=== PATIENT | male | born 1955 | race Caucasian/White ===

== ENCOUNTER → 2021-05-08 09:17 | Outpatient (BNVA) | payer MEDICARE, SELFPAY | PROVIDERS: PCP Family Medicine; Visit Provider Family Medicine | DX: Z11.52 Encounter for screening for COVID-19 (principal); Z20.822 Contact with and (suspected) exposure to COVID-19; I10 Essential (primary) hypertension; I25.10 Atherosclerotic heart disease of native coronary artery without angina pectoris | CPT/HCPCS: 80053; 80061; 82043; 85025; 87635 ==

== ENCOUNTER 2021-05-14 08:53 | Day surgery (SDC) | payer MEDICARE, SELFPAY ==
[2021-05-12 13:42] VITALS: BMI 34.2
--- NOTE | 2021-05-14 09:21 | ANES.PREANE2 ---
Pre-Anesthetic Assessment Pre-Anesthetic Assessment: Height/Weight: Height 1.85 m Weight 117.934 kg Preop Diagnosis: diagnostic Proposed Procedure: Operation Date: 05/14/21 10:00 Proposed Procedures p Colonoscopy 70055 Z12.11(Not Applicable) - Earle Rosenthal MD Was Beta Jacqueline taken within 24 hours: Yes Was Clonidine taken within 24 hours: N/A Social: Social History: No alcohol and No tobacco Exam: Pre-Anes Outpt Exam: alert, oriented x 3, clear to auscultation bilaterally and regular rate & rhythm Airway: Submandibular: WNL Cervical ROM: WNL MP: 2 Dentition: Full Pulmonary: Pulmonary: COPD CV/HEM: CV/HEM: CAD (CABG) and HTN Metabolic: Metabolic: Morbid obesity Neuropsych: Neuropsych: Neuropathy Anesthetic Plan: ASA status: 3 Anesthesia: MAC Risk of > 500 ml blood loss (7ml/kg in children): No PFSH Anesthesia PFSH: Medical History CAD (coronary artery disease) CVA (cerebral vascular accident) Essential hypertension GERD (gastroesophageal reflux disease) 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 Diagnosed in 2018 Surgical History History of coronary artery stent placement History of lumbar surgery L3 Status post double vessel coronary artery bypass CABG x 2 Family History Mother Heart disease Father Cancer Brother Diabetes Social History Smoking and tobacco status: never smoked Second hand smoke exposure: No Alcohol intake: never Adopted: No Caregiver/support person: No Lives independently: Yes Household members: spouse Housing: Manufactured/Mobile home Marital status: Number of children: 1 Highest education level completed: High School Graduate service: No Current occupational status: retired and disabled Pets and animals: No History of recent travel: No Sexually active: No Current gender identity: Male Special gautam needs: No Data Anesthesia Cardiac Studies: No Data to Display
[2021-05-14 09:28] VITALS: BP 160/87; PULSE 94; RESP 18; TEMP 36.7; O2SAT 94
[2021-05-14] MEDS: sodium chloride 0.9% 1,000 ML 30 ML IV (09:32)
--- NOTE | 2021-05-14 10:15 | W.PM.OPSFHP ---
Same Day Surgery H&P Indication for Procedure/HPI DATE OF PROCEDURE: May 14, 2021 CHIEF COMPLAINT/INDICATIONFOR SURGICAL PROCEDURE: colonoscpy PREOP DIAGNOSIS: diagnostic PLANNED PROCEDRUE: Operation Date: 05/14/21 10:00 Proposed Procedures p Colonoscopy 62290 Z12.11(Not Applicable) - Earle Rosenthal MD Medications/Allergies* Home Medications Medication Instructions Recorded Confirmed Type ascorbic acid (vitamin C) 1,000 mg 1 g PO DAILY tab 03/27/21 05/14/21 History tablet azithromycin 250 mg tablet 250 mg PO .COMPLEX 03/27/21 05/14/21 History coenzyme Q10 100 mg capsule 100 mg PO DAILY 03/27/21 05/14/21 History elderberry 1 tab PO DAILY 03/27/21 05/14/21 History hydrochlorothiazide 25 mg tablet 25 mg PO DAILY 03/27/21 05/14/21 History mecobalamin (vitamin B12) 5,000 5,000 mcg PO DAILY 03/27/21 05/14/21 History mcg disintegrating tablet metoprolol succinate 25 mg 25 mg PO DAILY 03/27/21 05/14/21 History tablet,extended release 24 hr multivitamin 1 tab PO DAILY 03/27/21 05/14/21 History omeprazole 40 mg capsule,delayed 40 mg PO DAILY 03/27/21 05/14/21 History release sucralfate 1 gram tablet 1 g PO BID 03/27/21 05/14/21 History tamsulosin 0.4 mg capsule 0.4 mg PO DAILY 03/27/21 05/14/21 History Allergies/Adverse Reactions Allergy/AdvReac Type Severity Reaction Status Date / Time No Known Allergies Allergy Verified 05/14/21 09:37 Current Medications: Generic Name Dose Route Start Last Admin Trade Name Freq PRN Reason Stop Dose Admin Sodium Chloride 1,000 mls @ 30 mls/hr 05/14/21 09:00 05/14/21 09:32 Sodium Chloride 0.9% IV 05/15/21 08:59 30 mls/hr .Q24H FER Administration Pertinent History/Comorbid Conditions* Medical History (Updated 05/11/21 @ 08:04 by Micaela Lara DO) CAD (coronary artery disease) CVA (cerebral vascular accident) Essential hypertension GERD (gastroesophageal reflux disease) 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 Diagnosed in 2018 Surgical History (Updated 03/27/21 @ 09:36 by Micaela Lara DO) History of coronary artery stent placement History of lumbar surgery L3 Status post double vessel coronary artery bypass CABG x 2 Family History (Updated 03/27/21 @ 09:22 by Guera Linares LPN) Diabetes Brother Heart disease Mother Cancer Father Social History Smoking and tobacco status: never smoked Second hand smoke exposure: No Alcohol intake: never Adopted: No Caregiver/support person: No Lives independently: Yes Household members: spouse Housing: Manufactured/Mobile home Marital status: Number of children: 1 Highest education level completed: High School Graduate service: No Current occupational status: retired and disabled Pets and animals: No History of recent travel: No Sexually active: No Current gender identity: Male Special gautam needs: No Pertinent Exam Findings alert, oriented x 3 and regular rate & rhythm Recommendations Surgery/Procedure today Coding Level of Care Code Acute Aircraft 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
[2021-05-14 10:43] VITALS: BP 162/114; PULSE 93; RESP 18; TEMP 36.6; O2SAT 95
--- NOTE | 2021-05-14 10:43 | ANE.PACU2 ---
Inpatient post-anesthesia follow up: Airway intact: Yes Vital signs: Temperature 97.9 F Pulse Rate 93 Respiratory Rate 18 Blood Pressure 162/114 Pulse Oximetry 95 Oxygen Delivery Me thod Room Air Oxygen Flow Rate Fraction of Inspir ed Oxygen Hydration adequate: Yes Mental status: Baseline
[2021-05-14 10:52] VITALS: BP 160/91; PULSE 85; RESP 18; TEMP 36.7; O2SAT 92
--- NOTE | 2021-05-14 14:10 | ANE.PACU2 ---
Inpatient post-anesthesia follow up: Airway intact: Yes Vital signs: Temperature 98.1 F Pulse Rate 85 Respiratory Rate 18 Blood Pressure 160/91 Pulse Oximetry 92 Oxygen Delivery Me thod Room Air Oxygen Flow Rate Fraction of Inspir ed Oxygen Hydration adequate: Yes Nausea and vomiting: No Pain level: 1 Mental status: Baseline
== END 2021-05-14 11:11 | disposition home or self-care (01) ==
PROVIDERS: PCP Family Medicine; Visit Provider Surgery
PROC: 0DJD8ZZ Inspection of Lower Intestinal Tract, Via Natural or Artificial Opening Endoscopic (ICD-10-PCS; CPT 45378; principal; 2021-05-14 10:00)
DX: Z12.11 Encounter for screening for malignant neoplasm of colon (principal); K57.30 Diverticulosis of large intestine without perforation or abscess without bleeding; K64.8 Other hemorrhoids; J44.9 Chronic obstructive pulmonary disease, unspecified; I25.10 Atherosclerotic heart disease of native coronary artery without angina pectoris; I10 Essential (primary) hypertension; E66.01 Morbid (severe) obesity due to excess calories; Z68.41 Body mass index [BMI] 40.0-44.9, adult; Z86.73 Personal history of transient ischemic attack (TIA), and cerebral infarction without residual deficits; K21.9 Gastro-esophageal reflux disease without esophagitis; Z95.1 Presence of aortocoronary bypass graft
CPT/HCPCS: 96360; G0121; J2704; J7030

== ENCOUNTER → 2021-05-15 09:41 | Outpatient (BNVA) | payer MEDICARE, SELFPAY | PROVIDERS: PCP Family Medicine; Visit Provider Family Medicine | DX: D64.9 Anemia, unspecified (principal); R73.9 Hyperglycemia, unspecified | CPT/HCPCS: 82607; 82746; 83036 ==

== ENCOUNTER → 2021-06-15 15:26 | Outpatient (BNVA) | payer MEDICARE, SELFPAY | PROVIDERS: PCP Family Medicine; Visit Provider Surgery | DX: Z20.822 Contact with and (suspected) exposure to COVID-19 (principal) | CPT/HCPCS: 87635 ==

== ENCOUNTER 2021-06-21 09:48 | Emergency (ER) | payer MEDICARE, SELFPAY ==
--- NOTE | 2021-06-21 09:52 | W.ED.SOB ---
HPI - SOB/Dyspnea General: Chief Complaint: COVID symptoms Stated Complaint: GEOVANNA 02 CAME FROM INFUSION ROOM Time Seen by Provider: 06/21/21 09:52 History of Present Illness: HPI Narrative: Mr. García is a 65-year-old gentleman with history of hypertension, hyperlipidemia, history of CAD and history of non-small cell lung cancer with metastases status post completion of therapy thought to be remission who presents emergency department due to shortness of breath. Approximately 8 days ago he developed fairly typical COVID symptoms including aches, pains, diarrhea, headache, cough, shortness of breath. He always wears oxygen at night at 2 L however has had increased use to 2 L all the time. He feels mildly worse with exertion however overall feels that he has been improving. He was referred for monoclonal antibody infusion and went to the infusion clinic where he was noted to have oxygen saturations on 2 L at 92% and referred to the ED for clinical evaluation. No associated chest pain or pleuritic nature. Denies other specific changes in health, overall intensity of symptoms is mild to moderate. No other specific exacerbating relieving factors identified. MD elicited complaint: shortness of breath and cough Pertinent past history: other Onset (ago): day(s) Context: recent illness Timing: constant Severity: moderate Exacerbating factors: exertion Relieving factors: oxygen and medication Known history of: COPD and other Associated symptoms: Reports other Treatment prior to arrival: oxygen Review of Systems General: Reports: 10 or more systems reviewed and unremarkable except in HPI and below PFSH ED PFSH: Medical History CAD (coronary artery disease) CVA (cerebral vascular accident) Essential hypertension GERD (gastroesophageal reflux disease) 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 Diagnosed in 2018 Surgical History History of coronary artery stent placement History of lumbar surgery L3 Status post colonoscopy (05/14/21) dvierticulosis Status post double vessel coronary artery bypass CABG x 2 Family History Mother Heart disease Father Cancer Brother Diabetes Social History Smoking and tobacco status: former smoker Second hand smoke exposure: No Alcohol intake: never Adopted: No Caregiver/support person: No Lives independently: Yes Household members: spouse Housing: Manufactured/Mobile home Marital status: Number of children: 1 Highest education level completed: High School Graduate service: No Current occupational status: retired and disabled Pets and animals: No History of recent travel: No Sexually active: No Current gender identity: Male Special gautam needs: No Physical Exam Const: COMMON NORMALS: alert GENERAL APPEARANCE: cooperative, well developed and ill appearing (mildly) HENMT: COMMON NORMALS: normocephalic and atraumatic HEAD & SCALP: normocephalic and atraumatic THROAT: posterior oropharynx normal Eye: COMMON NORMALS: conjunctivae normal CONJUNCTIVA: Yes conjunctivae normal SCLERA: sclerae normal Neck/C-Spine: COMMON NORMALS: supple GENERAL: Yes trachea midline Resp: EFFORT & INSPECTION: Yes tachypneic AUSCULTATION: rhonchi lower bilaterally and diminished lung sounds Cardio: COMMON NORMALS: regular rate and regular rhythm RATE: regular rate RHYTHM: regular rhythm GI: COMMON NORMALS: Soft to palpation PALPATION: Yes Soft to palpation and No Tenderness to palpation present (GI) PERCUSSION: normal to percussion Extremity: GENERAL: Yes normal exam except as noted and No edema Neuro: COMMON NORMALS: moves all extremities SENSORIUM/ORIENTATION: Yes alert and No Orientation impaired Psych: COMMON NORMALS: mental status grossly normal and Normal thought process present THOUGHT PROCESS: Normal thought process present Course ED course: - Patient was seen and evaluated by me at bedside - Patient placed on cardiac monitors, IV access obtained - Initial evaluation notable for exam as above, increased work of breathing. - Labs notable for leukopenia, normal hemoglobin. Metabolic panel with mild hypokalemia, replenishment ordered. Procalcitonin negative. - Imaging notable for bilateral patchy pulmonary opacities consistent with known COVID-19 - Upon serial reexamination after treatment the patient was improved. - Based on patient history, evaluation, labs, and imaging as interpreted the most likely cause of the patient's condition is COVID-19. Patient is currently requiring 2 L of oxygen and is not in significant respiratory distress. Unfortunately, given current COVID-19 burden on the healthcare system and no bed availability patient qualifies for continued outpatient management with strict return precautions. He is currently already on steroids. - The results of ED evaluation were discussed with the patient including prescriptions and/or symptomatic cares (if applicable) including appropriate and responsible use, followup plan, and return precautions. The patient verbalized understanding and felt safe for discharge. - Patient discharged in satisfactory condition. Note: Click bubbles or prepopulated garcía in note writing are used for assistance with data collection and billing and are inherently more limited than narrative and other text portions of this note. Please use narrative for additional clinical history and defer to narrative/free test for any case of contradictory information. If information appears in only free text or click bubble it should be considered present or absent as reported. Please contact note underwriter solicitation director for clarifications of clinical information or contradictory information. MDM is a brief summary, contradictory or erroneous seeming information should be clarified and full note should be reviewed. Vital Signs: Vital signs: Vital Signs Temperature 98.4 F 06/21/21 10:00 Pulse Rate 74 06/21/21 10:00 Respiratory Rate 18 06/21/21 10:00 Blood Pressure 145/75 06/21/21 10:00 Pulse Oximetry 95 06/21/21 10:52 MDM - SOB/Dyspnea MDM Narrative Medical decision making narrative: 65-year-old gentleman presenting with 8 days of symptoms who is Covid positive due to feeling worse. Same 2 L oxygen requirement. Labs and imaging without evidence of additional pathologic process. Plan to continue outpatient management with strict return precautions as has become typical Medical Records Attestation: I reviewed the patient's medical records. Lab Data Attestation: I reviewed the patient's lab results. Result diagrams: 06/21/21 10:25 06/21/21 10:25 Labs: Lab Results 06/21/21 06/21/21 06/21/21 10:25 10:25 11:06 WBC 2.8 10^3/uL L 10^3/uL (4.0-10.0) RBC 4.04 10^6/uL L 10^6/uL (4.1-5.3) Hgb 13.8 g/dL g/dL (11.7-16.6) Hct 41.2 % L % (42.0-52.0) MCV 102.0 fl H fl (80-94) MCH 34.2 pg H pg (28.0-34.0) MCHC 33.5 g/dL g/dL (30.0-36.0) RDW 13.4 % % (12.1-15.1) Plt Count 138 10^3/cmm 10^3/cmm (130-400) MPV 11.1 fL H fL (7.4-10.4) Neut % (Auto) 49.0 % % Lymph % (Auto) 37.6 % % Wilkes % (Auto) 12.2 % % Eos % (Auto) 0.4 % % Baso % (Auto) 0.4 % % Neut # (Auto) 1.37 10^3/uL L 10^3/uL (1.8-7.7) Lymph # (Auto) 1.1 10^3/uL 10^3/uL (0.8-4.8) Wilkes # (Auto) 0.3 10^3/uL 10^3/uL (0.2-0.9) Eos # (Auto) 0.0 10^3/uL 10^3/uL (0.0-0.8) Baso # (Auto) 0.0 10^3/uL 10^3/uL (0.0-0.1) Nucleated RBC % (auto) 0 % % Nucleated RBCs # 0.0 /100WBC /100WBC Specimen Type Arterial Sample Site Brachial, right ABG pH 7.43 (7.35-7.45) ABG pCO2 44.3 mmHg mmHg (35-45) ABG pO2 93.9 mmHg mmHg (80.0-100.0) ABG HCO3 29.0 mmol/L H mmol/L (22-26) ABG O2 Saturation 96.8 ABG Base Excess 4.0 mmol/L H mmol/L (-2.0-2.0) Ambrose Test Pos A-a O2 Gradient 14.0 mmHg H mmHg (5-10) Hematocrit 42.9 % % (42-52) Hgb O2 Saturation 96.1 % % (95-100) Carboxyhemoglobin < 0.0 %THgb L %THgb (0.4-20.1) Methemoglobin 0.9 % % (0.4-1.5) Total Hemoglobin 14.0 g/dL g/dL (14-18) Ionized Calcium 1.2 mmol/L mmol/L (1.1-1.4) O2 Delivery Device Nc O2 Liters/Min 4.0 % % FiO2 36.0 % % South Asian History Professor ID Bd Sodium 139 mmol/L mmol/L 142.0 mmol/L mmol/L (136-145) (131-143) Potassium 3.3 mmol/L L mmol/L 3.1 mmol/L L mmol/L (3.5-5.1) (3.5-5.0) Chloride 102 mmol/L mmol/L (98-107) Carbon Dioxide 22 mmol/L mmol/L (22-29) Anion Gap 18.3 (5-19) BUN 11 mg/dL mg/dL (8-23) Creatinine 0.6 mg/dL L mg/dL (0.7-1.2) GFR Calculation 135.6 mL/min H mL/min (90-130) Glucose 120 mg/dL H mg/dL 123.0 mg/dL H mg/dL (65-115) (70-115) Calculated Osmolality 289 mOsm/kg mOsm/kg (285-295) Calcium 8.8 mg/dL mg/dL (8.5-10.5) Total Bilirubin 0.5 mg/dL mg/dL (0.15-1.2) AST 69 U/L H U/L (0-40) ALT 41 U/L U/L (0-41) Alkaline Phosphatase 46 IU/L IU/L (40-130) NT-Pro-B Natriuret Pep 111 pg/mL pg/mL (0-125) Total Protein 6.7 g/dL g/dL (6.6-8.7) Albumin 3.6 g/dL g/dL (3.5-5.2) Globulin 3.1 g/dL g/dL (1.3-4.6) Procalcitonin 0.08 ng/mL ng/mL (0-0.5) EKG Data^ EKG 1: Interpretation: Twelve-lead EKG shows a regular rhythm at a rate of 73. WA interval 159, QRS 105, QTc 414. Normal axis. Interpretation: Sinus rhythm. Discharge Plan Discharge Patient Disposition: Home Clinical Impression: COVID-19, Hypoxia Condition: Stable Prescriptions: No Action omeprazole 40 mg capsule,delayed release(DR/EC) 40 mg PO QAM 0RF hydrochlorothiazide 25 mg tablet 25 mg PO DAILY 0RF azithromycin 250 mg tablet 250 mg PO .MON,WED,FRI 0RF ascorbic acid (vitamin C) 1,000 mg tablet 1 g PO DAILY 0RF coenzyme Q10 100 mg capsule 100 mg PO DAILY 0RF multivitamin Tablet 1 tab PO DAILY 0RF elderberry 1 tab PO DAILY PRN (Reason: unknown) 0RF albuterol sulfate 90 mcg/actuation aerosol powdr breath activated 2 inh inhalation Q4H PRN (Reason: SOB) Qty: 1 5RF Rx Instructions: 340 B budesonide-formoterol [Symbicort] 160-4.5 mcg/actuation HFA aerosol inhaler 2 puff inhalation Q12H Qty: 10.2 5RF Rx Instructions: 340 B metformin 500 mg tablet extended release 24 hr 500 mg PO DAILY 30 Days Qty: 30 0RF tamsulosin 0.4 mg capsule 0.4 mg PO DAILY 90 Days Qty: 90 0RF meloxicam [Mobic] 15 mg tablet 15 mg PO DAILY 90 Days Qty: 90 0RF ezetimibe [Zetia] 10 mg tablet 10 mg PO DAILY 90 Days Qty: 90 0RF amoxicillin 500 mg capsule 500 mg PO TID 0RF prednisone 20 mg tablet 20 mg PO BID 0RF metoprolol tartrate 25 mg tablet 25 mg PO QAM 0RF Vitamin D3 1 cap PO DAILY 0RF Discharge Orders: Discharge ED (Routine); Ordered 06/21/21 Ordered By: Shaheen Garcia Referrals: Micaela Lara DO [Primary Care Provider] - Discharge Diet: Usual diet Discharge Activity: Resume usual activity Patient Instructions: COVID-19 (Coronavirus Disease 2019) (ED) Activity Restrictions/Additional Instructions: Thank you for visiting the emergency department. You were seen and evaluated for shortness of breath. This is likely related to your underlying COVID. The challenges that given your increase in oxygen use from your baseline that you do not qualify for monoclonal antibody infusion. Please continue to use symptomatic cares and your previously prescribed steroids. Return to the emergency department for worsening symptoms, oxygen saturation at rest less than 90% on oxygen, or anything else that you are concerned about a feel needs emergency department evaluation. Coding Level of Care Code ED Edge Blacker for Amalia Campoverde
[2021-06-21 10:00] VITALS: BP 145/75; PULSE 74; RESP 18; TEMP 36.9; O2SAT 93; BMI 33.0
--- NOTE | 2021-06-21 10:18 | XRR_ITS ---
PROCEDURE INFORMATION: Exam: XR Chest Exam date and time: 06/21/2021 10:18 AM Age: 65 years old Clinical indication: Shortness of breath; Prior surgery; Surgery type: Open heart; Additional info: SOB TECHNIQUE: Imaging protocol: XR of the chest. Views: 1 view. COMPARISON: CR Chest 1 [place] [id number] 02/21/2018 12:58 AM FINDINGS: Lungs: Calcified granuloma noted in the left peripheral mid lung. No consolidation. Pleural spaces: Unremarkable. No pleural effusion. No pneumothorax. Heart/Mediastinum: Heart size within normal limits for AP technique. Bones/joints: Sternotomy wires noted. Visualized osseous structures are intact. XR/XR chest 1V portable [id number] IMPRESSION: No acute findings.
--- NOTE | 2021-06-21 10:18 | ECG_ITS ---
[facility] Test Date: 2021-06-21 Pat Name: Herve García Department: Room: Gender: Male Practicing Urologist: : [id number] Requested By: Shaheen Garcia Order Number: [id number] Fox MD: Griffin Feldman M.D. Measurements Intervals [place] Rate: 73 P: 46 NE: 159 QRS: 37 QRSD: 105 T: 54 QT: 388 QTc: 430 Interpretive Statements SINUS RHYTHM Compared to ECG 02/21/2018 00:05:22 No significant changes Electronically Signed On 06-22-2021 23:58:13 CONTROL MANAGER by Griffin Feldman M.D. [id number]
[2021-06-21 10:52] VITALS: O2SAT 95
[2021-06-21 11:17] LABS: ABG PCO2 44.3 mmHg (35-45); ABG PH Result 7.43 (7.35-7.45); Arterial Blood Gas Hematocrit 42.9 % (42-52); Blood Gas Allen Test Pos; Blood Gas Operator Identificat BD; Blood Gas Sample Site Brachial, right; Blood Gas Sample Type Arterial; Carboxyhemoglobin < 0.0 %THgb (0.4-20.1); HGB O2 Sat 96.1 % (95-100); Ionized Calcium Level - ABG 1.2 mmol/L (1.1-1.4); Methemoglobin 0.9 % (0.4-1.5); Oxygen Device NC; Oxygen Saturation ABG 96.8; PO2 ABG 93.9 mmHg (80.0-100.0); Potassium Level - ABG 3.1 mmol/L (3.5-5.0)
[2021-06-21 11:26] LABS: Basophils % 0.4 %; Eosinophils % 0.4 %; Hematocrit 41.2 % (42.0-52.0); Hemoglobin 13.8 g/dL (11.7-16.6); Lymphocytes # 1.1 10^3/uL (0.8-4.8); Lymphocytes % 37.6 %; Mean Corpuscular Hemoglobin 34.2 pg (28.0-34.0); Mean Platelet Volume 11.1 fL (7.4-10.4); Monocytes # 0.3 10^3/uL (0.2-0.9); Monocytes % 12.2 %; Neutrophils # 1.37 10^3/uL (1.8-7.7); Nucleated Red Blood Cells % 0 %; Red Blood Count 4.04 10^6/uL (4.1-5.3); Red Cell Distribution Width 13.4 % (12.1-15.1); White Blood Count 2.8 10^3/uL (4.0-10.0)
[2021-06-21 11:28] LABS: Mean Corpuscular HGB Conc 33.5 g/dL (30.0-36.0)
[2021-06-21 11:29] LABS: Platelet Count 138 10^3/cmm (130-400)
[2021-06-21 11:32] LABS: NT Pro B Type Natriuretic Pept 111 pg/mL (0-125); Procalcitonin 0.08 ng/mL (0-0.5)
[2021-06-21 11:43] LABS: Alanine Aminotransferase 41 U/L (0-41); Albumin Level 3.6 g/dL (3.5-5.2); Alkaline Phosphatase 46 IU/L (40-130); Anion Gap 18.3 (5-19); Aspartate Amino Transferase 69 U/L (0-40); Blood Urea Nitrogen 11 mg/dL (8-23); Calcium 8.8 mg/dL (8.5-10.5); Carbon Dioxide 22 mmol/L (22-29); Chloride 102 mmol/L (98-107); Globulin 3.1 g/dL (1.3-4.6); Glomerular Filtration Rate 135.6 mL/min (90-130); Glucose 120 mg/dL (65-115); Osmolality Calculated 289 mOsm/kg (285-295); Potassium 3.3 mmol/L (3.5-5.1); Sodium 139 mmol/L (136-145); Total Bilirubin 0.5 mg/dL (0.15-1.2); Total Protein 6.7 g/dL (6.6-8.7)
[2021-06-21] MEDS: potassium chloride ER 20 mEq Tablet 40 MEQ PO (11:56)
== END 2021-06-21 12:44 | disposition home or self-care (01) ==
PROVIDERS: Emergency Provider Emergency Medicine; PCP Family Medicine
DX: U07.1 COVID-19 (principal); R09.02 Hypoxemia; Z79.84 Long term (current) use of oral hypoglycemic drugs; I25.10 Atherosclerotic heart disease of native coronary artery without angina pectoris; Z86.73 Personal history of transient ischemic attack (TIA), and cerebral infarction without residual deficits; I10 Essential (primary) hypertension; Z85.118 Personal history of other malignant neoplasm of bronchus and lung; Z85.89 Personal history of malignant neoplasm of other organs and systems; Z95.1 Presence of aortocoronary bypass graft; Z87.891 Personal history of nicotine dependence
CPT/HCPCS: 36600; 71045; 80051; 80053; 82330; 82805; 83880; 84145; 85025; 93005; 99283

== ENCOUNTER 2021-06-22 12:37 | Inpatient (IN) | payer MEDICARE, SELFPAY ==
[2021-06-22] VITALS (10 sets, daily range): BP systolic 143–163; BP diastolic 71–88; PULSE 58–96; RESP 14–28; TEMP 36.7–37.1; O2SAT 92–96; BMI 33.0
--- NOTE | 2021-06-22 13:41 | XR_ITS ---
WS: [id number] Portable AP upright chest, 06/22/2021 Clinical Data: worsening o2 sats Comparison: Portable chest, 06/21/2021. Findings: Bilateral patchy opacities have occurred since yesterday. They're mostly in the lung periph eries and probably represent the development of acute pneumonia. The heart is normal. No nodules, eff usions or masses are seen. The aortic arch and descending thoracic aorta show calcification and tortu osity. Midline sternotomy sutures are present. XR/XR chest 1V portable [id number] Impression: 1. Development of bilateral patchy pulmonary opacities which may represent acut e pneumonia. 2. Atherosclerosis.
--- NOTE | 2021-06-22 13:52 | ED_ITS ---
Documented by User: ADRYAN Wilson 06/22/21 13:54 HPI - COVID General: Chief Complaint: Shortness of Breath/Dyspnea Stated Complaint: trouble breathing, cov + Time Seen by Provider: 06/22/21 14:06 Triage information: Has fever, cough or shortness of breath . Exposure to COVID + person last 14 days History of Present Illness: HPI Narrative: Patient is tested in Covid waiting room. Patient is having worsening shortness of breath since seen here yesterday. says sats were down in the 70s last night. Patient on oxygen at night generally. Patient now on 5 L in the Covid waiting room sats ranging from 88 to 92%. COVID Results: SARS-CoV-2 RNA (RT-PCR) Detected (NOT DETECTED) A 06/15/21 15:26 06/15/21 PFS ED PFSH: Medical History CAD (coronary artery disease) CVA (cerebral vascular accident) Essential hypertension GERD (gastroesophageal reflux disease) 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 Diagnosed in 2018 Surgical History History of coronary artery stent placement History of lumbar surgery L3 Status post colonoscopy (05/14/21) dvierticulosis Status post double vessel coronary artery bypass CABG x 2 Family History Mother Heart disease Father Cancer Brother Diabetes Social History Smoking and tobacco status: never smoked Second hand smoke exposure: No Alcohol intake: never Adopted: No Caregiver/support person: No Lives independently: Yes Household members: spouse Housing: Manufactured/Mobile home Marital status: Number of children: 1 Highest education level completed: High School Graduate service: No Current occupational status: retired and disabled Pets and animals: No History of recent travel: No Sexually active: No Current gender identity: Male Special gautam needs: No Course Vital Signs: Vital signs: Vital Signs Temperature 98.8 F 06/22/21 12:45 Pulse Rate 89 06/22/21 14:41 Respiratory Rate 20 H 06/22/21 14:41 Blood Pressure 163/83 01/24/22 12:45 Pulse Oximetry 92 06/22/21 14:41 MDM - COVID MDM Narrative: Medical decision making narrative: Brief history and physical exam was performed as part of the triage process. Due to current ED wait time patient will be placed in waiting room until a room becomes available. Explained to patient he/she will be seen in order of severity. Patient is currently safe to wait in the waiting room until we can get them placed. Patient informed that if condition worsens at any time to please let the front desk associate know. Charge nurse notified at 145 patient needs come back as soon as p ossible. Patient's O2 and sats were rechecked and 89 -90%. Ice chips provided. Lab Data: Labs: Lab Results 06/22/21 06/22/21 06/22/21 14:30 14:30 14:30 WBC 2.7 10^3/uL L 10^ 3/uL (4.0-10.0) RBC 4.18 10^6/uL 10^6 /uL (4.1-5.3) Hgb 14.3 g/dL g/dL (11.7-16.6) Hct 42.5 % % (42.0-52.0) MCV 101.7 fl H fl (80-94) MCH 34.2 pg H pg (28.0-34.0) MCHC 33.6 g/dL g/dL (30.0-36.0) RDW 13.4 % % (12.1-15.1) Plt Count 148 10^3/cmm 10^3 /cmm (130-400) MPV 10.4 fL fL (7.4-10.4) Neut % (Auto) 52.1 % % Lymph % (Auto) 38.2 % % [place] % (Auto) 8.6 % % Eos % (Auto) 0.7 % % Baso % (Auto) 0.0 % % Neut # (Auto) 1.39 10^3/uL L 10 ^3/uL (1.8-7.7) Lymph # (Auto) 1.0 10^3/uL 10^3/ uL (0.8-4.8) [place] # (Auto) 0.2 10^3/uL 10^3/ uL (0.2-0.9) Eos # (Auto) 0.0 10^3/uL 10^3/ uL (0.0-0.8) Baso # (Auto) 0.0 10^3/uL 10^3/ uL (0.0-0.1) Nucleated RBC % (a uto) 0 % % Nucleated RBCs # 0.0 /100WBC /100W BC PT 13.40 SECONDS SEC ONDS (12.1-14.9) INR 0.99 (0.8-1.2) D-Dimer 0.75 ug/mIFEU H u g/mIFEU (0-0.59) Specimen Type Arterial ABG pH 7.46 H (7.35-7.45) ABG pCO2 39.3 mmHg mmHg (35-45) ABG pO2 72.4 mmHg L mmHg (80.0-100.0) ABG HCO3 28.1 mmol/L H mmo l/L (22-26) ABG Base Excess 4.0 mmol/L H mmol /L (-2.0-2.0) Ambrose Test Pos Hematocrit 43.4 % % (42-52) Hgb O2 Saturation 93.9 % L % (95-100) Carboxyhemoglobin 0.0 %THgb L %THgb (0.4-20.1) Methemoglobin 0.6 % % (0.4-1.5) Total Hemoglobin 14.1 g/dL g/dL (14-18) O2 Delivery Device Nc O2 Liters/Min 4.0 % % Chemical Processing Equipment Repairer ID Anonymous Sodium Potassium Chloride Carbon Dioxide Anion Gap BUN Creatinine GFR Calculation Glucose Calculated Osmolal ity Calcium Total Bilirubin AST ALT Alkaline Phosphata se Total Protein Albumin Globulin Procalcitonin Urine Color Urine Appearance Urine pH Ur Specific Gravit y Urine Protein Urine Glucose (UA) Urine Ketones Urine Blood Urine Nitrate Urine Bilirubin Urine Urobilinogen Ur Leukocyte Erika ase Urine RBC Urine WBC Ur Squamous Epith Cells Amorphous Sediment Urine Bacteria Urine Mucus 06/22/21 06/22/21 14:30 14:30 WBC RBC Hgb Hct MCV MCH MCHC RDW Plt Count MPV Neut % (Auto) Lymph % (Auto) [place] % (Auto) Eos % (Auto) Baso % (Auto) Neut # (Auto) Lymph # (Auto) [place] # (Auto) Eos # (Auto) Baso # (Auto) Nucleated RBC % (a uto) Nucleated RBCs # PT INR D-Dimer Specimen Type ABG pH ABG pCO2 ABG pO2 ABG HCO3 ABG Base Excess Ambrose Test Hematocrit Hgb O2 Saturation Carboxyhemoglobin Methemoglobin Total Hemoglobin O2 Delivery Device O2 Liters/Min Chemical Processing Equipment Repairer ID Sodium 140 mmol/L mmol/L (136-145) Potassium 3.3 mmol/L L mmol /L (3.5-5.1) Chloride 100 mmol/L mmol/L (98-107) Carbon Dioxide 28 mmol/L mmol/L (22-29) Anion Gap 15.3 (5-19) BUN 9 mg/dL mg/dL (8-23) Creatinine 0.7 mg/dL mg/dL (0.7-1.2) GFR Calculation 113.5 mL/min mL/m in (90-130) Glucose 118 mg/dL H mg/dL (65-115) Calculated Osmolal ity 290 mOsm/kg mOsm/ kg (285-295) Calcium 8.2 mg/dL L mg/dL (8.5-10.5) Total Bilirubin 0.5 mg/dL mg/dL (0.15-1.2) AST 74 U/L H U/L (0-40) ALT 40 U/L U/L (0-41) Alkaline Phosphata se 52 IU/L IU/L (40-130) Total Protein 6.8 g/dL g/dL (6.6-8.7) Albumin 3.9 g/dL g/dL (3.5-5.2) Globulin 2.9 g/dL g/dL (1.3-4.6) Procalcitonin 0.04 ng/mL ng/mL (0-0.5) Urine Color Dark yellow (Yellow) Urine Appearance Clear (CLEAR) Urine pH 6 (5-7) Ur Specific Gravit y 1.020 (1.005-1.030) Urine Protein 1+ H (Negative) Urine Glucose (UA) Norm (Normal) Urine Ketones 1+ H (Negative) Urine Blood 2+ H (Negative) Urine Nitrate Negative (Negative) Urine Bilirubin 1+ H (Negative) Urine Urobilinogen Neg mg/dL mg/dL (Negative) Ur Leukocyte Erika ase Negative (Negative) Urine RBC 0-4 /hpf H /hpf (0-2) Urine WBC 0-4 /hpf H /hpf (0-5) Ur Squamous Epith Cells 0-4 /hpf H /hpf (0-5) Amorphous Sediment Not Reportable Urine Bacteria 1+ /hpf H /hpf (NONE) Urine Mucus Trace /hpf /hpf COVID Results: SARS-CoV-2 RNA (RT-PCR) Detected (NOT DETECTED) A 06/15/21 15:26 06/15/21 Discharge Plan Discharge Patient Disposition: Admitted As Inpatient Clinical Impression: COVID-19, Acute respiratory failure with hypoxia, Acute hypokalemia Condition: Stable Coding Level of Care Code ED Production Gear Cutter for Chg Fwd Exam Detailed Documented by User: Usman Watkins DO 06/22/21 17:26 HPI - COVID General: Chief Complaint: Shortness of Breath/Dyspnea Stated Complaint: trouble breathing, cov + Time Seen by Provider: 06/22/21 14:06 History of Present Illness: HPI Narrative: 65-year-old male presents to the emergency room for reevaluation for his COVID. He has worsening shortness of breath chest pain abdominal discomfort along with diarrhea myalgias and nonproductive cough. His symptoms began 8 days ago he was tested 7 days ago and was positive. He was seen yesterday in the emergency room and discharged home on oxygen by nasal cannula. On arrival here today his baseline oxygen saturation on 2 L was in the 70% range. He improves at 5 L per nasal cannula to around 90 but with minimal conversation or even sitting up in bed during exam he desats into the upper 80s. He denies any chest pain at this time. He is had diarrhea he is diabetic and takes Metformin. He is also obese and hypertensive. MD complaint: known COVID positive Prior testing date: 06/15/21 COVID 19 common symptoms: positive fever(s), chills, cough, non-productive cough, dyspnea, fatigue, body aches, headache(s), throat pain, nasal congestion and diarrhea COVID 19 other sytmptoms: positive requiring more oxygen; negative chest pain Onset (ago): day(s) (8) Severity: severe Pertinent comorbid conditions: diabetes, hypertension and obesity Treatment prior to arrival: steroids and oxygen COVID Results: SARS-CoV-2 RNA (RT-PCR) Detected (NOT DETECTED) A 06/15/21 15:26 06/15/21 Review of Systems Const: Reports: fever(s), chills, body aches and fatigue ENMT: Reports: throat pain and nasal congestion Card: Denies: chest pain, edema, dyspnea on exertion or orthopnea Resp: Reports: dyspnea and non-productive cough GI: Reports: diarrhea : Denies: flank pain, dysuria, urinary frequency or urinary urgency Skin/Breast: Denies: rash or pruritus Neuro: Reports: headache(s) PFSH ED PFSH: Medical History CAD (coronary artery disease) CVA (cerebral vascular accident) Essential hypertension GERD (gastroesophageal reflux disease) 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 Diagnosed in 2018 Surgical History History of coronary artery stent placement History of lumbar surgery L3 Status post colonoscopy (05/14/21) dvierticulosis Status post double vessel coronary artery bypass CABG x 2 Family History Mother Heart disease Father Cancer Brother Diabetes Social History Smoking and tobacco status: never smoked Second hand smoke exposure: No Alcohol intake: never Adopted: No Caregiver/support person: No Lives independently: Yes Household members: spouse Housing: Manufactured/Mobile home Marital status: Number of children: 1 Highest education level completed: High School Graduate service: No Current occupational status: retired and disabled Pets and animals: No History of recent travel: No Sexually active: No Current gender identity: Male Special gautam needs: No Physical Exam Const: GENERAL APPEARANCE: cooperative and comfortable ORIENTA TION/CONSCIOUSNESS: Yes awake, Yes oriented to person, Yes oriented to place and Yes oriented to time HENMT: COMMON NORMALS: normocephalic, atraumatic and hearing grossly normal bilaterally HEAD & SCALP: normocephalic and atraumatic Resp: AUSCULTATION: crackles and wheezes Cardio: COMMON NORMALS: regular rate, regular rhythm and No murmurs present (Cardio) RATE: regular rate RHYTHM: regular rhythm GI: COMMON NORMALS: Soft to palpation and No hepatosplenomegaly present AUSCULTATION: Yes normoactive bowel sounds PALPATION: Yes Soft to palpation, No Tenderness to palpation present (GI), No Guarding due to palpation present (GI) and Yes No hepatosplenomegaly present Extremity: COMMON NORMALS: normal to inspection, capillary refill normal, no clubbing, cyanosis or edema, no calf tenderness and no pedal edema Neuro: SENSORIUM/ORIENTATION: Yes oriented to person, Yes oriented to place and Yes oriented to time Skin: COMMON NORMALS: no rashes or lesions noted GENERAL SKIN EXAM: no rashes or lesions noted Course Vital Signs: Vital signs: Vital Signs Temperature 98.8 F 06/22/21 12:45 Pulse Rate 89 06/22/21 14:41 Respiratory Rate 20 H 06/22/21 14:41 Blood Pressure 163/83 06/22/21 12:45 Pulse Oximetry 92 06/22/21 14:41 MDM - COVID MDM Narrative: Medical decision making narrative: Acute hypoxic respiratory failure with oxygen sats on 2 L in the 70% range. He is requiring heated high flow he will require hospital admission for oxygen support remdesivir and dexamethasone discussed the hospitalist orders written Lab Data: Labs: Lab Results 06/22/21 06/22/21 06/22/21 14:30 14:30 14:30 WBC 2.7 10^3/uL L 10^ 3/uL (4.0-10.0) RBC 4.18 10^6/uL 10^6 /uL (4.1-5.3) Hgb 14.3 g/dL g/dL (11.7-16.6) Hct 42.5 % % (42.0-52.0) MCV 101.7 fl H fl (80-94) MCH 34.2 pg H pg (28.0-34.0) MCHC 33.6 g/dL g/dL (30.0-36.0) RDW 13.4 % % (12.1-15.1) Plt Count 148 10^3/cmm 10^3 /cmm (130-400) MPV 10.4 fL fL (7.4-10.4) Neut % (Auto) 52.1 % % Lymph % (Auto) 38.2 % % [place] % (Auto) 8.6 % % Eos % (Auto) 0.7 % % Baso % (Auto) 0.0 % % Neut # (Auto) 1.39 10^3/uL L 10 ^3/uL (1.8-7.7) Lymph # (Auto) 1.0 10^3/uL 10^3/ uL (0.8-4.8) [place] # (Auto) 0.2 10^3/uL 10^3/ uL (0.2-0.9) Eos # (Auto) 0.0 10^3/uL 10^3/ uL (0.0-0.8) Baso # (Auto) 0.0 10^3/uL 10^3/ uL (0.0-0.1) Nucleated RBC % (a uto) 0 % % Nucleated RBCs # 0.0 /100WBC /100W BC PT 13.40 SECONDS SEC ONDS (12.1-14.9) INR 0.99 (0.8-1.2) D-Dimer 0.75 ug/mIFEU H u g/mIFEU (0-0.59) Specimen Type Arterial ABG pH 7.46 H (7.35-7.45) ABG pCO2 39.3 mmHg mmHg (35-45) ABG pO2 72.4 mmHg L mmHg (80.0-100.0) ABG HCO3 28.1 mmol/L H mmo l/L (22-26) ABG Base Excess 4.0 mmol/L H mmol /L (-2.0-2.0) Ambrose Test Pos Hematocrit 43.4 % % (42-52) Hgb O2 Saturation 93.9 % L % (95-100) Carboxyhemoglobin 0.0 %THgb L %THgb (0.4-20.1) Methemoglobin 0.6 % % (0.4-1.5) Total Hemoglobin 14.1 g/dL g/dL (14-18) O2 Delivery Device Nc O2 Liters/Min 4.0 % % Chemical Processing Equipment Repairer ID Anonymous Sodium Potassium Chloride Carbon Dioxide Anion Gap BUN Creatinine GFR Calculation Glucose Calculated Osmolal ity Calcium Total Bilirubin AST ALT Alkaline Phosphata se Total Protein Albumin Globulin Procalcitonin Urine Color Urine Appearance Urine pH Ur Specific Gravit y Urine Protein Urine Glucose (UA) Urine Ketones Urine Blood Urine Nitrate Urine Bilirubin Urine Urobilinogen Ur Leukocyte Erika ase Urine RBC Urine WBC Ur Squamous Epith Cells Amorphous Sediment Urine Bacteria Urine Mucus 06/22/21 06/22/21 14:30 14:30 WBC RBC Hgb Hct MCV MCH MCHC RDW Plt Count MPV Neut % (Auto) Lymph % (Auto) [place] % (Auto) Eos % (Auto) Baso % (Auto) Neut # (Auto) Lymph # (Auto) [place] # (Auto) Eos # (Auto) Baso # (Auto) Nucleated RBC % (a uto) Nucleated RBCs # PT INR D-Dimer Specimen Type ABG pH ABG pCO2 ABG pO2 ABG HCO3 ABG Base Excess Ambrose Test Hematocrit Hgb O2 Saturation Carboxyhemoglobin Methemoglobin Total Hemoglobin O2 Delivery Device O2 Liters/Min Chemical Processing Equipment Repairer ID Sodium 140 mmol/L mmol/L (136-145) Potassium 3.3 mmol/L L mmol /L (3.5-5.1) Chloride 100 mmol/L mmol/L (98-107) Carbon Dioxide 28 mmol/L mmol/L (22-29) Anion Gap 15.3 (5-19) BUN 9 mg/dL mg/dL (8-23) Creatinine 0.7 mg/dL mg/dL (0.7-1.2) GFR Calculation 113.5 mL/min mL/m in (90-130) Glucose 118 mg/dL H mg/dL (65-115) Calculated Osmolal ity 290 mOsm/kg mOsm/ kg (285-295) Calcium 8.2 mg/dL L mg/dL (8.5-10.5) Total Bilirubin 0.5 mg/dL mg/dL (0.15-1.2) AST 74 U/L H U/L (0-40) ALT 40 U/L U/L (0-41) Alkaline Phosphata se 52 IU/L IU/L (40-130) Total Protein 6.8 g/dL g/dL (6.6-8.7) Albumin 3.9 g/dL g/dL (3.5-5.2) Globulin 2.9 g/dL g/dL (1.3-4.6) Procalcitonin 0.04 ng/mL ng/mL (0-0.5) Urine Color Dark yellow (Yellow) Urine Appearance Clear (CLEAR) Urine pH 6 (5-7) Ur Specific Gravit y 1.020 (1.005-1.030) Urine Protein 1+ H (Negative) Urine Glucose (UA) Norm (Normal) Urine Ketones 1+ H (Negative) Urine Blood 2+ H (Negative) Urine Nitrate Negative (Negative) Urine Bilirubin 1+ H (Negative) Urine Urobilinogen Neg mg/dL mg/dL (Negative) Ur Leukocyte Erika ase Negative (Negative) Urine RBC 0-4 /hpf H /hpf (0-2) Urine WBC 0-4 /hpf H /hpf (0-5) Ur Squamous Epith Cells 0-4 /hpf H /hpf (0-5) Amorphous Sediment Not Reportable Urine Bacteria 1+ /hpf H /hpf (NONE) Urine Mucus Trace /hpf /hpf COVID Results: SARS-CoV-2 RNA (RT-PCR) Detected (NOT DETECTED) A 06/15/21 15:26 06/15/21 Discharge Plan Discharge Patient Disposition: Admitted As Inpatient Clinical Impression: COVID-19, Acute respiratory failure with hypoxia, Acute hypokalemia Condition: Stable Coding Level of Care Code ED Production Gear Cutter for Chg Fwd Exam Detailed
[2021-06-22 14:40] LABS: ABG PCO2 39.3 mmHg (35-45); ABG PH Result 7.46 (7.35-7.45); Arterial Blood Gas Hematocrit 43.4 % (42-52); Blood Gas Allen Test Pos; Blood Gas Operator Identificat Anonymous; Blood Gas Sample Type Arterial; HCO3 ABG 28.1 mmol/L (22-26); HGB O2 Sat 93.9 % (95-100); Methemoglobin 0.6 % (0.4-1.5); PO2 ABG 72.4 mmHg (80.0-100.0); Total Hemoglobin 14.1 g/dL (14-18)
[2021-06-22] MEDS: dexamethasone 10 mg/mL INJ IVP (14:47)
[2021-06-22] MEDS: remdesivir 200 MG in sodium chloride 0.9% (100 ml) 60 ML 100 MG IV (14:54)
[2021-06-22 15:04] LABS: Oxygen Device NC
[2021-06-22 15:15] LABS: Add Urine Microscopic? YES; Bacteria Urine 1+ /hpf; Bilirubin Urine 1+ (Negative); Blood Urine 2+ (Negative); Glucose Urine UA Norm (Normal); Ketones Urine 1+ (Negative); Leukocyte Esterase Urine Negative (Negative); Mucus Urine TRACE /hpf; Nitrate Urine Negative (Negative); Protein Urine 1+ (Negative); RBC Urine 0-4 /hpf (0-2); Squamous Epithelial Cell Urine 0-4 /hpf (0-5); Urine Appearance Clear (CLEAR); Urine Color Dark Yellow (Yellow); Urobilinogen Urine Neg (Negative); WBC Urine 0-4 /hpf (0-5); pH Urine 6 (5-7)
[2021-06-22 15:16] LABS: Add Urine Culture? No
[2021-06-22 15:29] LABS: Alanine Aminotransferase 40 U/L (0-41); Albumin Level 3.9 g/dL (3.5-5.2); Alkaline Phosphatase 52 IU/L (40-130); Anion Gap 15.3 (5-19); Aspartate Amino Transferase 74 U/L (0-40); Blood Urea Nitrogen 9 mg/dL (8-23); Calcium 8.2 mg/dL (8.5-10.5); Carbon Dioxide 28 mmol/L (22-29); Chloride 100 mmol/L (98-107); Globulin 2.9 g/dL (1.3-4.6); Glomerular Filtration Rate 113.5 mL/min (90-130); Glucose 118 mg/dL (65-115); Osmolality Calculated 290 mOsm/kg (285-295); Potassium 3.3 mmol/L (3.5-5.1); Sodium 140 mmol/L (136-145); Total Bilirubin 0.5 mg/dL (0.15-1.2); Total Protein 6.8 g/dL (6.6-8.7)
[2021-06-22 15:32] LABS: Eosinophils % 0.7 %; Hematocrit 42.5 % (42.0-52.0); Hemoglobin 14.3 g/dL (11.7-16.6); Lymphocytes % 38.2 %; Mean Corpuscular HGB Conc 33.6 g/dL (30.0-36.0); Mean Corpuscular Hemoglobin 34.2 pg (28.0-34.0); Mean Corpuscular Volume 101.7 fl (80-94); Mean Platelet Volume 10.4 fL (7.4-10.4); Monocytes # 0.2 10^3/uL (0.2-0.9); Monocytes % 8.6 %; Neutrophils # 1.39 10^3/uL (1.8-7.7); Neutrophils % 52.1 %; Nucleated Red Blood Cells % 0 %; Platelet Count 148 10^3/cmm (130-400); Red Blood Count 4.18 10^6/uL (4.1-5.3); Red Cell Distribution Width 13.4 % (12.1-15.1); White Blood Count 2.7 10^3/uL (4.0-10.0)
[2021-06-22 15:34] LABS: INR 0.99 (0.8-1.2)
[2021-06-22 15:36] LABS: D Dimer 0.75 ug/mIFEU (0-0.59); Procalcitonin 0.04 ng/mL (0-0.5)
--- NOTE | 2021-06-22 15:38 | PC.NURSE ---
while at bedside pt is resting in bed in nad. pt provided with remote he had dropped and a cup to spit in. pt denies any further needs.
[2021-06-22 16:05] LABS: Slide Review Slide Review Perform
--- NOTE | 2021-06-22 16:27 | PC.NURSE ---
UPON ROUNDING PT IS RESTING QUIETLY AND NAD.
--- NOTE | 2021-06-22 17:13 | P.HP_ITS ---
Providers/Chief Complaint Primary Care Provider: Micaela Lara DO Chief Complaint: trouble breathing, cov + History of Present Illness Herve García is a 65 year old male who has history of lung cancer currently in remission, presented today with chief complaint of worsening shortness of breath. Patient has been diagnosed with COVID-19 roughly a week ago, at home he uses 1.5 L of oxygen, with COVID-19 flexion he was requiring 3 to 4 L of oxygen, he was evaluated in the ER on 06/21. He was discharged home, patient was in low 70s on 4 L at home that prompted his visit to the ER next day. Patient is stating that he has been having diarrhea, high-grade fever, loss of appetite and fatigue lethargy and shortness of breath. His is sick with COVID-19 infection as well. He does not smoke, drink alcohol occasionally. He has recently moved to [place] in August for [facility] to enjoy fishing. In the ER he was given loading dose of Decadron and remdesivir, D-dimer 0.7 Currently on heated high flow 45%, 70 L Review of Systems Const: Reports: fever(s), chills, body aches and fatigue Eyes: Reports: change in vision ENMT: Reports: throat pain Card: Denies: chest pain Resp: Reports: dyspnea GI: Reports: diarrhea : Denies: flank pain Musc: Reports: joint pain Skin/Breast: Denies: rash Neuro: Denies: headache(s) Psych: Denies: anxiety Endo: Denies: polyuria En/Lymph: Denies: easy bruising All/Imm: Denies: urticaria Medications/Allergies Home Medications Medication Instructions Recorded Confirmed Last Taken Type ascorbic acid (vitamin C) 1,000 mg 1 g PO DAILY tab 03/27/21 06/18/21 05/13/21 History tablet azithromycin 250 mg tablet 250 mg PO .COMPLEX 03/27/21 06/18/21 05/13/21 History coenzyme Q10 100 mg capsule 100 mg PO DAILY 03/27/21 06/18/21 05/13/21 History elderberry 1 tab PO DAILY 03/27/21 06/18/21 05/13/21 History hydrochlorothiazide 25 mg tablet 25 mg PO DAILY 03/27/21 06/18/21 05/13/21 History mecobalamin (vitamin B12) 5,000 5,000 mcg PO DAILY 03/27/21 06/18/21 1 Week Ago History mcg disintegrating tablet ~05/07/21 metoprolol succinate 25 mg 25 mg PO DAILY 03/27/21 06/18/21 05/13/21 History tablet,extended release 24 hr multivitamin 1 tab PO DAILY 03/27/21 06/18/21 05/13/21 History omeprazole 40 mg capsule,delayed 40 mg PO DAILY 03/27/21 06/18/21 05/13/21 History release sucralfate 1 gram tablet 1 g PO BID 03/27/21 06/18/21 05/13/21 History albuterol sulfate 90 mcg/actuation 2 inh INHALATION Q4H PRN #1 ea 05/08/21 06/18/21 05/14/21 09:00 Rx breath activated powder inhaler budesonide-formoterol HFA 160 2 puff INHALATION Q12H #10.2 g 05/08/21 06/18/21 05/14/21 Rx mcg-4.5 mcg/actuation aerosol inhaler metformin 500 mg tablet,extended 500 mg PO DAILY 30 Days #30 tab 05/18/21 06/18/21 Unknown Rx release 24 hr ezetimibe 10 mg tablet 10 mg PO DAILY 90 Days #90 tab 05/26/21 06/18/21 Unknown Rx meloxicam 15 mg tablet 15 mg PO DAILY 90 Days #90 tab 05/26/21 06/18/21 Unknown Rx tamsulosin 0.4 mg capsule 0.4 mg PO DAILY 90 Days #90 cap 05/26/21 06/18/21 Unknown Rx Allergies Allergy/AdvReac Type Severity Reaction Status Date / Time No Known Allergies Allergy Verified 06/21/21 10:00 PFSH Acute PFSH: Medical History CAD (coronary artery disease) CVA (cerebral vascular accident) Essential hypertension GERD (gastroesophageal reflux disease) 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 Diagnosed in 2018 Surgical History History of coronary artery stent placement History of lumbar surgery L3 Status post colonoscopy (05/14/21) dvierticulosis Status post double vessel coronary artery bypass CABG x 2 Family History Mother Heart disease Father Cancer Brother Diabetes Social History Smoking and tobacco status: never smoked Second hand smoke exposure: No Alcohol intake: never Adopted: No Caregiver/support person: No Lives independently: Yes Household members: spouse Housing: Manufactured/Mobile home Marital status: Number of children: 1 Highest education level completed: High School Graduate service: No Current occupational status: retired and disabled Pets and animals: No History of recent travel: No Sexually active: No Current gender identity: Male Special gautam needs: No Vitals/I&O/Wt Last Vital Signs Temp 98.8 F 06/22/21 12:45 Pulse 89 06/22/21 14:41 Resp 20 H 06/22/21 14:41 BP 163/83 06/22/21 12:45 Pulse Ox 92 06/22/21 14:41 Weight last 48 hrs Weight 113.398 kg Physical Exam Narrative: EXAM NARRATIVE: male appears stated age Currently on heated high flow No active shortness of breath no conversational dyspnea No audible stridor or wheezing S1, S2 Abdomen soft nondistended No signs of edema No focal deficit Appropriate mood and affect EOMI, PERRLA Awake alert 0x3 Data : 06/22/21 14:30 06/22/21 14:30 A&P Assessment and plan (1) COVID-19: Status: Acute (2) Hypoxia: Status: Acute (3) Acute and chronic respiratory failure with hypoxia: Status: Acute (4) Acute hypokalemia: Status: Acute (5) Ventral hernia: Status: Acute (6) BPH (benign prostatic hyperplasia): Status: Chronic Qualifiers: Lower urinary tract symptom presence: symptoms present Lower urinary tract symptom detail: nocturia Qualified Code(s): N40.1 - Benign prostatic hyperplasia with lower urinary tract symptoms; R35.1 - Nocturia (7) Restrictive lung disease: Status: Acute (8) 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: Status: Acute Additional A&P Information COVID-19 related hypoxia Acute on chronic hypoxia At home uses 1.5 to 2 L Currently on heated high flow Start baricitinib, Decadron and remdesivir Patient is at high risk for deterioration Current diagnosis, treatment plan and prognosis discussed with the patient Hypokalemia: Repleted Continue Toprol Hold hydrochlorothiazide I would add lisinopril and amlodipine Continue tamsulosin Patient has history of lung cancer, restrictive lung disease currently in remission Cardiac diet DVT prophylaxis 30 mg every 12h Attestations Medical Necessity Statement*: More than 2 midnights anticipated for COVID-19 related infection treatment Time Spent in Patient Care: Greater than 35 minutes Coding Level of Care Code Acute Environmental Test Technician for [facility] Fwd Diagnoses COVID-19 U07.1 Hypoxia R09.02 Acute and chronic respiratory failure with hypoxia J96.21 Acute hypokalemia E87.6 Ventral hernia K43.9 BPH (benign prostatic hyperplasia) N40.1; R35.1 Lower urinary tract symptom presence: symptoms present Lower urinary tract symptom detail: nocturia Restrictive lung disease J98.4 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
--- NOTE | 2021-06-22 18:33 | PC.NURSE ---
WHILE AT BEDSIDE PT CONDITION IS UNCHANGED. PT DENIES ANY FURTHER NEEDS.
--- NOTE | 2021-06-22 19:07 | PC.NURSE ---
REPORT GIVEN TO MAY [facility] ASSUMED CARE.
[2021-06-22] MEDS: enoxaparin 40 mg/0.4 mL Syringe 30 MG SUBCUT (22:23)
[2021-06-22] MEDS: dexamethasone 10 mg/mL INJ 6 MG IVP (22:23)
[2021-06-22] MEDS: benzonatate 100 mg Capsule 200 MG PO (23:47)
[2021-06-23] VITALS (9 sets, daily range): BP systolic 136–160; BP diastolic 75–85; PULSE 67–88; RESP 16–22; TEMP 36.7–37; O2SAT 91–96
--- NOTE | 2021-06-23 02:26 | PC.NURSE ---
Resting in bed. No cough noted at present. High flow in use 60% 40L.
[2021-06-23 02:42] LABS: ABG PCO2 42.5 mmHg (35-45); ABG PH Result 7.44 (7.35-7.45); Arterial Blood Gas Hematocrit 41.3 % (42-52); Base Excess ABG 4.1 mmol/L (-2.0-2.0); Blood Gas Allen Test Pos; Blood Gas Sample Site Radial, right; Blood Gas Sample Type Arterial; HCO3 ABG 28.8 mmol/L (22-26); Oxygen Device NC
--- NOTE | 2021-06-23 05:55 | PC.NURSE ---
0400 Resting in bed. Easily arouses. No acute resp distress. Highflow in use.
--- NOTE | 2021-06-23 05:56 | PC.NURSE ---
0530 Sitting up in bed with High flow in use. No requests.
[2021-06-23 06:21] LABS: Hematocrit 32.9 % (42.0-52.0); Hemoglobin 13.9 g/dL (11.7-16.6); Lymphocytes # 0.8 10^3/uL (0.8-4.8); Lymphocytes % 46.4 %; Mean Corpuscular HGB Conc 42.2 g/dL (30.0-36.0); Mean Corpuscular Volume 101.9 fl (80-94); Mean Platelet Volume 10.1 fL (7.4-10.4); Monocytes # 0.1 10^3/uL (0.2-0.9); Monocytes % 7.2 %; Neutrophils % 44.6 %; Nucleated Red Blood Cells % 0 %; Platelet Count 137 10^3/cmm (130-400); Red Blood Count 3.23 10^6/uL (4.1-5.3); Red Cell Distribution Width 13.2 % (12.1-15.1); White Blood Count 1.7 10^3/uL (4.0-10.0)
[2021-06-23 06:38] LABS: Glucose Point of Care 222 mg/dL (70-110)
[2021-06-23 06:53] LABS: Alanine Aminotransferase 34 U/L (0-41); Albumin Level 3.6 g/dL (3.5-5.2); Alkaline Phosphatase 50 IU/L (40-130); Anion Gap 15.5 (5-19); Aspartate Amino Transferase 60 U/L (0-40); Blood Urea Nitrogen 11 mg/dL (8-23); C Reactive Protein 52.3 mg/L (0.0-4.9); Calcium 8.3 mg/dL (8.5-10.5); Carbon Dioxide 24 mmol/L (22-29); Chloride 99 mmol/L (98-107); Glomerular Filtration Rate 135.6 mL/min (90-130); Glucose 200 mg/dL (65-115); Lactate Dehydrogenase 327 U/L (135-225); Magnesium 2.2 mg/dL (1.7-2.3); Osmolality Calculated 285 mOsm/kg (285-295); Potassium 3.5 mmol/L (3.5-5.1); Sodium 135 mmol/L (136-145); Total Bilirubin 0.5 mg/dL (0.15-1.2); Total Protein 6.6 g/dL (6.6-8.7)
[2021-06-23 08:03] LABS: Neutrophils # 0.74 10^3/uL (1.8-7.7)
[2021-06-23 08:04] LABS: Slide Review Slide Review Perform
[2021-06-23] MEDS: sennosides-docusate Tablet 1 TAB PO (08:32)
[2021-06-23] MEDS: enoxaparin 40 mg/0.4 mL Syringe 30 MG SUBCUT ×2 (10:47→22:29)
--- NOTE | 2021-06-23 11:58 | PM.PN ---
Subjective Subjective: Interval history: Patient has become neutropenic this morning discontinued baricitinib FiO2 titrated down to 50%, currently on 40 L Patient is endorsing feeling better, still endorsing diarrhea and mild nonproductive cough Vitals/I&O/Wt Last Vital Signs Temp 98.1 F 06/23/21 08:00 Pulse 85 06/23/21 09:34 Resp 16 06/23/21 09:34 BP 136/85 06/23/21 08:00 Pulse Ox 94 06/23/21 09:34 06/22/21 06/23/21 06/23/21 22:59 06:59 14:59 Intake Total 240 / 240 240 / 240 Output Total 480 / 480 Balance -240 / -240 240 / 240 Weight last 48 hrs Weight 113.398 kg Weight 113.398 kg Physical Exam Narrative: EXAM NARRATIVE: On heated high flow with no active coughing or shortness of breath or conversational dyspnea S1, S2 Nonfocal neuro exam Looks well-hydrated Nonfocal neuro exam EOMI, PERRLA Abdomen soft, signs of ventral hernia however no signs obstruction p Data : 06/23/21 05:56 06/23/21 05:56 A&P Assessment and plan (1) Acute and chronic respiratory failure with hypoxia: Status: Acute (2) COVID-19: Status: Acute (3) 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: Status: Acute (4) Restrictive lung disease: Status: Acute (5) BPH (benign prostatic hyperplasia): Status: Chronic Qualifiers: Lower urinary tract symptom presence: symptoms present Lower urinary tract symptom detail: nocturia Qualified Code(s): N40.1 - Benign prostatic hyperplasia with lower urinary tract symptoms; R35.1 - Nocturia (6) Ventral hernia: Status: Acute Attestations Medical Necessity Statement*: Continue medical management COVID-19 hypoxia Coding Level of Care Code 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
[2021-06-23] MEDS: remdesivir 100 MG in sodium chloride 0.9% (100 ml) 100 ML IV (17:43)
[2021-06-23] MEDS: benzonatate 100 mg Capsule 200 MG PO (20:03)
[2021-06-23] MEDS: dexamethasone 10 mg/mL INJ 6 MG IVP (22:29)
[2021-06-24] VITALS (11 sets, daily range): BP systolic 131–160; BP diastolic 75–94; PULSE 72–93; RESP 17–22; TEMP 36.4–36.9; O2SAT 91–95
--- NOTE | 2021-06-24 00:24 | PC.NURSE ---
2000 basin with warm water given to wash up per pt request. Soap, tooth paste and toothbrush also given.
--- NOTE | 2021-06-24 00:25 | PC.NURSE ---
2200 Pt easily awakens. No distress. Difficulty resting due to room mate activity.
--- NOTE | 2021-06-24 00:26 | PC.NURSE ---
0015 Awakens when room mate bed alarm goes off. Pt has no distress, just tired. High flow in use.
[2021-06-24] MEDS: benzonatate 100 mg Capsule 200 MG PO ×2 (01:58→18:39)
[2021-06-24 05:49] LABS: Anion Gap 13.8 (5-19); Blood Urea Nitrogen 15 mg/dL (8-23); Calcium 8.5 mg/dL (8.5-10.5); Carbon Dioxide 26 mmol/L (22-29); Chloride 105 mmol/L (98-107); Glomerular Filtration Rate 135.6 mL/min (90-130); Glucose 206 mg/dL (65-115); Osmolality Calculated 299 mOsm/kg (285-295); Potassium 3.8 mmol/L (3.5-5.1); Sodium 141 mmol/L (136-145)
[2021-06-24 07:16] LABS: Hemoglobin 13.8 g/dL (11.7-16.6); Lymphocytes # 0.7 10^3/uL (0.8-4.8); Lymphocytes % 18.4 %; Mean Corpuscular HGB Conc 34.5 g/dL (30.0-36.0); Mean Corpuscular Hemoglobin 34.3 pg (28.0-34.0); Mean Corpuscular Volume 99.5 fl (80-94); Monocytes # 0.2 10^3/uL (0.2-0.9); Monocytes % 5.7 %; Neutrophils # 2.91 10^3/uL (1.8-7.7); Neutrophils % 75.6 %; Nucleated Red Blood Cells % 0 %; Platelet Count 158 10^3/cmm (130-400); Red Blood Count 4.02 10^6/uL (4.1-5.3); Red Cell Distribution Width 13.2 % (12.1-15.1); White Blood Count 3.9 10^3/uL (4.0-10.0)
[2021-06-24 07:41] LABS: Glucose Point of Care 218 mg/dL (70-110)
[2021-06-24 07:41] LABS: Glucose Point of Care 188 mg/dL (70-110)
[2021-06-24] MEDS: lidocaine 2% viscous 15 ML, aluminum-mag hydrox-simethicon 30 ML, sucralfate oral liq 1 GM PO (08:25)
[2021-06-24] MEDS: pantoprazole DR 40 mg Tablet PO (08:26)
[2021-06-24] MEDS: sennosides-docusate Tablet 1 TAB PO (08:26)
[2021-06-24] MEDS: enoxaparin 40 mg/0.4 mL Syringe 30 MG SUBCUT ×2 (10:10→22:32)
--- NOTE | 2021-06-24 13:34 | PM.PN ---
Subjective Subjective: Interval history: Neutropenia improving after discontinue today of baricitinib, afebrile This morning patient is on heated high flow 50% 40 L asked RT to wean his oxygen down, diarrhea seems to be improved Tolerating his p.o. diet Vitals/I&O/Wt Last Vital Signs Temp 97.6 F 06/24/21 11:49 Pulse 80 06/24/21 11:49 Resp 17 06/24/21 11:49 BP 160/94 06/24/21 11:49 Pulse Ox 92 06/24/21 11:49 06/23/21 06/24/21 06/24/21 22:59 06:59 14:59 Intake Total 560 / 800 550 / 1350 360 / 360 Balance 560 / 800 550 / 1350 360 / 360 Weight last 48 hrs Weight 113.398 kg Physical Exam Narrative: EXAM NARRATIVE: Patient was sitting at the bedside when I entered the room Heated high flow S1, S2 Bilateral breath sounds with mild rhonchi at the base No labored breathing Abdomen soft with obesity No signs of edema Nonfocal neuro exam Data : 06/24/21 05:16 06/24/21 05:16 A&P Assessment and plan (1) Acute and chronic respiratory failure with hypoxia: Status: Acute (2) COVID-19: Status: Acute (3) Hypoxia: Status: Acute (4) Acute respiratory failure with hypoxia: Status: Acute (5) Acute hypokalemia: Status: Acute (6) Ventral hernia: Status: Acute (7) BPH (benign prostatic hyperplasia): Status: Chronic Qualifiers: Lower urinary tract symptom presence: symptoms present Lower urinary tract symptom detail: nocturia Qualified Code(s): N40.1 - Benign prostatic hyperplasia with lower urinary tract symptoms; R35.1 - Nocturia (8) GERD (gastroesophageal reflux disease): Status: Chronic (9) Restrictive lung disease: Status: Acute (10) 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: Status: Acute Plan COVID-19 related hypoxia, wean off oxygen, currently on 50% heated high flow with 40 L Discontinued baricitinib Neutropenia improving Afebrile Hyperglycemia related to steroid use, would use sliding scale for now Hypokalemia: Repleted BPH no active signs of obstruction Continue tamsulosin History of cancer currently remission Full code Continue regular diet DVT prophylaxis Lovenox 30 mg every 12 hours secondary to high BMI Attestations Medical Necessity Statement*: Continue medical management for COVID-19 related hypoxia Time Spent in Patient Care: 15min Coding Level of Care Code Acute [employer]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
[2021-06-24] MEDS: remdesivir 100 MG in sodium chloride 0.9% (100 ml) 100 ML IV (17:49)
[2021-06-24] MEDS: ipratropium-albuterol 3 mL Neb INHALATION ×2 (18:00→21:22)
[2021-06-24] MEDS: dexamethasone 10 mg/mL INJ 6 MG IVP (22:31)
[2021-06-25] VITALS (12 sets, daily range): BP systolic 138–152; BP diastolic 72–83; PULSE 65–111; RESP 16–22; TEMP 36.3–36.6; O2SAT 89–93
[2021-06-25] MEDS: benzonatate 100 mg Capsule 200 MG PO ×2 (00:18→06:04)
[2021-06-25] MEDS: acetaminophen 500 mg Tablet PO (00:18)
[2021-06-25 03:59] LABS: ABG PCO2 42.9 mmHg (35-45); ABG PH Result 7.41 (7.35-7.45); Arterial Blood Gas Hematocrit 42.9 % (42-52); Base Excess ABG 2.5 mmol/L (-2.0-2.0); Blood Gas Allen Test Pos; Blood Gas Sample Site Radial, left; Blood Gas Sample Type Arterial; HCO3 ABG 27.4 mmol/L (22-26); Oxygen Device NC; PO2 ABG 50.2 mmHg (80.0-100.0)
[2021-06-25 05:54] LABS: Hematocrit 41.5 % (42.0-52.0); Hemoglobin 14.1 g/dL (11.7-16.6); Lymphocytes # 0.5 10^3/uL (0.8-4.8); Lymphocytes % 13.3 %; Mean Corpuscular Hemoglobin 34.3 pg (28.0-34.0); Mean Platelet Volume 11.3 fL (7.4-10.4); Monocytes # 0.2 10^3/uL (0.2-0.9); Monocytes % 5.3 %; Neutrophils # 3.24 10^3/uL (1.8-7.7); Neutrophils % 81.1 %; Nucleated Red Blood Cells % 0 %; Platelet Count 150 10^3/cmm (130-400); Red Blood Count 4.11 10^6/uL (4.1-5.3); Red Cell Distribution Width 13.3 % (12.1-15.1)
[2021-06-25 06:02] LABS: Anion Gap 15.9 (5-19); Blood Urea Nitrogen 15 mg/dL (8-23); Carbon Dioxide 24 mmol/L (22-29); Chloride 106 mmol/L (98-107); Glomerular Filtration Rate 135.6 mL/min (90-130); Glucose 224 mg/dL (65-115); Osmolality Calculated 302 mOsm/kg (285-295); Potassium 3.9 mmol/L (3.5-5.1); Sodium 142 mmol/L (136-145)
[2021-06-25] MEDS: metoprolol tartrate 25 mg Tablet PO (06:04)
[2021-06-25] MEDS: hydroCHLOROthiazide 25 mg Tablet PO (08:16)
[2021-06-25] MEDS: tamsulosin 0.4 mg Capsule PO (08:16)
[2021-06-25] MEDS: ascorbic acid 500 mg Tablet PO ×2 (08:16→18:17)
[2021-06-25] MEDS: zinc gluconate 50 mg Tablet PO (08:16)
[2021-06-25] MEDS: pantoprazole DR 40 mg Tablet PO (08:16)
--- NOTE | 2021-06-25 08:54 | PC.SOCIAL ---
IMM Update Pg. 2 of IMM updated. Initialed, dated, and timed. Copy provided to patient.
[2021-06-25] MEDS: ipratropium-albuterol 3 mL Neb INHALATION ×2 (08:57→15:05)
[2021-06-25] MEDS: enoxaparin 40 mg/0.4 mL Syringe 30 MG SUBCUT ×2 (10:01→21:38)
--- NOTE | 2021-06-25 10:16 | CT_ITS ---
WS: [id number] CT CHEST ANGIOGRAPHY WITH REFORMATS HISTORY: Pulmonary embolism TECHNIQUE: Contiguous axial images are obtained through the chest during arterial injection of intrav enous contrast. Images are reconstructed to evaluate the pulmonary arteries. MIP imaging also reviewe d. All CT scans at [facility] use at least one of these dose optimization techniques: automat ed exposure control; mA and/or kV adjustment per patient size (includes targeted exams where dose is matched to clinical indication); or iterative reconstruction. CONTRAST: Omnipaque 350; 76 mL IV. DLP: 580.58 mGy.cm COMPARISON: None available. No central pulmonary embolism. Beyond the segmental branches the opacification becomes limited. Pulmo nary artery size is normal. Mild atherosclerosis of aorta. Heart size is normal. No pericardial or pl eural effusions. Extensive bilateral groundglass attenuation and increased in the interstitium throughout both lungs. Noncalcified 4 mm nodule in the RIGHT middle lobe. There are also a few scattered calcified granulom megan. No pneumothorax or pleural effusion. No mediastinal or hilar adenopathy. Hepatic steatosis. Cholelithiasis without acute cholecystitis. No adrenal mass. There is a lytic lesion involving approximately 50% of the T11 vertebral body. There is mild peripher al sclerosis surrounding the lytic lesion. Lytic changes extending into the LEFT pedicle and transver se process. There is destruction of the cortex posteriorly and to the LEFT. CT/CT angio chest PE protcl [id number] IMPRESSION: 1. No pulmonary embolism through the segmental branches. 2. Diffuse bilateral groundglass attenuation probably due to pneumonitis or Co vid 19. 3. Destructive lytic lesion involving the T11 vertebral body and LEFT posterio r elements. Suspect metastatic bone disease. No cord compression is evident by this examination. 4. No mediastinal adenopathy.
--- NOTE | 2021-06-25 10:17 | USCV_ITS ---
GarcíaHerve espinoza Age: 65 Gender: M : 1955 Exam Date: 06/25/2021 10:39 Ordering Phys: Dre Wolfe MD Technologist: Exam [place] [facility] [place]: BLE SWELLING HISTORY: Lower extremity swelling. PROCEDURES: Venous duplex imaging was performed in bilateral lower extremities. The following venous structures were evaluated: common femoral vein, profunda vein, proximal portion of the greater saphenous vein, superficial femoral vein, and the popliteal vein. In addition, the posterior tibial and peroneal trunk were evaluated. Serial compression, augmentation maneuvers, and spectral Doppler flow evaluation were performed. FINDINGS: Normal 2-D Doppler and augmentation and compressibility throughout the lower extremity venous structures. Additional imaging through the proximal calf veins also reveals no thrombus. Limited evaluation of the greater saphenous vein is patent with no thrombus. CONCLUSIONS No DVT bilateral lower extremities. Dr. Gail Resendiz DO (Electronically Signed) Final Date: 25 June 2021 12:26 S
[2021-06-25] MEDS: cefTRIAXone 1,000 MG in sodium chloride 0.9% (plus) 50 ML 100 MG IV (11:11)
[2021-06-25 11:13] LABS: NT Pro B Type Natriuretic Pept 116 pg/mL (0-125)
[2021-06-25 11:28] LABS: D Dimer 0.51 ug/mIFEU (0-0.59)
[2021-06-25] MEDS: iohexol 350 mg/mL 100 mL Btl IV (12:21)
[2021-06-25 13:24] LABS: Glucose Point of Care 196 mg/dL (70-110)
[2021-06-25] MEDS: remdesivir 100 MG in sodium chloride 0.9% (100 ml) 100 ML IV (18:17)
--- NOTE | 2021-06-25 19:19 | P.PN_ITS ---
Subjective Subjective: Interval history: This morning FiO2 increased to 70%, hypoxia noted on ABG, patient was adamant about ivermectin however I did discuss with him and his that it is not a pproved and there is no guideline to start ivermectin inpatient yet He is not a good candidate for baricitinib because of his immunocompromised state, it made him neutropenic which I have discontinued Repeated D-dimer, CTA chest rule out PE, no signs of DVT No active signs of consolidation Empirical antibiotic coverage added He cannot prone himself because of ventral hernia Awaiting records from [facility] Vitals/I&O/Wt Last Vital Signs Temp 97.9 F 06/25/21 16:00 Pulse 92 06/25/21 16:00 Resp 16 06/25/21 16:00 BP 146/75 06/25/21 16:00 Pulse Ox 90 06/25/21 16:00 06/25/21 06/25/21 06/25/21 06:59 14:59 22:59 Intake Total 200 / 1480 510 / 510 Output Total 1000 / 1000 Balance 200 / 1480 -490 / -490 Physical Exam Narrative: EXAM NARRATIVE: Patient sitting comfortably no active conversational dyspnea however mild tac hypnea noted Heated high flow 70%, 50 L Abdomen soft ventral hernia S1, S2 Nonfocal neuro exam Appropriate mood and affect Euvolemic Data : 06/25/21 05:08 06/25/21 05:08 A&P Assessment and plan (1) Acute and chronic respiratory failure with hypoxia: Status: Acute (2) COVID-19: Status: Acute (3) Acute hypokalemia: Status: Acute (4) Ventral hernia: Status: Acute (5) BPH (benign prostatic hyperplasia): Status: Chronic Qualifiers: Lower urinary tract symptom presence: symptoms present Lower urinary tract symptom detail: nocturia Qualified Code(s): N40.1 - Benign prostatic hype rplasia with lower urinary tract symptoms; R35.1 - Nocturia (6) Chronic low back pain: Status: Acute (7) Restrictive lung disease: Status: Acute (8) 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: Status: Acute (9) Essential hypertension: Status: Chronic (10) GERD (gastroesophageal reflux disease): Status: Chronic Plan Acute on chronic COVID-19 related hypoxia At admission he was on 40 L, 70%, FiO2 was weaned down to 50% in next 30 hours however ABG showing persistent hypoxia PO2 50s FiO2 requirement today 70%, will transfer to ICU Continue remdesivir and Decadron Will add empirical antibiotic coverage, continue every 12 prophylactic dose of Lovenox Obtain CTA chest to rule out PE, venous Dopplers today D-dimer unremarkable Neutropenia: Improved Diarrhea resolved Awaiting records from [facility] Patient was previously seeing Dr. Herve Vega for oncology and Dr. Cavanaugh, a buffer chrome at [facility] in [place], [place]. 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
[2021-06-25] MEDS: dexamethasone 10 mg/mL INJ 6 MG IVP (21:38)
[2021-06-26] VITALS (80 sets, daily range): BP systolic 120–167; BP diastolic 54–96; PULSE 64–107; RESP 15–34; TEMP 37–37.2; O2SAT 17–95
--- NOTE | 2021-06-26 03:14 | PC.NURSE ---
Transfer Note Patient transferred to ICU room 9 from [facility] via bed. Handoff received from TIFF Arteaga. Patient oriented to environment and equipment. Covering service notified. Orders reviewed and will continue to monitor. Family and/or congressional representative notified. All patient belongings at bedside including home oxygen tank and cell phone.
[2021-06-26 05:01] LABS: ABG PH Result 7.47 (7.35-7.45); Arterial Blood Gas Hematocrit 42.3 % (42-52); Base Excess ABG 4.8 mmol/L (-2.0-2.0); Blood Gas Allen Test Pos; Blood Gas Sample Site Radial, left; Blood Gas Sample Type Arterial; HCO3 ABG 28.7 mmol/L (22-26); Oxygen Device NC; PO2 ABG 63.3 mmHg (80.0-100.0)
[2021-06-26 05:55] LABS: Hemoglobin 13.8 g/dL (11.7-16.6); Lymphocytes # 0.8 10^3/uL (0.8-4.8); Lymphocytes % 14.3 %; Mean Corpuscular HGB Conc 33.7 g/dL (30.0-36.0); Mean Corpuscular Hemoglobin 34.7 pg (28.0-34.0); Monocytes # 0.2 10^3/uL (0.2-0.9); Monocytes % 4.1 %; Neutrophils # 4.52 10^3/uL (1.8-7.7); Neutrophils % 80.9 %; Nucleated Red Blood Cells % 0 %; Platelet Count 152 10^3/cmm (130-400); Red Blood Count 3.98 10^6/uL (4.1-5.3); Red Cell Distribution Width 13.3 % (12.1-15.1); White Blood Count 5.6 10^3/uL (4.0-10.0)
[2021-06-26] MEDS: metoprolol tartrate 25 mg Tablet PO (05:59)
[2021-06-26 06:03] LABS: Anion Gap 16.9 (5-19); Blood Urea Nitrogen 14 mg/dL (8-23); Calcium 8.2 mg/dL (8.5-10.5); Carbon Dioxide 23 mmol/L (22-29); Chloride 102 mmol/L (98-107); Glomerular Filtration Rate 135.6 mL/min (90-130); Glucose 213 mg/dL (65-115); Osmolality Calculated 293 mOsm/kg (285-295); Potassium 3.9 mmol/L (3.5-5.1); Sodium 138 mmol/L (136-145)
--- NOTE | 2021-06-26 06:10 | PC.NURSE ---
Shift Note Frequent safety and comfort rounds continue. Orders and/or nursing care completed as indicated. Patient monitored for response to intervention and treatment(s). Education provided includes heated high flow and medication. Patient verbalized understanding of teaching. Patient remains on heated high flow 50L/80% FiO2 and had no complaints of pain overnight. He had 200 mls of urine out overnight. No wounds or skin issues noted at this time. Will continue to monitor.
--- NOTE | 2021-06-26 07:48 | P.CONIM_ITS ---
Providers/Reason For Consult Consulting Physician/Specialty*: Phu Cazares MD / Pulmonary Critical Care Reason for Consult*: Acute hypoxic respiratory failure secondary to ARDS due to COVID-19 pneumonia Requesting Physician: rDe Wolfe MD Attending Physician: Dre Wolfe MD Primary Care Provider: Micaela Lara DO History of Present Illness History of Present Illness Upon review of the chart, Herve García is a 65 year old male who has history of non-small cell lung cancer diagnosed in 2018 s/p Keytruda currently in remission as per patient follows up with oncology and pulmonary in [place], presented to ED on 06/22/2021 with chief complaint of worsening shortness of breath.? Patient has been diagnosed with COVID-19 roughly 06/15/2021, at home he uses 1.5 L of oxygen, since COVID-19 diagnosis he was requiring 3 to 4 L of oxygen, he was evaluated in the ER on 06/21.? He was discharged home, patient was in low 70s on 4 L at home that prompted his visit to the ER next day. At the time of admission he stated havi ng diarrhea, high-grade fever, loss of appetite and fatigue lethargy and shortness of breath.? His is sick with COVID-19 infection as well.? He has recently moved to [place] in August for halfway to enjoy fishing.? In the ER he was given loading dose of Decadron and remdesivir, D-dimer 0.7 and placed on heated high flow 45%, 70 L. Later he received baricitinib but it was discontinued as he developed neutropenia. He reported to me smoking 1 pack/day for 30 years and quit in 2011. In 2018 he underwent colonoscopy and biopsies showed metastatic non-small cell lung cancer after which she underwent bowel resection. He said his cancer was metastatic to lymph nodes and spine and intestine. He received Keytruda and claims that he is in remission now. CT angiogram showed diffuse bilateral GGO's consistent with COVID-19 pneumonia negative for PE and venous Doppler negative for DVT. His oxygen requirement gradually increased up to 50 L 80% today morning. Patient was requesting for ivermectin. Pulmonary critical care consulted for acute hypoxic respiratory failure requiring high flow oxygen requirements He reported to me smoking 1 pack/day for 30 years and quit in 2011. In 2018 he underwent colonoscopy and biopsies showed metastatic non-small cell lung cancer after which she underwent bowel resection. He said his cancer was metastatic to lymph nodes and spine and intestine. He received Keytruda and claims that he is in remission now. Review of Systems Const: Reports: fever(s), chills, body aches and fatigue Eyes: Reports: change in vision ENMT: Reports: throat pain Card: Denies: chest pain Resp: Reports: dyspnea GI: Reports: diarrhea : Denies: flank pain Musc: Reports: joint pain Skin/Breast: Denies: rash Neuro: Denies: headache(s) Psych: Denies: anxiety Endo: Denies: polyuria En/Lymph: Denies: easy bruising All/Imm: Denies: urticaria Medications/Allergies Home Medications Medication Instructions Recorded Confirmed Last Taken Type ascorbic acid (vitamin C) 1,000 mg 1 g PO DAILY tab 03/27/21 06/23/21 05/13/21 History tablet azithromycin 250 mg tablet 250 mg PO .MON,WED,Tue03/27/21 06/23/21 05/13/21 History coenzyme Q10 100 mg capsule 100 mg PO DAILY 03/27/21 06/23/21 05/13/21 History elderberry 1 tab PO DAILY PRN 03/27/21 06/23/21 05/13/21 History hydrochlorothiazide 25 mg tablet 25 mg PO DAILY 03/27/21 06/23/21 05/13/21 History multivitamin 1 tab PO DAILY 03/27/21 06/23/21 05/13/21 History omeprazole 40 mg capsule,delayed 40 mg PO QAM 03/27/21 06/23/21 05/13/21 History release albuterol sulfate 90 mcg/actuation 2 inh INHALATION Q4H PRN #1 ea 05/08/21 06/23/21 05/14/21 09:00 Rx breath activated powder inhaler budesonide-formoterol HFA 160 2 puff INHALATION Q12H #10.2 g 05/08/21 06/23/21 05/14/21 Rx mcg-4.5 mcg/actuation aerosol inhaler (Symbicort) metformin 500 mg tablet,extended 500 mg PO DAILY 30 Days #30 tab 05/18/21 06/23/21 Unknown Rx release 24 hr ezetimibe 10 mg tablet (Zetia) 10 mg PO DAILY 90 Days #90 tab 05/26/21 06/23/21 Unknown Rx meloxicam 15 mg tablet (Mobic) 15 mg PO DAILY 90 Days #90 tab 05/26/21 06/23/21 Unknown Rx tamsulosin 0.4 mg capsule 0.4 mg PO DAILY 90 Days #90 cap 05/26/21 06/23/21 Unknown Rx Vitamin D3 1 cap PO DAILY 06/23/21 06/23/21 Unknown History amoxicillin 500 mg capsule 500 mg PO TID 06/23/21 06/23/21 Unknown History metoprolol tartrate 25 mg tablet 25 mg PO QAM 06/23/21 06/23/21 Unknown History prednisone 20 mg tablet 20 mg PO BID 06/23/21 06/23/21 Unknown History Allergies Allergy/AdvReac Type Severity Reaction Status Date / Time No Known Allergies Allergy Verified 06/23/21 13:04 Current Medications Generic Name Dose Route Start Last Admin Trade Name Freq PRN Reason Stop Dose Admin Acetaminophen 500 mg 06/22/21 21:50 06/25/21 00:18 Acetaminophen 500 Mg Tablet PO 500 mg Q4H PRN Administration fever Albuterol/Ipratropium 3 ml 06/22/21 21:50 06/25/21 15:05 Ipratropium-Albuterol 3 Ml Neb INHALATION 3 ml Q6H PRN Administration SHORTNESS OF BREATH Ascorbic Acid 500 mg 06/25/21 09:00 06/25/21 18:17 Ascorbic Acid 500 Mg Tablet PO 500 mg BID FER Administration Benzonatate 200 mg 06/22/21 21:50 06/25/21 06:04 Benzonatate 100 Mg Capsule PO 200 mg Q6H PRN Administration COUGH Dexamethasone 6 mg 06/22/21 22:00 06/25/21 21:38 Dexamethasone 10 Mg/Ml Inj IVP 6 mg Q24H FER Administration Enoxaparin Sodium 30 mg 06/22/21 22:00 06/25/21 21:38 Enoxaparin 40 Mg/0.4 Ml Syringe SUBCUT 30 mg Q12H FER Administration Hydrochlorothiazide 25 mg 06/25/21 09:00 06/25/21 08:16 Hydrochlorothiazide 25 Mg Tablet PO 25 mg DAILY FER Administration Remdesivir 100 mg/ Sodium 100 mls @ 100 mls/hr 06/23/21 18:00 06/25/21 19:48 Chloride IV 06/26/21 18:59 Infused Q24H FER Infusion Ceftriaxone Sodium 1,000 mg/ 50 mls @ 100 mls/hr 06/25/21 10:30 06/25/21 12:23 Sodium Chloride IV Infused Q24H FER Infusion Protocol Metoprolol Tartrate 25 mg 06/25/21 06:00 06/26/21 05:59 Metoprolol Tartrate 25 Mg Tablet PO 25 mg QAM FER Administration Pantoprazole Sodium 40 mg 06/24/21 09:00 06/25/21 08:[address] 40 Mg Tablet PO 40 mg DAILY FER Administration Senna/Docusate Sodium 1 tab 06/23/21 09:00 06/25/21 08:16 Sennosides-Docusate Tablet PO Not Given DAILY FER Tamsulosin HCl 0.4 mg 06/25/21 09:00 06/25/21 08:16 Tamsulosin 0.4 Mg Capsule PO 0.4 mg DAILY FER Administration Zinc Gluconate 50 mg 06/25/21 09:00 06/25/21 08:16 Zinc Gluconate 50 Mg Tablet PO 50 mg DAILY FER Administration PFSH Acute PFSH: Medical History CAD (coronary artery disease) CVA (cerebral vascular accident) Essential hypertension GERD (gastroesophageal reflux disease) 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 Diagnosed in 2018 Surgical History History of coronary artery stent placement History of lumbar surgery L3 Status post colonoscopy (05/14/21) dvierticulosis Status post double vessel coronary artery bypass CABG x 2 Family History Mother Heart disease Father Cancer Brother Diabetes Social History Smoking and tobacco status: former smoker Second hand smoke exposure: No Alcohol intake: never Adopted: No Caregiver/support person: No Lives independently: Yes Household members: spouse Housing: Manufactured/Mobile home Marital status: Number of children: 1 Highest education level completed: High School Graduate service: No Current occupational status: retired and disabled Pets and animals: No History of recent travel: No Sexually active: No Current gender identity: Male Special gautam needs: No Vitals/I&O/Wt Last Vital Signs Temp 98.6 F 06/26/21 04:01 Pulse 73 06/26/21 06:19 Resp 23 H 06/26/21 06:05 BP 137/82 06/26/21 06:05 Pulse Ox 90 06/26/21 06:05 06/25/21 06/26/21 06/26/21 22:59 06:59 14:59 Intake Total 100 / 610 400 / 1010 Output Total 550 / 1550 Balance -450 / -940 400 / -540 Physical Exam Narrative: EXAM NARRATIVE: General: alert, NAD HEENT: conj clear, EOMI, PERRL, mmm, Neck: supple, no meningismus Heme: no cervical LAP Pulmonary: Bilateral diffuse wheeze Cardiovascular: rrr, nl s1s2, no mrg Abdomen: Healed surgical incision below umbilicus soft, nt, nd, no r/g, bs+ Extremities: pulses +, no edema, no c/c : no CVA tenderness Skin: intact, no rash MSK: no back or neck pain Neurologic: grossly intact Data : 06/26/21 05:08 06/26/21 05:08 Other Labs: Radiology Impressions Chest CTA 06/25/21 10:16 IMPRESSION: 1. No pulmonary embolism through the segmental branches. 2. Diffuse bilateral groundglass attenuation probably due to pneumonitis or Covid 19. 3. Destructive lytic lesion involving the T11 vertebral body and LEFT posterior elements. Suspect metastatic bone disease. No cord compression is evident by this examination. 4. No mediastinal adenopathy. Laboratory Results WBC 5.6 10^3/uL (4.0-10.0) 06/26/21 05:08 RBC 3.98 10^6/uL (4.1-5.3) L 06/26/21 05:08 Hgb 13.8 g/dL (11.7-16.6) 06/26/21 05:08 Hct 41.0 % (42.0-52.0) L 06/26/21 05:08 MCV 103.0 fl (80-94) H 06/26/21 05:08 MCH 34.7 pg (28.0-34.0) H 06/26/21 05:08 MCHC 33.7 g/dL (30.0-36.0) 06/26/21 05:08 RDW 13.3 % (12.1-15.1) 06/26/21 05:08 Plt Count 152 10^3/cmm (130-400) 06/26/21 05:08 MPV 11.0 fL (7.4-10.4) H 06/26/21 05:08 Neut % (Auto) 80.9 % 06/26/21 05:08 Lymph % (Auto) 14.3 % 06/26/21 05:08 [place] % (Auto) 4.1 % 06/26/21 05:08 Eos % (Auto) 0.0 % 06/26/21 05:08 Baso % (Auto) 0.0 % 06/26/21 05:08 Neut # (Auto) 4.52 10^3/uL (1.8-7.7) 06/26/21 05:08 Lymph # (Auto) 0.8 10^3/uL (0.8-4.8) 06/26/21 05:08 [place] # (Auto) 0.2 10^3/uL (0.2-0.9) 06/26/21 05:08 Eos # (Auto) 0.0 10^3/uL (0.0-0.8) 06/26/21 05:08 Baso # (Auto) 0.0 10^3/uL (0.0-0.1) 06/26/21 05:08 Nucleated RBC % (auto) 0 % 06/26/21 05:08 Nucleated RBCs # 0.0 /100WBC 06/26/21 05:08 PT 13.40 SECONDS (12.1-14.9) 06/22/21 14:30 INR 0.99 (0.8-1.2) 06/22/21 14:30 D-Dimer 0.51 ug/mIFEU (0-0.59) 06/25/21 10:46 Specimen Type Arterial 06/26/21 16:42 Sample Site Radial, left 06/26/21 16:42 ABG pH 7.50 (7.35-7.45) H 06/26/21 16:42 ABG pCO2 38.0 mmHg (35-45) 06/26/21 16:42 ABG pO2 49.8 mmHg (80.0-100.0) L 06/26/21 16:42 ABG HCO3 29.8 mmol/L (22-26) H 06/26/21 16:42 ABG Base Excess 6.4 mmol/L (-2.0-2.0) H 06/26/21 16:42 [place] Test Pos 06/26/21 16:42 Hematocrit 43.8 % (42-52) 06/26/21 16:42 Hgb O2 Saturation 93.9 % (95-100) L 06/22/21 14:30 Carboxyhemoglobin 0.0 %THgb (0.4-20.1) L 06/22/21 14:30 Methemoglobin 0.6 % (0.4-1.5) 06/22/21 14:30 Total Hemoglobin 14.1 g/dL (14-18) 06/22/21 14:30 O2 Delivery Device Hag 06/26/21 16:42 O2 Liters/Min 55.0 % 06/26/21 16:42 FiO2 90.0 % 06/26/21 16:42 Microstrategy Reports Developer ID Cak 06/26/21 16:42 Sodium 138 mmol/L (136-145) 06/26/21 05:08 Potassium 3.9 mmol/L (3.5-5.1) 06/26/21 05:08 Chloride 102 mmol/L (98-107) 06/26/21 05:08 Carbon Dioxide 23 mmol/L (22-29) 06/26/21 05:08 Anion Gap 16.9 (5-19) 06/26/21 05:08 BUN 14 mg/dL (8-23) 06/26/21 05:08 Creatinine 0.6 mg/dL (0.7-1.2) L 06/26/21 05:08 GFR Calculation 135.6 mL/min (90-130) H 06/26/21 05:08 Glucose 213 mg/dL (65-115) H 06/26/21 05:08 POC Glucose 196 mg/dL (70-110) H 06/24/21 21:36 Calculated Osmolality 293 mOsm/kg (285-295) 06/26/21 05:08 Calcium 8.2 mg/dL (8.5-10.5) L 06/26/21 05:08 Magnesium 2.2 mg/dL (1.7-2.3) 06/23/21 05:56 Total Bilirubin 0.5 mg/dL (0.15-1.2) 06/23/21 05:56 AST 60 U/L (0-40) H 06/23/21 05:56 ALT 34 U/L (0-41) 06/23/21 05:56 Alkaline Phosphatase 50 IU/L (40-130) 06/23/21 05:56 Lactate Dehydrogenase 327 U/L (135-225) H 06/23/21 05:56 C-Reactive Protein 52.3 mg/L (0.0-4.9) H 06/23/21 05:56 NT-Pro-B Natriuret Pep 116 pg/mL (0-125) 06/25/21 05:08 Total Protein 6.6 g/dL (6.6-8.7) 06/23/21 05:56 Albumin 3.6 g/dL (3.5-5.2) 06/23/21 05:56 Globulin 3.0 g/dL (1.3-4.6) 06/23/21 05:56 Procalcitonin 0.04 ng/mL (0-0.5) 06/22/21 14:30 Urine Color Dark yellow (Yellow) 06/22/21 14:30 Urine Appearance Clear (CLEAR) 06/22/21 14:30 Urine pH 6 (5-7) 06/22/21 14:30 Ur Specific [place] 1.020 (1.005-1.030) 06/22/21 14:30 Urine Protein 1+ (Negative) H 06/22/21 14:30 Urine Glucose (UA) Norm (Normal) 06/22/21 14:30 Urine Ketones 1+ (Negative) H 06/22/21 14:30 Urine Blood 2+ (Negative) H 06/22/21 14:30 Urine Nitrate Negative (Negative) 06/22/21 14:30 Urine Bilirubin 1+ (Negative) H 06/22/21 14:30 Urine Urobilinogen Neg mg/dL (Negative) 06/22/21 14:30 Ur Leukocyte Esterase Negative (Negative) 06/22/21 14:30 Urine RBC 0-4 /hpf (0-2) H 06/22/21 14:30 Urine WBC 0-4 /hpf (0-5) H 06/22/21 14:30 Ur Squamous Epith Cells 0-4 /hpf (0-5) H 06/22/21 14:30 Amorphous Sediment Not Reportable 06/22/21 14:30 Urine Bacteria 1+ /hpf (NONE) H 06/22/21 14:30 Urine Mucus Trace /hpf 06/22/21 14:30 A&P Assessment and plan (1) Acute and chronic respiratory failure with hypoxia: Status: Acute (2) COVID-19: Status: Acute (3) 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: Status: Acute (4) CAD (coronary artery disease): Status: Acute Qualifiers: Coronary Disease-Associated Artery/Lesion type: bypass graft [place] vs. transplanted heart: [place] heart Associated angina: with stable angina Qualified Code(s): I25.708 - Atherosclerosis of coronary artery bypass graft(s), unspecified, with other forms of angina pectoris Plan #Acute hypoxic respiratory failure secondary to ARDS due to COVID-19 pneumonia #History of non-small cell lung cancer metastatic to lymph nodes and spine- diagnosed in 2018 and patient reported taking Keytruda. As per patient he is in remission-follows up with oncology and pulmonary in [place] #History of smoking 1 pack/day for 30 years quit 2011-possibility of COPD -Covid PCR + 06/15/2021 -Currently on high flow nasal cannula 50 L to 80%-need close respiratory monitoring during to keep saturations greater than 88 -Morning ABG 7.4 // on 50 L and 80% -Continue incentive spirometry/out of bed to chair and recommend self proning -On remdesivir, dexamethasone, discontinued baricitinib as patient has neutropenia; patient also refused remdesivir -CRP 52; -D-dimer 0.51-CTA negative for PE -no DVT on venous Doppler -MRSA nares positive-recommended to start vancomycin -Started on scheduled nebulizations with DuoNeb and budesonide for wheezing -On empiric antibiotic coverage with Rocephin-can switch to p.o. Levaquin and stop after total 5 days -Needs PFTs as outpatient -Echocardiogram 06/26/2021: Moderately increased LV cavity size. Moderately decr eased LV systolic function with ejection fraction 40% grade 1 diastolic dysfunction. Technically difficult study and cardiology advised for echo with contrast; however BNP 116 -recommended Lasix 40 mg as needed -On tamsulosin for BPH-good urine output-monitor input output and try to keep net negative -Sugars moderately controlled -Soft mechanical diet -Lovenox for DVT prophylaxis -Family updated by hospitalist -pt wants DNR DNI -Prognosis guarded Patient requested ivermectin-reported that at this point there is no proven benefit for ivermectin; on the other hand he was refusing remdesivir and wanted DNR/DNI. Recommendations conveyed to hospitalist, RN, RT taking care of the patient Consult Attestations Medical Necessity Statement: Acute hypoxic respiratory failure secondary to ARDS due to COVID-19 pneumonia requiring high flow supplemental oxygen Critical Care Time: The high probability of a clinically significant, sudden or life threatening deterioration of the patient's [pulmonary system(s) required my full and direct attention, intervention and personal management. The critical care time is as shown. 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 transplanted heart: [place] heart Associated angina: with stable angina Time Spent (min) 45
[2021-06-26] MEDS: budesonide 0.5 mg/2 mL Neb INHALATION ×2 (08:12→20:20)
[2021-06-26] MEDS: ipratropium-albuterol 3 mL Neb INHALATION ×3 (08:12→20:20)
[2021-06-26] MEDS: sennosides-docusate Tablet 1 TAB PO (08:34)
[2021-06-26] MEDS: hydroCHLOROthiazide 25 mg Tablet PO (08:34)
[2021-06-26] MEDS: pantoprazole DR 40 mg Tablet PO (08:34)
[2021-06-26] MEDS: ascorbic acid 500 mg Tablet PO ×2 (08:34→17:10)
[2021-06-26] MEDS: cholecalciferol (vitamin D3) 1,000 unit Tablet 1000 UNIT PO (08:34)
[2021-06-26] MEDS: zinc gluconate 50 mg Tablet PO (08:34)
[2021-06-26] MEDS: tamsulosin 0.4 mg Capsule PO (08:34)
--- NOTE | 2021-06-26 09:30 | P.PN_ITS ---
Subjective Subjective: Interval history: Patient is in ICU, PO2 improved however heated high flow FiO2 80% 50 L Discussed ivermectin Patient is wheezing, added budesonide Echo done today No overnight events Spoke with his as well Vitals/I&O/Wt Last Vital Signs Temp 98.7 F 06/26/21 08:00 Pulse 68 06/26/21 08:30 Resp 17 06/26/21 08:30 BP 130/59 06/26/21 08:30 Pulse Ox 87 L 06/26/21 08:30 06/25/21 06/26/21 06/26/21 22:59 06:59 14:59 Intake Total 100 / 610 400 / 1010 60 / 60 Output Total 550 / 1550 150 / 150 Balance -450 / -940 400 / -540 -90 / -90 Physical Exam Narrative: EXAM NARRATIVE: Patient was getting echo this morning Active expiratory wheezing S1, S2 Abdomen soft Ventral hernia No signs of edema Looks euvolemic Awake and alert Nonfocal neuro exam Data : 06/26/21 05:08 06/26/21 05:08 A&P Assessment and plan (1) Acute and chronic respiratory failure with hypoxia: Status: Acute (2) COVID-19: Status: Acute (3) Hypoxia: Status: Acute (4) Acute respiratory failure with hypoxia: Status: Acute (5) Ventral hernia: Status: Acute (6) BPH (benign prostatic hyperplasia): Status: Chronic Qualifiers: Lower urinary tract symptom presence: symptoms present Lower urinary tract symptom detail: nocturia Qualified Code(s): N40.1 - Benign prostatic hyperplasia with lower urinary tract symptoms; R35.1 - Nocturia (7) 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: Status: Acute (8) GERD (gastroesophageal reflux disease): Status: Chronic (9) CAD (coronary artery disease): Status: Acute Qualifiers: Coronary Disease-Associated Artery/Lesion type: bypass graft [place] vs. transplanted heart: [place] heart Associated angina: with stable angina Qualifi ed Code(s): I25.708 - Atherosclerosis of coronary artery bypass graft(s), unspecified, with other forms of angina pectoris (10) Essential hypertension: Status: Chronic Plan COVID-19 related hypoxia Currently on heated high flow 80% 50 L Continue remdesivir Decadron Added budesonide for his wheezing Encourage out of bed to chair Once FiO2 around 60%, LTAC no signs of PE or DVT Waiting on records Echo done today Currently empirical antibiotic regimen Hypertension: Continue home regimen Hypokalemia improved Lung cancer with lytic spine lesion, status post Keytruda and radiotherapy for spine no signs of cauda equina Will rediscuss goals of care DVT prophylaxis on board Attestations Medical Necessity Statement*: Continue ICU management Time Spent in Patient Care: 20 minutes Coding Level of Care Code 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 transplanted heart: [place] heart Associated angina: with stable angina Essential hypertension I10
[2021-06-26] MEDS: cefTRIAXone 1,000 MG in sodium chloride 0.9% (plus) 50 ML 100 MG IV (09:40)
[2021-06-26] MEDS: enoxaparin 40 mg/0.4 mL Syringe 30 MG SUBCUT (09:41)
--- NOTE | 2021-06-26 16:21 | PC.NURSE ---
1300 Pt requesting no further remdesevir tx per recommendations from his record changer and oncologist at [facility] and he requests his O2 to be turned up as high as it can be and then weaned down. MD notified of request. O2 increased to 90% per orders. Discussed with pt at length his desire for ivermectin and hydroxychloriquine and a possible transfer to either [facility] or [facility]. 1600 at room door. Awaiting MD to arrive to discuss care.
[2021-06-26 16:53] LABS: Arterial Blood Gas Hematocrit 43.8 % (42-52); Base Excess ABG 6.4 mmol/L (-2.0-2.0); Blood Gas Allen Test Pos; Blood Gas Operator Identificat CAK; Blood Gas Sample Site Radial, left; Blood Gas Sample Type Arterial; HCO3 ABG 29.8 mmol/L (22-26); Oxygen Device HAG; PO2 ABG 49.8 mmHg (80.0-100.0)
--- NOTE | 2021-06-26 17:37 | XRR_ITS ---
PROCEDURE INFORMATION: Exam: XR Chest Exam date and time: 06/26/2021 5:37 PM Age: 65 years old Clinical indication: Prior surgery; Surgery date: 6+ months; Surgery type: Open heart; Patient HX: C/O shortness of breath; Hypoxia. H/o lung CA TECHNIQUE: Imaging protocol: XR of the chest. Views: 1 view. COMPARISON: CR XR chest 1V portable [id number] 06/22/2021 2:06 PM FINDINGS: Lungs: Calcified granuloma in the mid left lung. Bilateral reticular interstitial opacities, similar to prior. Pleural spaces: Unremarkable. No pleural effusion. No pneumothorax. Heart/Mediastinum: Changes of prior CABG. Bones/joints: Unremarkable. XR/XR chest 1V portable [id number] IMPRESSION: No substantial interval change. Similar bilateral reticular opacities, which may reflect multilobar pneumonia.
--- NOTE | 2021-06-26 18:02 | PC.NURSE ---
Pt and spoke with MD, decision made to change code status to AND. Orders changed per MD. Pt on HHFNC at 50L/90%. Desats easily. Pt teaching provided several times today r/t breathing, breathing exercises, and ambulation to chair. Pt is somewhat disagreeable to teaching and requires constant reminders. Uses urinal for elimination. Only wanted ice cream for dinner, states that the food blows out of my mouth because of this air . Will monitor
--- NOTE | 2021-06-26 19:34 | USCV_ITS ---
Herve García Age: 65 Gender: M : 1955 Exam Date: 06/26/2021 07:44 Ordering Phys: Dre Wolfe MD Technologist: ANALI Exam Location: [facility] [place] Indication: Covid isolation. Hx CABG + stenting 2006. Long- term 30yr smoker. DX lung CA 2018 s/p chemo. c/o dyspnea. BP: 121 / 81 HR: 62 Rhythm: Sinus Technical Quality: Adequate MEASUREMENTS (Male / Female) Normal Values 2D ECHO LV Diastolic Diameter PLAX 5.0 cm 4.2 - 5.9 / 3.9 - 5.3 cm LV Systolic Diameter PLAX 3.3 cm IVS Diastolic Thickness 1.2 cm 0.6 - 1.0 / 0.6 - 0.9 cm IVS Systolic Thickness 2.0 cm LVPW Diastolic Thickness 1.5 cm 0.6 - 1.0 / 0.6 - 0.9 cm LVPW Systolic Thickness 1.8 cm LVOT Diameter 2.2 cm LA Diameter 4.6 cm LA Width 4.0 cm LA Height 5.3 cm RA Width 2.9 cm RA Height 4.7 cm Aorta at Sinotubular Diameter 3.1 cm M-MODE Aortic Annulus Diameter 3.0 cm LA Ao Ratio MM 1.4 MV E Point Septal Separation 0.4 cm DOPPLER AV Peak Velocity 104.0 cm/s LVOT Peak Velocity 90.0 cm/s AV Area Cont Eq vti 3.6 cm squared AV Area Cont Eq pk 3.3 cm squared MV Area PHT 2.9 cm squared Mitral E to A Ratio 0.9 MV E' Velocity 37.2 cm/s Mitral E to MV E' Ratio 11.3 Mitral E to LV E' Lateral Ratio 12.1 Mitral E to LV E' Septal Ratio 10.5 TR Peak Velocity 266.3 cm/s TR Peak Gradient 28.4 mmHg TV Peak E Velocity 47.0 cm/s Right Atrial Pressure 10.0 mmHg Pulmonary Artery Systolic Pressu 38.4 mmHg PV Peak Velocity 102.0 cm/s RV Acceleration Time 0.1 s RV Ejection Time 0.3 s RV AcT/ET 0.3 FINDINGS Left Ventricle Moderately increased left ventricular cavity size. Moderately decreased left ventricular systolic function. Global left ventricular hypokinesis. Left ventricular ejection fraction is estimated at 40 %. Grade I/IV diastolic dysfunction (abnormal relaxation filling pattern), normal to mildly elevated filling pressures. Right Ventricle The right ventricle is normal in size and function. Right Atrium The right atrium is normal in size. Left Atrium The left atrium is normal in size. Mitral Valve Structurally normal mitral valve without significant stenosis or prolapse. There is no mitral regurgitation. Aortic Valve Structurally normal aortic valve without significant sclerosis or stenosis. There is no aortic regurgitation. Tricuspid Valve Structurally normal tricuspid valve without significant stenosis or regurgitation. Pulmonary artery systolic pressure is normal. Pulmonic Valve Structurally normal pulmonic valve without significant stenosis. There is no pulmonic regurgitation. Pericardium Normal pericardium without effusion. Aorta Normal ascending aorta dimension. CONCLUSIONS Please note that this is a poor quality images recommend using contrast to assess LV function 1-Moderately increased left ventricular cavity size. Moderately decreased left ventricular systolic function. Global left ventricular hypokinesis. Left ventricular ejection fraction is estimated at 40 %. Grade I/IV diastolic dysfunction (abnormal relaxation filling pattern), normal to mildly elevated filling pressures. 2-There is no pericardial effusion. 3-No significant valve abnormalities. 4-Pulmonary artery systolic pressure is within normal limits. 5-Right atrial pressure is around 5 mm of mercury. 6-No prior echocardiogram studies to compare. This is a poor quality study advise using contrast to assess LV function which may not be accurate Dre Fuentes MD (Electronically Signed) Final Date: 26 June 2021 17:54 S
[2021-06-26] MEDS: FUROsemide 10 mg/mL SDV 2mL 20 MG IVP (19:36)
[2021-06-26] MEDS: vancomycin 1,500 MG/300 ML PIGGYBACK 200 MG IV (20:37)
[2021-06-26] MEDS: enoxaparin 30 mg/0.3 mL Syringe SUBCUT (21:21)
[2021-06-26] MEDS: dexamethasone 10 mg/mL INJ 6 MG IVP (21:21)
--- NOTE | 2021-06-26 23:41 | PC.RESP ---
Have requested patient to lay on side then turn to other side. patient continues to go back onto his back and refuses to stay on side, he states he is also unable to prone due to abdominal hernia. Jeri has been eductaed multiple times
[2021-06-27] VITALS (62 sets, daily range): BP systolic 103–179; BP diastolic 64–101; PULSE 15–112; RESP 17–31; TEMP 36.6–37.5; O2SAT 84–95; BMI 33.0
[2021-06-27] MEDS: vancomycin 1,500 MG/300 ML PIGGYBACK 200 MG IV ×3 (04:02→20:09)
[2021-06-27 04:51] LABS: ABG PCO2 39.9 mmHg (35-45); ABG PH Result 7.46 (7.35-7.45); Arterial Blood Gas Hematocrit 41.7 % (42-52); Base Excess ABG 4.5 mmol/L (-2.0-2.0); Blood Gas Allen Test Pos; Blood Gas Operator Identificat JB; Blood Gas Sample Site Radial, right; Blood Gas Sample Type Arterial; HCO3 ABG 28.6 mmol/L (22-26); Oxygen Device HAG; PO2 ABG 50.8 mmHg (80.0-100.0)
[2021-06-27] MEDS: metoprolol tartrate 25 mg Tablet PO (05:27)
[2021-06-27 07:21] LABS: Basophils % 0.2 %; Eosinophils % 0.2 %; Hematocrit 41.6 % (42.0-52.0); Hemoglobin 14.3 g/dL (11.7-16.6); Lymphocytes # 0.7 10^3/uL (0.8-4.8); Lymphocytes % 11.7 %; Mean Corpuscular Hemoglobin 36.4 pg (28.0-34.0); Mean Corpuscular Volume 105.9 fl (80-94); Mean Platelet Volume 13.1 fL (7.4-10.4); Monocytes # 0.2 10^3/uL (0.2-0.9); Neutrophils # 4.98 10^3/uL (1.8-7.7); Neutrophils % 83.1 %; Nucleated Red Blood Cells % 0 %; Platelet Count 146 10^3/cmm (130-400); Red Blood Count 3.93 10^6/uL (4.1-5.3); Red Cell Distribution Width 13.6 % (12.1-15.1)
[2021-06-27 07:23] LABS: Mean Corpuscular HGB Conc 34.4 g/dL (30.0-36.0)
[2021-06-27] MEDS: sennosides-docusate Tablet 1 TAB PO (07:52)
[2021-06-27] MEDS: tamsulosin 0.4 mg Capsule PO (07:52)
[2021-06-27] MEDS: cholecalciferol (vitamin D3) 1,000 unit Tablet 1000 UNIT PO (07:52)
[2021-06-27] MEDS: FUROsemide 20 mg Tablet PO (07:53)
[2021-06-27] MEDS: pantoprazole DR 40 mg Tablet PO (07:53)
[2021-06-27] MEDS: zinc gluconate 50 mg Tablet PO (07:54)
[2021-06-27] MEDS: ascorbic acid 500 mg Tablet PO ×2 (07:54→17:14)
[2021-06-27] MEDS: budesonide 0.5 mg/2 mL Neb INHALATION ×2 (08:38→20:57)
[2021-06-27] MEDS: ipratropium-albuterol 3 mL Neb INHALATION ×3 (08:38→20:57)
[2021-06-27] MEDS: enoxaparin 30 mg/0.3 mL Syringe SUBCUT ×2 (09:17→22:48)
--- NOTE | 2021-06-27 09:21 | PC.NURSE ---
at door to discuss care plan with MD, requested copy of pt MD SANDRA gave ok to give to . Copy of SANDRA provided to and gone over with her as well. Pt placed on bipap at this time. Still requiring high 02 to maintain sats. Will monitor.
--- NOTE | 2021-06-27 10:06 | PC.NURSE ---
Spoke with pt regarding possible need for intubation if he deteriorates further. Pt is currently DNR/DNI but is questioning whether he might need intubated. Pt states that I don't want to but I think I will either way, so I may as well get it over with . This nurse provided teaching related to success rate with early intubation in the covid setting. Also spoke with about same information. Reinforced to pt that he needs to speak with his and doctor in order to make the best informed decision for him. Pt verbalizes understanding. Will reinforce teaching as needed. Appears more relaxed on bipap but still requiring 100% O2. Will monitor
[2021-06-27 10:31] LABS: Anion Gap 18.5 (5-19); Blood Urea Nitrogen 15 mg/dL (8-23); Calcium 9.2 mg/dL (8.5-10.5); Carbon Dioxide 23 mmol/L (22-29); Chloride 95 mmol/L (98-107); Glomerular Filtration Rate 135.6 mL/min (90-130); Glucose 202 mg/dL (65-115); Osmolality Calculated 283 mOsm/kg (285-295); Potassium 3.5 mmol/L (3.5-5.1); Sodium 133 mmol/L (136-145)
[2021-06-27 10:43] LABS: ABG PCO2 36.2 mmHg (35-45); ABG PH Result 7.49 (7.35-7.45); Alveolar-Arterial Oxygen Gradi 79.2 mmHg (5-10); Arterial Blood Gas Hematocrit 47.6 % (42-52); Base Excess ABG 4.5 mmol/L (-2.0-2.0); Blood Gas Allen Test Pos; Blood Gas Operator Identificat GD; Blood Gas Sample Site Radial, right; Blood Gas Sample Type Arterial; Carboxyhemoglobin 0.3 %THgb (0.4-20.1); HCO3 ABG 27.8 mmol/L (22-26); HGB O2 Sat 91.6 % (95-100); Ionized Calcium Level - ABG 1.1 mmol/L (1.1-1.4); Oxygen Device BIPAP; Oxygen Saturation ABG 92.8; PO2 ABG 62.8 mmHg (80.0-100.0); Potassium Level - ABG 3.5 mmol/L (3.5-5.0); Total Hemoglobin 15.5 g/dL (14-18)
--- NOTE | 2021-06-27 11:12 | P.PN_ITS ---
Subjective Subjective: Interval history: Multiple visits today this morning noted hypoxia on 100% heated high flow I discussed the possibility of intubation with the patient and his , I was t old by the ICU nurse as well that is waiting outside his room Patient wants to stay full code, he is okay with chest compressions or intubation, this morning I switched him to BiPAP and repeated blood gas after an hour which showed improvement in hypoxia, PO2 62, on BiPAP and Precedex patient looks much more comfortable his work of breathing definitely has decreased, BiPAP FiO2 100% I reevaluated the patient at 11 AM He is calm and comfortable saturating 93% PaO2 62 FiO2 100%, son is on his way from [place] Considering improvement with BiPAP decision was made to hold off on intubation for today however this was clearly conveyed to the patient and his family that in case of any further worsening our threshold for intubation will stay very well Would recommend on-call anesthesia for intubation He has been started on Lasix EF 40% Patient still does not want remdesivir last dose MRSA PCR positive, started on vancomycin on 06/26 Vitals/I&O/Wt Last Vital Signs Temp 97.9 F 06/27/21 08:00 Pulse 96 06/27/21 10:26 Resp 22 H 06/27/21 10:01 BP 122/71 06/27/21 10:01 Pulse Ox 91 06/27/21 10:26 06/26/21 06/27/21 06/27/21 22:59 06:59 14:59 Intake Total 420 / 1010 1020 / 2030 540 / 540 Output Total 975 / 1500 / 1974 665 / 665 Balance -555 / -490 545 / 55 -125 / -125 Weight last 48 hrs Weight 113.398 kg Physical Exam Narrative: EXAM NARRATIVE: Patient was evaluated multiple times today Currently on BiPAP FiO2 100% Work of breathing has significant decrease Rhonchi with crepitation noted bilaterally Clinically does not look fluid overloaded Chest congestion, nonproductive cough Abdomen soft Appears anxious Nonfocal neuro exam EOMI, PERRLA Data : 06/27/21 04:47 06/27/21 09:39 Micro: Microbiology 06/26/21 03:22 MRSA Culture - Final Nose A&P Assessment and plan (1) Acute and chronic respiratory failure with hypoxia: Status: Acute (2) COVID-19: Status: Acute (3) Acute respiratory failure with hypoxia: Status: Acute (4) Ventral hernia: Status: Acute (5) BPH (benign prostatic hyperplasia): Status: Chronic Qualifiers: Lower urinary tract symptom presence: symptoms present Lower urinary tract symptom detail: nocturia Qualified Code(s): N40.1 - Benign prostatic h yperplasia with lower urinary tract symptoms; R35.1 - Nocturia (6) Neuropathy: Status: Acute (7) Chronic low back pain: Status: Acute (8) Restrictive lung disease: Status: Acute (9) 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: Status: Acute (10) GERD (gastroesophageal reflux disease): Status: Chronic (11) Essential hypertension: Status: Chronic Plan Worsening hypoxia related to COVID-19 Underlying history of lung cancer currently in remission Lytic lesion of spine noted This morning failure to heated high flow 100% which showed PO2 50 on ABG, goals of care were rediscussed with the family, he was made full code, BiPAP trial did show improvement in oxygenation, monitor closely in ICU low threshold for intubation, will request on-call anesthesia if he gets worse Continue Decadron, vancomycin, Lasix, BiPAP treatment for now Changes diet order to n.p.o. except ice chips and small sips of water Family updated Continue Precedex along with BiPAP Adequate urine output Echo revealed ejection fraction of 40% breath 1 diastolic dysfunction history of coronary artery disease Patient is a former smoker coronary disease status post stent 2006 Full code N.p.o. 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 Nirali Diagnoses Acute and chronic respiratory failure with hypoxia J96.21 COVID-19 U07.1 Acute respiratory failure with hypoxia J96.01 Ventral hernia K43.9 BPH (benign prostatic hyperplasia) N40.1; R35.1 Lower urinary tract symptom presence: symptoms present Lower urinary tract symptom detail: nocturia Neuropathy G62.9 Chronic low back pain M54.50; G89.29 Restrictive lung disease J98.4 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 GERD (gastroesophageal reflux disease) K21.9 Essential hypertension I10
--- NOTE | 2021-06-27 11:13 | PC.NURSE ---
Pt to continue on bipap unless situation becomes worse. Appears less distressed. Will monitor.
[2021-06-27] MEDS: morphine 4 mg/mL SDV 1 mL 2 MG IVP ×2 (11:35→14:43)
--- NOTE | 2021-06-27 12:50 | PC.SOCIAL ---
IMM Updated Updated pt's on IMM. No questions voiced. Provided pt a copy. Initialed, dated, & timed copy in chart.
[2021-06-27 12:57] LABS: Vancomycin Trough 9.7 ug/mL (10-15)
--- NOTE | 2021-06-27 16:54 | PC.NURSE ---
Encouraged pt to sit up in chair as often as possible and for as long as possible. Pt does not want to go back to chair at this time, states that he is tired. Sitting up in bed with HOB at almost 90 deg. O2 sat 91 at this time, pt encouraged to stay off his phone and try to relax. Spoke with family and asked them to leave in order to allow pt to relax. Will monitor.
[2021-06-27] MEDS: dexmedeTOMIDine 0.9 % NaCL 400 MCG/100 ML PREMIX IV (17:21)
--- NOTE | 2021-06-27 17:57 | PC.NURSE ---
Pt sitting up in bed. Given multiple sips of h20 throughout day d/t dryness r/t bipap mask. VSS at this time. Remains on 100% fio2 per bipap. Monterroso cath draining freely to BSD. Will monitor.
[2021-06-27] MEDS: dexamethasone 10 mg/mL INJ 6 MG IVP (22:47)
[2021-06-27] MEDS: dexmedeTOMIDine 0.9 % NaCL 400 MCG/100 ML PREMIX 17.01 MCG IV (23:00)
[2021-06-28] VITALS (62 sets, daily range): BP systolic 103–181; BP diastolic 65–97; PULSE 61–101; RESP 18–31; TEMP 36.7–37.1; O2SAT 80–92; BMI 33.0
[2021-06-28] MEDS: ipratropium-albuterol 3 mL Neb INHALATION ×4 (02:11→20:10)
--- NOTE | 2021-06-28 05:00 | PC.NURSE ---
BIPAP Patient becoming very agitated about having to wear BIPAP mask, nurse explained need for BIPAP due to increased oxygen requirements. After education patient still says he, does not want to wear this mask, I want to be able to drink. I am thirsty and my mouth is dry.
[2021-06-28] MEDS: metoprolol tartrate 25 mg Tablet PO (05:08)
[2021-06-28] MEDS: vancomycin 1,500 MG/300 ML PIGGYBACK 200 MG IV ×3 (05:08→20:25)
[2021-06-28] MEDS: dexmedeTOMIDine 0.9 % NaCL 400 MCG/100 ML PREMIX 17.01 MCG IV (05:09)
[2021-06-28 05:38] LABS: ABG PCO2 36.9 mmHg (35-45); ABG PH Result 7.46 (7.35-7.45); Arterial Blood Gas Hematocrit 44.3 % (42-52); Base Excess ABG 2.6 mmol/L (-2.0-2.0); Blood Gas Allen Test Pos; Blood Gas Operator Identificat glc; Blood Gas Sample Site Radial, right; Blood Gas Sample Type Arterial; HCO3 ABG 26.3 mmol/L (22-26); Oxygen Device BIPAP; PO2 ABG 66.3 mmHg (80.0-100.0)
--- NOTE | 2021-06-28 06:31 | PC.NURSE ---
Shift Note Frequent safety and comfort rounds continue. Orders and/or nursing care completed as indicated. Patient monitored for response to intervention and treatment(s). Education provided includes oxygen requirements with BIPAP. Patient needs further reinforcement teaching. He remains alert and oriented x4 and on BIPAP 100% FiO2. Precedex is infusing per protocol please see MAR for infusion rate. Monterroso catheter drained 1100 mls of urine. No wounds or skin issues noted at this time. Will continue to monitor.
[2021-06-28 06:54] LABS: Anion Gap 21.4 (5-19); Blood Urea Nitrogen 15 mg/dL (8-23); Carbon Dioxide 21 mmol/L (22-29); Chloride 98 mmol/L (98-107); Glomerular Filtration Rate 135.6 mL/min (90-130); Glucose 238 mg/dL (65-115); Magnesium 2.3 mg/dL (1.7-2.3); Osmolality Calculated 291 mOsm/kg (285-295); Potassium 4.4 mmol/L (3.5-5.1); Sodium 136 mmol/L (136-145)
[2021-06-28] MEDS: morphine 4 mg/mL SDV 1 mL 2 MG IVP (08:06)
[2021-06-28] MEDS: budesonide 0.5 mg/2 mL Neb INHALATION (08:08)
[2021-06-28] MEDS: FUROsemide 20 mg Tablet PO (08:15)
[2021-06-28] MEDS: rocuronium 10 mg/mL INJ 5mL 120 MG IVP (10:00)
[2021-06-28] MEDS: dexmedeTOMIDine 0.9 % NaCL 400 MCG/100 ML PREMIX 19.85 MCG IV ×3 (11:16→20:25)
--- NOTE | 2021-06-28 11:30 | XRR_ITS ---
PROCEDURE INFORMATION: Exam: XR Chest Exam date and time: 06/28/2021 11:30 AM Age: 65 years old Clinical indication: Device placement; Additional info: Tube placement TECHNIQUE: Imaging protocol: XR of the chest. Views: 1 view. COMPARISON: CR XR chest 1V portable [id number] 06/26/2021 5:49 PM FINDINGS: Tubes, catheters and devices: A nasogastric tube is present with the tip projecting in the stomach approximately 6 cm below the diaphragm. An endotracheal tube and central venous catheter projects in satisfactory position. Lungs: There are extensive bilateral pulmonary infiltrates. When compared to the previous study they are increasing in the lung bases. Pleural spaces: Unremarkable. No pleural effusion. No pneumothorax. Heart/Mediastinum: Unremarkable. No cardiomegaly. Bones/joints: Unremarkable. XR/XR chest 1V portable [id number] IMPRESSION: 1. Satisfactory position of the endotracheal tube nasogastric tube and central venous catheter. 2. Extensive bilateral pulmonary infiltrates that are worsening in the lung bases.
--- NOTE | 2021-06-28 11:39 | P.ANES_ITS ---
Anesthesia Procedures Procedure/Date: 06/28/21 Arterial Line: Time Out Performed: Yes (1000) Consent: requested by attending/covering physician, from patient, risks and benefits reviewed and patient agrees to proceed Size (Gauge): 20 Technique Used: other (Real time US guidance) Post-Procedure: line sutured into place Patient Tolerated Procedure: well and no complications Complications: none Site: left Additional Comments: After sterile prep, using sterile technique, and using real time US guidance for vessel selection an 20 g radial arterial was inserted with real time visualization of needle entry and real time visualization of catheter adv ancement. Tolerated well. 1 attempt.
[2021-06-28] MEDS: propofol 1,000 MG/100 ML INJ 27.22 MG IV (11:40)
--- NOTE | 2021-06-28 11:40 | ANES.PROC ---
Anesthesia Procedures Procedure/Date: 06/28/21 Intubation: Time Out Performed: Yes (9443) Consent: requested by attending/covering physician, from patient, risks and benefits reviewed, patient agrees to proceed and emergency procedure Sedative (amount): etomidate Paralytic (amount): rocuronium Laryngoscope: other (Glidescope 4) ET Tube Size: 8 ET Tube Uncuffed: Yes Tube Secured Depth (cm): 24 Tube Secured Location: teeth Tube Placement Confirmation: visualized tube passing through cords, equal breath sounds bilaterally, no breath sounds over epigastrium and confirmation by capnometry Patient Tolerated Procedure: well Additional Comments: Cuff pressure < 25 CM H2)
--- NOTE | 2021-06-28 11:41 | P.ANES_ITS ---
Anesthesia Procedures Procedure/Date: 06/28/21 Central Venous Insert: Time Out Performed: Yes (1000) Consent: requested by attending/covering physician, from patient and risks and benefits reviewed Central Line: New Anesthesia monitors: pulse oximetry, EKG, BP cuff and oxygen Vein cannulated: right internal jugular Ultrasound used: to identif y patency to vessel and to visualize needle entry to vein Post procedure: Obtain Chest X-Ray Additional Comments: Cap, eye protection, mask donned by myself and RN. Patient head down below feet (Trendelenburg 10 degrees). Sterile gown and gloves donned. Time out patient prepped with Chlorhexidine and full body fenestrated drape placed in sterile fashion. Real time US guidance for target selection and real time US visualization of needle entry into vessel. Wire passed, no ectopy, needle removed, wire confirmed in correct vessel in both in-plane and epz-vw-colnx US views. Vessel dilated over wire. Introducer removed, catheter threaded to 20 cm at skin, no ectopy. All ports drawn back and flushed with ease. Ports capped and locked. Catheter sutured at [address] Sterile dressing applied. Tolerated well, brief increase of BP to 203/96 treated easily with bolus of fentanyl and midazolam and titration up on fentanyl and midazolam infusions.
[2021-06-28 12:02] LABS: ABG PCO2 43.4 mmHg (35-45); ABG PH Result 7.32 (7.35-7.45); Arterial Blood Gas Hematocrit 42.7 % (42-52); Blood Gas Operator Identificat GD; Blood Gas Sample Site Not specified; Blood Gas Sample Type Arterial; Blood Gas Tidal Volume 0.48; HCO3 ABG 22.1 mmol/L (22-26); Oxygen Device VENT
[2021-06-28 13:54] LABS: ABG PCO2 51.5 mmHg (35-45); ABG PH Result 7.32 (7.35-7.45); Alveolar-Arterial Oxygen Gradi 76.7 mmHg (5-10); Base Excess ABG -0.5 mmol/L (-2.0-2.0); Blood Gas Operator Identificat GD; Blood Gas Sample Site Not specified; Blood Gas Sample Type Arterial; Blood Gas Tidal Volume 0.48; Carboxyhemoglobin 0.6 %THgb (0.4-20.1); HCO3 ABG 26.4 mmol/L (22-26); HGB O2 Sat 86.8 % (95-100); Ionized Calcium Level - ABG 1.1 mmol/L (1.1-1.4); Methemoglobin 1.1 % (0.4-1.5); Oxygen Device VENT; Oxygen Saturation ABG 88.3; PO2 ABG 60.8 mmHg (80.0-100.0); Potassium Level - ABG 4.2 mmol/L (3.5-5.0)
--- NOTE | 2021-06-28 13:56 | P.PN_ITS ---
Subjective Subjective: Interval history: This morning patient was tachypneic required morphine in the morning however ABG reveals better PaO2 than yesterday but clinically patient was showing signs of worsening with worsening of tachypnea and anxiety, I spoke with the patient and his family members(son and at the bedside) decision was made to intubate him I called anesthesiologist for intubation, endotracheal tube size 8 etomidate 20 mg and rocuronium 100 mg after that he was put on fentanyl, Versed propofol and Nimbex, he will be proned at 3 PM We will tube feed once he is supine Added Zosyn to his vancomycin regimen He is already on Lovenox 30 mg every 12 hours because of his high BMI Sputum culture sent Will use 20 mg IV Lasix on daily basis to keep him in negative balance Chest x-ray confirmed the position of central line and endotracheal tube After intubation his O2 saturation was low, ABG revealed PO2 worsening however despite 3 sedative agents he is still awake breathing without event I am anticipating improvement when he is more sedated Vitals/I&O/Wt Last Vital Signs Temp 98.1 F 06/28/21 04:01 Pulse 71 06/28/21 08:21 Resp 20 H 06/28/21 13:51 BP 150/84 06/28/21 06:00 Pulse Ox 89 L 06/28/21 13:51 06/27/21 06/28/21 06/28/21 22:59 06:59 14:59 Intake Total 731.018 / 1311.018 688.982 / 2000.000 152.841 / 152.841 Output Total 325 / 1190 1100 / 2290 Balance 406.018 / 121.018 -411.018 / -290.000 152.841 / 152.841 Weight last 48 hrs Weight 113.398 kg Weight 113.398 kg Physical Exam Narrative: EXAM NARRATIVE: Patient is intubated sedated and paralyzed He was tachypneic before intubation Diaphoretic S1, S2 sinus tachycardia Clinically looks dehydrated Abdomen soft Lower extremity no edema Nonfocal neuro exam Was awake alert oriented to time place and person before intubation Urinary Catheter Management: Monterroso: Cath Placed During This Visit: yes Reason for Continuing Indwelling Catheter: Accurate Measurement of Urinary Output in Critically Ill Patients Urinary Catheter Date of Insertion: 06/27/21 Urinary Catheter Time of Insertion: 11:45 Data : 06/27/21 04:47 06/28/21 04:05 A&P Assessment and plan (1) Respiratory failure: Status: Acute (2) Intubation of airway performed without difficulty: Status: Acute (3) Acute and chronic respiratory failure with hypoxia: Status: Acute (4) COVID-19: Status: Acute (5) Acute respiratory failure with hypoxia: Status: Acute (6) Ventral hernia: Status: Acute (7) BPH (benign prostatic hyperplasia): Status: Chronic Qualifiers: Lower urinary tract symptom presence: symptoms present Lower urinary tract symptom detail: nocturia Qualified Code(s): N40.1 - Benign prostatic hyperplasia with lower urinary tract symptoms; R35.1 - Nocturia (8) Neuropathy: Status: Acute (9) Chronic low back pain: Status: Acute (10) Restrictive lung disease: Status: Acute (11) 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: Status: Acute (12) GERD (gastroesophageal reflux disease): Status: Chronic (13) Essential hypertension: Status: Chronic Plan Respiratory failure requiring mechanical ventilation for worsening hypoxia on BiPAP 100% Currently intubated endotracheal tube size 8 Patient sedated and paralyzed with Nimbex, for RSI etomidate and rocuronium were used 1st proning cycle 06/28 Intubation 06/28 Artline, central line 06/28 Monterroso catheter placement 06/27 Added Zosyn to vancomycin 06/28, vancomycin started 06/27 Continue steroids, patient refused last dose of remdesivir Continue multivitamins We will keep him on IV Lasix daily basis Tube feed during supine phase Sputum culture obtained Check CPK levels EKG to be repeated We will follow up with Dr. Biggs in the morning to see if he would benefit from bronchoscopy Currently he is on Lovenox every 12h 30 mg because of his high BMI no signs of PE or venous clots Trend D-dimer and inflammatory markers every 48 hours Monitor ins and outs We will keep him on bowel regimen Guarded prognosis, discussed with the in detail, Son at the bedside as well all questions were answered to their satisfaction Attestations Medical Necessity Statement*: Continue ICU management Time Spent in Patient Care: 40min Critical Care Time: 40min Procedures Arterial Line Size (Gauge): 20 Coding Level of Care Code Acute Retail Team Member for [facility] Fwmejia Diagnoses Respiratory failure J96.90 Intubation of airway performed without difficulty Z78.9 Acute and chronic respiratory failure with hypoxia J96.21 COVID-19 U07.1 Acute respiratory failure with hypoxia J96.01 Ventral hernia K43.9 BPH (benign prostatic hyperplasia) N40.1; R35.1 Lower urinary tract symptom presence: symptoms present Lower urinary tract symptom detail: nocturia Neuropathy G62.9 Chronic low back pain M54.50; G89.29 Restrictive lung disease J98.4 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 GERD (gastroesophageal reflux disease) K21.9 Essential hypertension I10
[2021-06-28] MEDS: propofol 1,000 MG/100 ML INJ 34.02 MG IV ×3 (14:32→22:32)
[2021-06-28] MEDS: piperacillin-tazobactam 3.375 GM in sodium chloride 0.9% (plus) 50 ML IV ×2 (14:34→22:31)
[2021-06-28] MEDS: FUROsemide 10 mg/mL SDV 2mL 20 MG IVP (14:35)
[2021-06-28] MEDS: enoxaparin 30 mg/0.3 mL Syringe SUBCUT ×2 (14:58→22:31)
--- NOTE | 2021-06-28 16:52 | PC.NUTR ---
Received TF consult. Current order is Jevity 1.2 @ 15 mls/hr with FW flushes 150 mls Q4H when Pt is supine. When TF started recommend increasing 10 mls Q8H as tolerated to goal rate of Jevity 1.2 @ 40 mls/hr. Details in RD assessment.
[2021-06-28 17:17] LABS: ABG PCO2 52.5 mmHg (35-45); ABG PH Result 7.33 (7.35-7.45); Arterial Blood Gas Hematocrit 44.1 % (42-52); Base Excess ABG 0.8 mmol/L (-2.0-2.0); Blood Gas Operator Identificat GD; Blood Gas Sample Site Not specified; Blood Gas Sample Type Arterial; Blood Gas Tidal Volume 0.48; HCO3 ABG 27.7 mmol/L (22-26); Oxygen Device VENT; PO2 ABG 72.1 mmHg (80.0-100.0)
[2021-06-28] MEDS: cisatracurium 100 MG in sodium chloride 0.9% 50 ML 6.8 MG IV (19:00)
--- NOTE | 2021-06-28 19:28 | PC.NURSE ---
Intubated at 1000. 1RT, 1RN, and Anesthesiologist, Central line placed right neck, ART line placed right radial. 20 Etomidate 120 Erik. Fent 200 Prop 50 Versed 4 Precedex 0.7 nimbex 1 Patient proned at 1530. 1Rt, 3RN, 1 Security. Uneventful.
[2021-06-28] MEDS: ascorbic acid 500 mg Tablet PO (19:44)
[2021-06-28] MEDS: dexamethasone 10 mg/mL INJ 6 MG IVP (22:31)
[2021-06-29] VITALS (56 sets, daily range): BP systolic 104–140; BP diastolic 67–93; PULSE 60–103; RESP 22; TEMP 36.3–36.6; O2SAT 90–97; BMI 26.8
[2021-06-29] MEDS: dexmedeTOMIDine 0.9 % NaCL 400 MCG/100 ML PREMIX 19.85 MCG IV ×5 (02:17→23:56)
[2021-06-29] MEDS: propofol 1,000 MG/100 ML INJ 34.02 MG IV ×6 (02:17→23:02)
[2021-06-29] MEDS: ipratropium-albuterol 3 mL Neb INHALATION ×4 (03:17→20:17)
[2021-06-29 03:22] LABS: Basophils % 0.2 %; Eosinophils % 0.2 %; Hematocrit 35.2 % (42.0-52.0); Hemoglobin 14.3 g/dL (11.7-16.6); Lymphocytes # 0.4 10^3/uL (0.8-4.8); Lymphocytes % 6.7 %; Mean Corpuscular HGB Conc 40.6 g/dL (30.0-36.0); Mean Corpuscular Hemoglobin 42.2 pg (28.0-34.0); Mean Corpuscular Volume 103.8 fl (80-94); Mean Platelet Volume 11.3 fL (7.4-10.4); Monocytes # 0.2 10^3/uL (0.2-0.9); Monocytes % 3.2 %; Neutrophils # 4.82 10^3/uL (1.8-7.7); Neutrophils % 89.3 %; Nucleated Red Blood Cells % 0 %; Platelet Count 210 10^3/cmm (130-400); Red Blood Count 3.39 10^6/uL (4.1-5.3); White Blood Count 5.4 10^3/uL (4.0-10.0)
[2021-06-29 03:32] LABS: D Dimer 3.89 ug/mIFEU (0-0.59)
[2021-06-29 03:40] LABS: Slide Review Slide Review Perform
[2021-06-29 03:44] LABS: ABG PCO2 50.8 mmHg (35-45); ABG PH Result 7.34 (7.35-7.45); Arterial Blood Gas Hematocrit 44.8 % (42-52); Base Excess ABG 0.7 mmol/L (-2.0-2.0); Blood Gas Allen Test Pos; Blood Gas Sample Site Radial, left; Blood Gas Sample Type Arterial; HCO3 ABG 27.4 mmol/L (22-26); Oxygen Device VENT; PO2 ABG 71.8 mmHg (80.0-100.0)
[2021-06-29 03:46] LABS: Alanine Aminotransferase 26 U/L (0-41); Alkaline Phosphatase 58 IU/L (40-130); Anion Gap 15.9 (5-19); Aspartate Amino Transferase 47 U/L (0-40); Blood Urea Nitrogen 14 mg/dL (8-23); Calcium 8.8 mg/dL (8.5-10.5); Carbon Dioxide 24 mmol/L (22-29); Chloride 104 mmol/L (98-107); Globulin 4.2 g/dL (1.3-4.6); Glomerular Filtration Rate 135.6 mL/min (90-130); Glucose 260 mg/dL (65-115); Lactate Dehydrogenase 286 U/L (135-225); Osmolality Calculated 297 mOsm/kg (285-295); Potassium 4.9 mmol/L (3.5-5.1); Sodium 139 mmol/L (136-145); Total Bilirubin 0.8 mg/dL (0.15-1.2); Total Protein 7.2 g/dL (6.6-8.7)
[2021-06-29 03:50] LABS: Creatine Phosphokinase 1463 U/L (39-308)
[2021-06-29 03:52] LABS: Procalcitonin 0.07 ng/mL (0-0.5)
[2021-06-29] MEDS: piperacillin-tazobactam 3.375 GM in sodium chloride 0.9% (plus) 50 ML IV ×3 (05:38→22:40)
[2021-06-29] MEDS: vancomycin 1,500 MG/300 ML PIGGYBACK 200 MG IV ×3 (05:39→22:40)
[2021-06-29] MEDS: cisatracurium 100 MG in sodium chloride 0.9% 50 ML 6.8 MG IV ×2 (05:44→23:01)
--- NOTE | 2021-06-29 06:00 | ECG_ITS ---
[facility] Test Date: 2021-06-29 Pat Name: Herve García Department: Room: [facility] Gender: Male Signal Helper: : 1955 Requested By: Dre Wolfe Order Number: [id number] Reading MD: DRE HERNANDEZ Measurements Intervals Ona Rate: 73 P: 62 IN: 136 QRS: 19 QRSD: 93 T: 19 QT: 436 QTc: 482 Interpretive Statements SINUS RHYTHM NONSPECIFIC T-WAVE ABNORMALITY PROLONGED QT INTERVAL Compared to ECG 06/21/2021 10:46:51 T-wave abnormality now present Prolonged QT interval now present Electronically Signed On 06-29-2021 19:52:09 EVENT COORDINATOR by DRE HERNANDEZ [email or web address].[facility].[employer]/store/[id number]
[2021-06-29] MEDS: budesonide 0.5 mg/2 mL Neb INHALATION ×2 (08:46→20:17)
--- NOTE | 2021-06-29 08:48 | PC.SOCIAL ---
IMM UPDATED IMM dated and initialed and copy given to patient
--- NOTE | 2021-06-29 09:23 | PC.CHAP ---
Pastoral Care Encounter/Spiritual Assessment Type of Contact [] Declined inspector cold working visit [] Patient/Family/Request visit [] Outpatient visit [] Follow-up visit [] Physician referral [] Code/Alert [x] Routine visit [] Staff referral [] Actively dying [] Patient sleeping [x] Family support [] [] Out of room [] Palliative care [] [] Receiving care in room [] Pre-surgical visit [] Trauma [] Long length of stay [x] ICU visit [x] Other: vent.. on tummy Relational/Emotional Strength [] Patient feels connected with others/family/visitors/staff [] Distress [] Loneliness/isolation [] Abandonment Spirituality of Patient [] Person of Agustina [] Attends Moravian of their [place] [] Believes in Prayer [] Reads Bible or Yarsanism materials [] There are Spiritual issues to be addressed Manager Furniture Interventions [x] Prayer [] Active listening [] Non-anxious presence [] Spiritual/emotional support [] Crisis/trauma care [] Spiritual counseling [] Bereavement support [] Provided bereavement packet [] Provided Bible/devotional materials [] Provided toy/stuffed animal, coloring book to patient or family member [] Provided Communion [] Anointing/Walker [] Salvation [x] Completed spiritual assessment [] Other: Impact on Illness or Injury [] Angry [] Fearful [] Anxious [] Often cries [] Exhaustion [] Unable to work [] Unable to attend yazidi [] Unable to walk/stand [] Unable to read [] Unable to drive [] Unable to eat/drink [] Unable to sleep [] Unable to be with family [] Patient intubated [] Other: Summary Time spent with patient
[2021-06-29] MEDS: sennosides-docusate Tablet 1 TAB PO (10:11)
[2021-06-29] MEDS: ascorbic acid 500 mg Tablet PO ×2 (10:11→18:31)
[2021-06-29] MEDS: zinc gluconate 50 mg Tablet PO (10:11)
[2021-06-29] MEDS: cholecalciferol (vitamin D3) 1,000 unit Tablet 1000 UNIT PO (10:11)
[2021-06-29] MEDS: enoxaparin 30 mg/0.3 mL Syringe SUBCUT (10:12)
[2021-06-29] MEDS: tamsulosin 0.4 mg Capsule PO (10:12)
[2021-06-29] MEDS: pantoprazole DR 40 mg Tablet PO (10:12)
--- NOTE | 2021-06-29 10:54 | P.PN_ITS ---
Subjective Subjective: Interval history: This morning patient was to in prone position, D-dimer 3.8, PaO2 71.8 100% Requested RT to wean FiO2 down to 90% currently PEEP is 12, titrate down FiO2 af ter he is supine Asked RN to start tube feeding once he is supine We will turn off paralytics Negative fluid balance, afebrile, no leukocytosis Family told me that he had bad tooth that was recently extracted, CK 1400 Albumin 3.0 Procalcitonin unremarkable No bowel movement Fentanyl 200, Precedex 0.7, Versed 6, propofol 50, FiO2 100% PEEP 12 Vitals/I&O/Wt Last Vital Signs Temp 97.4 F L 06/29/21 04:00 Pulse 72 06/29/21 08:54 Resp 22 H 06/29/21 10:08 BP 129/86 06/29/21 06:00 Pulse Ox 91 06/29/21 10:08 06/28/21 06/29/21 06/29/21 22:59 06:59 14:59 Intake Total 1067.04 / 1287.921 720.217 / 2008.138 100 / 100 Output Total 1550 / 2550 1999 / 0 Balance -482.96 / -1262.079 -1279.783 / -2541.862 100 / 100 Weight last 48 hrs Weight 92.193 kg Weight 113.398 kg Physical Exam Narrative: EXAM NARRATIVE: Patient is prone Sedated and paralyzed Assisted bilateral breath sounds Looks euvolemic Neuro exam limited Abdominal exam limited Patient is proned Urine catheter draining dilute urine Endotracheal tube size 8 Art line and central line in place Urinary Catheter Management: Monterroso: Cath Placed During This Visit: yes Reason for Continuing Indwelling Catheter: Accurate Measurement of Urinary Output in Critically Ill Patients Urinary Catheter Date of Insertion: 06/27/21 Urinary Catheter Time of Insertion: 11:45 Data : 06/29/21 02:57 06/29/21 02:57 Micro: Microbiology 06/28/21 11:05 Gram Stain - Final Sputum - Endotracheal Tube Aspirate A&P Assessment and plan (1) Intubation of airway performed without difficulty: Status: Acute (2) Respiratory failure: Status: Acute (3) Acute and chronic respiratory failure with hypoxia: Status: Acute (4) COVID-19: Status: Acute (5) Acute respiratory failure with hypoxia: Status: Acute (6) Ventral hernia: Status: Acute (7) BPH (benign prostatic hyperplasia): Status: Chronic Qualifiers: Lower urinary tract symptom presence: symptoms present Lower urinary tract symptom detail: nocturia Qualified Code(s): N40.1 - Benign prostatic hyperplasia with lower urinary tract symptoms; R35.1 - Nocturia (8) Neuropathy: Status: Acute (9) 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: Status: Acute (10) Restrictive lung disease: Status: Acute Plan COVID-19 related respiratory failure Requiring mechanical ventilation Intubated 06/28 Artline, central line done on 06/28 First proning session 06/28 Vancomycin added 06/26 Zosyn added 06/28 Repeat blood gas once he is supine He does show improvement to proning Keep him in negative balance Afebrile no leukocytosis continue broad-spectrum antibiotics D-dimer 3.8 Recent CTA and venous Doppler ruled out clots, might repeat once FiO2 around 60% continue Lovenox every 12 regimen for now He does have history of gastric ulcer and bowel perforation History of coronary disease status post CABG Left lung cancer with mets to adrenal gland and spine No active signs of addisonian crisis Wean off FiO2 down to 90% once he is supine Start tube feed during supine phase Continue Lasix Continue Decadron Mild rhabdo secondary to use of paralytics and proning, monitor for now is in ne gative fluid balance his input is around 2 L, no worsening of creatinine Left lung cancer with mets guarded prognosis, discussed with the family We will follow up with pulmonology Attestations Medical Necessity Statement*: Continue ICU management Time Spent in Patient Care: 30mins Critical Care Time: 15min Procedures Arterial Line Size (Gauge): 20 Coding Level of Care Code Acute Home Office Representative for Chg Fwd Diagnoses Intubation of airway performed without difficulty Z78.9 Respiratory failure J96.90 Acute and chronic respiratory failure with hypoxia J96.21 COVID-19 U07.1 Acute respiratory failure with hypoxia J96.01 Ventral hernia K43.9 BPH (benign prostatic hyperplasia) N40.1; R35.1 Lower urinary tract symptom presence: symptoms present Lower urinary tract symptom detail: nocturia Neuropathy G62.9 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 Restrictive lung disease J98.4
--- NOTE | 2021-06-29 11:29 | PC.NURSE ---
Patient supine 1050 1RT, 2RN, 2 Resident RN. uneventful
[2021-06-29] MEDS: FUROsemide 10 mg/mL SDV 2mL 20 MG IVP (13:31)
--- NOTE | 2021-06-29 16:46 | PM.PN ---
Subjective Subjective: Interval history: -Seen patient at bedside -FiO2 down to 65% after 1 proning session -No acute overnight events -Other labs and imaging reviewed Medications: Reviewed: Yes Vitals/I&O/Wt Last Vital Signs Temp 97.8 F 06/29/21 07:30 Pulse 64 06/29/21 14:09 Resp 22 H 06/29/21 14:09 BP 107/74 06/29/21 11:30 Pulse Ox 95 06/29/21 14:09 06/29/21 06/29/21 06/29/21 06:59 14:59 22:59 Intake Total 720.217 / 2008.138 1000 / 1000 Output Total 1999 / 0 550 / 550 Balance -1279.783 / -2541.862 450 / 450 Weight last 48 hrs Weight 203 lb 4 oz Weight 250 lb Physical Exam Narrative: EXAM NARRATIVE: PHYSICAL EXAM: General: lying in bed, sedated and intubated. HEENT:NCAT, PERRLA, EOMI Neck: Supple Lungs: Clear, Heart: s1/s2, RRR Abd: soft, NT, ND, BS + Normoactive Extremities: No edema SENIOR RADIATION PROTECTION TECHNICIAN: sedated and limited SENIOR RADIATION PROTECTION TECHNICIAN exam possible. SKIN: no rash LDA: # CVC: Right IJ 06/28/2021 Urinary Catheter Management: Monterroso: Cath Placed During This Visit: yes Reason for Continuing Indwelling Catheter: Accurate Measurement of Urinary Output in Critically Ill Patients Urinary Catheter Date of Insertion: 06/27/21 Urinary Catheter Time of Insertion: 11:45 Data : 06/30/21 03:57 06/30/21 03:57 Micro: Microbiology 06/28/21 11:05 Gram Stain - Final Sputum - Endotracheal Tube Aspirate Sputum Culture - Preliminary A&P Assessment and plan (1) Acute and chronic respiratory failure with hypoxia: Status: Acute (2) COVID-19: Status: Acute (3) 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: Status: Acute (4) CAD (coronary artery disease): Status: Acute Qualifiers: Coronary Disease-Associated Artery/Lesion type: bypass graft [place] vs. transplanted heart: [place] heart Associated angina: with stable angina Qualified Code(s): I25.708 - Atherosclerosis of coronary artery bypass graft(s), unspecified, with other forms of angina pectoris Plan #Acute hypoxic respiratory failure secondary to ARDS due to COVID-19 pneumonia #History of non-small cell lung cancer metastatic to lymph nodes and spine-diagnosed in 2018 and patient reported taking Keytruda. As per patient he is in remission-follows up with oncology and pulmonary in [place] #History of smoking 1 pack/day for 30 years quit 2011-possibility of COPD -Covid PCR + 06/15/2021 -Intubated, sedated, prone position-completed first proning session and saturating 95% on FiO2 65% -Taper off paralytics and Versed while supine-start second session proning tonight -Completed remdesivir and currently on dexamethasone, discontinued baricitinib as patient has neutropenia; patient also refused remdesivir -CRP 52; -D-dimer 0.51-CTA negative for PE -no DVT on venous Doppler -MRSA nares positive-recommended to start vancomycin -On Zosyn for broad-spectrum coverage - scheduled nebulizations with DuoNeb and budesonide for wheezing -Echocardiogram 06/26/2021: Moderately increased LV cavity size. Moderately decreased LV systolic function with ejection fraction 40% grade 1 diastolic dysfunction. Technically difficult study and cardiology advised for echo with contrast; however BNP 116 -On tamsulosin for BPH-good urine output-monitor input output and try to keep net negative -CK 1400-normal renal functions, on NS at 75 mL/h-monitor input output and try to keep net negative-Lasix 20 mg as needed -Sugars moderately controlled -Tube feeding while supine -Lovenox for DVT prophylaxis -Family updated by hospitalist -Full code -Prognosis guarded Recommendations conveyed to hospitalist, RN, RT taking care of the patient Attestations Medical Necessity Statement*: Acute hypoxic respiratory failure secondary to COVID-19 pneumonia-requiring mechanical intubation-needs close ICU monitoring for at least 48 hours Time Spent in Patient Care: Greater than 35 minutes (>than 50% of time spent in counselling and/or direct pt care on unit). Critical Care Time: The high probability of a clinically significant, sudden or life threatening deterioration of the patient's [pulmonary, endocrine, renal, neurological system(s) required my full and direct attention, intervention and personal management. The critical care time is as shown. This time is in addition to time spent performing any reported procedures but includes the following: [x] Data and vital sign review and interpretation [x] Patient assessment, examination and intervention [x] Documentation [x] Medication orders and management Critical Care Time (min): 45 Procedures Arterial Line Size (Gauge): 20 Coding Level of Care Code Established Pt Acute Assistant Professor Of Art for Chg Fwd Patient Type Established History Comprehensive Exam Comprehensive Medical Decision Making High Complexity Diagnoses Acute and chronic respiratory failure with hypoxia J96.21 COVID-19 U07.1 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 CAD (coronary artery disease) I25.708 Coronary Disease-Associated Artery/Lesion type: bypass graft [place] vs. transplanted heart: [place] heart Associated angina: with stable angina Time Spent (min) 45
--- NOTE | 2021-06-29 22:05 | PC.NURSE ---
Prone Patient Proned patient at 2100 with help of staff.
[2021-06-29] MEDS: enoxaparin 100 mg/mL Syringe 90 MG SUBCUT (22:40)
[2021-06-29] MEDS: dexamethasone 10 mg/mL INJ 6 MG IVP (22:40)
[2021-06-30] VITALS (61 sets, daily range): BP systolic 99–147; BP diastolic 59–80; PULSE 57–97; RESP 20–22; TEMP 36.2–38.6; O2SAT 86–100; BMI 29.8
[2021-06-30] MEDS: ipratropium-albuterol 3 mL Neb INHALATION ×4 (03:37→20:24)
[2021-06-30] MEDS: propofol 1,000 MG/100 ML INJ 34.02 MG IV ×5 (03:52→21:14)
[2021-06-30 04:16] LABS: Basophils % 0.2 %; Eosinophils % 0.5 %; Hematocrit 40.3 % (42.0-52.0); Hemoglobin 14.3 g/dL (11.7-16.6); Lymphocytes # 0.7 10^3/uL (0.8-4.8); Lymphocytes % 12.1 %; Mean Corpuscular HGB Conc 35.5 g/dL (30.0-36.0); Mean Corpuscular Hemoglobin 36.7 pg (28.0-34.0); Mean Corpuscular Volume 103.3 fl (80-94); Mean Platelet Volume 11.2 fL (7.4-10.4); Monocytes # 0.3 10^3/uL (0.2-0.9); Monocytes % 4.4 %; Neutrophils # 4.88 10^3/uL (1.8-7.7); Nucleated Red Blood Cells % 0 %; Platelet Count 191 10^3/cmm (130-400); Red Cell Distribution Width 12.8 % (12.1-15.1)
[2021-06-30 04:50] LABS: Anion Gap 12.8 (5-19); Blood Urea Nitrogen 17 mg/dL (8-23); Calcium 7.6 mg/dL (8.5-10.5); Carbon Dioxide 27 mmol/L (22-29); Chloride 106 mmol/L (98-107); Glomerular Filtration Rate 113.5 mL/min (90-130); Glucose 273 mg/dL (65-115); Osmolality Calculated 303 mOsm/kg (285-295); Potassium 4.8 mmol/L (3.5-5.1); Sodium 141 mmol/L (136-145)
[2021-06-30] MEDS: dexmedeTOMIDine 0.9 % NaCL 400 MCG/100 ML PREMIX 19.85 MCG IV ×4 (05:29→23:30)
[2021-06-30] MEDS: vancomycin 1,500 MG/300 ML PIGGYBACK 200 MG IV ×2 (05:30→15:14)
[2021-06-30] MEDS: piperacillin-tazobactam 3.375 GM in sodium chloride 0.9% (plus) 50 ML IV ×3 (05:30→21:39)
[2021-06-30 05:48] LABS: ABG PCO2 45.6 mmHg (35-45); Arterial Blood Gas Hematocrit 44.1 % (42-52); Base Excess ABG 2.9 mmol/L (-2.0-2.0); Blood Gas Allen Test Pos; Blood Gas Sample Site Radial, left; Blood Gas Sample Type Arterial; HCO3 ABG 28.3 mmol/L (22-26); Oxygen Device VENT; PO2 ABG 82.2 mmHg (80.0-100.0)
--- NOTE | 2021-06-30 06:58 | PC.NURSE ---
Shift Note Frequent safety and comfort rounds continue. Orders and/or nursing care completed as indicated. Patient monitored for response to intervention and treatment(s). Education provided includes ventilator settings and sedation medication. Patient needs reinforcement teaching. Patient had an uneventful shift he remains on the vent settings are as follows; FiO2-75%, VT-500, PEEP-12, rate-22. Precedex, Propofol, Fentanyl, Versed and Nimbex are infusing per protocol please see MAR for infusion rates. Monterroso catheter drained 1000 mls of urine overnight. NG tube remains clamped at this time. No wounds or skin issues noted at this time. Will continue to monitor.
[2021-06-30] MEDS: budesonide 0.5 mg/2 mL Neb INHALATION ×2 (08:41→20:24)
[2021-06-30 09:16] LABS: Creatine Phosphokinase 2170 U/L (39-308)
[2021-06-30] MEDS: ketorolac 30 mg/mL INJ 15 MG IVP (10:09)
--- NOTE | 2021-06-30 11:24 | PC.RESP ---
RT Shift Note Frequent safety and respiratory rounds continue. Orders completed as indicated. Patient monitored pre and post treatments throughout shift. Patient [Did.] tolerate treatments appropriately. Condition [DidNotChange]. Patient and/or in store marketing representative educated on respiratory treatment and medications. Patient and/or in store marketing representative [unable to comprehend]. Will continue to monitor patient progress.
--- NOTE | 2021-06-30 11:37 | PC.NURSE ---
Nurse is delaying morning PO meds. Patient is proned. Will administer when he is placed supine.
--- NOTE | 2021-06-30 12:14 | PM.PN ---
Subjective Subjective: Interval history: Negative fluid balance Febrile episode noted Requested blood culture urine culture, chest x-ray patient added lactulose Patient responded very well to 2 proning sessions No electrolyte imbalance No leukocytosis His antibiotics were escalated yesterday Versed 3, fentanyl 200, propofol 50, Precedex 0.7, Vitals/I&O/Wt Last Vital Signs Temp 101.4 F H 06/30/21 09:31 Pulse 86 06/30/21 10:00 Resp 22 H 06/30/21 10:35 BP 124/71 06/30/21 09:31 Pulse Ox 88 L 06/30/21 10:35 06/29/21 06/30/21 06/30/21 22:59 06:59 14:59 Intake Total 545.611 / 0766.794 0875 / 2745.611 200 / 200 Output Total 800 / 1900 1000 / 2900 400 / 400 Balance -254.389 / -354.389 200 / -154.389 -200 / -200 Weight last 48 hrs Weight 102.625 kg Weight 92.193 kg Physical Exam Narrative: EXAM NARRATIVE: Patient is sedated paralyzed and prone wound Saturating 92% on 75% FiO2 PEEP 12 Sedated and paralyzed Bilateral assisted breath sounds Clinically looks euvolemic Yellow-colored urine noted in the back Neuro and abdominal exam limited Urinary Catheter Management: Monterroso: Cath Placed During This Visit: yes Reason for Continuing Indwelling Catheter: Accurate Measurement of Urinary Output in Critically Ill Patients Urinary Catheter Date of Insertion: 06/27/21 Urinary Catheter Time of Insertion: 11:45 Data : 06/30/21 03:57 06/30/21 03:57 Micro: Microbiology 06/28/21 11:05 Gram Stain - Final Sputum - Endotracheal Tube Aspirate Sputum Culture - Preliminary A&P Assessment and plan (1) Rhabdomyolysis: Status: Acute (2) Febrile: Status: Acute (3) Intubation of airway performed without difficulty: Status: Acute (4) Acute and chronic respiratory failure with hypoxia: Status: Acute (5) COVID-19: Status: Acute (6) Ventral hernia: Status: Acute (7) Neuropathy: Status: Acute (8) BPH (benign prostatic hyperplasia): Status: Chronic Qualifiers: Lower urinary tract symptom presence: symptoms present Lower urinary tract symptom detail: nocturia Qualified Code(s): N40.1 - Benign prostatic hyperplasia with lower urinary tract symptoms; R35.1 - Nocturia (9) Restrictive lung disease: Status: Acute (10) Chronic low back pain: Status: Acute (11) 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: Status: Acute (12) GERD (gastroesophageal reflux disease): Status: Chronic (13) Hypocalcemia: Status: Acute Plan COVID-19 related hypoxia Respiratory failure requiring mechanical ventilation Status post 2 proning sessions with significant improvement in PaO2 Rhabdomyolysis related to use of paralytics, today I will add maintenance low rate IV fluids, he is in negative fluid balance, no use of paralytics while he is supine Wean off FiO2 first and then decrease PEEP gradually Intubated 06/28 Artline, central line done on 06/28 First proning session 06/28 Vancomycin added 06/26 Zosyn added 06/28 Febrile event, requested blood culture urine culture and other chest x-ray, his antibiotics were escalated yesterday please see my previous note for accurate dates We will do oral examination, family reported that he recently had tooth extraction, will examine his mouth when he is supine Constipation: We will give 1 dose of lactulose Tube feeding once he supine DVT prophylaxis Lovenox 30 mg every 12 hours Hemoglobin stable No leukocytosis Stage IV cancer Guarded prognosis Continue Decadron Attestations Medical Necessity Statement*: Continue ICU management Time Spent in Patient Care: 20mins Critical Care Time: 20mins Procedures Arterial Line Size (Gauge): 20 Coding Level of Care Code Acute Store Team Member for Chg Fwd Diagnoses Rhabdomyolysis M62.82 Febrile R50.9 Intubation of airway performed without difficulty Z78.9 Acute and chronic respiratory failure with hypoxia J96.21 COVID-19 U07.1 Ventral hernia K43.9 Neuropathy G62.9 BPH (benign prostatic hyperplasia) N40.1; R35.1 Lower urinary tract symptom presence: symptoms present Lower urinary tract symptom detail: nocturia Restrictive lung disease J98.4 Chronic low back pain M54.50; G89.29 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 GERD (gastroesophageal reflux disease) K21.9 Hypocalcemia E83.51
--- NOTE | 2021-06-30 14:45 | PC.NURSE ---
Attempted to call Joyce for family rounding. No answer. Left voicemail.
--- NOTE | 2021-06-30 15:00 | XR_ITS ---
WS: [id number] XR chest 1V portable [id number] REASON FOR EXAM: when supine FINDINGS: Endotracheal tube, nasogastric tube, and right transverse jugular central venous catheter remain in p manuel position. Bilateral diffuse interstitial lung opacities are essentially unchanged. No new findings. XR/XR chest 1V portable [id number] IMPRESSION: Stable abnormal chest.
[2021-06-30] MEDS: FUROsemide 10 mg/mL SDV 2mL 20 MG IVP (15:14)
[2021-06-30] MEDS: enoxaparin 100 mg/mL Syringe 90 MG SUBCUT (16:43)
[2021-06-30 17:38] LABS: ABG PH Result 7.44 (7.35-7.45); Arterial Blood Gas Hematocrit 44.2 % (42-52); Base Excess ABG 4.1 mmol/L (-2.0-2.0); Blood Gas Allen Test Pos; Blood Gas Sample Type Arterial; HCO3 ABG 28.9 mmol/L (22-26); PO2 ABG 64.5 mmHg (80.0-100.0)
[2021-06-30 17:39] LABS: Blood Gas Operator Identificat ED; Blood Gas Sample Site Brachial, left; Oxygen Device VENT
[2021-06-30] MEDS: ascorbic acid 500 mg Tablet PO (18:24)
[2021-06-30] MEDS: lactulose oral liq 20 gm/30 mL UDC 10 GM PO (18:24)
[2021-06-30] MEDS: sodium chloride 0.9% 1,000 ML 75 ML IV (18:25)
--- NOTE | 2021-06-30 18:53 | PC.NURSE ---
Patient placed supine at 1730. Needs to prone again at 0130
--- NOTE | 2021-06-30 19:29 | PC.NURSE ---
SHift SUmmary: Uneventful shift. Patient rested in bed prone most of the day. WHen placed supine, he was saturating 99-100% on 80% FIO2. Plans to prone again at 0130
[2021-06-30 20:43] LABS: Vancomycin Trough 20.5 ug/mL (10-15)
--- NOTE | 2021-06-30 20:54 | PC.PHAR ---
Vancomycin trough on dosage of 1500mg IVPB every 8 hours is 20.5. Dosage is reduced to 1250mg IVPB every 8hours with another troough level to be obtained before the fourth 1250mg dosage.
[2021-06-30] MEDS: vancomycin 1,250 MG/250 ML PIGGYBACK 250 MG IV (21:39)
[2021-06-30] MEDS: dexamethasone 10 mg/mL INJ 6 MG IVP (21:39)
[2021-06-30] MEDS: cisatracurium 100 MG in sodium chloride 0.9% 50 ML 5.1 MG IV (22:23)
--- NOTE | 2021-06-30 23:00 | P.PN_ITS ---
Subjective Subjective: Interval history: - Patient seen at bedside today -As fever spikes today morning-currently covered with vancomycin/Zosyn, sent blood cultures -Completed second proning session-FiO2 down to 70% -Other labs and imaging reviewed Medications: Reviewed: Yes Vitals/I&O/Wt Last Vital Signs Temp 97.6 F 06/30/21 17:01 Pulse 66 06/30/21 22:00 Resp 22 H 06/30/21 20:28 BP 112/77 06/30/21 22:00 Pulse Ox 93 06/30/21 22:00 06/30/21 06/30/21 07/01/21 14:59 22:59 06:59 Intake Total 750 / 750 900 / 1650 Output Total 1400 / 1400 1500 / 2900 Balance -650 / -650 -600 / -1250 Weight last 48 hrs Weight 226 lb 4 oz Weight 203 lb 4 oz Physical Exam Narrative: EXAM NARRATIVE: PHYSICAL EXAM: General: lying in bed, sedated and intubated. HEENT:NCAT, PERRLA, EOMI Neck: Supple Lungs: Clear,? Heart: s1/s2, RRR Abd: soft, NT, ND, BS + Normoactive Extremities: No edema SEISMIC PLOTTER: sedated and limited SEISMIC PLOTTER exam possible. SKIN: no rash LDA: # CVC: Right IJ 06/28/2021? Urinary Catheter Management: Monterroso: Cath Placed During This Visit: yes Reason for Continuing Indwelling Catheter: Accurate Measurement of Urinary Output in Critically Ill Patients Urinary Catheter Date of Insertion: 06/27/21 Urinary Catheter Time of Insertion: 11:45 Data : 06/30/21 03:57 06/30/21 03:57 Other Labs: Radiology Impressions Chest CTA 06/25/21 10:16 IMPRESSION: 1. No pulmonary embolism through the segmental branches. 2. Diffuse bilateral groundglass attenuation probably due to pneumonitis or Cov id 19. 3. Destructive lytic lesion involving the T11 vertebral body and LEFT posterior elements. Suspect metastatic bone disease. No cord compression is evident by this examination. 4. No mediastinal adenopathy. Laboratory Results WBC 6.0 10^3/uL (4.0-10.0) 06/30/21 03:57 RBC 3.90 10^6/uL (4.1-5.3) L 06/30/21 03:57 Hgb 14.3 g/dL (11.7-16.6) 06/30/21 03:57 Hct 40.3 % (42.0-52.0) L 06/30/21 03:57 MCV 103.3 fl (80-94) H 06/30/21 03:57 MCH 36.7 pg (28.0-34.0) H D 06/30/21 03:57 MCHC 35.5 g/dL (30.0-36.0) D 06/30/21 03:57 RDW 12.8 % (12.1-15.1) 06/30/21 03:57 Plt Count 191 10^3/cmm (130-400) 06/30/21 03:57 MPV 11.2 fL (7.4-10.4) H 06/30/21 03:57 Neut % (Auto) 82.0 % 06/30/21 03:57 Lymph % (Auto) 12.1 % 06/30/21 03:57 [place] % (Auto) 4.4 % 06/30/21 03:57 Eos % (Auto) 0.5 % 06/30/21 03:57 Baso % (Auto) 0.2 % 06/30/21 03:57 Neut # (Auto) 4.88 10^3/uL (1.8-7.7) 06/30/21 03:57 Lymph # (Auto) 0.7 10^3/uL (0.8-4.8) L 06/30/21 03:57 [place] # (Auto) 0.3 10^3/uL (0.2-0.9) 06/30/21 03:57 Eos # (Auto) 0.0 10^3/uL (0.0-0.8) 06/30/21 03:57 Baso # (Auto) 0.0 10^3/uL (0.0-0.1) 06/30/21 03:57 Nucleated RBC % (auto) 0 % 06/30/21 03:57 Nucleated RBCs # 0.0 /100WBC 06/30/21 03:57 PT 13.40 SECONDS (12.1-14.9) 06/22/21 14:30 INR 0.99 (0.8-1.2) 06/22/21 14:30 D-Dimer 3.89 ug/mIFEU (0-0.59) H 06/29/21 02:57 Specimen Type Arterial 06/30/21 17:28 Sample Site Brachial, left 06/30/21 17:28 ABG pH 7.44 (7.35-7.45) 06/30/21 17: ABG pCO2 43.0 mmHg (35-45) 06/30/21 17: ABG pO2 64.5 mmHg (80.0-100.0) L 06/30/21 17: ABG HCO3 28.9 mmol/L (22-26) H 06/30/21 17: ABG O2 Saturation 88.3 06/28/21 13:45 ABG Base Excess 4.1 mmol/L (-2.0-2.0) H 06/30/21 17: [place] Test Pos 06/30/21 17: A-a O2 Gradient 76.7 mmHg (5-10) H 06/28/21 13:45 Hematocrit 44.2 % (42-52) 06/30/21 17:28 Hgb O2 Saturation 86.8 % (95-100) L 06/28/21 13:45 Carboxyhemoglobin 0.6 %THgb (0.4-20.1) 06/28/21 13:45 Methemoglobin 1.1 % (0.4-1.5) 06/28/21 13:45 Total Hemoglobin 14.0 g/dL (14-18) 06/28/21 13:45 Sodium 141.0 mmol/L (131-143) 06/28/21 13:45 Potassium 4.2 mmol/L (3.5-5.0) 06/28/21 13:45 Glucose 194.0 mg/dL (70-115) H 06/28/21 13:45 Ionized Calcium 1.1 mmol/L (1.1-1.4) 06/28/21 13:45 O2 Delivery Device Vent 06/30/21 17: O2 Liters/Min 60.0 % 06/27/21 04:38 FiO2 80.0 % 06/30/21 17:28 Tidal Volume 0.50 06/30/21 04:00 PEEP 12.0 cmH20 06/30/21 17:28 Salon Assistant ID Ed 06/30/21 17:28 Blood Gas Notified Time 0545 06/28/21 05:29 Sodium 141 mmol/L (136-145) 06/30/21 03:57 Potassium 4.8 mmol/L (3.5-5.1) 06/30/21 03:57 Chloride 106 mmol/L (98-107) 06/30/21 03:57 Carbon Dioxide 27 mmol/L (22-29) 06/30/21 03:57 Anion Gap 12.8 (5-19) 06/30/21 03:57 BUN 17 mg/dL (8-23) 06/30/21 03:57 Creatinine 0.7 mg/dL (0.7-1.2) 06/30/21 03:57 GFR Calculation 113.5 mL/min (90-130) 06/30/21 03:57 Glucose 273 mg/dL (65-115) H 06/30/21 03:57 POC Glucose 196 mg/dL (70-110) H 06/24/21 21:36 Calculated Osmolality 303 mOsm/kg (285-295) H 06/30/21 03:57 Calcium 7.6 mg/dL (8.5-10.5) L 06/30/21 03:57 Magnesium 2.3 mg/dL (1.7-2.3) 06/28/21 04:05 Total Bilirubin 0.8 mg/dL (0.15-1.2) 06/29/21 02:57 AST 47 U/L (0-40) H 06/29/21 02:57 ALT 26 U/L (0-41) 06/29/21 02:57 Alkaline Phosphatase 58 IU/L (40-130) 06/29/21 02:57 Lactate Dehydrogenase 286 U/L (135-225) H 06/29/21 02:57 Creatine Kinase 2170 U/L (39-308) H* 06/30/21 03:57 C-Reactive Protein 52.3 mg/L (0.0-4.9) H 06/23/21 05:56 NT-Pro-B Natriuret Pep 116 pg/mL (0-125) 06/25/21 05:08 Total Protein 7.2 g/dL (6.6-8.7) 06/29/21 02:57 Albumin 3.0 g/dL (3.5-5.2) L 06/29/21 02:57 Globulin 4.2 g/dL (1.3-4.6) 06/29/21 02:57 Procalcitonin 0.07 ng/mL (0-0.5) 06/29/21 02:57 Urine Color Dark yellow (Yellow) 06/22/21 14:30 Urine Appearance Clear (CLEAR) 06/22/21 14:30 Urine pH 6 (5-7) 06/22/21 14:30 Ur Specific [place] 1.020 (1.005-1.030) 06/22/21 14:30 Urine Protein 1+ (Negative) H 06/22/21 14:30 Urine Glucose (UA) Norm (Normal) 06/22/21 14:30 Urine Ketones 1+ (Negative) H 06/22/21 14:30 Urine Blood 2+ (Negative) H 06/22/21 14:30 Urine Nitrate Negative (Negative) 06/22/21 14:30 Urine Bilirubin 1+ (Negative) H 06/22/21 14:30 Urine Urobilinogen Neg mg/dL (Negative) 06/22/21 14:30 Ur Leukocyte Esterase Negative (Negative) 06/22/21 14:30 Urine RBC 0-4 /hpf (0-2) H 06/22/21 14:30 Urine WBC 0-4 /hpf (0-5) H 06/22/21 14:30 Ur Squamous Epith Cells 0-4 /hpf (0-5) H 06/22/21 14:30 Amorphous Sediment Not Reportable 06/22/21 14:30 Urine Bacteria 1+ /hpf (NONE) H 06/22/21 14:30 Urine Mucus Trace /hpf 06/22/21 14:30 Vancomycin Trough 20.5 ug/mL (10-15) H 06/30/21 20:00 Micro: Microbiology 06/30/21 12:56 Blood Culture - Preliminary Blood SPECIMEN COLLECTED 06/30/21 12:54 Blood Culture - Preliminary Blood SPECIMEN COLLECTED 06/28/21 11:05 Gram Stain - Final Sputum - Endotracheal Tube Aspirate Sputum Culture - Final A&P Assessment and plan (1) Acute and chronic respiratory failure with hypoxia: Status: Acute (2) COVID-19: Status: Acute (3) 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: Status: Acute (4) CAD (coronary artery disease): Status: Acute Qualifiers: Coronary Disease-Associated Artery/Lesion type: bypass graft [place] vs. transplanted heart: [place] heart Associated angina: with stable angina Qualified Code(s): I25.708 - Atherosclerosis of coronary artery bypass graft(s), unspecified, with other forms of angina pectoris (5) MRSA (methicillin resistant 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: Status: Acute Plan #Acute hypoxic respiratory failure secondary to ARDS due to COVID-19 pneumonia #History of non-small cell lung cancer metastatic to lymph nodes and spine- diagnosed in 2018 and patient reported taking Keytruda. As per patient he is in remission-follows up with oncology and pulmonary in [place] #History of smoking 1 pack/day for 30 years quit 2011-possibility of COPD -Covid PCR + 06/15/2021.intubated 06/28/2021 -Intubated, sedated, prone position-completed second proning session and saturating 95% on FiO2 70 % -Taper off paralytics and Versed while supine-will evaluate for further proning sessions tomorrow -currently on dexamethasone, discontinued baricitinib as patient has neutropenia; patient also refused remdesivir -CRP 52; -D-dimer 0.51-CTA negative for PE -no DVT on venous Doppler -MRSA nares positive-: On Vancomycin and also Zosyn for broad-spectrum coverage- given recent tooth infection -Has temperature spike of 101.4 today-send for blood cultures - scheduled nebulizations with DuoNeb and budesonide for wheezing -Echocardiogram 06/26/2021: Moderately increased LV cavity size. Moderately decreased LV systolic function with ejection fraction 40% grade 1 diastolic dysfunction. Technically difficult study and cardiology advised for echo with contrast; however BNP 116 -On tamsulosin for BPH-good urine output-monitor input output and try to keep net negative -CK 1400-normal renal functions, on NS at 75 mL/h-monitor input output and try to keep even to net negative-Lasix 20 mg as needed -Sugars moderately controlled -Tube feeding while supine -Lovenox for DVT prophylaxis -Family updated by hospitalist -Full code -Prognosis guarded Recommendations conveyed to hospitalist, RN, RT taking care of the patient Attestations Medical Necessity Statement*: Acute hypoxic respiratory failure secondary to COVID-19 pneumonia-requiring mechanical intubation-needs close ICU monitoring for at least 48 hours Time Spent in Patient Care: Greater than 35 minutes (>than 50% of time spent in counselling and/or direct pt care on unit) . Critical Care Time: The high probability of a clinically significant, sudden or life threatening deterioration of the patient's [pulmonary, endocrine, renal, neurological system(s) required my full and direct attention, intervention and personal management. The critical care time is as shown. This time is in addition to time spent performing any reported procedures but includes the follo wing: [x] Data and vital sign review and interpretation [x] Patient assessment, examination and intervention [x] Documentation [x] Medication orders and management Critical Care Time (min): 45 Procedures Arterial Line Size (Gauge): 20 Coding Level of Care Code Established Pt Acute Hair Stylist for Chg Fwd Patient Type Established History Comprehensive Exam Comprehensive Medical Decision Making High Complexity Diagnoses Acute and chronic respiratory failure with hypoxia J96.21 COVID-19 U07.1 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 CAD (coronary artery disease) I25.708 Coronary Disease-Associated Artery/Lesion type: bypass graft [place] vs. transplanted heart: [place] heart Associated angina: with stable angina MRSA (methicillin resistant 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 Z22.322 Time Spent (min) 45
[2021-07-01] VITALS (59 sets, daily range): BP systolic 89–153; BP diastolic 59–79; PULSE 49–109; RESP 20–22; TEMP 36.1–37.2; O2SAT 75–97; BMI 31.1
[2021-07-01] MEDS: propofol 1,000 MG/100 ML INJ 34.02 MG IV ×3 (01:00→12:24)
--- NOTE | 2021-07-01 02:30 | PC.NURSE ---
Prone Patient Proned patient with help of staff at 0200.
[2021-07-01] MEDS: ipratropium-albuterol 3 mL Neb INHALATION ×4 (03:00→20:34)
[2021-07-01] MEDS: vancomycin 1,250 MG/250 ML PIGGYBACK 250 MG IV ×3 (03:50→21:44)
[2021-07-01] MEDS: enoxaparin 100 mg/mL Syringe 90 MG SUBCUT ×2 (03:50→16:16)
[2021-07-01] MEDS: dexmedeTOMIDine 0.9 % NaCL 400 MCG/100 ML PREMIX 19.85 MCG IV ×3 (03:58→23:18)
[2021-07-01 04:16] LABS: Eosinophils % 0.3 %; Hematocrit 39.3 % (42.0-52.0); Hemoglobin 13.1 g/dL (11.7-16.6); Lymphocytes # 0.4 10^3/uL (0.8-4.8); Lymphocytes % 8.8 %; Mean Corpuscular HGB Conc 33.3 g/dL (30.0-36.0); Mean Corpuscular Hemoglobin 34.1 pg (28.0-34.0); Mean Corpuscular Volume 102.3 fl (80-94); Mean Platelet Volume 11.3 fL (7.4-10.4); Monocytes # 0.2 10^3/uL (0.2-0.9); Monocytes % 4.8 %; Neutrophils # 3.39 10^3/uL (1.8-7.7); Neutrophils % 85.6 %; Nucleated Red Blood Cells % 0 %; Platelet Count 186 10^3/cmm (130-400); Red Blood Count 3.84 10^6/uL (4.1-5.3); Red Cell Distribution Width 12.8 % (12.1-15.1)
[2021-07-01] MEDS: piperacillin-tazobactam 3.375 GM in sodium chloride 0.9% (plus) 50 ML IV ×3 (05:08→21:43)
[2021-07-01 05:27] LABS: Add Urine Microscopic? NO; Charge for UA Resulting for Rev
--- NOTE | 2021-07-01 05:34 | PC.NURSE ---
Shift Note Frequent safety and comfort rounds continue. Orders and/or nursing care completed as indicated. Patient monitored for response to intervention and treatment(s). Education provided includes tube feedings. Patient needs reinforcement teaching. Patient had an uneventful night, tube feedings held at this time due to being in prone position. Monterroso catheter drained 800 mls of urine out overnight. Remains on ventilator, settings are as follows; FiO2-90%, VT-500, PEEP-12, rate-22. No wounds or skin issues noted at this time. Propofol, Precedex, NS, Zosyn, Nimbex, Versed, and Fentanyl are infusing per protocol please see MAR for infusion rates. Will continue to monitor.
[2021-07-01 05:38] LABS: Bilirubin Urine Neg (Negative); Blood Urine Neg (Negative); Glucose Urine UA 4+ (Normal); Ketones Urine 1+ (Negative); Leukocyte Esterase Urine Negative (Negative); Nitrate Urine Negative (Negative); Protein Urine Neg (Negative); Specific Gravity, Urine 1.015 (1.005-1.030); Urine Appearance Clear (CLEAR); Urine Color Yellow (Yellow); Urobilinogen Urine Norm (Negative); pH Urine 5 (5-7)
[2021-07-01 05:52] LABS: ABG PCO2 41.6 mmHg (35-45); ABG PH Result 7.42 (7.35-7.45); Arterial Blood Gas Hematocrit 59.3 % (42-52); Base Excess ABG 1.8 mmol/L (-2.0-2.0); Blood Gas Allen Test Pos; Blood Gas Operator Identificat JB; Blood Gas Sample Site Radial, right; Blood Gas Sample Type Arterial; HCO3 ABG 26.7 mmol/L (22-26); Oxygen Device VENT
[2021-07-01 07:22] LABS: Anion Gap 17.4 (5-19); Blood Urea Nitrogen 18 mg/dL (8-23); Calcium 8.2 mg/dL (8.5-10.5); Carbon Dioxide 22 mmol/L (22-29); Chloride 106 mmol/L (98-107); Glomerular Filtration Rate 167.4 mL/min (90-130); Glucose 261 mg/dL (65-115); Magnesium 2.4 mg/dL (1.7-2.3); Osmolality Calculated 303 mOsm/kg (285-295); Potassium 4.4 mmol/L (3.5-5.1); Sodium 141 mmol/L (136-145)
[2021-07-01 07:30] LABS: Procalcitonin 0.06 ng/mL (0-0.5)
[2021-07-01 07:40] LABS: Creatine Phosphokinase 1524 U/L (39-308)
[2021-07-01] MEDS: budesonide 0.5 mg/2 mL Neb INHALATION ×2 (08:05→20:34)
--- NOTE | 2021-07-01 09:13 | PC.CHAP ---
Pastoral Care Encounter/Spiritual Assessment Type of Contact [] Declined chief engineer production visit [] Patient/Family/Request visit [] Outpatient visit [] Follow-up visit [] Physician referral [] Code/Alert [x] Routine visit [] Staff referral [] Actively dying [] Patient sleeping [] Family support [] [] Out of room [] Palliative care [] [] Receiving care in room [] Pre-surgical visit [] Trauma [] Long length of stay [x] ICU visit [x] Other: vent... tummy Relational/Emotional Strength [] Patient feels connected with others/family/visitors/staff [] Distress [] Loneliness/isolation [] Abandonment Spirituality of Patient [] Person of Agustina [] Attends Advent of their [place]ina [] Believes in Prayer [] Reads Bible or Yazidism materials [] There are Spiritual issues to be addressed Electronic Scanner Operator Interventions [x] Prayer [] Active listening [] Non-anxious presence [] Spiritual/emotional support [] Crisis/trauma care [] Spiritual counseling [] Bereavement support [] Provided bereavement packet [] Provided Bible/devotional materials [] Provided toy/stuffed animal, coloring book to patient or family member [] Provided Communion [] Anointing/[place] [] Salvation [x] Completed spiritual assessment [] Other: Impact on Illness or Injury [] Angry [] Fearful [] Anxious [] Often cries [] Exhaustion [] Unable to work [] Unable to attend faith [] Unable to walk/stand [] Unable to read [] Unable to drive [] Unable to eat/drink [] Unable to sleep [] Unable to be with family [] Patient intubated [] Other: Summary Time spent with patient
[2021-07-01] MEDS: sodium chloride 0.9% 1,000 ML 75 ML IV (11:06)
--- NOTE | 2021-07-01 11:41 | PC.SOCIAL ---
IMM not updated IMM not updated as patient is still intubated and not expected to discharge in the next 24-48 hours.
--- NOTE | 2021-07-01 13:03 | PM.PN ---
Subjective Subjective: Interval history: Afebrile since yesterday -600 fluid balance No leukocytosis, PO2 108 on FiO2 90%, no plan to further prone him Wean off FiO2 once he is supine Start tube feed CPK trending down We will DC IV fluids Vitals/I&O/Wt Last Vital Signs Temp 97.2 F L 07/01/21 07:31 Pulse 59 L 07/01/21 10:00 Resp 22 H 07/01/21 10:30 BP 119/69 07/01/21 10:00 Pulse Ox 92 07/01/21 10:30 06/30/21 07/01/21 07/01/21 22:59 06:59 14:59 Intake Total 1150 / 1900 1197.663 / 3097.663 1200 / 1200 Output Total 1500 / 2900 800 / 3700 350 / 350 Balance -350 / -1000 397.663 / -602.337 850 / 850 Weight last 48 hrs Weight 107.104 kg Weight 102.625 kg Physical Exam Narrative: EXAM NARRATIVE: Patient is intubated sedated and paralyzed Currently is prone Bilateral breath sounds Currently looks euvolemic Yellow urine in the urine bag Midazolam 3, Precedex 0.4, propofol 40 Nondistended abdomen, ventral hernia No signs of edema of legs Urinary Catheter Management: Monterroso: Cath Placed During This Visit: yes Reason for Continuing Indwelling Catheter: Accurate Measurement of Urinary Output in Critically Ill Patients Urinary Catheter Date of Insertion: 06/27/21 Urinary Catheter Time of Insertion: 11:45 Data : 07/01/21 03:48 07/01/21 03:48 Micro: Microbiology 06/30/21 12:56 Blood Culture - Preliminary Blood SPECIMEN COLLECTED 06/30/21 12:54 Blood Culture - Preliminary Blood SPECIMEN COLLECTED 06/28/21 11:05 Gram Stain - Final Sputum - Endotracheal Tube Aspirate Sputum Culture - Final A&P Assessment and plan (1) MRSA (methicillin resistant 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: Status: Acute (2) Hypocalcemia: Status: Acute (3) Febrile: Status: Acute (4) Rhabdomyolysis: Status: Acute (5) Intubation of airway performed without difficulty: Status: Acute (6) Respiratory failure: Status: Acute (7) Acute and chronic respiratory failure with hypoxia: Status: Acute (8) COVID-19: Status: Acute (9) Ventral hernia: Status: Acute (10) BPH (benign prostatic hyperplasia): Status: Chronic Qualifiers: Lower urinary tract symptom presence: symptoms present Lower urinary tract symptom detail: nocturia Qualified Code(s): N40.1 - Benign prostatic hyperplasia with lower urinary tract symptoms; R35.1 - Nocturia (11) 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: Status: Acute (12) Restrictive lung disease: Status: Acute (13) GERD (gastroesophageal reflux disease): Status: Chronic Plan COVID-19 related hypoxia Respiratory failure requiring mechanical ventilation Status post 3 proning sessions Continue IV antibiotics Concern for left lower lobe pneumonia Febrile episode Examined T1c supine Start tube feed Discontinue paralytics CPK trending down discontinue IV fluids Continue Lasix Once he is supine, wean off FiO2 gradually before PEEP, ABCDE Wean off sedation We will give lactulose for constipation Continue Decadron and IV antibiotics Intubated 06/28 Artline, central line done on 06/28 First proning session 06/28 Vancomycin added 06/26 Zosyn added 06/28 dvt ppx: lovenox 30mg q12h UA unremarkable BC sterile Guarded prognosis Attestations Medical Necessity Statement*: Continue ICU management Time Spent in Patient Care: 15mins Procedures Arterial Line Size (Gauge): 20 Coding Level of Care Code Acute Environmental Associate for Chg Fwd Diagnoses MRSA (methicillin resistant 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 Z22.322 Hypocalcemia E83.51 Febrile R50.9 Rhabdomyolysis M62.82 Intubation of airway performed without difficulty Z78.9 Respiratory failure J96.90 Acute and chronic respiratory failure with hypoxia J96.21 COVID-19 U07.1 Ventral hernia K43.9 BPH (benign prostatic hyperplasia) N40.1; R35.1 Lower urinary tract symptom presence: symptoms present Lower urinary tract symptom detail: nocturia 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 Restrictive lung disease J98.4 GERD (gastroesophageal reflux disease) K21.9
[2021-07-01] MEDS: FUROsemide 10 mg/mL SDV 2mL 20 MG IVP (13:05)
[2021-07-01] MEDS: lactulose oral liq 20 gm/30 mL UDC 10 GM PO (16:17)
[2021-07-01] MEDS: ascorbic acid 500 mg Tablet PO (17:28)
--- NOTE | 2021-07-01 17:36 | PC.NURSE ---
SHift SUmmary: Uneventful shift. Patient was prone until approximately 2pm. Was placed supine with the help of this nurse, 5 other nurses, and RT. Currently titrating off of nimbex. Family has been updated.
[2021-07-01] MEDS: propofol 1,000 MG/100 ML INJ 27.22 MG IV ×2 (17:48→21:35)
[2021-07-01 21:09] LABS: Vancomycin Trough 13.3 ug/mL (10-15)
[2021-07-01] MEDS: dexamethasone 10 mg/mL INJ 6 MG IVP (21:44)
[2021-07-02] VITALS (64 sets, daily range): BP systolic 101–137; BP diastolic 64–88; PULSE 70–109; RESP 22–27; TEMP 36.9–38.8; O2SAT 89–96
[2021-07-02] MEDS: propofol 1,000 MG/100 ML INJ 27.22 MG IV ×3 (01:16→10:16)
[2021-07-02] MEDS: enoxaparin 100 mg/mL Syringe 90 MG SUBCUT ×2 (02:37→16:24)
[2021-07-02] MEDS: ipratropium-albuterol 3 mL Neb INHALATION ×4 (03:48→20:18)
[2021-07-02] MEDS: vancomycin 1,250 MG/250 ML PIGGYBACK 250 MG IV ×3 (04:07→20:22)
[2021-07-02] MEDS: piperacillin-tazobactam 3.375 GM in sodium chloride 0.9% (plus) 50 ML IV ×3 (04:57→22:10)
[2021-07-02 05:29] LABS: D Dimer 1.36 ug/mIFEU (0-0.59)
[2021-07-02 05:33] LABS: ABG PCO2 42.4 mmHg (35-45); ABG PH Result 7.41 (7.35-7.45); Arterial Blood Gas Hematocrit 49.4 % (42-52); Base Excess ABG 1.5 mmol/L (-2.0-2.0); Blood Gas Allen Test Pos; Blood Gas Operator Identificat JB; Blood Gas Sample Site Radial, right; Blood Gas Sample Type Arterial; HCO3 ABG 26.6 mmol/L (22-26); Oxygen Device VENT; PO2 ABG 70.1 mmHg (80.0-100.0)
[2021-07-02 05:43] LABS: Anion Gap 15.7 (5-19); Blood Urea Nitrogen 20 mg/dL (8-23); Calcium 8.4 mg/dL (8.5-10.5); Carbon Dioxide 22 mmol/L (22-29); Chloride 106 mmol/L (98-107); Glomerular Filtration Rate 135.6 mL/min (90-130); Glucose 268 mg/dL (65-115); Osmolality Calculated 300 mOsm/kg (285-295); Potassium 4.7 mmol/L (3.5-5.1); Sodium 139 mmol/L (136-145)
[2021-07-02 05:51] LABS: Basophils % 0.2 %; Creatine Phosphokinase 761 U/L (39-308); Eosinophils % 0.2 %; Hematocrit 41.4 % (42.0-52.0); Hemoglobin 13.6 g/dL (11.7-16.6); Lymphocytes # 0.9 10^3/uL (0.8-4.8); Lymphocytes % 17.8 %; Mean Corpuscular HGB Conc 32.9 g/dL (30.0-36.0); Mean Corpuscular Volume 103.5 fl (80-94); Mean Platelet Volume 11.9 fL (7.4-10.4); Monocytes # 0.3 10^3/uL (0.2-0.9); Monocytes % 4.8 %; Neutrophils # 3.95 10^3/uL (1.8-7.7); Neutrophils % 76.2 %; Nucleated Red Blood Cells % 0 %; Platelet Count 174 10^3/cmm (130-400); White Blood Count 5.2 10^3/uL (4.0-10.0)
[2021-07-02] MEDS: sennosides-docusate Tablet 1 TAB PO (08:05)
[2021-07-02] MEDS: cholecalciferol (vitamin D3) 1,000 unit Tablet 1000 UNIT PO (08:05)
[2021-07-02] MEDS: zinc gluconate 50 mg Tablet PO (08:05)
[2021-07-02] MEDS: acetaminophen 500 mg Tablet PO (08:05)
[2021-07-02] MEDS: ascorbic acid 500 mg Tablet PO ×2 (08:06→18:41)
[2021-07-02] MEDS: tamsulosin 0.4 mg Capsule PO (08:06)
[2021-07-02] MEDS: pantoprazole DR 40 mg Tablet PO (08:06)
[2021-07-02] MEDS: budesonide 0.5 mg/2 mL Neb INHALATION ×2 (08:23→20:18)
--- NOTE | 2021-07-02 09:44 | PC.CHAP ---
Pastoral Care Encounter/Spiritual Assessment Type of Contact [] Declined business operations coordinator visit [] Patient/Family/Request visit [] Outpatient visit [] Follow-up visit [] Physician referral [] Code/Alert [x] Routine visit [] Staff referral [] Actively dying [] Patient sleeping [] Family support [] [] Out of room [] Palliative care [] [] Receiving care in room [] Pre-surgical visit [] Trauma [] Long length of stay [x] ICU visit [x] Other: vent Relational/Emotional Strength [] Patient feels connected with others/family/visitors/staff [] Distress [] Loneliness/isolation [] Abandonment Spirituality of Patient [] Person of Agustina [] Attends Adventism of their [place] [] Believes in Prayer [] Reads Bible or Amish materials [] There are Spiritual issues to be addressed Director Of Restaurants Interventions [x] Prayer [] Active listening [] Non-anxious presence [] Spiritual/emotional support [] Crisis/trauma care [] Spiritual counseling [] Bereavement support [] Provided bereavement packet [] Provided Bible/devotional materials [] Provided toy/stuffed animal, coloring book to patient or family member [] Provided Communion [] Anointing/[place] [] Salvation [x] Completed spiritual assessment [] Other: Impact on Illness or Injury [] Angry [] Fearful [] Anxious [] Often cries [] Exhaustion [] Unable to work [] Unable to attend hoahaoism [] Unable to walk/stand [] Unable to read [] Unable to drive [] Unable to eat/drink [] Unable to sleep [] Unable to be with family [] Patient intubated [] Other: Summary Time spent with patient
[2021-07-02] MEDS: dexmedeTOMIDine 0.9 % NaCL 400 MCG/100 ML PREMIX 14.18 MCG IV (10:17)
[2021-07-02] MEDS: FUROsemide 10 mg/mL SDV 2mL 20 MG IVP (13:39)
--- NOTE | 2021-07-02 14:46 | PM.PN ---
Subjective Subjective: Interval history: PO2 70 in supine Positive fluid balance Clinically does not look fluid overloaded Fever 100.1 I did inspect his gums, left-sided lower incisor is chipped, I could not see dental abscess Dental caries noted Patient had a lot of secretions which were being suctioned this morning, tube feeds to be started Concern for ventilator associated pneumonia We will continue diuretics will obtain chest x-ray CPK trending down We will check calcium and phosphorus Case discussed with ICU nurse and upper inspector Plan to wean off sedation, weaning trial tomorrow morning Bring FiO2 down to 50% Vitals/I&O/Wt Last Vital Signs Temp 100.1 F H 07/02/21 10:30 Pulse 93 07/02/21 14:33 Resp 25 H 07/02/21 14:33 BP 111/72 07/02/21 10:30 Pulse Ox 92 07/02/21 14:33 07/01/21 07/02/21 07/02/21 22:59 06:59 14:59 Intake Total 566.885 / 2100.000 966.051 / 3066.051 1395.587 / 1395.587 Output Total 1125 / 1875 750 / 2625 Balance -558.115 / 225.000 216.051 / 131.501 5397.587 / 1395.587 Weight last 48 hrs Weight 108.726 kg Weight 107.104 kg Physical Exam Narrative: EXAM NARRATIVE: Patient intubated and sedated FiO2 down to 55% PEEP 12, Euvolemic Bilateral assisted breath sounds A lot of oral secretions suctioned Gingivitis however no dental abscess, Abdomen soft, bowel sounds sluggish but present Lower symmetry no edema Pinpoint stormy Urinary Catheter Management: Monterroso: Cath Placed During This Visit: yes Reason for Continuing Indwelling Catheter: Accurate Measurement of Urinary Output in Critically Ill Patients Urinary Catheter Date of Insertion: 06/27/21 Urinary Catheter Time of Insertion: 11:45 Data : 07/02/21 04:18 07/02/21 04:18 Micro: Microbiology 06/30/21 12:56 Blood Culture - Preliminary Blood NEGATIVE TO DATE 06/30/21 12:54 Blood Culture - Preliminary Blood NEGATIVE TO DATE A&P Assessment and plan (1) MRSA (methicillin resistant 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: Status: Acute (2) Hypocalcemia: Status: Acute (3) Febrile: Status: Acute (4) Rhabdomyolysis: Status: Acute (5) Intubation of airway performed without difficulty: Status: Acute (6) Respiratory failure: Status: Acute (7) Acute and chronic respiratory failure with hypoxia: Status: Acute (8) COVID-19: Status: Acute (9) Acute respiratory failure with hypoxia: Status: Acute (10) BPH (benign prostatic hyperplasia): Status: Chronic Qualifiers: Lower urinary tract symptom presence: symptoms present Lower urinary tract symptom detail: nocturia Qualified Code(s): N40.1 - Benign prostatic hyperplasia with lower urinary tract symptoms; R35.1 - Nocturia (11) Restrictive lung disease: Status: Acute (12) 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 transplanted heart: [place] heart Associated angina: with stable angina Qualified Code(s): I25.708 - Atherosclerosis of coronary artery bypass graft(s), unspecified, with other forms of angina pectoris (15) Essential hypertension: Status: Chronic (16) Ventilator associated pneumonia: Status: Acute Plan COVID-19 related hypoxia Requiring mechanical ventilation Febrile episodes concern for ventilator associated pneumonia Sputum culture positive for MRSA A lot of oral secretions suctioned Considering gingivitis I will add clindamycin to his broad-spectrum antibiotics Weaning trial once FiO2 below 50% Sedation vacation Constipation: Lactulose 1 more dose today Start tube feeding Check phosphorus procalcitonin and chest x-ray today No leukocytosis no signs of sepsis Rhabdomyolysis related troponin, CPK trending down Reduced action fraction clinically does not look fluid overloaded, target to keep him negative balance, continue diuretics Intubated 06/28 Artline, central line done on 06/28 First proning session 06/28 Vancomycin added 06/26 Zosyn added 06/28 dvt ppx: lovenox 30mg q12h Attestations Medical Necessity Statement*: Start weaning trial Time Spent in Patient Care: 15 minutes Procedures Arterial Line Size (Gauge): 20 Coding Level of Care Code Acute Liquor Inspector for Chg Fwd Diagnoses MRSA (methicillin resistant 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 Z22.322 Hypocalcemia E83.51 Febrile R50.9 Rhabdomyolysis M62.82 Intubation of airway performed without difficulty Z78.9 Respiratory failure J96.90 Acute and chronic respiratory failure with hypoxia J96.21 COVID-19 U07.1 Acute respiratory failure with hypoxia J96.01 BPH (benign prostatic hyperplasia) N40.1; R35.1 Lower urinary tract symptom presence: symptoms present Lower urinary tract symptom detail: nocturia Restrictive lung disease J98.4 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 GERD (gastroesophageal reflux disease) K21.9 CAD (coronary artery disease) I25.708 Coronary Disease-Associated Artery/Lesion type: bypass graft [place] vs. transplanted heart: [place] heart Associated angina: with stable angina Essential hypertension I10 Ventilator associated pneumonia J95.851
--- NOTE | 2021-07-02 14:49 | XR_ITS ---
WS: [id number] XR chest 1V portable [id number] REASON FOR EXAM: fever FINDINGS: Endotracheal tube, nasogastric tube, and right jugular central venous line remain in proper position. No change in the diffuse lung opacities compared to 06/18/2021. No new findings. XR/XR chest 1V portable [id number] IMPRESSION: Stable abnormal chest.
[2021-07-02] MEDS: lactulose oral liq 20 gm/30 mL UDC 200 GM PR (16:21)
[2021-07-02] MEDS: ketorolac 30 mg/mL INJ 15 MG IVP (16:22)
[2021-07-02] MEDS: chlorhexidine gluconate 0.12% Btl 473 mL 30 ML MUCOUS MEM ×2 (16:24→20:22)
[2021-07-02] MEDS: clindamycin 600 MG/50 ML PREMIX 100 MG IV (16:24)
[2021-07-02] MEDS: dexmedeTOMIDine 0.9 % NaCL 400 MCG/100 ML PREMIX 25.52 MCG IV ×2 (18:13→21:41)
--- NOTE | 2021-07-02 18:33 | PC.NURSE ---
Shift summary: Uneventful shift. patient rested in bed throughout the day. We were able to reduce fio2 down to 55%. Propofol was discontinued and precedex increased. 1400mL of urine out. Laculose enema given near end of shift, Currently still dwelling at time of this note.
[2021-07-02] MEDS: dexamethasone 10 mg/mL INJ 6 MG IVP (21:41)
[2021-07-03] VITALS (71 sets, daily range): BP systolic 82–141; BP diastolic 48–90; PULSE 65–106; RESP 18–26; TEMP 36.1–38.1; O2SAT 84–100
[2021-07-03] MEDS: clindamycin 600 MG/50 ML PREMIX 100 MG IV ×2 (00:37→08:28)
[2021-07-03] MEDS: dexmedeTOMIDine 0.9 % NaCL 400 MCG/100 ML PREMIX 25.52 MCG IV ×6 (01:08→22:26)
[2021-07-03] MEDS: propofol 1,000 MG/100 ML INJ 10.21 MG IV (03:22)
[2021-07-03] MEDS: enoxaparin 100 mg/mL Syringe 90 MG SUBCUT ×2 (03:23→14:58)
[2021-07-03] MEDS: ipratropium-albuterol 3 mL Neb INHALATION ×4 (03:34→20:34)
[2021-07-03] MEDS: vancomycin 1,250 MG/250 ML PIGGYBACK 250 MG IV ×3 (04:16→21:16)
[2021-07-03 05:13] LABS: Hematocrit 36.1 % (42.0-52.0); Hemoglobin 13.1 g/dL (11.7-16.6); Lymphocytes # 0.6 10^3/uL (0.8-4.8); Mean Corpuscular HGB Conc 36.3 g/dL (30.0-36.0); Mean Corpuscular Hemoglobin 38.3 pg (28.0-34.0); Mean Corpuscular Volume 105.6 fl (80-94); Mean Platelet Volume 11.5 fL (7.4-10.4); Monocytes # 0.2 10^3/uL (0.2-0.9); Monocytes % 4.9 %; Neutrophils # 3.83 10^3/uL (1.8-7.7); Neutrophils % 81.9 %; Nucleated Red Blood Cells % 0 %; Platelet Count 161 10^3/cmm (130-400); Red Blood Count 3.42 10^6/uL (4.1-5.3); Red Cell Distribution Width 13.2 % (12.1-15.1); White Blood Count 4.7 10^3/uL (4.0-10.0)
[2021-07-03] MEDS: piperacillin-tazobactam 3.375 GM in sodium chloride 0.9% (plus) 50 ML IV ×3 (05:20→21:16)
[2021-07-03 05:55] LABS: Alanine Aminotransferase 40 U/L (0-41); Albumin Level 2.9 g/dL (3.5-5.2); Alkaline Phosphatase 55 IU/L (40-130); Anion Gap 18.5 (5-19); Aspartate Amino Transferase 37 U/L (0-40); Blood Urea Nitrogen 20 mg/dL (8-23); Calcium 8.6 mg/dL (8.5-10.5); Carbon Dioxide 22 mmol/L (22-29); Chloride 103 mmol/L (98-107); Glomerular Filtration Rate 167.4 mL/min (90-130); Glucose 312 mg/dL (65-115); Osmolality Calculated 302 mOsm/kg (285-295); Phosphorus 2.9 mg/dL (2.5-4.5); Potassium 4.5 mmol/L (3.5-5.1); Sodium 139 mmol/L (136-145); Total Bilirubin 0.6 mg/dL (0.15-1.2); Total Protein 6.9 g/dL (6.6-8.7); Triglycerides 245 mg/dL (0-150)
[2021-07-03 06:02] LABS: Procalcitonin 0.06 ng/mL (0-0.5)
[2021-07-03 06:14] LABS: Creatine Phosphokinase 623 U/L (39-308)
[2021-07-03] MEDS: ascorbic acid 500 mg Tablet PO ×2 (08:28→17:53)
[2021-07-03] MEDS: tamsulosin 0.4 mg Capsule PO (08:28)
[2021-07-03] MEDS: zinc gluconate 50 mg Tablet PO (08:28)
[2021-07-03] MEDS: cholecalciferol (vitamin D3) 1,000 unit Tablet 1000 UNIT PO (08:28)
[2021-07-03] MEDS: sennosides-docusate Tablet 1 TAB PO (08:28)
[2021-07-03] MEDS: pantoprazole DR 40 mg Tablet PO (08:28)
[2021-07-03] MEDS: chlorhexidine gluconate 0.12% Btl 473 mL 30 ML MUCOUS MEM ×4 (08:28→21:16)
[2021-07-03] MEDS: propofol 1,000 MG/100 ML INJ 17.01 MG IV ×2 (08:32→18:21)
[2021-07-03] MEDS: budesonide 0.5 mg/2 mL Neb INHALATION ×2 (08:42→20:34)
--- NOTE | 2021-07-03 10:05 | PC.SOCIAL ---
IMM not updated IMM not updated as patient isn't expected to dc in the next 24-48 hours.
--- NOTE | 2021-07-03 11:36 | PM.PN ---
Subjective Subjective: Interval history: Febrile episodes noted, I have added clindamycin, no fever since yesterday, procalcitonin 0.06 Negative fluid balance Start weaning trial today, sedation vacation Albumin 2.9, hemoglobin stable blood pressure stable, chest x-ray does not show acute findings Triglyceride 245, hyperglycemia noted, will add sliding scale 2 dose of lactulose given in last 48 hours, no bowel movement yet Vitals/I&O/Wt Last Vital Signs Temp 100 F H 07/03/21 10:00 Pulse 88 07/03/21 10:00 Resp 19 H 07/03/21 10:46 BP 129/81 07/03/21 10:00 Pulse Ox 94 07/03/21 10:46 07/02/21 07/03/21 07/03/21 22:59 06:59 14:59 Intake Total 771.104 / 2169.816 640.755 / 2810.571 262.181 / 262.181 Output Total 850 / 1850 750 / 2600 Balance -78.896 / 319.816 -109.245 / 210.571 262.181 / 262.181 Weight last 48 hrs Weight 108.227 kg Weight 108.726 kg Physical Exam Narrative: EXAM NARRATIVE: Patient intubated and sedated Euvolemic Bilateral assisted breath sounds Abdomen soft Bowel sounds sluggish No signs of edema of legs Neuro exam limited Urinary Catheter Management: [place]: Cath Placed During This Visit: yes Reason for Continuing Indwelling Catheter: Accurate Measurement of Urinary Output in Critically Ill Patients Urinary Catheter Date of Insertion: 06/27/21 Urinary Catheter Time of Insertion: 11:45 Data : 07/03/21 04:22 07/03/21 04:22 A&P Assessment and plan (1) Ventilator associated pneumonia: Status: Acute (2) MRSA (methicillin resistant 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: Status: Acute (3) Hypocalcemia: Status: Acute (4) Febrile: Status: Acute (5) Rhabdomyolysis: Status: Acute (6) Intubation of airway performed without difficulty: Status: Acute (7) Respiratory failure: Status: Acute (8) Ventral hernia: Status: Acute (9) BPH (benign prostatic hyperplasia): Status: Chronic Qualifiers: Lower urinary tract symptom presence: symptoms present Lower urinary tract symptom detail: nocturia Qualified Code(s): N40.1 - Benign prostatic hyperplasia with lower urinary tract symptoms; R35.1 - Nocturia (10) Restrictive lung disease: Status: Acute (11) 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: Status: Acute (12) CAD (coronary artery disease): Status: Acute Qualifiers: Coronary Disease-Associated Artery/Lesion type: bypass graft [place] vs. transplanted heart: [place] heart Associated angina: with stable angina Qualified Code(s): I25.708 - Atherosclerosis of coronary artery bypass graft(s), unspecified, with other forms of angina pectoris (13) Essential hypertension: Status: Chronic Plan Respiratory failure requiring mechanical ventilation for COVID-19 Intubated 06/28 Artline, central line done on 06/28 First proning session 06/28 Vancomycin added 06/26 Zosyn added 06/28 dvt ppx: lovenox 30mg q12h Responded very well to 3 proning sessions Weaning trial started on 07/03 Decadron discontinued 07/03 Got 4 doses of remdesivir Clindamycin vancomycin and Zosyn for now for ventilator associated pneumonia Gingivitis noted MRSA PCR positive If patient fails weaning trial we will go ahead and will request trach and PEG tube placement in LTAC 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 Constipation: No bowel movement, did not respond to lactulose for last 2 days Tube feeds at the bedside Stage IV lung cancer Guarded prognosis I escalated his DVT prophylaxis to every 12 therapeutic regimen after increase in D-dimer however CTA ruled out PE Rhabdomyolysis: Improved Reduce ejection fraction noted on echo, continue diuretics Attestations Medical Necessity Statement*: Weaning trial Time Spent in Patient Care: 15mins Procedures Arterial Line Size (Gauge): 20 Coding Level of Care Code Acute Floors Buffer for g Fwd Diagnoses Ventilator associated pneumonia J95.851 MRSA (methicillin resistant 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 Z22.322 Hypocalcemia E83.51 Febrile R50.9 Rhabdomyolysis M62.82 Intubation of airway performed without difficulty Z78.9 Respiratory failure J96.90 Ventral hernia K43.9 BPH (benign prostatic hyperplasia) N40.1; R35.1 Lower urinary tract symptom presence: symptoms present Lower urinary tract symptom detail: nocturia Restrictive lung disease J98.4 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 CAD (coronary artery disease) I25.708 Coronary Disease-Associated Artery/Lesion type: bypass graft [place] vs. transplanted heart: [place] heart Associated angina: with stable angina Essential hypertension I10
--- NOTE | 2021-07-03 11:44 | XR_ITS ---
WS: [id number] XR KUB portable [id number] REASON FOR EXAM: Constipation FINDINGS: No free air or retroperitoneal air. There is moderate gaseous distention of the stomach. Nasogastric tube overlies the fundus of the stom ach. There is mild gaseous distention of right and transverse colon. There is gas in a nondistended left c olon. There are some short segments of minimally dilated gas-filled small bowel in the mid lower abdomen. No urinary tract calculi identified. No mass identified. XR/XR KUB portable [id number] IMPRESSION: Nonspecific bowel gas pattern, possibly early ileus.
[2021-07-03] MEDS: FUROsemide 10 mg/mL SDV 2mL 20 MG IVP (14:01)
[2021-07-03] MEDS: acetaminophen 500 mg Tablet PO ×2 (14:25→22:39)
[2021-07-03] MEDS: insulin lispro 100 unit/1 mL SUBCUT ×2 (14:36→17:54)
[2021-07-03 14:37] LABS: Glucose Point of Care 196 mg/dL (70-110)
--- NOTE | 2021-07-03 15:10 | PM.PN ---
Subjective Subjective: Interval history: Patient seen at bedside today Low-grade fevers noted Off sedation-opening eyes and following commands, appeared to be weak and has thick secretions We will put him back on fentanyl 25 MCG/hour for pain and titrate propofol or Precedex to achieve adequate sedation -Still requiring 50% FiO2 and PEEP of 12-we will slowly taper down to breathing trial tomorrow 2 dose of lactulose given in last 48 hours, no bowel movement yet Other labs and imaging reviewed Medications: Reviewed: Yes Vitals/I&O/Wt Last Vital Signs Temp 100 F H 07/03/21 10:00 Pulse 90 07/03/21 14:23 Resp 22 H 07/03/21 14:11 BP 130/75 07/03/21 14:01 Pulse Ox 94 07/03/21 14:11 07/03/21 07/03/21 07/03/21 06:59 14:59 22:59 Intake Total 640.755 / 2810.571 359.582 / 359.582 Output Total 750 / 2600 Balance -109.245 / 210.571 359.582 / 359.582 Weight last 48 hrs Weight 238 lb 9.6 oz Weight 239 lb 11.2 oz Physical Exam Narrative: EXAM NARRATIVE: PHYSICAL EXAM: General: lying in bed, sedated and intubated. HEENT:NCAT, PERRLA, EOMI Neck: Supple Lungs: Clear,? 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 SKIN: no rash LDA: # CVC: Right IJ 06/28/2021? Urinary Catheter Management: [place]: Cath Placed During This Visit: yes Reason for Continuing Indwelling Catheter: Accurate Measurement of Urinary Output in Critically Ill Patients Urinary Catheter Date of Insertion: 06/27/21 Urinary Catheter Time of Insertion: 11:45 Data : 07/03/21 04:22 07/03/21 04:22 Other Labs: Radiology Impressions Chest CTA 06/25/21 10:16 IMPRESSION: 1. No pulmonary embolism through the segmental branches. 2. Diffuse bilateral groundglass attenuation probably due to pneumonitis or Covid 19. 3. Destructive lytic lesion involving the T11 vertebral body and LEFT posterior elements. Suspect metastatic bone disease. No cord compression is evident by this examination. 4. No mediastinal adenopathy. Chest X-Ray 07/02/21 14:49 IMPRESSION: Stable abnormal chest. Laboratory Results WBC 4.7 10^3/uL (4.0-10.0) 07/03/21 04:22 RBC 3.42 10^6/uL (4.1-5.3) L 07/03/21 04:22 Hgb 13.1 g/dL (11.7-16.6) 07/03/21 04:22 Hct 36.1 % (42.0-52.0) L 07/03/21 04:22 MCV 105.6 fl (80-94) H 07/03/21 04:22 MCH 38.3 pg (28.0-34.0) H D 07/03/21 04:22 MCHC 36.3 g/dL (30.0-36.0) H D 07/03/21 04:22 RDW 13.2 % (12.1-15.1) 07/03/21 04:22 Plt Count 161 10^3/cmm (130-400) 07/03/21 04:22 MPV 11.5 fL (7.4-10.4) H 07/03/21 04:22 Neut % (Auto) 81.9 % 07/03/21 04:22 Lymph % (Auto) 13.0 % 07/03/21 04:22 [place] % (Auto) 4.9 % 07/03/21 04:22 Eos % (Auto) 0.0 % 07/03/21 04:22 Baso % (Auto) 0.0 % 07/03/21 04:22 Neut # (Auto) 3.83 10^3/uL (1.8-7.7) 07/03/21 04:22 Lymph # (Auto) 0.6 10^3/uL (0.8-4.8) L 07/03/21 04:22 [place] # (Auto) 0.2 10^3/uL (0.2-0.9) 07/03/21 04:22 Eos # (Auto) 0.0 10^3/uL (0.0-0.8) 07/03/21 04:22 Baso # (Auto) 0.0 10^3/uL (0.0-0.1) 07/03/21 04:22 Nucleated RBC % (auto) 0 % 07/03/21 04:22 Nucleated RBCs # 0.0 /100WBC 07/03/21 04:22 PT 13.40 SECONDS (12.1-14.9) 06/22/21 14:30 INR 0.99 (0.8-1.2) 06/22/21 14:30 D-Dimer 1.36 ug/mIFEU (0-0.59) H 07/02/21 04:18 Specimen Type Arterial 07/02/21 05:00 Sample Site Radial, right 07/02/21 05:00 ABG pH 7.41 (7.35-7.45) 07/02/21 05:00 ABG pCO2 42.4 mmHg (35-45) 07/02/21 05:00 ABG pO2 70.1 mmHg (80.0-100.0) L 07/02/21 05:00 ABG HCO3 26.6 mmol/L (22-26) H 07/02/21 05:00 ABG O2 Saturation 88.3 06/28/21 13:45 ABG Base Excess 1.5 mmol/L (-2.0-2.0) 07/02/21 05:00 [place] Test Pos 07/02/21 05:00 A-a O2 Gradient 76.7 mmHg (5-10) H 06/28/21 13:45 Hematocrit 49.4 % (42-52) 07/02/21 05:00 Hgb O2 Saturation 86.8 % (95-100) L 06/28/21 13:45 Carboxyhemoglobin 0.6 %THgb (0.4-20.1) 06/28/21 13:45 Methemoglobin 1.1 % (0.4-1.5) 06/28/21 13:45 Total Hemoglobin 14.0 g/dL (14-18) 06/28/21 13:45 Sodium 141.0 mmol/L (131-143) 06/28/21 13:45 Potassium 4.2 mmol/L (3.5-5.0) 06/28/21 13:45 Glucose 194.0 mg/dL (70-115) H 06/28/21 13:45 Ionized Calcium 1.1 mmol/L (1.1-1.4) 01/30/22 13:45 O2 Delivery Device Vent 07/02/21 05:00 O2 Liters/Min 60.0 % 06/27/21 04:38 FiO2 60.0 % 07/02/21 05:00 Tidal Volume 0.50 07/02/21 05:00 PEEP 12.0 cmH20 07/02/21 05:00 Civil Preparedness Training Officer ID Sage 07/02/21 05:00 Blood Gas Notified Time 0545 06/28/21 05:29 Sodium 139 mmol/L (136-145) 07/03/21 04:22 Potassium 4.5 mmol/L (3.5-5.1) 07/03/21 04:22 Chloride 103 mmol/L (98-107) 07/03/21 04:22 Carbon Dioxide 22 mmol/L (22-29) 07/03/21 04:22 Anion Gap 18.5 (5-19) 07/03/21 04:22 BUN 20 mg/dL (8-23) 07/03/21 04:22 Creatinine 0.5 mg/dL (0.7-1.2) L 07/03/21 04:22 GFR Calculation 167.4 mL/min (90-130) H 07/03/21 04:22 Glucose 312 mg/dL (65-115) H 07/03/21 04:22 POC Glucose 196 mg/dL (70-110) H 07/03/21 14:31 Calculated Osmolality 302 mOsm/kg (285-295) H 07/03/21 04:22 Calcium 8.6 mg/dL (8.5-10.5) 07/03/21 04:22 Phosphorus 2.9 mg/dL (2.5-4.5) 07/03/21 04:22 Magnesium 2.4 mg/dL (1.7-2.3) H 07/01/21 03:48 Total Bilirubin 0.6 mg/dL (0.15-1.2) 07/03/21 04:22 AST 37 U/L (0-40) 07/03/21 04:22 ALT 40 U/L (0-41) 07/03/21 04:22 Alkaline Phosphatase 55 IU/L (40-130) 07/03/21 04:22 Lactate Dehydrogenase 286 U/L (135-225) H 06/29/21 02:57 Creatine Kinase 623 U/L (39-308) H* 07/03/21 04:22 C-Reactive Protein 52.3 mg/L (0.0-4.9) H 06/23/21 05:56 NT-Pro-B Natriuret Pep 116 pg/mL (0-125) 06/25/21 05:08 Total Protein 6.9 g/dL (6.6-8.7) 07/03/21 04:22 Albumin 2.9 g/dL (3.5-5.2) L 07/03/21 04:22 Globulin 4.0 g/dL (1.3-4.6) 07/03/21 04:22 Triglycerides 245 mg/dL (0-150) H 07/03/21 04:22 Procalcitonin 0.06 ng/mL (0-0.5) 07/03/21 04:22 Urine Color Yellow (Yellow) 07/01/21 04:56 Urine Appearance Clear (CLEAR) 07/01/21 04:56 Urine pH 5 (5-7) 07/01/21 04:56 Ur Specific [place] 1.015 (1.005-1.030) 07/01/21 04:56 Urine Protein Neg (Negative) 07/01/21 04:56 Urine Glucose (UA) 4+ (Normal) H 07/01/21 04:56 Urine Ketones 1+ (Negative) H 07/01/21 04:56 Urine Blood Neg (Negative) 07/01/21 04:56 Urine Nitrate Negative (Negative) 07/01/21 04:56 Urine Bilirubin Neg (Negative) 07/01/21 04:56 Urine Urobilinogen Norm mg/dL (Negative) 07/01/21 04:56 Ur Leukocyte Esterase Negative (Negative) 07/01/21 04:56 Urine RBC 0-4 /hpf (0-2) H 06/22/21 14:30 Urine WBC 0-4 /hpf (0-5) H 06/22/21 14:30 Ur Squamous Epith Cells 0-4 /hpf (0-5) H 06/22/21 14:30 Amorphous Sediment Not Reportable 06/22/21 14:30 Urine Bacteria 1+ /hpf (NONE) H 06/22/21 14:30 Urine Mucus Trace /hpf 06/22/21 14:30 Vancomycin Trough 13.3 ug/mL (10-15) 07/01/21 20:26 A&P Assessment and plan (1) Acute and chronic respiratory failure with hypoxia: Status: Acute (2) COVID-19: Status: Acute (3) 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: Status: Acute (4) CAD (coronary artery disease): Status: Acute Qualifiers: Coronary Disease-Associated Artery/Lesion type: bypass graft [place] vs. transplanted heart: [place] heart Associated angina: with stable angina Qualified Code(s): I25.708 - Atherosclerosis of coronary artery bypass graft(s), unspecified, with other forms of angina pectoris (5) MRSA (methicillin resistant 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: Status: Acute Plan #Acute hypoxic respiratory failure secondary to ARDS due to COVID-19 pneumonia #History of non-small cell lung cancer metastatic to lymph nodes and spine-diagnosed in 2017 and patient reported taking Keytruda. As per patient he is in remission-follows up with oncology and pulmonary in [place] #History of smoking 1 pack/day for 30 years quit 2011-possibility of COPD -Covid PCR + 06/15/2021.intubated 06/28/2021 -Intubated, sedated, prone position-completed 3 proning session and saturating 95% on FiO2 50 % -Off paralytic and taper off sedation-patient opening eyes and following simple commands, has thick secretions and has weak cough -Continue back on fentanyl 25 MCG/hour for pain and titrate propofol and Precedex to achieve RASS -2 sedation -Currently requiring FiO2 50% and PEEP 12-Slowly taper down to keep saturations > 90% and do breathing trial tomorrow morning -Completed dexamethasone, discontinued baricitinib as patient has neutropenia; patient also refused remdesivir -CRP 52; -D-dimer 0.51-CTA negative for PE -no DVT on venous Doppler -MRSA nares positive-: On Vancomycin and also Zosyn for broad-spectrum coverage-given recent tooth infection-DC after 7 days -Still has some low-grade fevers-final blood cultures pending - scheduled nebulizations with DuoNeb and budesonide for wheezing -Echocardiogram 06/26/2021: Moderately increased LV cavity size. Moderately decreased LV systolic function with ejection fraction 40% grade 1 diastolic dysfunction. Technically difficult study and cardiology advised for echo with contrast; however BNP 116 -On tamsulosin for BPH-good urine output-monitor input output and try to keep net negative -CK trending down -normal renal functions, -monitor input output and try to keep even to net negative-Lasix 20 mg daily -Sugars moderately controlled -Tube feeding -Lovenox for DVT prophylaxis -Family updated by hospitalist -Full code -Prognosis guarded Overall appears to be improving-we will plan for extubation in the next 24 to 48 hours Recommendations conveyed to hospitalist, RN, RT taking care of the patient Attestations Medical Necessity Statement*: Acute hypoxic respiratory failure secondary to COVID-19 pneumonia-requiring mechanical intubation-needs close ICU monitoring for at least 48 hours Time Spent in Patient Care: Greater than 35 minutes (>than 50% of time spent in counselling and/or direct pt care on unit). Critical Care Time: The high probability of a clinically significant, sudden or life threatening deterioration of the patient's [pulmonary, endocrine, renal, neurological system(s) required my full and direct attention, intervention and personal management. The critical care time is as shown. 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 transplanted heart: [place] heart Associated angina: with stable angina MRSA (methicillin resistant 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 Z22.322 Time Spent (min) 45
[2021-07-03 17:35] LABS: Glucose Point of Care 189 mg/dL (70-110)
--- NOTE | 2021-07-03 19:39 | PC.NURSE ---
Propofol running at 35 mcg/kg/min when this nurse arrived. Arterial line zeroed and leveled. MAP found to be in the upper 50s and lower 60s. Propofol decreased to 30 mcg/kg/min.
[2021-07-03 20:23] LABS: Vancomycin Trough 12.8 ug/mL (10-15)
[2021-07-03] MEDS: sennosides 8.6 mg Tablet 17.2 MG PO (21:16)
--- NOTE | 2021-07-03 21:19 | PC.NURSE ---
Jevity restarted, 15 mls per hour with a 150 ml flush q4h
[2021-07-03] MEDS: propofol 1,000 MG/100 ML INJ 20.41 MG IV (23:21)
[2021-07-04] VITALS (72 sets, daily range): BP systolic 78–147; BP diastolic 51–97; PULSE 65–130; RESP 19–36; TEMP 36.9–39.4; O2SAT 82–94
[2021-07-04 00:08] LABS: Glucose Point of Care 200 mg/dL (70-110)
[2021-07-04] MEDS: dexmedeTOMIDine 0.9 % NaCL 400 MCG/100 ML PREMIX 25.52 MCG IV ×2 (02:27→20:19)
[2021-07-04] MEDS: ipratropium-albuterol 3 mL Neb INHALATION ×4 (03:06→19:59)
[2021-07-04] MEDS: enoxaparin 100 mg/mL Syringe 90 MG SUBCUT ×2 (03:15→15:03)
[2021-07-04] MEDS: vancomycin 1,250 MG/250 ML PIGGYBACK 250 MG IV ×3 (04:42→20:19)
[2021-07-04] MEDS: propofol 1,000 MG/100 ML INJ 17.01 MG IV (04:42)
--- NOTE | 2021-07-04 04:48 | PC.NURSE ---
Feeding tube flushed and clamped. Feedings stopped per physician's order.
[2021-07-04 04:50] LABS: Basophils % 0.2 %; Eosinophils % 0.7 %; Hematocrit 33.7 % (42.0-52.0); Hemoglobin 12.3 g/dL (11.7-16.6); Lymphocytes # 0.9 10^3/uL (0.8-4.8); Lymphocytes % 14.8 %; Mean Corpuscular HGB Conc 36.5 g/dL (30.0-36.0); Mean Corpuscular Hemoglobin 38.4 pg (28.0-34.0); Mean Corpuscular Volume 105.3 fl (80-94); Mean Platelet Volume 11.4 fL (7.4-10.4); Monocytes # 0.3 10^3/uL (0.2-0.9); Neutrophils # 4.71 10^3/uL (1.8-7.7); Nucleated Red Blood Cells % 0 %; Platelet Count 143 10^3/cmm (130-400); Red Cell Distribution Width 13.2 % (12.1-15.1)
[2021-07-04 05:13] LABS: Anion Gap 14.9 (5-19); Blood Urea Nitrogen 19 mg/dL (8-23); Calcium 7.6 mg/dL (8.5-10.5); Carbon Dioxide 26 mmol/L (22-29); Chloride 104 mmol/L (98-107); Glomerular Filtration Rate 216.6 mL/min (90-130); Glucose 228 mg/dL (65-115); Lactate Dehydrogenase 226 U/L (135-225); Osmolality Calculated 301 mOsm/kg (285-295); Potassium 3.9 mmol/L (3.5-5.1); Sodium 141 mmol/L (136-145)
[2021-07-04 05:16] LABS: Procalcitonin 0.11 ng/mL (0-0.5)
[2021-07-04 05:16] LABS: ABG PCO2 39.5 mmHg (35-45); ABG PH Result 7.46 (7.35-7.45); Arterial Blood Gas Hematocrit 48.2 % (42-52); Base Excess ABG 4.2 mmol/L (-2.0-2.0); Blood Gas Allen Test Pos; Blood Gas Operator Identificat JB; Blood Gas Sample Site Radial, right; Blood Gas Sample Type Arterial; HCO3 ABG 28.3 mmol/L (22-26); PO2 ABG 58.3 mmHg (80.0-100.0)
[2021-07-04 05:18] LABS: Oxygen Device VENT
--- NOTE | 2021-07-04 05:30 | PC.NURSE ---
Pt awake and nods head yes when asked if he understands what is happening. Pt educated regarding weaning of medications prior to extubation.
[2021-07-04] MEDS: piperacillin-tazobactam 3.375 GM in sodium chloride 0.9% (plus) 50 ML IV ×3 (06:14→22:04)
[2021-07-04 07:12] LABS: Glucose Point of Care 226 mg/dL (70-110)
[2021-07-04] MEDS: sennosides-docusate Tablet 1 TAB PO (08:01)
[2021-07-04] MEDS: cholecalciferol (vitamin D3) 1,000 unit Tablet 1000 UNIT PO (08:02)
[2021-07-04] MEDS: zinc gluconate 50 mg Tablet PO (08:02)
[2021-07-04] MEDS: tamsulosin 0.4 mg Capsule PO (08:02)
[2021-07-04] MEDS: ascorbic acid 500 mg Tablet PO ×2 (08:02→18:09)
[2021-07-04] MEDS: pantoprazole DR 40 mg Tablet PO (08:02)
[2021-07-04] MEDS: insulin lispro 100 unit/1 mL SUBCUT ×3 (08:03→18:09)
[2021-07-04] MEDS: chlorhexidine gluconate 0.12% Btl 473 mL 30 ML MUCOUS MEM ×4 (08:03→20:19)
[2021-07-04] MEDS: dexmedeTOMIDine 0.9 % NaCL 400 MCG/100 ML PREMIX 19.85 MCG IV ×2 (08:12→12:42)
[2021-07-04] MEDS: budesonide 0.5 mg/2 mL Neb INHALATION ×2 (08:32→19:59)
[2021-07-04 11:41] LABS: Glucose Point of Care 179 mg/dL (70-110)
[2021-07-04 12:21] LABS: ABG PCO2 33.7 mmHg (35-45); ABG PH Result 7.51 (7.35-7.45); Arterial Blood Gas Hematocrit 41.3 % (42-52); Base Excess ABG 3.9 mmol/L (-2.0-2.0); Blood Gas Allen Test Pos; Blood Gas Operator Identificat CAK; Blood Gas Sample Type Arterial; Carboxyhemoglobin 0.4 %THgb (0.4-20.1); HCO3 ABG 26.7 mmol/L (22-26); HGB O2 Sat 82.5 % (95-100); Ionized Calcium Level - ABG 1.1 mmol/L (1.1-1.4); Methemoglobin 0.8 % (0.4-1.5); Oxygen Device VENT; Oxygen Saturation ABG 83.6; PO2 ABG 45.1 mmHg (80.0-100.0); Potassium Level - ABG 3.5 mmol/L (3.5-5.0); Total Hemoglobin 13.5 g/dL (14-18)
--- NOTE | 2021-07-04 12:47 | P.PN_ITS ---
Subjective Subjective: Interval history: Patient seen at bedside today Off sedation-opening eyes and following commands, -Patient had an episode of vomiting and had two bowel movements today morning and desaturated during the time -On pressure support 05/06 FiO2 45%-patient PaO2 on ABG was 46 -We will put back on CMV and continue with breathing trial tomorrow morning - We will put him back on fentanyl 25 MCG/hour for pain and titrate propofol or Precedex to achieve adequate sedation - Other labs and imaging reviewed Medications: Reviewed: Yes Vitals/I&O/Wt Last Vital Signs Temp 98.5 F 07/04/21 09:00 Pulse 99 07/04/21 10:00 Resp 27 H 07/04/21 12:41 BP 98/65 07/04/21 10:00 Pulse Ox 87 L 07/04/21 12:41 07/03/21 07/04/21 07/04/21 22:59 06:59 14:59 Intake Total 1461.829 / 1753.101 8532.899 / 2978.310 175.043 / 175.043 Output Total 1800 / 1800 Balance -338.171 / 979.121 1849.899 / 1178.310 175.043 / 175.043 Weight last 48 hrs Weight 238 lb 9.6 oz Physical Exam Narrative: EXAM NARRATIVE: PHYSICAL EXAM: General: lying in bed, sedated and intubated. HEENT:NCAT, PERRLA, EOMI Neck: Supple Lungs: Bilateral mild crackles Heart: s1/s2, RRR Abd: soft, NT, ND, BS + Normoactive Extremities: No edema SENIOR RUBY DEVELOPER: sedated and limited SENIOR RUBY DEVELOPER exam possible. SKIN: no rash LDA: # CVC: Right IJ 06/28/2021? Urinary Catheter Management: [place]ro[place]: Cath Placed During This Visit: yes Reason for Continuing Indwelling Catheter: Accurate Measurement of Urinary Output in Critically Ill Patients Urinary Catheter Date of Insertion: 06/27/21 Urinary Catheter Time of Insertion: 11:45 Data : 07/04/21 04:15 07/04/21 04:15 Other Labs: Radiology Impressions Chest CTA 06/25/21 10:16 IMPRESSION: 1. No pulmonary embolism through the segmental branches. 2. Diffuse bilateral groundglass attenuation probably due to pneumonitis or Covid 19. 3. Destructive lytic lesion involving the T11 vertebral body and LEFT posterior elements. Suspect metastatic bone disease. No cord compression is evident by this examination. 4. No mediastinal adenopathy. Chest X-Ray 07/02/21 14:49 IMPRESSION: Stable abnormal chest. KUB X-Ray 07/03/21 11:44 IMPRESSION: Nonspecific bowel gas pattern, possibly early ileus. Laboratory Results WBC 6.0 10^3/uL (4.0-10.0) 07/04/21 04:15 RBC 3.20 10^6/uL (4.1-5.3) L 07/04/21 04:15 Hgb 12.3 g/dL (11.7-16.6) 07/04/21 04:15 Hct 33.7 % (42.0-52.0) L 07/04/21 04:15 MCV 105.3 fl (80-94) H 07/04/21 04:15 MCH 38.4 pg (28.0-34.0) H 07/04/21 04:15 MCHC 36.5 g/dL (30.0-36.0) H 07/04/21 04:15 RDW 13.2 % (12.1-15.1) 07/04/21 04:15 Plt Count 143 10^3/cmm (130-400) 07/04/21 04:15 MPV 11.4 fL (7.4-10.4) H 07/04/21 04:15 Neut % (Auto) 79.0 % 07/04/21 04:15 Lymph % (Auto) 14.8 % 07/04/21 04:15 Collin % (Auto) 5.0 % 07/04/21 04:15 Eos % (Auto) 0.7 % 07/04/21 04:15 Baso % (Auto) 0.2 % 07/04/21 04:15 Neut # (Auto) 4.71 10^3/uL (1.8-7.7) 07/04/21 04:15 Lymph # (Auto) 0.9 10^3/uL (0.8-4.8) 07/04/21 04:15 Collin # (Auto) 0.3 10^3/uL (0.2-0.9) 07/04/21 04:15 Eos # (Auto) 0.0 10^3/uL (0.0-0.8) 07/04/21 04:15 Baso # (Auto) 0.0 10^3/uL (0.0-0.1) 07/04/21 04:15 Nucleated RBC % (auto) 0 % 07/04/21 04:15 Nucleated RBCs # 0.0 /100WBC 07/04/21 04:15 PT 13.40 SECONDS (12.1-14.9) 06/22/21 14:30 INR 0.99 (0.8-1.2) 06/22/21 14:30 D-Dimer 1.36 ug/mIFEU (0-0.59) H 07/02/21 04:18 Specimen Type Arterial 07/04/21 12:10 Sample Site artline 07/04/21 12:10 ABG pH 7.51 (7.35-7.45) H 07/04/21 12:10 ABG pCO2 33.7 mmHg (35-45) L 07/04/21 12:10 ABG pO2 45.1 mmHg (80.0-100.0) L 07/04/21 12:10 ABG HCO3 26.7 mmol/L (22-26) H 07/04/21 12:10 ABG O2 Saturation 83.6 07/04/21 12:10 ABG Base Excess 3.9 mmol/L (-2.0-2.0) H 07/04/21 12:10 Ambrose Test Pos 07/04/21 12:10 A-a O2 Gradient 31.0 mmHg (5-10) H 07/04/21 12:10 Hematocrit 41.3 % (42-52) L 07/04/21 12:10 Hgb O2 Saturation 82.5 % (95-100) L 07/04/21 12:10 Carboxyhemoglobin 0.4 %THgb (0.4-20.1) 07/04/21 12:10 Methemoglobin 0.8 % (0.4-1.5) 07/04/21 12:10 Total Hemoglobin 13.5 g/dL (14-18) L 07/04/21 12:10 Sodium 144.0 mmol/L (131-143) H 07/04/21 12:10 Potassium 3.5 mmol/L (3.5-5.0) 07/04/21 12:10 Glucose 152.0 mg/dL (70-115) H 07/04/21 12:10 Ionized Calcium 1.1 mmol/L (1.1-1.4) 07/04/21 12:10 O2 Delivery Device Vent 07/04/21 12:10 O2 Liters/Min 60.0 % 06/27/21 04:38 FiO2 45.0 % 07/04/21 12:10 Tidal Volume 0.50 07/04/21 04:30 PEEP 8.0 cmH20 07/04/21 12:10 Circus Supervisor ID Cak 07/04/21 12:10 Blood Gas Notified Time 0545 06/28/21 05:29 Sodium 141 mmol/L (136-145) 07/04/21 04:15 Potassium 3.9 mmol/L (3.5-5.1) 07/04/21 04:15 Chloride 104 mmol/L (98-107) 07/04/21 04:15 Carbon Dioxide 26 mmol/L (22-29) 07/04/21 04:15 Anion Gap 14.9 (5-19) 07/04/21 04:15 BUN 19 mg/dL (8-23) 07/04/21 04:15 Creatinine 0.4 mg/dL (0.7-1.2) L 07/04/21 04:15 GFR Calculation 216.6 mL/min (90-130) H 07/04/21 04:15 Glucose 228 mg/dL (65-115) H 07/04/21 04:15 POC Glucose 179 mg/dL (70-110) H 07/04/21 11:38 Calculated Osmolality 301 mOsm/kg (285-295) H 07/04/21 04:15 Calcium 7.6 mg/dL (8.5-10.5) L 07/04/21 04:15 Phosphorus 2.9 mg/dL (2.5-4.5) 07/03/21 04:22 Magnesium 2.4 mg/dL (1.7-2.3) H 07/01/21 03:48 Total Bilirubin 0.6 mg/dL (0.15-1.2) 07/03/21 04:22 AST 37 U/L (0-40) 07/03/21 04:22 ALT 40 U/L (0-41) 07/03/21 04:22 Alkaline Phosphatase 55 IU/L (40-130) 07/03/21 04:22 Lactate Dehydrogenase 226 U/L (135-225) H 07/04/21 04:15 Creatine Kinase 623 U/L (39-308) H* 07/03/21 04:22 C-Reactive Protein 68.0 mg/L (0.0-4.9) H 07/04/21 04:15 NT-Pro-B Natriuret Pep 116 pg/mL (0-125) 06/25/21 05:08 Total Protein 6.9 g/dL (6.6-8.7) 07/03/21 04:22 Albumin 2.9 g/dL (3.5-5.2) L 07/03/21 04:22 Globulin 4.0 g/dL (1.3-4.6) 07/03/21 04:22 Triglycerides 245 mg/dL (0-150) H 07/03/21 04:22 Procalcitonin 0.11 ng/mL (0-0.5) 07/04/21 04:15 Urine Color Yellow (Yellow) 07/01/21 04:56 Urine Appearance Clear (CLEAR) 07/01/21 04:56 Urine pH 5 (5-7) 07/01/21 04:56 Ur Specific [place] 1.015 (1.005-1.030) 07/01/21 04:56 Urine Protein Neg (Negative) 07/01/21 04:56 Urine Glucose (UA) 4+ (Normal) H 07/01/21 04:56 Urine Ketones 1+ (Negative) H 07/01/21 04:56 Urine Blood Neg (Negative) 07/01/21 04:56 Urine Nitrate Negative (Negative) 07/01/21 04:56 Urine Bilirubin Neg (Negative) 07/01/21 04:56 Urine Urobilinogen Norm mg/dL (Negative) 07/01/21 04:56 Ur Leukocyte Esterase Negative (Negative) 07/01/21 04:56 Urine RBC 0-4 /hpf (0-2) H 06/22/21 14:30 Urine WBC 0-4 /hpf (0-5) H 06/22/21 14:30 Ur Squamous Epith Cells 0-4 /hpf (0-5) H 06/22/21 14:30 Amorphous Sediment Not Reportable 06/22/21 14:30 Urine Bacteria 1+ /hpf (NONE) H 06/22/21 14:30 Urine Mucus Trace /hpf 06/22/21 14:30 Vancomycin Trough 12.8 ug/mL (10-15) 07/03/21 19:49 A&P Assessment and plan (1) Acute and chronic respiratory failure with hypoxia: Status: Acute (2) COVID-19: Status: Acute (3) 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 transplanted heart: [place] heart Associated angina: with stable angina Qualified Code(s): I25.708 - Atherosclerosis of coronary artery bypass graft(s), unspecified, with other forms of angina pectoris (5) MRSA (methicillin resistant 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: Status: Acute Plan #Acute hypoxic respiratory failure secondary to ARDS due to COVID-19 pneumonia #History of non-small cell lung cancer metastatic to lymph nodes and spine- diagnosed in 2017 and patient reported taking Keytruda. As per patient he is in remission-follows up with oncology and pulmonary in [place] #History of smoking 1 pack/day for 30 years quit 2011-possibility of COPD -Covid PCR + 06/15/2021.intubated 06/28/2021 -Intubated, sedated, prone position-completed 3 proning session and saturating 95% on FiO2 50 % -Off paralytic and taper off sedation-patient opening eyes and following simple commands, had an episode of vomiting today morning -Continue back on fentanyl 25 MCG/hour for pain and titrate propofol and Precedex to achieve RASS -2 sedation -Failed weaning trial today-we will continue trials tomorrow -Completed dexamethasone, discontinued baricitinib as patient has neutropenia; patient also refused remdesivir -CRP 52; -D-dimer 0.51-CTA negative for PE -no DVT on venous Doppler -MRSA nares positive-: On Vancomycin and also Zosyn for broad-spectrum coverage- given recent tooth infection-DC after 7 days -Still has some low-grade fevers-final blood cultures pending - scheduled nebulizations with DuoNeb and budesonide for wheezing -Echocardiogram 06/26/2021: Moderately increased LV cavity size. Moderately decreased LV systolic function with ejection fraction 40% grade 1 diastolic dysfunction. Technically difficult study and cardiology advised for echo with contrast; however BNP 116 -On tamsulosin for BPH-good urine output-monitor input output and try to keep net negative -CK trending down -normal renal functions, -monitor input output and try to keep even to net negative-Lasix 40 mg daily -Sugars moderately controlled -Resume tube feeding -Lovenox for DVT prophylaxis -Family updated by hospitalist -Full code -Prognosis guarded Overall appears to be improving-we will plan for extubation in the next 24 to 48 hours Recommendations conveyed to hospitalist, RN, RT taking care of the patient Attestations Medical Necessity Statement*: Acute hypoxic respiratory failure secondary to COVID-19 pneumonia-requiring mechanical intubation-needs close ICU monitoring for at least 48 hours Time Spent in Patient Care: Greater than 35 minutes (>than 50% of time spent in counselling and/or direct pt care on unit) . Critical Care Time: The high probability of a clinically significant, sudden or life threatening deterioration of the patient's [pulmonary, endocrine, renal, neurological system(s) required my full and direct attention, intervention and personal management. The critical care time is as shown. This time is in addition to time spent performing any reported procedures but includes the following: [x] Data and vital sign review and interpretation [x] Patient assessment, examination and intervention [x] Documentation [x] Medication orders and management Critical Care Time (min): 45 Procedures Arterial Line Size (Gauge): 20 Coding Level of Care Code Acute Machine Bander And Cellophaner Helper for [facility] Fwd Diagnoses Acute and chronic respiratory failure with hypoxia J96.21 COVID-19 U07.1 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 CAD (coronary artery disease) I25.708 Coronary Disease-Associated Artery/Lesion type: bypass graft [place] vs. transplanted heart: [place] heart Associated angina: with stable angina MRSA (methicillin resistant 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 Z22.322
[2021-07-04] MEDS: FUROsemide 10 mg/mL SDV 2mL 20 MG IVP (13:02)
--- NOTE | 2021-07-04 13:51 | PM.PN ---
Subjective Subjective: Interval history: Failed weaning trial on 07/03 and 07/04 PO2 very low after weaning trial He is becoming very tachypneic with sedation vacation Plan to put him back on Versed and fentanyl Patient is not ready to be extubated Patient became very tachypneic and exhausted when he had 2 bowel movements this morning, he also vomited once Febrile episodes noted Positive fluid balance KUB consistent with ileus however he had an episode of emesis and 2 bowel movements this Vitals/I&O/Wt Last Vital Signs Temp 98.5 F 07/04/21 09:00 Pulse 130 H 07/04/21 13:01 Resp 27 H 07/04/21 12:41 BP 138/92 07/04/21 13:01 Pulse Ox 86 L 07/04/21 13:01 07/03/21 07/04/21 07/04/21 22:59 06:59 14:59 Intake Total 1461.829 / 9718.819 4394.899 / 2978.310 175.043 / 175.043 Output Total 1800 / 1800 Balance -338.171 / 753.240 8416.899 / 1178.310 175.043 / 175.043 Weight last 48 hrs Weight 108.227 kg Physical Exam Narrative: EXAM NARRATIVE: Patient was awake and following commands when I saw him during sedation vacation and weaning trial He was tachypneic Look euvolemic Abdomen was soft Bowel sound present No signs of edema Dilute urine color in the back S1, S2 sinus tachycardia Tachypnea Very anxious Pupils are equal and symmetrical Was able to move all of his extremities Urinary Catheter Management: Omnterroso: Cath Placed During This Visit: yes Reason for Continuing Indwelling Catheter: Accurate Measurement of Urinary Output in Critically Ill Patients Urinary Catheter Date of Insertion: 06/27/21 Urinary Catheter Time of Insertion: 11:45 Data : 07/04/21 04:15 07/04/21 04:15 A&P Assessment and plan (1) Ventilator associated pneumonia: Status: Acute (2) MRSA (methicillin resistant 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: Status: Acute (3) Febrile: Status: Acute (4) Rhabdomyolysis: Status: Acute (5) Intubation of airway performed without difficulty: Status: Acute (6) Respiratory failure: Status: Acute (7) Acute and chronic respiratory failure with hypoxia: Status: Acute (8) BPH (benign prostatic hyperplasia): Status: Chronic Qualifiers: Lower urinary tract symptom presence: symptoms present Lower urinary tract symptom detail: nocturia Qualified Code(s): N40.1 - Benign prostatic hyperplasia with lower urinary tract symptoms; R35.1 - Nocturia (9) Neuropathy: Status: Acute (10) Restrictive lung disease: Status: Acute (11) 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: Status: Acute (12) GERD (gastroesophageal reflux disease): Status: Chronic Plan Covid related hypoxic respiratory failure Requiring mechanical ventilation Status post 3 cycles of proning Ventilator associated pneumonia which would explain febrile episodes Patient refused last dose of remdesivir, developed neutropenia to baricitinib Failed weaning trial on 07/03 and 07/04 Continue steroids and IV antibiotics Continue therapeutic regimen of Lovenox Clindamycin 3 doses completed Weaning trial failed after he had 2 bowel movements and an episode of emesis this morning, Plan is to put him back on sedative agents, weaning trial tomorrow as well If he fails third weaning trial we might be dealing PEG and trach before LTAC placement Rhabdomyolysis: Improved Full code Tube feeds on hold this morning Systolic and diastolic congestive heart failure, plan is to keep him in negative fluid balance, currently euvolemic Attestations Medical Necessity Statement*: Continue ICU management Time Spent in Patient Care: 15min Procedures Arterial Line Size (Gauge): 20 Coding Level of Care Code Acute Small Arms Repairer for [facility] Fwd Diagnoses Ventilator associated pneumonia J95.851 MRSA (methicillin resistant 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 Z22.322 Febrile R50.9 Rhabdomyolysis M62.82 Intubation of airway performed without difficulty Z78.9 Respiratory failure J96.90 Acute and chronic respiratory failure with hypoxia J96.21 BPH (benign prostatic hyperplasia) N40.1; R35.1 Lower urinary tract symptom presence: symptoms present Lower urinary tract symptom detail: nocturia Neuropathy G62.9 Restrictive lung disease J98.4 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 GERD (gastroesophageal reflux disease) K21.9
[2021-07-04] MEDS: propofol 1,000 MG/100 ML INJ 27.22 MG IV (15:03)
[2021-07-04 18:08] LABS: Glucose Point of Care 182 mg/dL (70-110)
[2021-07-04] MEDS: FUROsemide 10 mg/mL SDV 2mL 40 MG IVP (18:09)
[2021-07-04] MEDS: acetaminophen 500 mg Tablet PO (19:22)
--- NOTE | 2021-07-04 19:49 | PC.NURSE ---
This nurse assessed pt at 1913, Propofol was at 20 mcg/kg/min. Pt was fully awake, shaking head, and biting tube. Propofol titrated for Ortiz score of 5.
--- NOTE | 2021-07-04 21:20 | PC.NURSE ---
Cold compresses placed on groin, cold cloth placed over head, fan directed at patient.
[2021-07-04] MEDS: propofol 1,000 MG/100 ML INJ 20.41 MG IV (21:34)
--- NOTE | 2021-07-04 22:32 | PC.NURSE ---
Pt's IV fluids infusing through ice water. Cold compresses remain on groin.
--- NOTE | 2021-07-04 22:55 | PC.NURSE ---
Addendum entered by Jenna Byrd RN 07/04/21 23:28: Witnessed 75mL waste of fentanyl gtt. Original Note: 75 mls of Fentanyl wasted with second RN as a witness at 2200.
[2021-07-04 23:56] LABS: Glucose Point of Care 170 mg/dL (70-110)
[2021-07-04] MEDS: dexmedeTOMIDine 0.9 % NaCL 400 MCG/100 ML PREMIX 34.02 MCG IV (23:56)
[2021-07-04] MEDS: sodium chloride 0.9% 1,000 ML 1 ML IV (23:57)
[2021-07-05] VITALS (86 sets, daily range): BP systolic 89–162; BP diastolic 36–96; PULSE 69–113; RESP 20–29; TEMP 36.8–38.8; O2SAT 82–94
[2021-07-05] MEDS: acetaminophen 325 mg Tablet 650 MG PO ×2 (00:41→17:09)
[2021-07-05] MEDS: propofol 1,000 MG/100 ML INJ 20.41 MG IV ×3 (02:11→16:57)
[2021-07-05] MEDS: enoxaparin 100 mg/mL Syringe 90 MG SUBCUT (02:37)
[2021-07-05] MEDS: dexmedeTOMIDine 0.9 % NaCL 400 MCG/100 ML PREMIX 34.02 MCG IV ×8 (02:37→23:42)
--- NOTE | 2021-07-05 02:38 | PC.NURSE ---
Propofol tubing changed.
[2021-07-05] MEDS: ipratropium-albuterol 3 mL Neb INHALATION ×4 (03:16→20:09)
[2021-07-05 04:35] LABS: ABG PCO2 39.8 mmHg (35-45); ABG PH Result 7.46 (7.35-7.45); Arterial Blood Gas Hematocrit 37.4 % (42-52); Base Excess ABG 3.9 mmol/L (-2.0-2.0); Blood Gas Allen Test Pos; Blood Gas Sample Site Radial, right; Blood Gas Sample Type Arterial; HCO3 ABG 28.1 mmol/L (22-26); Oxygen Device VENT; PO2 ABG 52.9 mmHg (80.0-100.0)
[2021-07-05 04:39] LABS: Basophils % 0.2 %; Eosinophils % 0.5 %; Hematocrit 34.1 % (42.0-52.0); Hemoglobin 12.4 g/dL (11.7-16.6); Lymphocytes # 1.2 10^3/uL (0.8-4.8); Lymphocytes % 19.5 %; Mean Corpuscular HGB Conc 36.4 g/dL (30.0-36.0); Mean Corpuscular Hemoglobin 38.3 pg (28.0-34.0); Mean Corpuscular Volume 105.2 fl (80-94); Mean Platelet Volume 11.9 fL (7.4-10.4); Monocytes # 0.3 10^3/uL (0.2-0.9); Monocytes % 4.9 %; Neutrophils # 4.76 10^3/uL (1.8-7.7); Neutrophils % 74.6 %; Nucleated Red Blood Cells % 0 %; Platelet Count 131 10^3/cmm (130-400); Red Blood Count 3.24 10^6/uL (4.1-5.3); Red Cell Distribution Width 13.2 % (12.1-15.1); White Blood Count 6.4 10^3/uL (4.0-10.0)
[2021-07-05] MEDS: vancomycin 1,250 MG/250 ML PIGGYBACK 250 MG IV ×3 (04:59→21:00)
[2021-07-05 05:05] LABS: Anion Gap 13.6 (5-19); Blood Urea Nitrogen 20 mg/dL (8-23); C Reactive Protein 204.2 mg/L (0.0-4.9); Carbon Dioxide 27 mmol/L (22-29); Chloride 102 mmol/L (98-107); Glomerular Filtration Rate 135.6 mL/min (90-130); Glucose 186 mg/dL (65-115); Osmolality Calculated 295 mOsm/kg (285-295); Potassium 3.6 mmol/L (3.5-5.1); Sodium 139 mmol/L (136-145)
[2021-07-05] MEDS: piperacillin-tazobactam 3.375 GM in sodium chloride 0.9% (plus) 50 ML IV ×2 (05:20→13:10)
[2021-07-05 05:44] LABS: Slide Review Slide Review Perform
--- NOTE | 2021-07-05 06:13 | PC.NURSE ---
TOF 1/4 Nimbex decreased.
--- NOTE | 2021-07-05 06:44 | XRR_ITS ---
PROCEDURE INFORMATION: Exam: XR Chest Exam date and time: 07/05/2021 6:44 AM Age: 65 years old Clinical indication: Condition or disease; Lung condition and disease; Pneumonia TECHNIQUE: Imaging protocol: XR of the chest. Views: 1 view. COMPARISON: CR XR chest 1V portable [id number] 07/02/2021 2:58 PM FINDINGS: Tubes, catheters and devices: Endotracheal tube is in satisfactory position. Feeding tube is in satisfactory position. Right IJ approach central line is in satisfactory position, with distal tip in the RA. Lungs: Persistent bilateral airspace opacities. No large pleural effusion or pneumothorax. Pleural spaces: See Lungs finding. Heart/Mediastinum: Stable cardiomediastinal silhouette. Bones/joints: No acute osseous injury identified. XR/XR chest 1V portable [id number] IMPRESSION: 1. Persistent bilateral airspace opacities, which can be seen with pulmonary edema or pneumonia. Clinical correlation is recommended. 2. Median sternotomy changes seen.
[2021-07-05] MEDS: propofol 1,000 MG/100 ML INJ 23.81 MG IV ×2 (06:48→12:40)
[2021-07-05 07:41] LABS: Glucose Point of Care 177 mg/dL (70-110)
[2021-07-05] MEDS: sennosides-docusate Tablet 1 TAB PO (07:49)
[2021-07-05] MEDS: ascorbic acid 500 mg Tablet PO ×2 (07:49→17:08)
[2021-07-05] MEDS: tamsulosin 0.4 mg Capsule PO (07:49)
[2021-07-05] MEDS: zinc gluconate 50 mg Tablet PO (07:49)
[2021-07-05] MEDS: pantoprazole DR 40 mg Tablet PO (07:49)
[2021-07-05] MEDS: cholecalciferol (vitamin D3) 1,000 unit Tablet 1000 UNIT PO (07:49)
[2021-07-05] MEDS: chlorhexidine gluconate 0.12% Btl 473 mL 30 ML MUCOUS MEM ×4 (07:50→21:13)
[2021-07-05] MEDS: insulin lispro 100 unit/1 mL SUBCUT ×3 (07:50→17:08)
[2021-07-05] MEDS: budesonide 0.5 mg/2 mL Neb INHALATION ×2 (08:21→20:09)
--- NOTE | 2021-07-05 11:06 | PC.SOCIAL ---
IMM Not updated Pg. 2 of IMM not updated with patient, currently intubated, and not expected to discharge within 48hours.
[2021-07-05 11:08] LABS: Glucose Point of Care 163 mg/dL (70-110)
--- NOTE | 2021-07-05 13:18 | PM.PN ---
Subjective Subjective: Interval history: -Patient seen at bedside today and spoke to at bedside -Patient failed weaning trials last couple of days -Currently still requiring 70% FiO2 -Extremely tachypneic while attempting to wean off sedation-currently put him back on Versed and fentanyl -Plan for trach and PEG once FiO2 is down to 50% and long-term acute care facility placement -Other labs and imaging reviewed Medications: Reviewed: Yes Vitals/I&O/Wt Last Vital Signs Temp 99.4 F 07/05/21 08:00 Pulse 77 07/05/21 10:00 Resp 20 H 07/05/21 11:52 BP 100/61 07/05/21 10:00 Pulse Ox 93 07/05/21 11:52 07/04/21 07/05/21 07/05/21 22:59 06:59 14:59 Intake Total 749.647 / 1265.033 777.519 / 2042.552 337.885 / 337.885 Output Total 1150 / 2150 1350 / 3500 Balance -400.353 / -884.967 -572.481 / -1457.448 337.885 / 337.885 Weight last 48 hrs Weight 232 lb 3.2 oz Physical Exam Narrative: EXAM NARRATIVE: PHYSICAL EXAM: General: lying in bed, sedated and intubated. HEENT:NCAT, PERRLA, EOMI Neck: Supple Lungs: Bilateral mild crackles Heart: s1/s2, RRR Abd: soft, NT, ND, BS + Normoactive Extremities: No edema INSTRUCTOR CREELER: sedated and limited INSTRUCTOR CREELER exam possible. SKIN: no rash LDA: # CVC: Right IJ 06/28/2021? Urinary Catheter Management: Monterroso: Cath Placed During This Visit: yes Reason for Continuing Indwelling Catheter: Accurate Measurement of Urinary Output in Critically Ill Patients Urinary Catheter Date of Insertion: 06/27/21 Urinary Catheter Time of Insertion: 11:45 Data : 07/05/21 03:30 07/05/21 03:30 Other Labs: Radiology Impressions Chest CTA 06/25/21 10:16 IMPRESSION: 1. No pulmonary embolism through the segmental branches. 2. Diffuse bilateral groundglass attenuation probably due to pneumonitis or Covid 19. 3. Destructive lytic lesion involving the T11 vertebral body and LEFT posterior elements. Suspect metastatic bone disease. No cord compression is evident by this examination. 4. No mediastinal adenopathy. KUB X-Ray 07/03/21 11:44 IMPRESSION: Nonspecific bowel gas pattern, possibly early ileus. Chest X-Ray 07/05/21 06:44 IMPRESSION: 1. Persistent bilateral airspace opacities, which can be seen with pulmonary edema or pneumonia. Clinical correlation is recommended. 2. Median sternotomy changes seen. Laboratory Results WBC 6.4 10^3/uL (4.0-10.0) 07/05/21 03:30 RBC 3.24 10^6/uL (4.1-5.3) L 07/05/21 03:30 Hgb 12.4 g/dL (11.7-16.6) 07/05/21 03:30 Hct 34.1 % (42.0-52.0) L 07/05/21 03:30 MCV 105.2 fl (80-94) H 07/05/21 03:30 MCH 38.3 pg (28.0-34.0) H 07/05/21 03:30 MCHC 36.4 g/dL (30.0-36.0) H 07/05/21 03:30 RDW 13.2 % (12.1-15.1) 07/05/21 03:30 Plt Count 131 10^3/cmm (130-400) 07/05/21 03:30 MPV 11.9 fL (7.4-10.4) H 07/05/21 03:30 Neut % (Auto) 74.6 % 07/05/21 03:30 Lymph % (Auto) 19.5 % 07/05/21 03:30 [place] % (Auto) 4.9 % 07/05/21 03:30 Eos % (Auto) 0.5 % 07/05/21 03:30 Baso % (Auto) 0.2 % 07/05/21 03:30 Neut # (Auto) 4.76 10^3/uL (1.8-7.7) 07/05/21 03:30 Lymph # (Auto) 1.2 10^3/uL (0.8-4.8) 07/05/21 03:30 [place] # (Auto) 0.3 10^3/uL (0.2-0.9) 07/05/21 03:30 Eos # (Auto) 0.0 10^3/uL (0.0-0.8) 07/05/21 03:30 Baso # (Auto) 0.0 10^3/uL (0.0-0.1) 07/05/21 03:30 Nucleated RBC % (auto) 0 % 07/05/21 03:30 Nucleated RBCs # 0.0 /100WBC 07/05/21 03:30 PT 13.40 SECONDS (12.1-14.9) 06/22/21 14:30 INR 0.99 (0.8-1.2) 06/22/21 14:30 D-Dimer 1.36 ug/mIFEU (0-0.59) H 07/02/21 04:18 Specimen Type Arterial 07/05/21 04:00 Sample Site Radial, right 07/05/21 04:00 ABG pH 7.46 (7.35-7.45) H 07/05/21 04:00 ABG pCO2 39.8 mmHg (35-45) 07/05/21 04:00 ABG pO2 52.9 mmHg (80.0-100.0) L 07/05/21 04:00 ABG HCO3 28.1 mmol/L (22-26) H 07/05/21 04:00 ABG O2 Saturation 83.6 07/04/21 12:10 ABG Base Excess 3.9 mmol/L (-2.0-2.0) H 07/05/21 04:00 [place] Test Pos 07/05/21 04:00 A-a O2 Gradient 31.0 mmHg (5-10) H 07/04/21 12:10 Hematocrit 37.4 % (42-52) L 07/05/21 04:00 Hgb O2 Saturation 82.5 % (95-100) L 07/04/21 12:10 Carboxyhemoglobin 0.4 %THgb (0.4-20.1) 07/04/21 12:10 Methemoglobin 0.8 % (0.4-1.5) 07/04/21 12:10 Total Hemoglobin 13.5 g/dL (14-18) L 07/04/21 12:10 Sodium 144.0 mmol/L (131-143) H 07/04/21 12:10 Potassium 3.5 mmol/L (3.5-5.0) 07/04/21 12:10 Glucose 152.0 mg/dL (70-115) H 07/04/21 12:10 Ionized Calcium 1.1 mmol/L (1.1-1.4) 07/04/21 12:10 O2 Delivery Device Vent 07/05/21 04:00 O2 Liters/Min 60.0 % 06/27/21 04:38 FiO2 70.0 % 07/05/21 04:00 Tidal Volume 0.50 07/05/21 04:00 PEEP 12.0 cmH20 07/05/21 04:00 Equipment Coordinator ID [email or web address] 07/05/21 04:00 Blood Gas Notified Time 0545 06/28/21 05:29 Sodium 139 mmol/L (136-145) 07/05/21 03:30 Potassium 3.6 mmol/L (3.5-5.1) 07/05/21 03:30 Chloride 102 mmol/L (98-107) 07/05/21 03:30 Carbon Dioxide 27 mmol/L (22-29) 07/05/21 03:30 Anion Gap 13.6 (5-19) 07/05/21 03:30 BUN 20 mg/dL (8-23) 07/05/21 03:30 Creatinine 0.6 mg/dL (0.7-1.2) L 07/05/21 03:30 GFR Calculation 135.6 mL/min (90-130) H 07/05/21 03:30 Glucose 186 mg/dL (65-115) H 07/05/21 03:30 POC Glucose 163 mg/dL (70-110) H 07/05/21 11:05 Calculated Osmolality 295 mOsm/kg (285-295) 07/05/21 03:30 Calcium 8.0 mg/dL (8.5-10.5) L 07/05/21 03:30 Phosphorus 2.9 mg/dL (2.5-4.5) 07/03/21 04:22 Magnesium 2.4 mg/dL (1.7-2.3) H 07/01/21 03:48 Total Bilirubin 0.6 mg/dL (0.15-1.2) 07/03/21 04:22 AST 37 U/L (0-40) 07/03/21 04:22 ALT 40 U/L (0-41) 07/03/21 04:22 Alkaline Phosphatase 55 IU/L (40-130) 07/03/21 04:22 Lactate Dehydrogenase 226 U/L (135-225) H 07/04/21 04:15 Creatine Kinase 623 U/L (39-308) H* 07/03/21 04:22 C-Reactive Protein 204.2 mg/L (0.0-4.9) H 07/05/21 03:30 NT-Pro-B Natriuret Pep 116 pg/mL (0-125) 06/25/21 05:08 Total Protein 6.9 g/dL (6.6-8.7) 07/03/21 04:22 Albumin 2.9 g/dL (3.5-5.2) L 07/03/21 04:22 Globulin 4.0 g/dL (1.3-4.6) 07/03/21 04:22 Triglycerides 245 mg/dL (0-150) H 07/03/21 04:22 Procalcitonin 0.11 ng/mL (0-0.5) 07/04/21 04:15 Urine Color Yellow (Yellow) 07/01/21 04:56 Urine Appearance Clear (CLEAR) 07/01/21 04:56 Urine pH 5 (5-7) 07/01/21 04:56 Ur Specific [place] 1.015 (1.005-1.030) 07/01/21 04:56 Urine Protein Neg (Negative) 07/01/21 04:56 Urine Glucose (UA) 4+ (Normal) H 07/01/21 04:56 Urine Ketones 1+ (Negative) H 07/01/21 04:56 Urine Blood Neg (Negative) 07/01/21 04:56 Urine Nitrate Negative (Negative) 07/01/21 04:56 Urine Bilirubin Neg (Negative) 07/01/21 04:56 Urine Urobilinogen Norm mg/dL (Negative) 07/01/21 04:56 Ur Leukocyte Esterase Negative (Negative) 07/01/21 04:56 Urine RBC 0-4 /hpf (0-2) H 06/22/21 14:30 Urine WBC 0-4 /hpf (0-5) H 06/22/21 14:30 Ur Squamous Epith Cells 0-4 /hpf (0-5) H 06/22/21 14:30 Amorphous Sediment Not Reportable 06/22/21 14:30 Urine Bacteria 1+ /hpf (NONE) H 06/22/21 14:30 Urine Mucus Trace /hpf 06/22/21 14:30 Vancomycin Trough 12.8 ug/mL (10-15) 07/03/21 19:49 A&P Assessment and plan (1) Acute and chronic respiratory failure with hypoxia: Status: Acute (2) COVID-19: Status: Acute (3) 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 transplanted heart: [place] heart Associated angina: with stable angina Qualified Code(s): I25.708 - Atherosclerosis of coronary artery bypass graft(s), unspecified, with other forms of angina pectoris (5) MRSA (methicillin resistant 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: Status: Acute Plan #Acute hypoxic respiratory failure secondary to ARDS due to COVID-19 pneumonia #History of non-small cell lung cancer metastatic to lymph nodes and spine-diagnosed in 2018 and patient reported taking Keytruda. As per patient he is in remission-follows up with oncology and pulmonary in [place] #History of smoking 1 pack/day for 30 years quit 2011-possibility of COPD -Covid PCR + 06/15/2021.intubated 06/28/2021 -Intubated, sedated, prone position-completed 3 proning session and saturating 95% on FiO2 50 %; Off paralytic and taper off sedation-patient opening eyes and following simple commands,-attempted weaning trial but patient did not tolerate and he was becoming tachypneic while tapering off sedation -He had an episode of vomiting as well a possible aspiration -Have to put him back on propofol, fentanyl and Versed and titrate drips to achieve adequate sedation -Completed dexamethasone, discontinued baricitinib as patient has neutropenia; patient also refused remdesivir -Worsening CRP; -D-dimer 0.51-CTA negative for PE -no DVT on venous Doppler -MRSA nares positive-: On Vancomycin and also Zosyn for broad-spectrum coverage-given recent tooth infection and aspiration-antibiotics started on 06/30/2021 -Still has some low-grade fevers-final blood cultures pending and repeat sputum culture; will switch Zosyn to imipenem - scheduled nebulizations with DuoNeb and budesonide for wheezing -Echocardiogram 06/26/2021: Moderately increased LV cavity size. Moderately decreased LV systolic function with ejection fraction 40% grade 1 diastolic dysfunction. Technically difficult study and cardiology advised for echo with contrast; however BNP 116 -On tamsulosin for BPH-good urine output-monitor input output and try to keep net negative -CK trending down -normal renal functions, -monitor input output and try to keep even to net negative-Lasix 40 mg daily -Sugars moderately controlled -Resume tube feeding -Lovenox for DVT prophylaxis -NOK patient's updated at bedside-patient may need a trach and PEG and long-term acute care facility -Full code -Prognosis guarded Recommendations conveyed to hospitalist, RN, RT taking care of the patient Attestations Medical Necessity Statement*: Acute hypoxic respiratory failure secondary to COVID-19 pneumonia-requiring mechanical intubation-needs close ICU monitoring for at least 48 hours Time Spent in Patient Care: Greater than 35 minutes (>than 50% of time spent in counselling and/or direct pt care on unit). Critical Care Time: The high probability of a clinically significant, sudden or life threatening deterioration of the patient's [pulmonary, endocrine, renal, neurological system(s) required my full and direct attention, intervention and personal management. The critical care time is as shown. This time is in addition to time spent performing any reported procedures but includes the following: [x] Data and vital sign review and interpretation [x] Patient assessment, examination and intervention [x] Documentation [x] Medication orders and management Critical Care Time (min): 45 Procedures Arterial Line Size (Gauge): 20 Coding Level of Care Code Established Pt Acute Traverse Rod Assembler for Chg Fwd Patient Type Established History Comprehensive Exam Comprehensive Medical Decision Making High Complexity Diagnoses Acute and chronic respiratory failure with hypoxia J96.21 COVID-19 U07.1 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 transplanted heart: [place] heart Associated angina: with stable angina MRSA (methicillin resistant 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 Z22.322 Time Spent (min) 45
--- NOTE | 2021-07-05 14:04 | PM.PN ---
Subjective Subjective: Interval history: Patient has failed 3 weaning trials, currently FiO2 has worsened and he is on 70% again, will plan for trach and PEG, has requested LTAC in [place] Escalate his antibiotics CRP worsening Tube feeds running at lower rate Febrile episodes noted Ventilator associated pneumonia Negative fluid balance No leukocytosis No active signs of sepsis 2 bowel movements yesterday 1 episode of emesis yesterday as well Vitals/I&O/Wt Last Vital Signs Temp 99.4 F 07/05/21 08:00 Pulse 77 07/05/21 10:00 Resp 20 H 07/05/21 11:52 BP 100/61 07/05/21 10:00 Pulse Ox 93 07/05/21 11:52 07/04/21 07/05/21 07/05/21 22:59 06:59 14:59 Intake Total 749.647 / 1265.033 777.519 / 2042.552 337.885 / 337.885 Output Total 1150 / 2150 1350 / 3500 Balance -400.353 / -884.967 -572.481 / -1457.448 337.885 / 337.885 Weight last 48 hrs Weight 105.324 kg Physical Exam Narrative: EXAM NARRATIVE: Patient is intubated and sedated Bilateral assisted breath sounds Lung auscultation reveals rhonchi Abdomen soft Bowel sounds sluggish No signs of edema Neuro exam is limited Right IJ, left art line in place Intubated Calm and sedated Urinary Catheter Management: [place]ro[place]: Cath Placed During This Visit: yes Reason for Continuing Indwelling Catheter: Accurate Measurement of Urinary Output in Critically Ill Patients Urinary Catheter Date of Insertion: 06/27/21 Urinary Catheter Time of Insertion: 11:45 Data : 07/05/21 03:30 07/05/21 03:30 Micro: Microbiology 06/30/21 12:56 Blood Culture - Final Blood NO GROWTH AFTER 5 DAYS 06/30/21 12:54 Blood Culture - Final Blood NO GROWTH AFTER 5 DAYS A&P Assessment and plan (1) Ventilator associated pneumonia: Status: Acute (2) MRSA (methicillin resistant 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: Status: Acute (3) Febrile: Status: Acute (4) Rhabdomyolysis: Status: Acute (5) Intubation of airway performed without difficulty: Status: Acute (6) Acute and chronic respiratory failure with hypoxia: Status: Acute (7) COVID-19: Status: Acute (8) Ventral hernia: Status: Acute (9) BPH (benign prostatic hyperplasia): Status: Chronic Qualifiers: Lower urinary tract symptom presence: symptoms present Lower urinary tract symptom detail: nocturia Qualified Code(s): N40.1 - Benign prostatic hyperplasia with lower urinary tract symptoms; R35.1 - Nocturia (10) Restrictive lung disease: Status: Acute (11) 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: Status: Acute Plan Ventilator associated pneumonia Mechanical ventilation for respiratory failure related to COVID-19 Failed 3 weaning trials Status post 3 proning sessions which improved his oxygen requirement, responded well to proning sessions Currently on tube feeds at low rate Had 2 bowel movements yesterday 2/5 One episode of emesis as well He does have MRSA related ventilator associated pneumonia Currently on broad-spectrum antibiotics, and plan to escalate his gram-negative ESBL coverage to imipenem, discontinue Zosyn He also received 3 dose of clindamycin, he does have gingivitis however no active dental abscess noted during my evaluation he does have a chipped tooth on left side Planning for tracheostomy and PEG tube placement ideally we can do it at the same time in the OR and then get him transferred to LTAC, is requesting LTAC placement in [facility] programming development project manager updated Continue tube feeding DVT prophylaxis currently on therapeutic regimen However no signs of PE or DVT Attestations Medical Necessity Statement*: Continue ICU management Time Spent in Patient Care: 20 Procedures Arterial Line Size (Gauge): 20 Coding Level of Care Code Acute Sagger Filler for [facility] Fwd Diagnoses Ventilator associated pneumonia J95.851 MRSA (methicillin resistant 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
[2021-07-05 16:43] LABS: Glucose Point of Care 165 mg/dL (70-110)
[2021-07-05] MEDS: FUROsemide 10 mg/mL SDV 2mL 40 MG IVP (17:08)
--- NOTE | 2021-07-05 17:22 | PM.CONSULT ---
Providers/Reason For Consult Consulting Physician/Specialty*: Carlos Mejia MD Reason for Consult*: Feeding difficulty Requesting Physician: Dr. Wolfe Attending Physician: Dre Wolfe MD Primary Care Provider: Micaela Lara DO History of Present Illness History of Present Illness Chief Complaint: Feeding difficulty History of present illness: Mr. Herve García is a 65 year old male with history of lung cancer in remission. Patient encountered COVID-19 and ended up on mechanical ventilation in the ICU and several trials of extubating him were not successful. Patient continues to be sedated and on mechanical ventilation, general surgery was consulted for evaluation for potential PEG tube placement, to help and facilitate placement of the patient to LTAC. As a concomitant procedure with tracheostomy by ENT service. Patient currently receives feeding via nasogastric feeding tube Patient was seen and evaluated in the ICU. Further history was obtained from patient's spouse over the phone that the patient had exploratory laparotomy back in 2018 at the [facility] and undergone small bowel resection per her description for metastatic disease of the lung. Review of Systems General: Reports: ROS unobtainable due to endotracheal tube Medications/Allergies Home Medications Medication Instructions Recorded Confirmed Last Taken Type ascorbic acid (vitamin C) 1,000 mg 1 g PO DAILY tab 03/27/21 06/23/21 05/13/21 History tablet azithromycin 250 mg tablet 250 mg PO .MON,WED,Tue03/27/21 06/23/21 05/13/21 History coenzyme Q10 100 mg capsule 100 mg PO DAILY 03/27/21 06/23/21 05/13/21 History elderberry 1 tab PO DAILY PRN 03/27/21 06/23/21 05/13/21 History hydrochlorothiazide 25 mg tablet 25 mg PO DAILY 03/27/21 06/23/21 05/13/21 History multivitamin 1 tab PO DAILY 03/27/21 06/23/21 05/13/21 History omeprazole 40 mg capsule,delayed 40 mg PO QAM 03/27/21 06/23/21 05/13/21 History release albuterol sulfate 90 mcg/actuation 2 inh INHALATION Q4H PRN #1 ea 05/08/21 06/23/21 05/14/21 09:00 Rx breath activated powder inhaler budesonide-formoterol HFA 160 2 puff INHALATION Q12H #10.2 g 05/08/21 06/23/21 05/14/21 Rx mcg-4.5 mcg/actuation aerosol inhaler (Symbicort) metformin 500 mg tablet,extended 500 mg PO DAILY 30 Days #30 tab 05/18/21 06/23/21 Unknown Rx release 24 hr ezetimibe 10 mg tablet (Zetia) 10 mg PO DAILY 90 Days #90 tab 05/26/21 06/23/21 Unknown Rx meloxicam 15 mg tablet (Mobic) 15 mg PO DAILY 90 Days #90 tab 05/26/21 06/23/21 Unknown Rx tamsulosin 0.4 mg capsule 0.4 mg PO DAILY 90 Days #90 cap 05/26/21 06/23/21 Unknown Rx Vitamin D3 1 cap PO DAILY 06/23/21 06/23/21 Unknown History amoxicillin 500 mg capsule 500 mg PO TID 06/23/21 06/23/21 Unknown History metoprolol tartrate 25 mg tablet 25 mg PO QAM 06/23/21 06/23/21 Unknown History prednisone 20 mg tablet 20 mg PO BID 06/23/21 06/23/21 Unknown History Allergies Allergy/AdvReac Type Severity Reaction Status Date / Time No Known Allergies Allergy Verified 07/05/21 17:25 Current Medications Generic Name Dose Route Start Last Admin Trade Name Freq PRN Reason Stop Dose Admin Acetaminophen 650 mg 07/05/21 00:04 07/05/21 17:09 Acetaminophen 325 Mg Tablet PO 650 mg Q6H PRN Administration FEVER >101 Albuterol/Ipratropium 3 ml 06/26/21 15:00 07/05/21 14:08 Ipratropium-Albuterol 3 Ml Neb INHALATION 3 ml Q6H.RESPIRATORY FER Administration Ascorbic Acid 500 mg 06/25/21 09:00 07/05/21 17:08 Ascorbic Acid 500 Mg Tablet PO 500 mg BID FER Administration Benzonatate 200 mg 06/22/21 21:50 06/25/21 06:04 Benzonatate 100 Mg Capsule PO 200 mg Q6H PRN Administration COUGH Budesonide 0.5 mg 06/26/21 08:00 07/05/21 08:21 Budesonide 0.5 Mg/2 Ml Neb INHALATION 0.5 mg BID.RESPIRATORY FER Administration Chlorhexidine Gluconate 30 ml 07/02/21 17:00 07/05/21 16:56 Chlorhexidine Gluconate 0.12% Btl 473 Ml MUCOUS MEM 1 applic QID FER Administration Enoxaparin Sodium 90 mg 06/30/21 15:30 07/05/21 02:37 Enoxaparin 100 Mg/Ml Syringe SUBCUT 90 mg Q12H FER Administration Furosemide 40 mg 07/04/21 18:00 07/05/21 17:08 Furosemide 10 Mg/Ml Sdv 2ml IVP 40 mg Q24H FER Administration Hydrochlorothiazide 25 mg 06/25/21 09:00 06/26/21 08:34 Hydrochlorothiazide 25 Mg Tablet PO 25 mg DAILY [facility] Administration Remdesivir 100 mg/ Sodium 100 mls @ 100 mls/hr 06/23/21 18:00 06/26/21 17:06 Chloride IV Not Given Q24H [facility] dexmedeTOMIDine 0.9 % NaCL 400 mcg in 100 mls @ 0 mls/hr 06/26/21 18:45 07/05/21 14:35 Precedex IV 1.2 mcg/kg/hr .Q0M FER 34.02 mls/hr Administration Protocol Per Protocol Fentanyl 2,500 mcg/ Sodium 250 mls @ 0 mls/hr 06/28/21 08:45 07/05/21 16:55 Chloride IV 150 mcg/hr .Q0M FER 15 mls/hr Administration Protocol Per Protocol Propofol 1,000 mg in 100 mls @ 0 mls/hr 06/28/21 08:45 07/05/21 16:57 Diprivan IV 30 mcg/kg/min .Q0M FER 20.41 mls/hr Administration Protocol Per Protocol Vancomycin/PEG/NADA/Lysine/Water 1,250 mg in 250 mls @ 250 mls/hr 06/30/21 21:00 07/05/21 14:10 Vancocin IV Infused Q8H [facility] Infusion Sodium Chloride 1,000 mls @ 30 mls/hr 07/05/21 16:00 07/05/21 16:55 Sodium Chloride 0.9% IV Not Given .Q24H [facility] Insulin Human Lispro 0 unit 07/03/21 12:00 07/05/21 17:08 Insulin Lispro 100 Unit/1 Ml SUBCUT 4 unit TIDWM [facility] Administration Protocol Metoprolol Tartrate 25 mg 06/25/21 06:00 06/28/21 05:08 Metoprolol Tartrate 25 Mg Tablet PO 25 mg QAM FER Administration Pantoprazole Sodium 40 mg 06/24/21 09:00 07/05/21 07:[address] 40 Mg Tablet PO 40 mg DAILY FER Administration Senna 17.2 mg 07/03/21 21:00 07/04/21 21:23 Sennosides 8.6 Mg Tablet PO Not Given BEDTIME FER Senna/Docusate Sodium 1 tab 06/23/21 09:00 07/05/21 07:49 Sennosides-Docusate Tablet PO 1 tab DAILY FER Administration Tamsulosin HCl 0.4 mg 06/25/21 09:00 07/05/21 07:49 Tamsulosin 0.4 Mg Capsule PO 0.4 mg DAILY FER Administration Vitamin D 1,000 unit 06/26/21 09:00 07/05/21 07:49 Cholecalciferol (Vitamin D3) 1,000 Unit Tablet PO 1,000 unit DAILY FER Administration Zinc Gluconate 50 mg 06/25/21 09:00 07/05/21 07:49 Zinc Gluconate 50 Mg Tablet PO 50 mg DAILY FER Administration PFSH Acute PFSH: Medical History CAD (coronary artery disease) CVA (cerebral vascular accident) Essential hypertension GERD (gastroesophageal reflux disease) GI bleed 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 Diagnosed in 2018 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, adrenal gland, Left lung carcinoma with mets MRI head HITESH Surgical History History of coronary artery stent placement Status post CABG History of lumbar surgery L3 Status post colonoscopy (05/14/21) dvierticulosis Status post double vessel coronary artery bypass CABG x 2 Family History Mother Heart disease Father Cancer Brother Diabetes Social History Smoking and tobacco status: former smoker Second hand smoke exposure: No Alcohol intake: never Adopted: No Caregiver/support person: No Lives independently: Yes Household members: spouse Housing: Manufactured/Mobile home Marital status: Number of children: 1 Highest education level completed: High School Graduate [employer] service: No Current occupational status: retired and disabled Pets and animals: No History of recent travel: No Sexually active: No Current gender identity: Male Special gautam needs: No Vitals/I&O/Wt Last Vital Signs Temp 99.4 F 07/05/21 08:00 Pulse 76 07/05/21 16:30 Resp 24 H 07/05/21 14:09 BP 116/62 07/05/21 16:30 Pulse Ox 90 07/05/21 16:30 07/05/21 07/05/21 07/05/21 06:59 14:59 22:59 Intake Total 777.519 / 2042.552 937.885 / 937.885 100 / 1037.885 Output Total 1350 / 3500 750 / 750 Balance -572.481 / -1457.448 937.885 / 937.885 -650 / 287.885 Weight last 48 hrs Weight 232 lb 3.2 oz Physical Exam Narrative: EXAM NARRATIVE: Patient is sedated on mechanical ventilation BMI 30.6 Head and neck examination PERRLA no masses no cervical lymphadenopathy no jaundice Endotracheal tube in place Cardiac examination audible S1-S2 no murmurs no gallops no arrhythmias Chest is clear bilateral,abscence of Rhonchi or wheezes,no surgical emphysema Abdomen nontender nondistended soft no organomegaly guarding or rigidity/no signs of peritonitis Midline scar Obese Urinary Catheter Management: [place]ro[place]: Cath Placed During This Visit: yes Reason for Continuing Indwelling Catheter: Accurate Measurement of Urinary Output in Critically Ill Patients Urinary Catheter Date of Insertion: 06/27/21 Urinary Catheter Time of Insertion: 11:45 Data : 07/05/21 03:30 07/05/21 03:30 Micro: Microbiology 06/30/21 12:56 Blood Culture - Final Blood NO GROWTH AFTER 5 DAYS 06/30/21 12:54 Blood Culture - Final Blood NO GROWTH AFTER 5 DAYS A&P Assessment and plan (1) Feeding difficulty: After history taking physical examination and reviewing the chart and images with my personal interpretation.And Further discussing the procedure with patient's over the phone, initially per hospitalist service she was interested to proceed but it seems that she did talk with her 's sisters and now she is reserved about going forward with the tracheostomy and PEG tube placement. And she would like to think about it and get back to us with her decision. I respected Ms. García;s wishes and I will make myself available in case there is a change in her decision making. We will continue coordinating care with hospitalist, pulmonology and ENT services Thank you for consulting general surgery to participate taking care Mr. García Status: Acute Consult Attestations Medical Necessity Statement: Per admitting service Procedures Arterial Line Size (Gauge): 20 Coding Level of Care Code Acute Chicken Buyer for Chg Fwd Diagnoses Feeding difficulty R63.30
--- NOTE | 2021-07-05 17:24 | PM.CONSULT ---
Providers/Reason For Consult Consulting Physician/Specialty*: Dr. Ulices Finch MD Otolrayngology, Head & Neck Surgery Reason for Consult*: Respiratory failure with prolonged intubation Requesting Physician: Dr. Juan Wolfe MD Attending Physician: Dre Wolfe MD Primary Care Provider: Micaela Lara DO History of Present Illness History of Present Illness Herve García is a 65 year old male admitted 13 days ago for respiratory failure/COVID 19 who has failed extubation X 2 since admission. I was consulted to discuss potential tracheotomy. The patient is intubated and sedated and is unable to respond. Review of Systems General: Reports: 10 or more systems reviewed and unremarkable except in HPI and below Medications/Allergies Home Medications Medication Instructions Recorded Confirmed Last Taken Type ascorbic acid (vitamin C) 1,000 mg 1 g PO DAILY tab 03/27/21 06/23/21 05/13/21 History tablet azithromycin 250 mg tablet 250 mg PO .MON,WED,Tue03/27/21 06/23/21 05/13/21 History coenzyme Q10 100 mg capsule 100 mg PO DAILY 03/27/21 06/23/21 05/13/21 History elderberry 1 tab PO DAILY PRN 03/27/21 06/23/21 05/13/21 History hydrochlorothiazide 25 mg tablet 25 mg PO DAILY 03/27/21 06/23/21 05/13/21 History multivitamin 1 tab PO DAILY 03/27/21 06/23/21 05/13/21 History omeprazole 40 mg capsule,delayed 40 mg PO QAM 03/27/21 06/23/21 05/13/21 History release albuterol sulfate 90 mcg/actuation 2 inh INHALATION Q4H PRN #1 ea 05/08/21 06/23/21 05/14/21 09:00 Rx breath activated powder inhaler budesonide-formoterol HFA 160 2 puff INHALATION Q12H #10.2 g 05/08/21 06/23/21 05/14/21 Rx mcg-4.5 mcg/actuation aerosol inhaler (Symbicort) metformin 500 mg tablet,extended 500 mg PO DAILY 30 Days #30 tab 05/18/21 06/23/21 Unknown Rx release 24 hr ezetimibe 10 mg tablet (Zetia) 10 mg PO DAILY 90 Days #90 tab 05/26/21 06/23/21 Unknown Rx meloxicam 15 mg tablet (Mobic) 15 mg PO DAILY 90 Days #90 tab 05/26/21 06/23/21 Unknown Rx tamsulosin 0.4 mg capsule 0.4 mg PO DAILY 90 Days #90 cap 05/26/21 06/23/21 Unknown Rx Vitamin D3 1 cap PO DAILY 06/23/21 06/23/21 Unknown History amoxicillin 500 mg capsule 500 mg PO TID 06/23/21 06/23/21 Unknown History metoprolol tartrate 25 mg tablet 25 mg PO QAM 06/23/21 06/23/21 Unknown History prednisone 20 mg tablet 20 mg PO BID 06/23/21 06/23/21 Unknown History Allergies Allergy/AdvReac Type Severity Reaction Status Date / Time No Known Allergies Allergy Verified 07/05/21 17:25 Current Medications Generic Name Dose Route Start Last Admin Trade Name Freq PRN Reason Stop Dose Admin Acetaminophen 650 mg 07/05/21 00:04 07/05/21 17:09 Acetaminophen 325 Mg Tablet PO 650 mg Q6H PRN Administration FEVER >101 Albuterol/Ipratropium 3 ml 06/26/21 15:00 07/05/21 14:08 Ipratropium-Albuterol 3 Ml Neb INHALATION 3 ml Q6H.RESPIRATORY FER Administration Ascorbic Acid 500 mg 06/25/21 09:00 07/05/21 17:08 Ascorbic Acid 500 Mg Tablet PO 500 mg BID FER Administration Benzonatate 200 mg 06/22/21 21:50 06/25/21 06:04 Benzonatate 100 Mg Capsule PO 200 mg Q6H PRN Administration COUGH Budesonide 0.5 mg 06/26/21 08:00 07/05/21 08:21 Budesonide 0.5 Mg/2 Ml Neb INHALATION 0.5 mg BID.RESPIRATORY FER Administration Chlorhexidine Gluconate 30 ml 07/02/21 17:00 07/05/21 16:56 Chlorhexidine Gluconate 0.12% Btl 473 Ml MUCOUS MEM 1 applic QID FER Administration Enoxaparin Sodium 90 mg 06/30/21 15:30 07/05/21 02:37 Enoxaparin 100 Mg/Ml Syringe SUBCUT 90 mg Q12H FER Administration Furosemide 40 mg 07/04/21 18:00 07/05/21 17:08 Furosemide 10 Mg/Ml Sdv 2ml IVP 40 mg Q24H FER Administration Hydrochlorothiazide 25 mg 06/25/21 09:00 06/26/21 08:34 Hydrochlorothiazide 25 Mg Tablet PO 25 mg DAILY FER Administration Remdesivir 100 mg/ Sodium 100 mls @ 100 mls/hr 06/23/21 18:00 06/26/21 17:06 Chloride IV Not Given Q24H FER dexmedeTOMIDine 0.9 % NaCL 400 mcg in 100 mls @ 0 mls/hr 06/26/21 18:45 07/05/21 14:35 Precedex IV 1.2 mcg/kg/hr .Q0M FER 34.02 mls/hr Administration Protocol Per Protocol Fentanyl 2,500 mcg/ Sodium 250 mls @ 0 mls/hr 06/28/21 08:45 07/05/21 16:55 Chloride IV 150 mcg/hr .Q0M FER 15 mls/hr Administration Protocol Per Protocol Propofol 1,000 mg in 100 mls @ 0 mls/hr 06/28/21 08:45 07/05/21 16:57 Diprivan IV 30 mcg/kg/min .Q0M FER 20.41 mls/hr Administration Protocol Per Protocol Vancomycin/PEG/NADA/Lysine/Water 1,250 mg in 250 mls @ 250 mls/hr 06/30/21 21:00 07/05/21 14:10 Vancocin IV Infused Q8H FER Infusion Sodium Chloride 1,000 mls @ 30 mls/hr 07/05/21 16:00 07/05/21 16:55 Sodium Chloride 0.9% IV Not Given .Q24H FER Insulin Human Lispro 0 unit 07/03/21 12:00 07/05/21 17:08 Insulin Lispro 100 Unit/1 Ml SUBCUT 4 unit TIDWM FER Administration Protocol Metoprolol Tartrate 25 mg 06/25/21 06:00 06/28/21 05:08 Metoprolol Tartrate 25 Mg Tablet PO 25 mg QAM FER Administration Pantoprazole Sodium 40 mg 06/24/21 09:00 07/05/21 07:[address] 40 Mg Tablet PO 40 mg DAILY FER Administration Senna 17.2 mg 07/03/21 21:00 07/04/21 21:23 Sennosides 8.6 Mg Tablet PO Not Given BEDTIME FER Senna/Docusate Sodium 1 tab 06/23/21 09:00 07/05/21 07:49 Sennosides-Docusate Tablet PO 1 tab DAILY FER Administration Tamsulosin HCl 0.4 mg 06/25/21 09:00 07/05/21 07:49 Tamsulosin 0.4 Mg Capsule PO 0.4 mg DAILY FER Administration Vitamin D 1,000 unit 06/26/21 09:00 07/05/21 07:49 Cholecalciferol (Vitamin D3) 1,000 Unit Tablet PO 1,000 unit DAILY FER Administration Zinc Gluconate 50 mg 06/25/21 09:00 07/05/21 07:49 Zinc Gluconate 50 Mg Tablet PO 50 mg DAILY FER Administration PFSH Acute PFSH: Medical History CAD (coronary artery disease) CVA (cerebral vascular accident) Essential hypertension GERD (gastroesophageal reflux disease) GI bleed 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 Diagnosed in 2018 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, adrenal gland, Left lung carcinoma with mets MRI head HITESH Surgical History History of coronary artery stent placement Status post CABG History of lumbar surgery L3 Status post colonoscopy (05/14/21) dvierticulosis Status post double vessel coronary artery bypass CABG x 2 Family History Mother Heart disease Father Cancer Brother Diabetes Social History Smoking and tobacco status: former smoker Second hand smoke exposure: No Alcohol intake: never Adopted: No Caregiver/support person: No Lives independently: Yes Household members: spouse Housing: Manufactured/Mobile home Marital status: Number of children: 1 Highest education level completed: High School Graduate service: No Current occupational status: retired and disabled Pets and animals: No History of recent travel: No Sexually active: No Current gender identity: Male Special gautam needs: No Vitals/I&O/Wt Last Vital Signs Temp 99.4 F 07/05/21 08:00 Pulse 76 07/05/21 16:30 Resp 24 H 07/05/21 14:09 BP 116/62 07/05/21 16:30 Pulse Ox 90 07/05/21 16:30 07/05/21 07/05/21 07/05/21 06:59 14:59 22:59 Intake Total 777.519 / 2042.552 937.885 / 937.885 100 / 1037.885 Output Total 1350 / 3500 750 / 750 Balance -572.481 / -1457.448 937.885 / 937.885 -650 / 287.885 Weight last 48 hrs Weight 105.324 kg Physical Exam Const: GENERAL APPEARANCE: patient mechanically ventilated (The patient is intubated and sedated.) HENMT: COMMON NORMALS: normocephalic and Normal external nose present HEAD & SCALP: normocephalic FACE & SINUS: normal facial exam NOSE: Normal external nose present Eye: COMMON NORMALS: no scleral icterus Neck/C-Spine: COMMON NORMALS: no lymphadenopathy and Thyroid normal GENERAL: Yes normal visual inspection and Yes trachea midline THYROID: Thyroid normal Lymph: LYMPHATIC: no lymphadenopathy noted Urinary Catheter Management: [place]: Cath Placed During This Visit: yes Reason for Continuing Indwelling Catheter: Accurate Measurement of Urinary Output in Critically Ill Patients Urinary Catheter Date of Insertion: 06/27/21 Urinary Catheter Time of Insertion: 11:45 Data : 07/05/21 03:30 07/05/21 03:30 Micro: Microbiology 06/30/21 12:56 Blood Culture - Final Blood NO GROWTH AFTER 5 DAYS 06/30/21 12:54 Blood Culture - Final Blood NO GROWTH AFTER 5 DAYS A&P Assessment and plan (1) Respiratory failure: Impression: Respiratory failure with failure of extubation X 2 Plan: I contacted the patient's and discussed tracheotomy with her at length. I explained the rationale for surgery as well as its potential risks and benefits. The patient's does not want to proceed with surgery at the present time. She is to discuss further with her family and will consider this option. She will contact me if she wishes to proceed with surgery. I discussed this with Dr. Carlos Mejia MD as well. Status: Acute (2) Acute and chronic respiratory failure with hypoxia: Status: Acute Consult Attestations Medical Necessity Statement: I was consulted to consider surgical airway options. Procedures Arterial Line Size (Gauge): 20 Coding Level of Care Code Acute Tripe Finisher for Chg Fwd Diagnoses Respiratory failure J96.90 Acute and chronic respiratory failure with hypoxia J96.21
[2021-07-05] MEDS: sennosides 8.6 mg Tablet 17.2 MG PO (21:00)
[2021-07-05] MEDS: propofol 1,000 MG/100 ML INJ 54.43 MG IV (22:12)
[2021-07-06] VITALS (74 sets, daily range): BP systolic 78–141; BP diastolic 44–79; PULSE 70–107; RESP 20–26; TEMP 37–38.2; O2SAT 86–96
[2021-07-06] MEDS: propofol 1,000 MG/100 ML INJ 54.43 MG IV ×4 (00:34→07:29)
[2021-07-06] MEDS: dexmedeTOMIDine 0.9 % NaCL 400 MCG/100 ML PREMIX 34.02 MCG IV ×7 (02:48→21:18)
[2021-07-06] MEDS: ipratropium-albuterol 3 mL Neb INHALATION ×4 (02:55→19:59)
--- NOTE | 2021-07-06 04:00 | XRR_ITS ---
PROCEDURE INFORMATION: Exam: XR Chest Exam date and time: 07/06/2021 4:00 AM Age: 65 years old Clinical indication: Dyspnea; Additional info: Asp pna TECHNIQUE: Imaging protocol: XR of the chest. Views: 1 view. COMPARISON: CR XR chest 1V portable [id number] 07/05/2021 9:15 AM FINDINGS: Tubes, catheters and devices: Endotracheal tube terminates approximately 4.4 cm above the dany. NG tube passes into the stomach. Right IJ central venous catheter terminates in the region of the right atrium. Lungs: Similar interstitial opacities bilaterally. Pleural spaces: No substantial pleural effusion. No pneumothorax. Heart/Mediastinum: Changes of prior CABG. Bones/joints: Unremarkable. XR/XR chest 1V portable [id number] IMPRESSION: 1. Similar bilateral interstitial opacities, which may reflect pneumonia superimposed on a background of pulmonary fibrosis. 2. Endotracheal tube terminates approximately 4.4 cm above the dany.
[2021-07-06 04:09] LABS: ABG PCO2 46.9 mmHg (35-45); Arterial Blood Gas Hematocrit 35.5 % (42-52); Base Excess ABG 3.2 mmol/L (-2.0-2.0); Blood Gas Allen Test Pos; Blood Gas Sample Site Radial, left; Blood Gas Sample Type Arterial; HCO3 ABG 28.7 mmol/L (22-26); Oxygen Device VENT; PO2 ABG 73.6 mmHg (80.0-100.0)
[2021-07-06] MEDS: vancomycin 1,250 MG/250 ML PIGGYBACK 250 MG IV ×3 (04:21→22:06)
--- NOTE | 2021-07-06 05:30 | PM.PN ---
Subjective Subjective: Interval history: 65 yo wm with h/o respiratory failure with request for tracheotomy. Vitals/I&O/Wt Last Vital Signs Temp 99.6 F 07/06/21 02:46 Pulse 82 07/06/21 05:18 Resp 24 H 07/06/21 02:55 BP 126/79 07/06/21 05:15 Pulse Ox 89 L 07/06/21 05:15 07/05/21 07/05/21 07/06/21 14:59 22:59 06:59 Intake Total 937.885 / 890.992 5408.256 / 2028.141 500 / 2528.141 Output Total 750 / 750 2000 / 2750 Balance 937.885 / 937.885 340.256 / 1278.141 -1500 / -221.859 Weight last 48 hrs Weight 104.326 kg Weight 105.324 kg Physical Exam Urinary Catheter Management: [place]: Cath Placed During This Visit: yes Reason for Continuing Indwelling Catheter: Accurate Measurement of Urinary Output in Critically Ill Patients Urinary Catheter Date of Insertion: 06/27/21 Urinary Catheter Time of Insertion: 11:45 Data : 07/05/21 03:30 07/05/21 03:30 Micro: Microbiology 06/30/21 12:56 Blood Culture - Final Blood NO GROWTH AFTER 5 DAYS 06/30/21 12:54 Blood Culture - Final Blood NO GROWTH AFTER 5 DAYS A&P Assessment and plan (1) Acute and chronic respiratory failure with hypoxia: Status: Acute Plan Impresseion: h/o Respiratory failure with prolonged intubation Plan: Tracheotomy under general anesthesia Attestations Medical Necessity Statement*: I was consulted for airway management. Procedures Arterial Line Size (Gauge): 20 Coding Level of Care Code Acute Donor Relations Associate for [facility] Fwd Diagnoses Acute and chronic respiratory failure with hypoxia J96.21
[2021-07-06 05:31] LABS: Basophils % 0.4 %; Eosinophils # 0.1 10^3/uL (0.0-0.8); Eosinophils % 1.2 %; Hematocrit 34.1 % (42.0-52.0); Hemoglobin 12.1 g/dL (11.7-16.6); Lymphocytes % 14.4 %; Mean Corpuscular HGB Conc 35.5 g/dL (30.0-36.0); Mean Corpuscular Hemoglobin 37.1 pg (28.0-34.0); Mean Corpuscular Volume 104.6 fl (80-94); Mean Platelet Volume 12.4 fL (7.4-10.4); Monocytes # 0.4 10^3/uL (0.2-0.9); Monocytes % 6.1 %; Neutrophils # 5.14 10^3/uL (1.8-7.7); Neutrophils % 77.2 %; Nucleated Red Blood Cells % 0 %; Platelet Count 160 10^3/cmm (130-400); Red Blood Count 3.26 10^6/uL (4.1-5.3); Red Cell Distribution Width 13.2 % (12.1-15.1); White Blood Count 6.7 10^3/uL (4.0-10.0)
[2021-07-06 06:05] LABS: Anion Gap 16.6 (5-19); Blood Urea Nitrogen 12 mg/dL (8-23); Calcium 8.4 mg/dL (8.5-10.5); Carbon Dioxide 25 mmol/L (22-29); Chloride 103 mmol/L (98-107); Glomerular Filtration Rate 167.4 mL/min (90-130); Glucose 158 mg/dL (65-115); Osmolality Calculated 295 mOsm/kg (285-295); Potassium 3.6 mmol/L (3.5-5.1); Sodium 141 mmol/L (136-145)
[2021-07-06 07:40] LABS: Glucose Point of Care 156 mg/dL (70-110)
[2021-07-06] MEDS: pantoprazole 40 mg SDV IVP (08:25)
[2021-07-06] MEDS: chlorhexidine gluconate 0.12% Btl 473 mL 30 ML MUCOUS MEM ×4 (08:26→21:10)
[2021-07-06] MEDS: insulin lispro 100 unit/1 mL SUBCUT ×3 (08:26→17:11)
[2021-07-06] MEDS: budesonide 0.5 mg/2 mL Neb INHALATION ×2 (08:32→19:59)
--- NOTE | 2021-07-06 09:40 | PM.PN ---
Subjective Subjective: Interval history: -Patient seen at bedside -Overnight patient had episode of significant tachypnea and was overbreathing the vent, prompting to increase sedation propofol to 80 fentanyl to 200, FiO2 increased to 80% -Being considered for trach and PEG and transfer to LTAC -Other labs and imaging reviewed Medications: Reviewed: Yes Vitals/I&O/Wt Last Vital Signs Temp 100.8 F H 07/06/21 08:00 Pulse 91 07/06/21 09:00 Resp 22 H 07/06/21 08:55 BP 111/65 07/06/21 09:00 Pulse Ox 92 07/06/21 09:00 07/05/21 07/06/21 07/06/21 22:59 06:59 14:59 Intake Total 1090.256 / 2028.141 950 / 2978.141 672.550 / 672.550 Output Total 750 / 750 2000 / 2750 Balance 340.256 / 1278.141 -1050 / 228.141 672.550 / 672.550 Weight last 48 hrs Weight 230 lb Weight 232 lb 3.2 oz Physical Exam Narrative: EXAM NARRATIVE: PHYSICAL EXAM: General: lying in bed, sedated and intubated. HEENT:NCAT, PERRLA, EOMI Neck: Supple Lungs: Bilateral mild crackles Heart: s1/s2, RRR Abd: soft, NT, ND, BS + Normoactive Extremities: No edema POLYGRAPH TECHNICIAN: sedated and limited POLYGRAPH TECHNICIAN exam possible. SKIN: no rash LDA: # CVC: Right IJ 06/28/2021? Urinary Catheter Management: Monterroso: Cath Placed During This Visit: yes Reason for Continuing Indwelling Catheter: Accurate Measurement of Urinary Output in Critically Ill Patients Urinary Catheter Date of Insertion: 06/27/21 Urinary Catheter Time of Insertion: 11:45 Data : 07/07/21 09:38 07/07/21 09:38 Other Labs: Radiology Impressions Chest CTA 06/25/21 10:16 IMPRESSION: 1. No pulmonary embolism through the segmental branches. 2. Diffuse bilateral groundglass attenuation probably due to pneumonitis or Covid 19. 3. Destructive lytic lesion involving the T11 vertebral body and LEFT posterior elements. Suspect metastatic bone disease. No cord compression is evident by this examination. 4. No mediastinal adenopathy. KUB X-Ray 07/03/21 11:44 IMPRESSION: Nonspecific bowel gas pattern, possibly early ileus. Chest X-Ray 07/06/21 04:00 IMPRESSION: 1. Similar bilateral interstitial opacities, which may reflect pneumonia superimposed on a background of pulmonary fibrosis. 2. Endotracheal tube terminates approximately 4.4 cm above the dany. Laboratory Results WBC 6.7 10^3/uL (4.0-10.0) 07/06/21 04:30 RBC 3.26 10^6/uL (4.1-5.3) L 07/06/21 04:30 Hgb 12.1 g/dL (11.7-16.6) 07/06/21 04:30 Hct 34.1 % (42.0-52.0) L 07/06/21 04:30 MCV 104.6 fl (80-94) H 07/06/21 04:30 MCH 37.1 pg (28.0-34.0) H 07/06/21 04:30 MCHC 35.5 g/dL (30.0-36.0) 07/06/21 04:30 RDW 13.2 % (12.1-15.1) 07/06/21 04:30 Plt Count 160 10^3/cmm (130-400) 07/06/21 04:30 MPV 12.4 fL (7.4-10.4) H 07/06/21 04:30 Neut % (Auto) 77.2 % 07/06/21 04:30 Lymph % (Auto) 14.4 % 07/06/21 04:30 [place]eadle % (Auto) 6.1 % 07/06/21 04:30 Eos % (Auto) 1.2 % 07/06/21 04:30 Baso % (Auto) 0.4 % 07/06/21 04:30 Neut # (Auto) 5.14 10^3/uL (1.8-7.7) 07/06/21 04:30 Lymph # (Auto) 1.0 10^3/uL (0.8-4.8) 07/06/21 04:30 [place]le # (Auto) 0.4 10^3/uL (0.2-0.9) 07/06/21 04:30 Eos # (Auto) 0.1 10^3/uL (0.0-0.8) 07/06/21 04:30 Baso # (Auto) 0.0 10^3/uL (0.0-0.1) 07/06/21 04:30 Nucleated RBC % (auto) 0 % 07/06/21 04:30 Nucleated RBCs # 0.0 /100WBC 07/06/21 04:30 PT 13.40 SECONDS (12.1-14.9) 06/22/21 14:30 INR 0.99 (0.8-1.2) 06/22/21 14:30 D-Dimer 1.36 ug/mIFEU (0-0.59) H 07/02/21 04:18 Specimen Type Arterial 07/06/21 04:00 Sample Site Radial, left 07/06/21 04:00 ABG pH 7.40 (7.35-7.45) 07/06/21 04:00 ABG pCO2 46.9 mmHg (35-45) H 07/06/21 04:00 ABG pO2 73.6 mmHg (80.0-100.0) L 07/06/21 04:00 ABG HCO3 28.7 mmol/L (22-26) H 07/06/21 04:00 ABG O2 Saturation 83.6 07/04/21 12:10 ABG Base Excess 3.2 mmol/L (-2.0-2.0) H 07/06/21 04:00 [place] Test Pos 07/06/21 04:00 A-a O2 Gradient 31.0 mmHg (5-10) H 07/04/21 12:10 Hematocrit 35.5 % (42-52) L 07/06/21 04:00 Hgb O2 Saturation 82.5 % (95-100) L 07/04/21 12:10 Carboxyhemoglobin 0.4 %THgb (0.4-20.1) 07/04/21 12:10 Methemoglobin 0.8 % (0.4-1.5) 07/04/21 12:10 Total Hemoglobin 13.5 g/dL (14-18) L 07/04/21 12:10 Sodium 144.0 mmol/L (131-143) H 07/04/21 12:10 Potassium 3.5 mmol/L (3.5-5.0) 07/04/21 12:10 Glucose 152.0 mg/dL (70-115) H 07/04/21 12:10 Ionized Calcium 1.1 mmol/L (1.1-1.4) 07/04/21 12:10 O2 Delivery Device Vent 07/06/21 04:00 O2 Liters/Min 60.0 % 06/27/21 04:38 FiO2 80.0 % 07/06/21 04:00 Tidal Volume 0.50 07/06/21 04:00 PEEP 10.0 cmH20 07/06/21 04:00 Machine Shop Inspector ID [email or web address] 07/06/21 04:00 Blood Gas Notified Time 0545 06/28/21 05:29 Sodium 141 mmol/L (136-145) 07/06/21 04:30 Potassium 3.6 mmol/L (3.5-5.1) 07/06/21 04:30 Chloride 103 mmol/L (98-107) 07/06/21 04:30 Carbon Dioxide 25 mmol/L (22-29) 07/06/21 04:30 Anion Gap 16.6 (5-19) 07/06/21 04:30 BUN 12 mg/dL (8-23) 07/06/21 04:30 Creatinine 0.5 mg/dL (0.7-1.2) L 07/06/21 04:30 GFR Calculation 167.4 mL/min (90-130) H 07/06/21 04:30 Glucose 158 mg/dL (65-115) H 07/06/21 04:30 POC Glucose 156 mg/dL (70-110) H 07/06/21 07:32 Calculated Osmolality 295 mOsm/kg (285-295) 07/06/21 04:30 Calcium 8.4 mg/dL (8.5-10.5) L 07/06/21 04:30 Phosphorus 2.9 mg/dL (2.5-4.5) 07/03/21 04:22 Magnesium 2.4 mg/dL (1.7-2.3) H 07/01/21 03:48 Total Bilirubin 0.6 mg/dL (0.15-1.2) 07/03/21 04:22 AST 37 U/L (0-40) 07/03/21 04:22 ALT 40 U/L (0-41) 07/03/21 04:22 Alkaline Phosphatase 55 IU/L (40-130) 07/03/21 04:22 Lactate Dehydrogenase 226 U/L (135-225) H 07/04/21 04:15 Creatine Kinase 623 U/L (39-308) H* 07/03/21 04:22 C-Reactive Protein 204.2 mg/L (0.0-4.9) H 07/05/21 03:30 NT-Pro-B Natriuret Pep 116 pg/mL (0-125) 06/25/21 05:08 Total Protein 6.9 g/dL (6.6-8.7) 07/03/21 04:22 Albumin 2.9 g/dL (3.5-5.2) L 07/03/21 04:22 Globulin 4.0 g/dL (1.3-4.6) 07/03/21 04:22 Triglycerides 245 mg/dL (0-150) H 07/03/21 04:22 Procalcitonin 0.11 ng/mL (0-0.5) 07/04/21 04:15 Urine Color Yellow (Yellow) 07/01/21 04:56 Urine Appearance Clear (CLEAR) 07/01/21 04:56 Urine pH 5 (5-7) 07/01/21 04:56 Ur Specific [place] 1.015 (1.005-1.030) 07/01/21 04:56 Urine Protein Neg (Negative) 07/01/21 04:56 Urine Glucose (UA) 4+ (Normal) H 07/01/21 04:56 Urine Ketones 1+ (Negative) H 07/01/21 04:56 Urine Blood Neg (Negative) 07/01/21 04:56 Urine Nitrate Negative (Negative) 07/01/21 04:56 Urine Bilirubin Neg (Negative) 07/01/21 04:56 Urine Urobilinogen Norm mg/dL (Negative) 07/01/21 04:56 Ur Leukocyte Esterase Negative (Negative) 07/01/21 04:56 Urine RBC 0-4 /hpf (0-2) H 06/22/21 14:30 Urine WBC 0-4 /hpf (0-5) H 06/22/21 14:30 Ur Squamous Epith Cells 0-4 /hpf (0-5) H 06/22/21 14:30 Amorphous Sediment Not Reportable 06/22/21 14:30 Urine Bacteria 1+ /hpf (NONE) H 06/22/21 14:30 Urine Mucus Trace /hpf 06/22/21 14:30 Vancomycin Trough 12.8 ug/mL (10-15) 07/03/21 19:49 Micro: Microbiology 06/30/21 12:56 Blood Culture - Final Blood NO GROWTH AFTER 5 DAYS 06/30/21 12:54 Blood Culture - Final Blood NO GROWTH AFTER 5 DAYS A&P Assessment and plan (1) Acute and chronic respiratory failure with hypoxia: Status: Acute (2) COVID-19: Status: Acute (3) 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 transplanted heart: [place] heart Qualified Code(s): I25.708 - Atherosclerosis of coronary artery bypass graft(s), unspecified, with other forms of angina pectoris (5) MRSA (methicillin resistant 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: Status: Acute Plan #Acute hypoxic respiratory failure secondary to ARDS due to COVID-19 pneumonia #History of non-small cell lung cancer metastatic to lymph nodes and spine-diagnosed in 2018 and patient reported taking Keytruda. As per patient he is in remission-follows up with oncology and pulmonary in [place] #History of smoking 1 pack/day for 30 years quit 2011-possibility of COPD -Covid PCR + 06/15/2021.intubated 06/28/2021 -Intubated, sedated, prone position-completed 3 proning session and saturating 95% on FiO2 50 %; -Previously when his FiO2 was down to 50%-attempted weaning trial X 3 but patient did not tolerate and he was becoming tachypneic while tapering off sedation -He had an episode of vomiting as well a possible aspiration -Have to put him back on propofol, fentanyl and Versed and titrate drips to achieve adequate sedation -ABG 7.4 0/46/73/28 on CMV 500/10/80 percent- down to 75% FiO2 -Completed dexamethasone, discontinued baricitinib as patient has neutropenia; patient also refused remdesivir -Worsening CRP; -D-dimer 0.51-CTA negative for PE -no DVT on venous Doppler -MRSA nares positive-: On Vancomycin and also Zosyn for broad-spectrum coverage-given recent tooth infection and aspiration-antibiotics started on 06/30/2021; switch Zosyn to imipenem on 06/30/2021 due to persistent low-grade fevers- and repeat sputum culture; -Scheduled nebulizations with DuoNeb and budesonide for wheezing -Echocardiogram 06/26/2021: Moderately increased LV cavity size. Moderately decreased LV systolic function with EF 40% grade 1 diastolic dysfunction. Technically difficult study and cardiology advised for echo with contrast; however BNP 116 -On tamsulosin for BPH-good urine output-monitor input output and try to keep net negative -CK trending down -normal renal functions, -monitor input output and try to keep even to net negative-Lasix 40 mg daily -Sugars moderately controlled -Resume tube feeding -Lovenox for DVT prophylaxis -NOK patient's updated at bedside-patient may need a trach and PEG and long-term acute care facility -Full code -Prognosis guarded Recommendations conveyed to hospitalist, RN, RT taking care of the patient Attestations Medical Necessity Statement*: Acute hypoxic respiratory failure secondary to COVID-19 pneumonia-requiring mechanical intubation-needs close ICU monitoring for at least 48 hours Time Spent in Patient Care: Greater than 35 minutes (>than 50% of time spent in counselling and/or direct pt care on unit). Critical Care Time: The high probability of a clinically significant, sudden or life threatening deterioration of the patient's [pulmonary, endocrine, renal, neurological system(s) required my full and direct attention, intervention and personal management. The critical care time is as shown. 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 transplanted heart: [place] heart MRSA (methicillin resistant 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 Z22.322 Time Spent (min) 45
[2021-07-06] MEDS: propofol 1,000 MG/100 ML INJ 34.02 MG IV ×3 (09:44→15:59)
--- NOTE | 2021-07-06 10:25 | PC.CHAP ---
Pastoral Care Encounter/Spiritual Assessment Type of Contact [] Declined shooting gallery operator visit [] Patient/Family/Request visit [] Outpatient visit [] Follow-up visit [] Physician referral [] Code/Alert [x] Routine visit [] Staff referral [] Actively dying [] Patient sleeping [x] Family support [] [] Out of room [] Palliative care [] [] Receiving care in room [] Pre-surgical visit [] Trauma [] Long length of stay [x] ICU visit [] Other: Relational/Emotional Strength [] Patient feels connected with others/family/visitors/staff [] Distress [] Loneliness/isolation [] Abandonment Spirituality of Patient [] Person of [place]ina [] Attends Adventism of their [place] [] Believes in Prayer [] Reads Bible or Tenriism materials [] There are Spiritual issues to be addressed [place] Interventions [x] Prayer [] Active listening [] Non-anxious presence [] Spiritual/emotional support [] Crisis/trauma care [] Spiritual counseling [] Bereavement support [] Provided bereavement packet [] Provided Bible/devotional materials [] Provided toy/stuffed animal, coloring book to patient or family member [] Provided Communion [] Anointing/[place] [] Salvation [x] Completed spiritual assessment [] Other: Impact on Illness or Injury [] Angry [] Fearful [] Anxious [] Often cries [] Exhaustion [] Unable to work [] Unable to attend anabaptist [] Unable to walk/stand [] Unable to read [] Unable to drive [] Unable to eat/drink [] Unable to sleep [] Unable to be with family [] Patient intubated [] Other: Summary Time spent with patient
[2021-07-06 11:49] LABS: Glucose Point of Care 149 mg/dL (70-110)
--- NOTE | 2021-07-06 12:46 | PM.PN ---
Subjective Subjective: Interval history: Patient's family had requested me for PEG tube placement since I had previously scheduled him for a hernia repair Medications: Reviewed: Yes Vitals/I&O/Wt Last Vital Signs Temp 100.8 F H 07/06/21 08:00 Pulse 83 07/06/21 10:00 Resp 21 H 07/06/21 11:11 BP 111/64 07/06/21 10:00 Pulse Ox 96 07/06/21 11:11 07/05/21 07/06/21 07/06/21 22:59 06:59 14:59 Intake Total 1090.256 / 3189.391 950 / 3189.391 873.700 / 873.700 Output Total 750 / 2750 2000 / 2750 Balance 340.256 / 439.391 -1050 / 439.391 873.700 / 873.700 Weight last 48 hrs Weight 230 lb Weight 232 lb 3.2 oz Physical Exam Narrative: EXAM NARRATIVE: Patient is intubated Abdomen: Soft, nontender, nondistended, well-healed midline laparotomy scar Urinary Catheter Management: Monterroso: Cath Placed During This Visit: yes Reason for Continuing Indwelling Catheter: Accurate Measurement of Urinary Output in Critically Ill Patients Urinary Catheter Date of Insertion: 06/27/21 Urinary Catheter Time of Insertion: 11:45 Data : 07/06/21 04:30 07/06/21 04:30 Micro: Microbiology 07/06/21 10:35 Blood Culture - Preliminary Blood SPECIMEN COLLECTED 07/06/21 10:35 Blood Culture - Preliminary Blood SPECIMEN COLLECTED 06/30/21 12:56 Blood Culture - Final Blood NO GROWTH AFTER 5 DAYS 06/30/21 12:54 Blood Culture - Final Blood NO GROWTH AFTER 5 DAYS A&P Assessment and plan (1) Feeding difficulty: 65-year-old male with COVID-19 who has been intubated for 11 days and is due for a planned tracheostomy today. Patient also needs enteral access for nutrition. He has been tolerating tube feeds. Plan for PEG tube placement in the ICU Procedure, risks, benefits and alternatives have been discussed with the patient's who wishes to proceed with surgery. Status: Acute Attestations Medical Necessity Statement*: As per primary Procedures Arterial Line Size (Gauge): 20 Coding Level of Care Code Acute Director Smb Sales for [facility] Fwd Diagnoses Feeding difficulty R63.30
--- NOTE | 2021-07-06 12:49 | P.OP_ITS ---
Operative Report Date of procedure: July 06, 2021 Pre-op diagnosis: Respiratory failure due to COVID-19 requiring tracheostomy and enteral access for nutrition Post-op diagnosis: Respiratory failure due to COVID-19 requiring tracheostomy and enteral access for nutrition Normal EGD Procedure done: Percutaneous endoscopic placement of 20 [place] [employer] EndoVive gastrostomy tube using pull technique Pathology: none sent Surgeon: Earle Rosenthal Anesthesia: General (Patient is intubated on the ventilator) and Local Condition: stable Disposition: ICU Procedure: The patient was already intubated on propofol and fentanyl in the ICU. He is on therapeutic IV vancomycin and imipenem. A bite block was placed and Olympus gastroscope was introduced and advanced up to the stomach and the first portion of the duodenum. There were no abnormalities noted in the esophagus, stomach and duodenum. The site for the planned PEG was confirmed in the left upper quadrant with transillumination using gastroscope noted through the abdominal wall and indentation of the abdominal wall noted on the gastroscope. This site was marked, and total of 5 milliliters of 1% lidocaine was infiltrated. An 11- blade was used to make a stab incision. An introducer needle was passed through the abdominal wall into the gastric lumen and the needle removed and the needle removed and the sheath left behind. A guidewire was passed through the introducer needle into the gastric lumen and grasped with a snare attached to the gastroscope. The gastroscope was withdrawn along with the guidewire, which was attached to the 20-[place] EndoVive PEG tube. The guidewire was then pulled through the abdominal wall along with the PEG through the mouth into the gastric lumen until the inner disc was noted to stand against the gastric wall. The gastroscope was reintroduced to confirm good position. The outer disc was then attached and the two way valve was fixed to the PEG tube. The outer disc was noted to be at 4 centimeters at the skin level. Sterile dressing was placed. The patient was stable throughout the procedure.
--- NOTE | 2021-07-06 13:47 | PC.NURSE ---
PEG tube placed at bedside per Dr. Rosenthal, pt tolerated well. VSS. Awaiting trach placement this afternoon.
--- NOTE | 2021-07-06 16:52 | ANES.PREANE2 ---
Pre-Anesthetic Assessment Height/Weight: Height 1.85 m Weight 104.326 kg Temp Pulse Resp BP Pulse Ox 98.6 F 90 20 H 101/63 89 L 07/06/21 16:00 07/06/21 16:00 07/06/21 14:25 07/06/21 16:00 07/06/21 16:00 Preop Diagnosis: FEEDING DIFFICULTY Operation Date: 07/06/21 11:45 Proposed Procedures p EGD(Not Applicable) - Earle Rosenthal MD s PEG Tube Insertion(Not Applicable) - Earle Rosenthal MD Operation Date: 07/06/21 17:30 Proposed Procedures p Tracheostomy(Not Applicable) - Ulices Finch MD Familial anesthetic complications: None Was Beta Jacqueline taken within 24 hours: Yes Was Clonidine taken within 24 hours: N/A Last intake: MN Social No alcohol and No tobacco Exam regular rate & rhythm Intubated and sedated on vent Airway Comments: Comments: ETT Pulmonary Chronic Obstructive Pulmonary Disease Acute resp failure due to COVID, Lung CA hx CV/HEM Coronary Artery Disease and Hypertension Metabolic Diabetes Mellitus [facility] Lower Back Pain Neuropsych Neuropathy Anesthetic Plan ASA status: 4 Anesthesia: General Risk of > 500 ml blood loss (7ml/kg in children): No Medications/Allergies Home Medications Medication Instructions Recorded Confirmed Last Taken Type ascorbic acid (vitamin C) 1,000 mg 1 g PO DAILY tab 03/27/21 06/23/21 05/13/21 History tablet azithromycin 250 mg tablet 250 mg PO .MON,WED,FRI 03/27/21 06/23/21 05/13/21 History coenzyme Q10 100 mg capsule 100 mg PO DAILY 03/27/21 06/23/21 05/13/21 History elderberry 1 tab PO DAILY PRN 03/27/21 06/23/21 05/13/21 History hydrochlorothiazide 25 mg tablet 25 mg PO DAILY 03/27/21 06/23/21 05/13/21 History multivitamin 1 tab PO DAILY 03/27/21 06/23/21 05/13/21 History omeprazole 40 mg capsule,delayed 40 mg PO QAM 03/27/21 06/23/21 05/13/21 History release albuterol sulfate 90 mcg/actuation 2 inh INHALATION Q4H PRN #1 ea 05/08/21 06/23/21 05/14/21 09:00 Rx breath activated powder inhaler budesonide-formoterol HFA 160 2 puff INHALATION Q12H #10.2 g 05/08/21 06/23/21 05/14/21 Rx mcg-4.5 mcg/actuation aerosol inhaler (Symbicort) metformin 500 mg tablet,extended 500 mg PO DAILY 30 Days #30 tab 05/18/21 06/23/21 Unknown Rx release 24 hr ezetimibe 10 mg tablet (Zetia) 10 mg PO DAILY 90 Days #90 tab 05/26/21 06/23/21 Unknown Rx meloxicam 15 mg tablet (Mobic) 15 mg PO DAILY 90 Days #90 tab 05/26/21 06/23/21 Unknown Rx tamsulosin 0.4 mg capsule 0.4 mg PO DAILY 90 Days #90 cap 05/26/21 06/23/21 Unknown Rx Vitamin D3 1 cap PO DAILY 06/23/21 06/23/21 Unknown History amoxicillin 500 mg capsule 500 mg PO TID 06/23/21 06/23/21 Unknown History metoprolol tartrate 25 mg tablet 25 mg PO QAM 06/23/21 06/23/21 Unknown History prednisone 20 mg tablet 20 mg PO BID 06/23/21 06/23/21 Unknown History Allergies Allergy/AdvReac Type Severity Reaction Status Date / Time No Known Allergies Allergy Verified 07/05/21 17:25 Current Medications Generic Name Dose Route Start Last Admin Trade Name Freq PRN Reason Stop Dose Admin Acetaminophen 650 mg 07/05/21 00:04 07/05/21 17:09 Acetaminophen 325 Mg Tablet PO 650 mg Q6H PRN Administration FEVER >101 Albuterol/Ipratropium 3 ml 06/26/21 15:00 07/06/21 14:24 Ipratropium-Albuterol 3 Ml Neb INHALATION 3 ml Q6H.RESPIRATORY FER Administration Ascorbic Acid 500 mg 06/25/21 09:00 07/06/21 08:26 Ascorbic Acid 500 Mg Tablet PO Not Given BID FER Benzonatate 200 mg 06/22/21 21:50 06/25/21 06:04 Benzonatate 100 Mg Capsule PO 200 mg Q6H PRN Administration COUGH Budesonide 0.5 mg 06/26/21 08:00 07/06/21 08:32 Budesonide 0.5 Mg/2 Ml Neb INHALATION 0.5 mg BID.RESPIRATORY FER Administration Chlorhexidine Gluconate 30 ml 07/02/21 17:00 07/06/21 12:43 Chlorhexidine Gluconate 0.12% Btl 473 Ml MUCOUS MEM 1 applic QID FER Administration Enoxaparin Sodium 90 mg 06/30/21 15:30 07/05/21 02:37 Enoxaparin 100 Mg/Ml Syringe SUBCUT 90 mg Q12H FER Administration Furosemide 40 mg 07/04/21 18:00 07/05/21 17:08 Furosemide 10 Mg/Ml Sdv 2ml IVP 40 mg Q24H FER Administration Hydrochlorothiazide 25 mg 06/25/21 09:00 06/26/21 08:34 Hydrochlorothiazide 25 Mg Tablet PO 25 mg DAILY FER Administration Remdesivir 100 mg/ Sodium 100 mls @ 100 mls/hr 06/23/21 18:00 06/26/21 17:06 Chloride IV Not Given Q24H FER dexmedeTOMIDine 0.9 % NaCL 400 mcg in 100 mls @ 0 mls/hr 06/26/21 18:45 07/06/21 14:35 Precedex IV 1.2 mcg/kg/hr .Q0M FER 34.02 mls/hr Administration Protocol Per Protocol Fentanyl 2,500 mcg/ Sodium 250 mls @ 0 mls/hr 06/28/21 08:45 07/06/21 11:28 Chloride IV 150 mcg/hr .Q0M FER 15 mls/hr Administration Protocol Per Protocol Norepinephrine Bitartrate 4 mg 254 mls @ 0 mls/hr 06/28/21 08:45 07/06/21 07:27 / Dextrose IV 0 mcg/min .Q0M FER 0 mls/hr Titration Protocol Per Protocol Propofol 1,000 mg in 100 mls @ 0 mls/hr 06/28/21 08:45 07/06/21 15:59 Diprivan IV 50 mcg/kg/min .Q0M FER 34.02 mls/hr Administration Protocol Per Protocol Vancomycin/PEG/NADA/Lysine/Water 1,250 mg in 250 mls @ 250 mls/hr 06/30/21 21:00 07/06/21 14:38 Vancocin IV Infused Q8H FER Infusion Imipenem/Cilastatin Sodium 500 100 mls @ 200 mls/hr 07/05/21 19:00 07/06/21 13:16 mg/ Sodium Chloride IV Infused Q6H [facility] Infusion Protocol Sodium Chloride 1,000 mls @ 30 mls/hr 07/05/21 16:00 07/05/21 16:55 Sodium Chloride 0.9% IV Not Given .Q24H FER Insulin Human Lispro 0 unit 07/03/21 12:00 07/06/21 12:36 Insulin Lispro 100 Unit/1 Ml SUBCUT 4 unit TIDWM FER Administration Protocol Metoprolol Tartrate 25 mg 06/25/21 06:00 06/28/21 05:08 Metoprolol Tartrate 25 Mg Tablet PO 25 mg QAM FER Administration Pantoprazole Sodium 40 mg 07/06/21 09:00 07/06/21 08:25 Pantoprazole 40 Mg Sdv IVP 40 mg DAILY FER Administration Senna 17.2 mg 07/03/21 21:00 07/05/21 21:00 Sennosides 8.6 Mg Tablet PO 17.2 mg BEDTIME FER Administration Senna/Docusate Sodium 1 tab 06/23/21 09:00 07/06/21 08:26 Sennosides-Docusate Tablet PO Not Given DAILY FER Tamsulosin HCl 0.4 mg 06/25/21 09:00 07/06/21 08:26 Tamsulosin 0.4 Mg Capsule PO Not Given DAILY [facility] Vitamin D 1,000 unit 06/26/21 09:00 07/06/21 08:26 Cholecalciferol (Vitamin D3) 1,000 Unit Tablet PO Not Given DAILY [facility] Zinc Gluconate 50 mg 06/25/21 09:00 07/06/21 08:26 Zinc Gluconate 50 Mg Tablet PO Not Given DAILY FER PFSH Anesthesia Medical History CAD (coronary artery disease) CVA (cerebral vascular accident) Essential hypertension GERD (gastroesophageal reflux disease) GI bleed 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 Diagnosed in 2018 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, adrenal gland, Left lung carcinoma with mets MRI head HITESH Surgical History History of coronary artery stent placement Status post CABG History of lumbar surgery L3 Status post colonoscopy (12/16/21) dvierticulosis Status post double vessel coronary artery bypass CABG x 2 Family History Mother Heart disease Father Cancer Brother Diabetes Social History Smoking and tobacco status: former smoker Second hand smoke exposure: No Alcohol intake: never Adopted: No Caregiver/support person: No Lives independently: Yes Household members: spouse Housing: Manufactured/Mobile home Marital status: Number of children: 1 Highest education level completed: High School Graduate service: No Current occupational status: retired and disabled Pets and animals: No History of recent travel: No Sexually active: No Current gender identity: Male Special gautam needs: No Data Anesthesia : 07/06/21 04:30 07/06/21 04:30 Short CBC 07/05/21 07/06/21 Range/Units 03:30 04:30 WBC 6.4 6.7 (4.0-10.0) 10^3/uL Hgb 12.4 12.1 (11.7-16.6) g/dL Hct 34.1 L 34.1 L (42.0-52.0) % MCV 105.2 H 104.6 H (80-94) fl Plt Count 131 160 (130-400) 10^3/cmm Neut % (Auto) 74.6 77.2 % Neut # (Auto) 4.76 5.14 (1.8-7.7) 10^3/uL BMP 07/05/21 07/06/21 03:30 04:30 Sodium 139 141 Potassium 3.6 3.6 Chloride 102 103 Carbon Dioxide 27 25 BUN 20 12 Creatinine 0.6 L 0.5 L Glucose 186 H 158 H Calcium 8.0 L 8.4 L Coags 07/05/21 03:30 C-Reactive Protein 204.2 H ABG 07/05/21 07/06/21 04:00 04:00 Specimen Type Arterial Arterial Sample Site Radial, right Radial, left ABG pH 7.46 H 7.40 ABG pCO2 39.8 46.9 H ABG pO2 52.9 L 73.6 L ABG HCO3 28.1 H 28.7 H ABG Base Excess 3.9 H 3.2 H O2 Delivery Device Vent Vent FiO2 70.0 80.0 Tidal Volume 0.50 0.50 PEEP 12.0 10.0 Microbiology 07/05/21 17:55 Gram Stain - Final Sputum - Endotracheal Tube Aspirate 07/06/21 10:35 Blood Culture - Preliminary Blood SPECIMEN COLLECTED 07/06/21 10:35 Blood Culture - Preliminary Blood SPECIMEN COLLECTED 06/30/21 12:56 Blood Culture - Final Blood NO GROWTH AFTER 5 DAYS 06/30/21 12:54 Blood Culture - Final Blood NO GROWTH AFTER 5 DAYS Cardiac Studies: Echocardiogram 06/26/21
[2021-07-06 17:07] LABS: Glucose Point of Care 168 mg/dL (70-110)
[2021-07-06] MEDS: FUROsemide 10 mg/mL SDV 2mL 40 MG IVP (17:09)
[2021-07-06] MEDS: ascorbic acid 500 mg Tablet PO (17:09)
--- NOTE | 2021-07-06 17:53 | P.PN_ITS ---
Subjective Subjective: Interval history: Patient was seen through patient's RN was evaluating the patient early this morning. Came back later this afternoon patient was in the OR for his trach. I spoke with Dr. Lee about his care which is seen below. RN also states no needs at this time Vitals/I&O/Wt Last Vital Signs Temp 98.6 F 07/06/21 16:00 Pulse 90 07/06/21 16:00 Resp 21 H 07/06/21 15:57 BP 101/63 07/06/21 16:00 Pulse Ox 89 L 07/06/21 16:00 07/06/21 07/06/21 07/06/21 06:59 14:59 22:59 Intake Total 950 / 2978.141 1310.451 / 1310.451 196.39 / 1506.841 Output Total 2000 / 2750 800 / 800 Balance -1050 / 102.613 2955.451 / 1310.451 -603.61 / 706.841 Weight last 48 hrs Weight 104.326 kg Weight 105.324 kg Physical Exam 2 Narrative: EXAM NARRATIVE: PE done from outside the room shows the patient was on the ventilator in no acute distress reportedly physical exam shows no worsening of respiratory or cardiac status at this time patient is n.p.o. due to procedures patient is sedated Urinary Catheter Management: Monterroso: Cath Placed During This Visit: yes Reason for Continuing Indwelling Catheter: Accurate Measurement of Urinary Output in Critically Ill Patients Urinary Catheter Date of Insertion: 06/27/21 Urinary Catheter Time of Insertion: 11:45 Data : 07/06/21 04:30 07/06/21 04:30 Micro: Microbiology 07/05/21 17:55 Gram Stain - Final Sputum - Endotracheal Tube Aspirate 07/06/21 10:35 Blood Culture - Preliminary Blood SPECIMEN COLLECTED 07/06/21 10:35 Blood Culture - Preliminary Blood SPECIMEN COLLECTED 06/30/21 12:56 Blood Culture - Final Blood NO GROWTH AFTER 5 DAYS 06/30/21 12:54 Blood Culture - Final Blood NO GROWTH AFTER 5 DAYS A&P Assessment and plan (1) Ventilator associated pneumonia: Status: Acute (2) MRSA (methicillin resistant 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: Status: Acute (3) Febrile: Status: Acute (4) Rhabdomyolysis: Status: Acute (5) Intubation of airway performed without difficulty: Status: Acute (6) Acute and chronic respiratory failure with hypoxia: Status: Acute (7) COVID-19: Status: Acute (8) Ventral hernia: Status: Acute (9) BPH (benign prostatic hyperplasia): Status: Chronic Qualifiers: Lower urinary tract symptom detail: nocturia Lower urinary tract symptom presence: symptoms present Qualified Code(s): N40.1 - Benign prostatic hyperplasia with lower urinary tract symptoms; R35.1 - Nocturia (10) Restrictive lung disease: Status: Acute (11) 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: Status: Acute Plan Ventilator associated pneumonia Mechanical ventilation for respiratory failure related to COVID-19 Failed 3 weaning trials Status post 3 proning sessions which improved his oxygen requirement, responded well to proning sessions Currently on tube feeds at low rate Had 2 bowel movements 2/5 One episode of emesis as well He does have MRSA related ventilator associated pneumonia Currently on broad-spectrum antibiotics He also received 3 dose of clindamycin, he does have gingivitis however no active dental abscess noted during my evaluation he does have a chipped tooth on left side Planning for tracheostomy and PEG tube placementtoday transferred to LTAC, is requesting LTAC placement in [facility] analytical manager updated Continue tube feeding DVT prophylaxis currently on therapeutic regimen However no signs of PE or DVT Attestations Medical Necessity Statement*: Patient is critically patient is critically ill requiring mechanical ventilation Procedures Arterial Line Size (Gauge): 20 Coding Level of Care Code Acute Brown Stock Washer for Chg Fwd Diagnoses Ventilator associated pneumonia J95.851 MRSA (methicillin resistant 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 Z22.322 Febrile R50.9 Rhabdomyolysis M62.82 Intubation of airway performed without difficulty Z78.9 Acute and chronic respiratory failure with hypoxia J96.21 COVID-19 U07.1 Ventral hernia K43.9 BPH (benign prostatic hyperplasia) N40.1; R35.1 Lower urinary tract symptom detail: nocturia Lower urinary tract symptom presence: symptoms present Restrictive lung disease J98.4 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
--- NOTE | 2021-07-06 18:00 | PC.NURSE ---
1740 Pt taken to OR for trach placement. Consent on chart.
--- NOTE | 2021-07-06 18:52 | P.OP_ITS ---
Operative Report Date of procedure: July 06, 2021 Pre-op diagnosis: Preop Diagnosis: Respiratory failure Post-op diagnosis: same Post-op findings: Normal anterior neck exam Procedure done: Tracheotomy Implants: None Specimens removed/disposition: None Pathology: none sent Surgeon: Ulices Finch Retort Or Condenser Press Operator: Ashlee Rubin Anesthesia: General Estimated blood loss (mL): 5 IV fluids (mL): 400 Complications: None Findings: Normal anterior neck exam Condition: stable Disposition: ICU Brief History: 65 yo wm admitted for respiratory failure and failure of extubation whose admitting physician requests tracheotomy. Procedure: The patient was identified in the intensive care unit was taken to the operating room where he was placed on the operating table in the supine position. Anesthesia was obtained with general endotracheal anesthesia. A vertical incision was drawn out over the trachea just above the sternal notch and was injected with local anesthesia. The patient was then prepped and draped in the usual sterile fashion. The neck incision was made with a 15 blade and was carried down through subcutaneous tissues with electrocautery directly over the trachea in the midline. The soft tissues were then retracted laterally as the dissection proceeded into the deeper tissues of the neck until the strap muscles were identified over the trachea. The strap muscles were dissected free from the midline and retracted laterally. The thyroid isthmus was dissected off of the trachea and was divided with the harmonic scalpel. A trach hook was placed under the cricoid cartilage and was used to retract the trachea superiorly. At this point the third tracheal ring was identified and an incision was made into the trachea between the second and third tracheal rings with a #11. A window of cartilage was removed from the anterior portion of the third tracheal ring. The tracheal dilator was used to dilate the newly created tracheostomy and after the endotracheal tube was retracted superiorly, a #8 cuffed tracheotomy tube was placed into the trachea. After endotracheal placement of the tracheotomy tube was confirmed, the tracheotomy tube was secured in place with 0 Prolene sutures and a neck strap. Surgi-Lalo was injected around the tracheotomy tube into the wound and the procedure was terminated at that point. Control of the patient was returned to anesthesia where he underwent an uneventful reversal of anes thesia. The patient was then taken back to the intensive care unit in stable condition. There were no operative or anesthetic complications.
--- NOTE | 2021-07-06 19:00 | PC.NURSE ---
Pt. arrived to room from surgery. Pt. has a fresh tracheostomy. Placed back on ventilator per RT. No needs identified at this time.
--- NOTE | 2021-07-06 19:02 | ANE.PACU2 ---
Documented by User: Gato Koehler CRNA 07/06/21 19:02 Inpatient post-anesthesia follow up: Airway intact: Yes Vital signs: Temperature 98.6 F Pulse Rate [Curren t] 80 Pulse Rate 83 Respiratory Rate [ Current] 23 Respiratory Rate 21 Blood Pressure 122/75 Pulse Oximetry [Cu rrent] 91 Pulse Oximetry 96 Oxygen Delivery Me thod Mechanical Ventila tion Oxygen Flow Rate [ Current] 55 Oxygen Flow Rate 55 Fraction of Inspir ed Oxygen [ 100 Current] Fraction of Inspir ed Oxygen 75 Hydration adequate: Yes Nausea and vomiting: No Mental status: Baseline
--- NOTE | 2021-07-06 19:07 | PC.NURSE ---
Pt returned from OR with 8.0 shilley. O2 sats in mid 80's, bp soft. Levo restarted. RT aware of o2 sats. Oncoming nurse in room, report given.
[2021-07-06 21:47] LABS: Glucose Point of Care 139 mg/dL (70-110)
[2021-07-06] MEDS: propofol 1,000 MG/100 ML INJ 40.82 MG IV (22:06)
[2021-07-07] VITALS (56 sets, daily range): BP systolic 87–123; BP diastolic 46–71; PULSE 74–97; RESP 19–23; TEMP 37.5–39.1; O2SAT 87–96
[2021-07-07] MEDS: dexmedeTOMIDine 0.9 % NaCL 400 MCG/100 ML PREMIX 34.02 MCG IV ×9 (00:38→23:44)
[2021-07-07] MEDS: acetaminophen 325 mg Tablet 650 MG PO ×2 (00:56→06:22)
[2021-07-07] MEDS: propofol 1,000 MG/100 ML INJ 40.82 MG IV ×4 (01:01→09:14)
[2021-07-07] MEDS: ipratropium-albuterol 3 mL Neb INHALATION ×4 (03:16→20:20)
[2021-07-07] MEDS: vancomycin 1,250 MG/250 ML PIGGYBACK 250 MG IV ×3 (06:22→20:40)
[2021-07-07 07:15] LABS: Glucose Point of Care 151 mg/dL (70-110)
[2021-07-07] MEDS: insulin lispro 100 unit/1 mL SUBCUT ×3 (07:46→17:29)
[2021-07-07] MEDS: tamsulosin 0.4 mg Capsule PO (07:47)
[2021-07-07] MEDS: cholecalciferol (vitamin D3) 1,000 unit Tablet 1000 UNIT PO (07:47)
[2021-07-07] MEDS: pantoprazole 40 mg SDV IVP (07:47)
[2021-07-07] MEDS: ascorbic acid 500 mg Tablet PO ×2 (07:47→17:27)
[2021-07-07] MEDS: sennosides-docusate Tablet 1 TAB PO (07:47)
[2021-07-07] MEDS: chlorhexidine gluconate 0.12% Btl 473 mL 30 ML MUCOUS MEM ×4 (07:48→20:40)
[2021-07-07] MEDS: zinc gluconate 50 mg Tablet PO (07:48)
[2021-07-07] MEDS: budesonide 0.5 mg/2 mL Neb INHALATION ×2 (08:35→20:20)
[2021-07-07 09:51] LABS: Basophils % 0.3 %; Eosinophils # 0.1 10^3/uL (0.0-0.8); Eosinophils % 0.8 %; Hematocrit 34.8 % (42.0-52.0); Hemoglobin 11.6 g/dL (11.7-16.6); Lymphocytes # 1.3 10^3/uL (0.8-4.8); Lymphocytes % 20.6 %; Mean Corpuscular HGB Conc 33.3 g/dL (30.0-36.0); Mean Corpuscular Hemoglobin 35.2 pg (28.0-34.0); Mean Corpuscular Volume 105.5 fl (80-94); Mean Platelet Volume 11.2 fL (7.4-10.4); Monocytes # 0.4 10^3/uL (0.2-0.9); Monocytes % 6.8 %; Neutrophils # 4.59 10^3/uL (1.8-7.7); Neutrophils % 70.6 %; Nucleated Red Blood Cells % 0 %; Platelet Count 147 10^3/cmm (130-400); Red Cell Distribution Width 13.5 % (12.1-15.1); White Blood Count 6.5 10^3/uL (4.0-10.0)
[2021-07-07 10:13] LABS: ABG PCO2 37.2 mmHg (35-45); ABG PH Result 7.48 (7.35-7.45); Alveolar-Arterial Oxygen Gradi 68.6 mmHg (5-10); Arterial Blood Gas Hematocrit 37.7 % (42-52); Base Excess ABG 3.7 mmol/L (-2.0-2.0); Blood Gas Operator Identificat CAK; Blood Gas Sample Site ARTLINE; Blood Gas Sample Type Arterial; Carboxyhemoglobin 0.3 %THgb (0.4-20.1); HCO3 ABG 27.3 mmol/L (22-26); HGB O2 Sat 93.4 % (95-100); Ionized Calcium Level - ABG 1.1 mmol/L (1.1-1.4); Oxygen Device VENT; Oxygen Saturation ABG 94.6; Potassium Level - ABG 3.1 mmol/L (3.5-5.0); Total Hemoglobin 12.3 g/dL (14-18)
[2021-07-07 10:22] LABS: Anion Gap 14.3 (5-19); Blood Urea Nitrogen 10 mg/dL (8-23); Carbon Dioxide 23 mmol/L (22-29); Chloride 101 mmol/L (98-107); Glomerular Filtration Rate 167.4 mL/min (90-130); Glucose 156 mg/dL (65-115); Magnesium 2.1 mg/dL (1.7-2.3); Osmolality Calculated 282 mOsm/kg (285-295); Potassium 3.3 mmol/L (3.5-5.1); Sodium 135 mmol/L (136-145)
--- NOTE | 2021-07-07 11:19 | ANE.PACU2 ---
Inpatient post-anesthesia follow up: Airway intact: Yes Vital signs: Temperature 99.5 F Pulse Rate [Curren t] 80 Pulse Rate 86 Respiratory Rate [ Current] 23 Respiratory Rate 20 Blood Pressure 90/54 Pulse Oximetry [Cu rrent] 91 Pulse Oximetry 89 Oxygen Delivery Me thod Mechanical Ventila tion Oxygen Flow Rate [ Current] 55 Oxygen Flow Rate 55 Fraction of Inspir ed Oxygen [ 100 Current] Fraction of Inspir ed Oxygen 90 Hydration adequate: Yes Nausea and vomiting: No Pain level: 2 Mental status: Baseline Additional Comments: Trach, sedated to ICU
[2021-07-07 11:42] LABS: Glucose Point of Care 152 mg/dL (70-110)
[2021-07-07] MEDS: propofol 1,000 MG/100 ML INJ 34.02 MG IV ×3 (11:49→17:54)
--- NOTE | 2021-07-07 12:22 | PC.NUTR ---
Current TF order is Jevity 1.2 @ 15 mls/hr with FW flushes 100 mls Q4H. Recommend increasing TF 10 mls Q8H as tolerated to goal rate of Jevity 1.2 @ 35 mls/hr with flushes of 150 mls Q4H. Goal rate is lower because Propofol @ 40.82 mls/hr provides [address] Details in RD assessment.
[2021-07-07 13:10] LABS: Vancomycin Trough 12.8 ug/mL (10-15)
--- NOTE | 2021-07-07 13:33 | P.PN_ITS ---
Subjective Subjective: Patient seen at bedside with nurse and RT. Patient is sedated does not awaken to sternal rub while on sedation. Medications: Medication Review Details: By me Vitals/I&O/Wt Last Vital Signs Temp 99.5 F 07/07/21 12:01 Pulse 78 07/07/21 12:01 Resp 20 H 07/07/21 13:18 BP 94/55 07/07/21 12:01 Pulse Ox 90 07/07/21 13:18 07/06/21 07/07/21 07/07/21 22:59 06:59 14:59 Intake Total 572.739 / 0226.950 1463 / 2890.190 1105.054 / 1105.054 Output Total 2800 / 2800 1200 / 4000 Balance -2227.261 / -916.810 -193 / -7662.378 1066.054 / 1105.054 Weight last 48 hrs Weight 111.13 kg Weight 104.326 kg Physical Exam Narrative: Patient sedated on vent requiring 90% FiO2 with high PEEP Heart regular rate and rhythm normal S1-S2 without murmurs clicks gallops or rubs Lungs clear to auscultation without wheezes rales or rhonchi anteriorly Abdomen mild distention hypoactive bowel sounds Extremities no edema Urinary Catheter Management: Monterroso: Cath Placed During This Visit: yes Reason for Continuing Indwelling Catheter: Accurate Measurement of Urinary Output in Critically Ill Patients Urinary Catheter Date of Insertion: 06/27/21 Urinary Catheter Time of Insertion: 11:45 Data : 07/07/21 09:38 07/07/21 09:38 Micro: Microbiology 07/05/21 17:55 Gram Stain - Final Sputum - Endotracheal Tube Aspirate Sputum Culture - Preliminary Gram Negative Rods 07/06/21 10:35 Blood Culture - Preliminary Blood NEGATIVE TO DATE 07/06/21 10:35 Blood Culture - Preliminary Blood NEGATIVE TO DATE A&P Assessment and plan (1) Ventilator associated pneumonia: Status: Acute (2) MRSA (methicillin resistant 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: Status: Acute (3) Febrile: Status: Acute (4) Rhabdomyolysis: Status: Acute (5) Intubation of airway performed without difficulty: Status: Acute (6) Acute and chronic respiratory failure with hypoxia: Status: Acute (7) COVID-19: Status: Acute (8) Ventral hernia: Status: Acute (9) BPH (benign prostatic hyperplasia): Status: Chronic Qualifiers: Lower urinary tract symptom presence: symptoms present Lower urinary tract symptom detail: nocturia Qualified Code(s): N40.1 - Benign prostatic hyperplasia with lower urinary tract symptoms; R35.1 - Nocturia (10) Restrictive lung disease: Status: Acute (11) 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 Cazares, started Levoquin today. Mechanical ventilation for respiratory failure related to COVID-19; poor lung compliance Failed 3 weaning trials; Status post 3 proning sessions which improved his oxygen requirement, responded well to proning sessions S/P trach 07/06/2021 Currently on tube feeds at low rate; s/p peg 07/06/21 Had 2 bowel movements 2/5 One episode of emesis as well He does have MRSA related ventilator associated pneumonia and now gram - francis pneumonia continue Pip/levaquin He also received 3 dose of clindamycin, due to gingivitis Dr. Cazares updated on poor lung compiance and continued hypoxia. If able to obtain lower FIO2 can be candidate for LTACH. DVT prophylaxis currently on therapeutic regimen due to COVID status Attestations Medical Necessity Statement*: Critically ill patient at high risk of due to COVID-19 poor lung compliance severe hypoxia Procedures Arterial Line Size (Gauge): 20 Coding Level of Care Code Acute Adjuster And Inspector for Chg Fwd Diagnoses Ventilator associated pneumonia J95.851 MRSA (methicillin resistant 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
[2021-07-07] MEDS: levofloxacin-dextrose 5 % 750 MG/150 ML PREMIX 100 MG IV (14:13)
--- NOTE | 2021-07-07 15:07 | PM.PN ---
Subjective Subjective: -Patient underwent PEG and trach placement yesterday -Yesterday night patient became tachypneic and desaturated and FiO2 has to be increased to 100% -Currently sedated with fentanyl, propofol, Precedex and requiring 90% FiO2 -Sputum from 07/05/2021 today grew gram-negative rods-he was switched from Zosyn to imipenem on the same day, added Levaquin for double coverage of Pseudomonas -Other labs and imaging reviewed Medications: Reviewed: Yes Medication Review Details: By me Vitals/I&O/Wt Last Vital Signs Temp 99.5 F 07/07/21 12:01 Pulse 76 07/07/21 14:56 Resp 23 H 07/07/21 14:53 BP 94/58 07/07/21 14:00 Pulse Ox 90 07/07/21 14:53 07/07/21 07/07/21 07/07/21 06:59 14:59 22:59 Intake Total 1007 / 2890.190 1705.054 / 1705.054 Output Total 1200 / 4000 Balance -193 / -5237.803 7483.054 / 1705.054 Weight last 48 hrs Weight 245 lb Weight 230 lb Physical Exam Narrative: PHYSICAL EXAM: General: lying in bed, sedated and intubated. HEENT:NCAT, PERRLA, EOMI Neck: trach in place, no active bleeding noted Lungs: Bilateral mild crackles Heart: s1/s2, RRR Abd: soft, NT, ND, BS + Normoactive Extremities: No edema ADVENTURE CHALLENGE INSTRUCTOR: sedated and limited ADVENTURE CHALLENGE INSTRUCTOR exam possible. SKIN: no rash LDA: # CVC: Right IJ 06/28/2021? Urinary Catheter Management: Monterroso: Cath Placed During This Visit: yes Reason for Continuing Indwelling Catheter: Accurate Measurement of Urinary Output in Critically Ill Patients Urinary Catheter Date of Insertion: 06/27/21 Urinary Catheter Time of Insertion: 11:45 Data : 07/07/21 09:38 07/07/21 09:38 Other Labs: Radiology Impressions Chest CTA 06/25/21 10:16 IMPRESSION: 1. No pulmonary embolism through the segmental branches. 2. Diffuse bilateral groundglass attenuation probably due to pneumonitis or Covid 19. 3. Destructive lytic lesion involving the T11 vertebral body and LEFT posterior elements. Suspect metastatic bone disease. No cord compression is evident by this examination. 4. No mediastinal adenopathy. KUB X-Ray 07/03/21 11:44 IMPRESSION: Nonspecific bowel gas pattern, possibly early ileus. Chest X-Ray 07/06/21 04:00 IMPRESSION: 1. Similar bilateral interstitial opacities, which may reflect pneumonia superimposed on a background of pulmonary fibrosis. 2. Endotracheal tube terminates approximately 4.4 cm above the dany. Laboratory Results WBC 6.5 10^3/uL (4.0-10.0) 07/07/21 09:38 RBC 3.30 10^6/uL (4.1-5.3) L 07/07/21 09:38 Hgb 11.6 g/dL (11.7-16.6) L 07/07/21 09:38 Hct 34.8 % (42.0-52.0) L 07/07/21 09:38 MCV 105.5 fl (80-94) H 07/07/21 09:38 MCH 35.2 pg (28.0-34.0) H 07/07/21 09:38 MCHC 33.3 g/dL (30.0-36.0) D 07/07/21 09:38 RDW 13.5 % (12.1-15.1) 07/07/21 09:38 Plt Count 147 10^3/cmm (130-400) 07/07/21 09:38 MPV 11.2 fL (7.4-10.4) H 07/07/21 09:38 Neut % (Auto) 70.6 % 07/07/21 09:38 Lymph % (Auto) 20.6 % 07/07/21 09:38 [place] % (Auto) 6.8 % 07/07/21 09:38 Eos % (Auto) 0.8 % 07/07/21 09:38 Baso % (Auto) 0.3 % 07/07/21 09:38 Neut # (Auto) 4.59 10^3/uL (1.8-7.7) 07/07/21 09:38 Lymph # (Auto) 1.3 10^3/uL (0.8-4.8) 07/07/21 09:38 [place] # (Auto) 0.4 10^3/uL (0.2-0.9) 07/07/21 09:38 Eos # (Auto) 0.1 10^3/uL (0.0-0.8) 07/07/21 09:38 Baso # (Auto) 0.0 10^3/uL (0.0-0.1) 07/07/21 09:38 Nucleated RBC % (auto) 0 % 07/07/21 09:38 Nucleated RBCs # 0.0 /100WBC 07/07/21 09:38 PT 13.40 SECONDS (12.1-14.9) 06/22/21 14:30 INR 0.99 (0.8-1.2) 06/22/21 14:30 D-Dimer 1.36 ug/mIFEU (0-0.59) H 07/02/21 04:18 Specimen Type Arterial 07/07/21 10:01 Sample Site Artline 07/07/21 10:01 ABG pH 7.48 (7.35-7.45) H 07/07/21 10:01 ABG pCO2 37.2 mmHg (35-45) 07/07/21 10:01 ABG pO2 69.0 mmHg (80.0-100.0) L 07/07/21 10:01 ABG HCO3 27.3 mmol/L (22-26) H 07/07/21 10:01 ABG O2 Saturation 94.6 07/07/21 10:01 ABG Base Excess 3.7 mmol/L (-2.0-2.0) H 07/07/21 10:01 [place] Test N/a 07/07/21 10:01 A-a O2 Gradient 68.6 mmHg (5-10) H 07/07/21 10:01 Hematocrit 37.7 % (42-52) L 07/07/21 10:01 Hgb O2 Saturation 93.4 % (95-100) L 07/07/21 10:01 Carboxyhemoglobin 0.3 %THgb (0.4-20.1) L 07/07/21 10:01 Methemoglobin 1.0 % (0.4-1.5) 07/07/21 10:01 Total Hemoglobin 12.3 g/dL (14-18) L 07/07/21 10:01 Sodium 138.0 mmol/L (131-143) 07/07/21 10:01 Potassium 3.1 mmol/L (3.5-5.0) L 07/07/21 10:01 Glucose 163.0 mg/dL (70-115) H 07/07/21 10:01 Ionized Calcium 1.1 mmol/L (1.1-1.4) 07/07/21 10:01 O2 Delivery Device Vent 07/07/21 10:01 O2 Liters/Min 60.0 % 06/27/21 04:38 FiO2 90.0 % 07/07/21 10:01 Tidal Volume 0.50 07/07/21 10:01 PEEP 10.0 cmH20 07/07/21 10:01 Nib Assembler ID Cak 07/07/21 10:01 Blood Gas Notified Time 0545 06/28/21 05:29 Sodium 135 mmol/L (136-145) L 07/07/21 09:38 Potassium 3.3 mmol/L (3.5-5.1) L 07/07/21 09:38 Chloride 101 mmol/L (98-107) 07/07/21 09:38 Carbon Dioxide 23 mmol/L (22-29) 07/07/21 09:38 Anion Gap 14.3 (5-19) 07/07/21 09:38 BUN 10 mg/dL (8-23) 07/07/21 09:38 Creatinine 0.5 mg/dL (0.7-1.2) L 07/07/21 09:38 GFR Calculation 167.4 mL/min (90-130) H 07/07/21 09:38 Glucose 156 mg/dL (65-115) H 07/07/21 09:38 POC Glucose 152 mg/dL (70-110) H 07/07/21 11:39 Calculated Osmolality 282 mOsm/kg (285-295) L 07/07/21 09:38 Calcium 8.0 mg/dL (8.5-10.5) L 07/07/21 09:38 Phosphorus 2.9 mg/dL (2.5-4.5) 07/03/21 04:22 Magnesium 2.1 mg/dL (1.7-2.3) 07/07/21 09:38 Total Bilirubin 0.6 mg/dL (0.15-1.2) 07/03/21 04:22 AST 37 U/L (0-40) 07/03/21 04:22 ALT 40 U/L (0-41) 07/03/21 04:22 Alkaline Phosphatase 55 IU/L (40-130) 07/03/21 04:22 Lactate Dehydrogenase 226 U/L (135-225) H 07/04/21 04:15 Creatine Kinase 623 U/L (39-308) H* 07/03/21 04:22 C-Reactive Protein 204.2 mg/L (0.0-4.9) H 07/05/21 03:30 NT-Pro-B Natriuret Pep 116 pg/mL (0-125) 06/25/21 05:08 Total Protein 6.9 g/dL (6.6-8.7) 07/03/21 04:22 Albumin 2.9 g/dL (3.5-5.2) L 07/03/21 04:22 Globulin 4.0 g/dL (1.3-4.6) 07/03/21 04:22 Triglycerides 245 mg/dL (0-150) H 07/03/21 04:22 Procalcitonin 0.11 ng/mL (0-0.5) 07/04/21 04:15 Urine Color Yellow (Yellow) 07/01/21 04:56 Urine Appearance Clear (CLEAR) 07/01/21 04:56 Urine pH 5 (5-7) 07/01/21 04:56 Ur Specific [place] 1.015 (1.005-1.030) 07/01/21 04:56 Urine Protein Neg (Negative) 07/01/21 04:56 Urine Glucose (UA) 4+ (Normal) H 07/01/21 04:56 Urine Ketones 1+ (Negative) H 07/01/21 04:56 Urine Blood Neg (Negative) 07/01/21 04:56 Urine Nitrate Negative (Negative) 07/01/21 04:56 Urine Bilirubin Neg (Negative) 07/01/21 04:56 Urine Urobilinogen Norm mg/dL (Negative) 07/01/21 04:56 Ur Leukocyte Esterase Negative (Negative) 07/01/21 04:56 Urine RBC 0-4 /hpf (0-2) H 06/22/21 14:30 Urine WBC 0-4 /hpf (0-5) H 06/22/21 14:30 Ur Squamous Epith Cells 0-4 /hpf (0-5) H 06/22/21 14:30 Amorphous Sediment Not Reportable 06/22/21 14:30 Urine Bacteria 1+ /hpf (NONE) H 06/22/21 14:30 Urine Mucus Trace /hpf 06/22/21 14:30 Vancomycin Trough 12.8 ug/mL (10-15) 07/07/21 12:20 Micro: Microbiology 07/05/21 17:55 Gram Stain - Final Sputum - Endotracheal Tube Aspirate Sputum Culture - Preliminary Gram Negative Rods 07/06/21 10:35 Blood Culture - Preliminary Blood NEGATIVE TO DATE 07/06/21 10:35 Blood Culture - Preliminary Blood NEGATIVE TO DATE A&P Assessment and plan (1) Acute and chronic respiratory failure with hypoxia: Status: Acute (2) COVID-19: Status: Acute (3) 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 transplanted heart: [place] heart Associated angina: with stable angina Qualified Code(s): I25.708 - Atherosclerosis of coronary artery bypass graft(s), unspecified, with other forms of angina pectoris (5) MRSA (methicillin resistant 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: Status: Acute (6) Gram-negative pneumonia: Status: Acute (7) Hypokalemia: Status: Acute Plan #Acute hypoxic respiratory failure secondary to ARDS due to COVID-19 pneumonia #History of non-small cell lung cancer metastatic to lymph nodes and spine-diagnosed in 2018 and patient reported taking Keytruda. As per patient he is in remission-follows up with oncology and pulmonary in [place] #History of smoking 1 pack/day for 30 years quit 2011-possibility of COPD #Sputum culture positive for gram-negative rods -Covid PCR + 06/15/2021.intubated 06/28/2021; s/p trach and PEG 07/06/2021 -Completed 3 proning session and saturating 95% on FiO2 50 %; attempted weaning trial X 3 but patient did not tolerate and he was becoming tachypneic while tapering off sedation, also -He had an episode of vomiting as well a possible aspiration -Currently sedated with propofol, fentanyl and Versed and titrate drips to achieve adequate sedation -ABG 7.4 8/37/69/27/94% on CMV 500/10/90%-we will slowly titrate down FiO2 -Completed dexamethasone, discontinued baricitinib as patient has neutropenia; patient also refused remdesivir -Worsening CRP; -D-dimer 0.51-CTA negative for PE -no DVT on venous Doppler -MRSA nares positive-: On Vancomycin and was on Zosyn for broad-spectrum coverage-given recent tooth infection and aspiration-antibiotics started on 06/30/2021; later on switched Zosyn to imipenem on 07/05/2021 due to persistent low-grade fevers- and repeat sputum culture from the same date grew gram-negative rods on 07/07/2021; we added Levaquin 750 Mg daily for additional pseudomonas coverage along with imipenem -Scheduled nebulizations with DuoNeb and budesonide for wheezing -Echocardiogram 06/26/2021: Moderately increased LV cavity size. Moderately decreased LV systolic function with EF 40% grade 1 diastolic dysfunction. Technically difficult study and cardiology advised for echo with contrast; however BNP 116 -On tamsulosin for BPH-good urine output-monitor input output and try to keep net negative -CK trending down -normal renal functions, -monitor input output and try to keep even to net negative-Lasix 40 mg daily -K 3.3 -supplemented -Sugars moderately controlled -On tube feeding -Lovenox for DVT prophylaxis -NOK patient's updated at bedside-patient is awaiting placement at long-term acute care facility -Full code -Prognosis guarded Recommendations conveyed to hospitalist, RN, RT taking care of the patient Attestations Medical Necessity Statement*: Acute hypoxic respiratory failure secondary to COVID-19 pneumonia-requiring mechanical intubation-needs close ICU monitoring for at least 48 hours Time Spent in Patient Care: Greater than 35 minutes (>than 50% of time spent in counselling and/or direct pt care on unit). Critical Care Time: The high probability of a clinically significant, sudden or life threatening deterioration of the patient's [pulmonary, endocrine, renal, neurological system(s) required my full and direct attention, intervention and personal management. The critical care time is as shown. This time is in addition to time spent performing any reported procedures but includes the following: [x] Data and vital sign review and interpretation [x] Patient assessment, examination and intervention [x] Documentation [x] Medication orders and management Critical Care Time (min): 45 Procedures Arterial Line Size (Gauge): 20 Coding Level of Care Code Acute Ore Sampler for Chg Fwd Diagnoses Acute and chronic respiratory failure with hypoxia J96.21 COVID-19 U07.1 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 CAD (coronary artery disease) I25.708 Coronary Disease-Associated Artery/Lesion type: bypass graft [place] vs. 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
--- NOTE | 2021-07-07 16:08 | P.PN_ITS ---
Subjective Subjective: Patient is currently on 10 cc/h tube feeds, had about 180 cc residual. His last bowel movement was day before yesterday. He has been prescribed Reglan Vitals/I&O/Wt Last Vital Signs Temp 99.5 F 07/07/21 12:01 Pulse 76 07/07/21 14:56 Resp 22 H 07/07/21 15:17 BP 94/58 07/07/21 14:00 Pulse Ox 91 07/07/21 15:17 07/07/21 07/07/21 07/07/21 06:59 14:59 22:59 Intake Total 1007 / 2890.190 1705.054 / 1705.054 Output Total 1200 / 4000 700 / 700 Balance -193 / -0313.730 2600.054 / 1005.054 -700 / 1005.054 Weight last 48 hrs Weight 245 lb Weight 230 lb Physical Exam Narrative: Abdomen: Soft, PEG tube in the left upper quadrant, no cellulitis or hematoma Urinary Catheter Management: Monterroso: Cath Placed During This Visit: yes Reason for Continuing Indwelling Catheter: Accurate Measurement of Urinary Output in Critically Ill Patients Urinary Catheter Date of Insertion: 06/27/21 Urinary Catheter Time of Insertion: 11:45 Data : 07/07/21 09:38 07/07/21 09:38 Micro: Microbiology 07/05/21 17:55 Gram Stain - Final Sputum - Endotracheal Tube Aspirate Sputum Culture - Preliminary Gram Negative Rods 07/06/21 10:35 Blood Culture - Preliminary Blood NEGATIVE TO DATE 07/06/21 10:35 Blood Culture - Preliminary Blood NEGATIVE TO DATE A&P Assessment and plan (1) S/P percutaneous endoscopic gastrostomy (PEG) tube placement: 65-year-old male status post PEG tube placement, tube feeds at 10 cc/h Increase tube feeds as tolerated Add liquid Colace 100 mg p.o. twice daily Reglan as needed to increase gastric motility Status: Acute Attestations Medical Necessity Statement*: As per primary Procedures Arterial Line Size (Gauge): 20 Coding Level of Care Code Acute Fork Assembler for Chg Fwd Diagnoses S/P percutaneous endoscopic gastrostomy (PEG) tube placement Z93.1
[2021-07-07] MEDS: potassium chloride oral liq 20 mEq/15 mL UDC 40 MEQ PO (16:09)
--- NOTE | 2021-07-07 16:25 | PM.PN ---
Subjective Subjective: 65 yo wm who is POD #1 s/p tracheotomy for respiratory failure and prolonged intubation with failure of extubation X 2. The patient is doing well from this standpoint. Medications: Reviewed: Yes Vitals/I&O/Wt Last Vital Signs Temp 99.6 F 07/07/21 16:00 Pulse 89 07/07/21 16:00 Resp 22 H 07/07/21 15:17 BP 91/55 07/07/21 16:00 Pulse Ox 89 L 07/07/21 16:00 07/07/21 07/07/21 07/07/21 06:59 14:59 22:59 Intake Total 1007 / 2890.190 1705.054 / 1705.054 390 / 2095.054 Output Total 1200 / 4000 700 / 700 Balance -193 / -0452.964 4186.054 / 1705.054 -310 / 1395.054 Weight last 48 hrs Weight 111.13 kg Weight 104.326 kg Physical Exam Const: COMMON NORMALS: no acute distress GENERAL APPEARANCE: patient mechanically ventilated HENMT: COMMON NORMALS: normocephalic, atraumatic and Normal external nose present HEAD & SCALP: normocephalic and atraumatic FACE & SINUS: normal facial exam NOSE: Normal external nose present Neck/C-Spine: COMMON NORMALS: full ROM, no lymphadenopathy, supple and Thyroid normal GENERAL: Yes tracheostomy present (The trach site is without erythema or d/c.) THYROID: Thyroid normal Lymph: LYMPHATIC: no lymphadenopathy noted Chest: COMMONS NORMALS: normal inspection of the chest Urinary Catheter Management: Monterroso: Cath Placed During This Visit: yes Reason for Continuing Indwelling Catheter: Accurate Measurement of Urinary Output in Critically Ill Patients Urinary Catheter Date of Insertion: 06/27/21 Urinary Catheter Time of Insertion: 11:45 Data : 07/07/21 09:38 07/07/21 09:38 Micro: Microbiology 07/05/21 17:55 Gram Stain - Final Sputum - Endotracheal Tube Aspirate Sputum Culture - Preliminary Gram Negative Rods 07/06/21 10:35 Blood Culture - Preliminary Blood NEGATIVE TO DATE 07/06/21 10:35 Blood Culture - Preliminary Blood NEGATIVE TO DATE Attestation for Other Data: I personally reviewed and interpreted the following: (Portable Chest X Ray) A&P Assessment and plan (1) Acute and chronic respiratory failure with hypoxia: Impression: Doing well s/p tracheotomy Plan: - Continue current trach care - I will change the trach on POD 5-7 - Notify Dr. Finch for any trach problems Status: Acute Attestations Medical Necessity Statement*: I was consulted to assist in airway management. Procedures Arterial Line Size (Gauge): 20 Coding Level of Care Code Acute Manager Fast Food for [facility] Fwd Diagnoses Acute and chronic respiratory failure with hypoxia J96.21
[2021-07-07 17:27] LABS: Glucose Point of Care 174 mg/dL (70-110)
[2021-07-07] MEDS: FUROsemide 10 mg/mL SDV 2mL 40 MG IVP (17:27)
--- NOTE | 2021-07-07 18:03 | PC.SOCIAL ---
IM not given at this time pt is too acute and will not dc in next two days.
--- NOTE | 2021-07-07 18:18 | PC.NURSE ---
Pt resting in bed. VSS. Repositioned and oral care performed q2h and PRN. Vent settings per RT. Fentanyl, propofol, precedex and ABT infusing per orders. TF to peg tube tolerated fair. Residuals of 180 each time checked. Monterroso cath draining freely. No other issues noted. Will continue to monitor.
[2021-07-07] MEDS: docusate sodium 10 mg/mL (5ml) Liq 100 MG PEG-TUBE (20:42)
[2021-07-07] MEDS: propofol 1,000 MG/100 ML INJ 27.22 MG IV (20:48)
[2021-07-08] VITALS (35 sets, daily range): BP systolic 82–110; BP diastolic 49–68; PULSE 72–110; RESP 20–35; TEMP 37–39.2; O2SAT 87–92
[2021-07-08] MEDS: propofol 1,000 MG/100 ML INJ 23.81 MG IV ×2 (00:53→05:28)
[2021-07-08] MEDS: ipratropium-albuterol 3 mL Neb INHALATION ×4 (02:19→20:34)
[2021-07-08] MEDS: dexmedeTOMIDine 0.9 % NaCL 400 MCG/100 ML PREMIX 34.02 MCG IV ×8 (02:35→23:18)
[2021-07-08 03:36] LABS: ABG PCO2 36.6 mmHg (35-45); ABG PH Result 7.47 (7.35-7.45); Arterial Blood Gas Hematocrit 49.1 % (42-52); Base Excess ABG 2.9 mmol/L (-2.0-2.0); Blood Gas Allen Test Pos; Blood Gas Sample Type Arterial; HCO3 ABG 26.5 mmol/L (22-26)
[2021-07-08 03:38] LABS: Blood Gas Operator Identificat JB; Blood Gas Sample Site ARTLINE; Oxygen Device VENT
[2021-07-08 03:51] LABS: Basophils % 0.3 %; Eosinophils # 0.1 10^3/uL (0.0-0.8); Eosinophils % 1.1 %; Hematocrit 32.3 % (42.0-52.0); Hemoglobin 11.7 g/dL (11.7-16.6); Lymphocytes # 0.7 10^3/uL (0.8-4.8); Lymphocytes % 11.2 %; Mean Corpuscular HGB Conc 36.2 g/dL (30.0-36.0); Mean Corpuscular Hemoglobin 37.1 pg (28.0-34.0); Mean Corpuscular Volume 102.5 fl (80-94); Mean Platelet Volume 12.4 fL (7.4-10.4); Monocytes # 0.4 10^3/uL (0.2-0.9); Monocytes % 6.1 %; Neutrophils # 4.97 10^3/uL (1.8-7.7); Neutrophils % 80.5 %; Nucleated Red Blood Cells % 0 %; Platelet Count 125 10^3/cmm (130-400); Red Blood Count 3.15 10^6/uL (4.1-5.3); Red Cell Distribution Width 13.3 % (12.1-15.1); White Blood Count 6.2 10^3/uL (4.0-10.0)
[2021-07-08 04:14] LABS: Albumin Level 2.4 g/dL (3.5-5.2); Alkaline Phosphatase 106 IU/L (40-130); Blood Urea Nitrogen 12 mg/dL (8-23); Carbon Dioxide 21 mmol/L (22-29); Chloride 100 mmol/L (98-107); Globulin 4.1 g/dL (1.3-4.6); Glomerular Filtration Rate 167.4 mL/min (90-130); Glucose 177 mg/dL (65-115); Magnesium 2.2 mg/dL (1.7-2.3); Osmolality Calculated 282 mOsm/kg (285-295); Sodium 134 mmol/L (136-145); Total Bilirubin 0.9 mg/dL (0.15-1.2); Total Protein 6.5 g/dL (6.6-8.7)
[2021-07-08 04:25] LABS: Alanine Aminotransferase < 5 U/L (0-41)
[2021-07-08 04:34] LABS: Anion Gap 16.9 (5-19); Potassium 3.9 mmol/L (3.5-5.1)
[2021-07-08 04:35] LABS: Aspartate Amino Transferase 52 U/L (0-40)
[2021-07-08] MEDS: vancomycin 1,250 MG/250 ML PIGGYBACK 250 MG IV ×2 (04:42→12:56)
[2021-07-08 04:57] LABS: Slide Review Slide Review Perform
--- NOTE | 2021-07-08 05:13 | PM.PN ---
Subjective Subjective: 65 yo wm who is POD #2 s/p tracheotomy for respiratory failure with prolonged intubation. The patient is sedated and on a ventilator, but is doing well from this standpoint by report. Medications: Reviewed: Yes Vitals/I&O/Wt Last Vital Signs Temp 99.0 F 07/08/21 04:00 Pulse 97 07/08/21 04:00 Resp 28 H 07/08/21 04:09 BP 104/67 07/08/21 04:00 Pulse Ox 90 07/08/21 04:09 07/07/21 07/07/21 07/08/21 14:59 22:59 06:59 Intake Total 1705.054 / 0559.071 4259.199 / 2900.253 850.082 / 3750.335 Output Total 2550 / 2550 600 / 3150 Balance 1705.054 / 1705.054 -1354.801 / 350.253 250.082 / 600.335 Weight last 48 hrs Weight 110.858 kg Weight 111.13 kg Weight 104.326 kg Physical Exam Const: COMMON NORMALS: no acute distress GENERAL APPEARANCE: patient mechanically ventilated HENMT: COMMON NORMALS: normocephalic, atraumatic and Normal external nose present HEAD & SCALP: normocephalic and atraumatic FACE & SINUS: face symmetric NOSE: Normal external nose present Neck/C-Spine: COMMON NORMALS: no lymphadenopathy and supple GENERAL: Yes tracheostomy present (Trach site clean and without erythema. ) Lymph: LYMPHATIC: no lymphadenopathy noted Chest: COMMONS NORMALS: normal inspection of the chest Urinary Catheter Management: Monterroso: Cath Placed During This Visit: yes Reason for Continuing Indwelling Catheter: Accurate Measurement of Urinary Output in Critically Ill Patients Urinary Catheter Date of Insertion: 06/27/21 Urinary Catheter Time of Insertion: 11:45 Data : 07/08/21 03:29 07/08/21 03:29 Micro: Microbiology 07/05/21 17:55 Gram Stain - Final Sputum - Endotracheal Tube Aspirate Sputum Culture - Preliminary Gram Negative Rods 07/06/21 10:35 Blood Culture - Preliminary Blood NEGATIVE TO DATE 07/06/21 10:35 Blood Culture - Preliminary Blood NEGATIVE TO DATE A&P Assessment and plan (1) Acute and chronic respiratory failure with hypoxia: Impression: POD #2 s/p tracheotomy doing well from this standpoint. Plan: - Continue current trach care - Anticipate first trach change on POD 5-7 Status: Acute Attestations Medical Necessity Statement*: I was consulted to assist in airway management. Procedures Arterial Line Size (Gauge): 20 Coding Level of Care Code Acute Take Down Inspector for Chg Fwd Diagnoses Acute and chronic respiratory failure with hypoxia J96.21
[2021-07-08 07:39] LABS: Glucose Point of Care 164 mg/dL (70-110)
[2021-07-08] MEDS: zinc gluconate 50 mg Tablet PO (07:52)
[2021-07-08] MEDS: tamsulosin 0.4 mg Capsule PO (07:52)
[2021-07-08] MEDS: metoclopramide 5 mg/mL SDV 2 mL 10 MG IVP (07:52)
[2021-07-08] MEDS: pantoprazole 40 mg SDV IVP (07:52)
[2021-07-08] MEDS: ascorbic acid 500 mg Tablet PO ×2 (07:52→17:32)
[2021-07-08] MEDS: cholecalciferol (vitamin D3) 1,000 unit Tablet 1000 UNIT PO (07:53)
[2021-07-08] MEDS: acetaminophen 325 mg Tablet 650 MG PO ×2 (07:53→19:29)
[2021-07-08] MEDS: chlorhexidine gluconate 0.12% Btl 473 mL 30 ML MUCOUS MEM ×4 (07:53→20:18)
[2021-07-08] MEDS: insulin lispro 100 unit/1 mL SUBCUT ×3 (07:53→17:32)
[2021-07-08] MEDS: docusate sodium 10 mg/mL (5ml) Liq 100 MG PEG-TUBE ×2 (07:54→20:18)
[2021-07-08] MEDS: budesonide 0.5 mg/2 mL Neb INHALATION ×2 (08:01→20:34)
--- NOTE | 2021-07-08 10:01 | PC.CHAP ---
Pastoral Care Encounter/Spiritual Assessment Type of Contact [] Declined chronometer assembler visit [] Patient/Family/Request visit [] Outpatient visit [] Follow-up visit [] Physician referral [] Code/Alert [x] Routine visit [] Staff referral [] Actively dying [] Patient sleeping [x] Family support [] [] Out of room [] Palliative care [] [] Receiving care in room [] Pre-surgical visit [] Trauma [] Long length of stay [x] ICU visit [x] Other: track placed in patient tuesday.... Relational/Emotional Strength [] Patient feels connected with others/family/visitors/staff [] Distress [] Loneliness/isolation [] Abandonment Spirituality of Patient [] Person of Agutsina [] Attends Lutheran of their Agustina [] Believes in Prayer [] Reads Bible or Christianity materials [] There are Spiritual issues to be addressed Diffusion Furnace Operator Interventions [x] Prayer [] Active listening [] Non-anxious presence [] Spiritual/emotional support [] Crisis/trauma care [] Spiritual counseling [] Bereavement support [] Provided bereavement packet [] Provided Bible/devotional materials [] Provided toy/stuffed animal, coloring book to patient or family member [] Provided Communion [] Anointing/[place] [] Salvation [x] Completed spiritual assessment [] Other: Impact on Illness or Injury [] Angry [] Fearful [] Anxious [] Often cries [] Exhaustion [] Unable to work [] Unable to attend lutheran [] Unable to walk/stand [] Unable to read [] Unable to drive [] Unable to eat/drink [] Unable to sleep [] Unable to be with family [] Patient intubated [] Other: Summary prayed with ... struggling with condition of ... Time spent with patient 15 min
[2021-07-08] MEDS: propofol 1,000 MG/100 ML INJ 20.41 MG IV ×3 (10:35→20:18)
[2021-07-08 11:21] LABS: Glucose Point of Care 147 mg/dL (70-110)
[2021-07-08 11:35] LABS: Glucose Point of Care 175 mg/dL (70-110)
--- NOTE | 2021-07-08 12:59 | PM.PN ---
Subjective Subjective: Patient is still at 10 cc of tube feeds, arousable, follows commands occasionally Vitals/I&O/Wt Last Vital Signs Temp 99.6 F 07/08/21 12:00 Pulse 77 07/08/21 12:00 Resp 20 H 07/08/21 11:00 BP 95/58 07/08/21 12:00 Pulse Ox 88 L 07/08/21 12:00 07/07/21 07/08/21 07/08/21 22:59 06:59 14:59 Intake Total 1195.199 / 4310.501 1060.248 / 4310.501 710.449 / 710.449 Output Total 2550 / 3150 600 / 3150 Balance -1354.801 / 1160.501 460.248 / 1160.501 710.449 / 710.449 Weight last 48 hrs Weight 244 lb 6.4 oz Weight 245 lb Physical Exam Narrative: Abdomen: Soft, nondistended, PEG tube in the left upper quadrant, no cellulitis or hematoma surrounding the PEG Urinary Catheter Management: Monterroso: Cath Placed During This Visit: yes Reason for Continuing Indwelling Catheter: Accurate Measurement of Urinary Output in Critically Ill Patients Urinary Catheter Date of Insertion: 06/27/21 Urinary Catheter Time of Insertion: 11:45 Data : 07/08/21 03:29 07/08/21 03:29 Micro: Microbiology 07/05/21 17:55 Gram Stain - Final Sputum - Endotracheal Tube Aspirate Sputum Culture - Preliminary Gram Negative Rods 07/06/21 10:35 Blood Culture - Preliminary Blood NEGATIVE TO DATE 07/06/21 10:35 Blood Culture - Preliminary Blood NEGATIVE TO DATE A&P Assessment and plan (1) S/P percutaneous endoscopic gastrostomy (PEG) tube placement: 65-year-old male status post PEG tube placement, tube feeds at 10 cc/h Increase tube feeds as tolerated liquid Colace 100 mg p.o. twice daily Reglan as needed to increase gastric motility Status: Acute Attestations Medical Necessity Statement*: As per primary Procedures Arterial Line Size (Gauge): 20 Coding Level of Care Code Acute Continuing Education Specialist for Chg Fwd Diagnoses S/P percutaneous endoscopic gastrostomy (PEG) tube placement Z93.1
[2021-07-08] MEDS: levofloxacin-dextrose 5 % 750 MG/150 ML PREMIX 100 MG IV (14:00)
--- NOTE | 2021-07-08 15:47 | PM.PN ---
Subjective Subjective: Status post trach and PEG currently on FiO2 90% PEEP of 10 Tube feeding at 10 Fentanyl 150 Precedex 1.2 senior materials planner notes reviewed Patient still spiking fever Antihypertensive held because of low blood pressure this morning No leukocytosis Positive fluid balance Constipated, getting lactulose via PEG tube Vitals/I&O/Wt Last Vital Signs Temp 99.6 F 07/08/21 12:00 Pulse 100 07/08/21 14:35 Resp 34 H 07/08/21 14:35 BP 97/58 07/08/21 14:00 Pulse Ox 90 07/08/21 14:35 07/08/21 07/08/21 07/08/21 06:59 14:59 22:59 Intake Total 1060.248 / 3960.501 1154.571 / 1154.571 250 / 1404.571 Output Total 600 / 3150 Balance 460.248 / 857.443 0863.571 / 1154.571 250 / 1404.571 Weight last 48 hrs Weight 110.858 kg Weight 111.13 kg Physical Exam Narrative: Patient intubated and sedated He has his eyes open however not able to follow commands on fentanyl and Precedex Bilateral arm swelling noted Assisted bilateral breath sounds Bilateral cheek pressure ulcers noted no active sign of cellulitis Granulation tissue, dry scarring noted Bowel sounds sluggish Lower extremity no edema Urinary Catheter Management: Monterroso: Cath Placed During This Visit: yes Reason for Continuing Indwelling Catheter: Accurate Measurement of Urinary Output in Critically Ill Patients Urinary Catheter Date of Insertion: 06/27/21 Urinary Catheter Time of Insertion: 11:45 Data : 07/08/21 03:29 07/08/21 03:29 Micro: Microbiology 07/05/21 17:55 Gram Stain - Final Sputum - Endotracheal Tube Aspirate Sputum Culture - Final Klebsiella pneumoniae 07/06/21 10:35 Blood Culture - Preliminary Blood NEGATIVE TO DATE 07/06/21 10:35 Blood Culture - Preliminary Blood NEGATIVE TO DATE A&P Assessment and plan (1) S/P percutaneous endoscopic gastrostomy (PEG) tube placement: Status: Acute (2) Tracheostomy in place: Status: Acute (3) Gram-negative pneumonia: Status: Acute (4) Ventilator associated pneumonia: Status: Acute (5) MRSA (methicillin resistant 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: Status: Acute (6) Febrile: Status: Acute (7) Rhabdomyolysis: Status: Acute (8) Intubation of airway performed without difficulty: Status: Acute (9) Acute and chronic respiratory failure with hypoxia: Status: Acute (10) COVID-19: Status: Acute (11) Ventral hernia: Status: Acute (12) BPH (benign prostatic hyperplasia): Status: Chronic Qualifiers: Lower urinary tract symptom presence: symptoms present Lower urinary tract symptom detail: nocturia Qualified Code(s): N40.1 - Benign prostatic hyperplasia with lower urinary tract symptoms; R35.1 - Nocturia (13) Restrictive lung disease: Status: Acute (14) 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: Status: Acute Plan Respiratory failure Status post PEG and tracheostomy 07/06 He was intubated 06/28 status post 3 proning cycles responded very well to proning Hypoxia worsened with ventilator associated pneumonia, covering for MRSA, gram-negative francis noted as well on sputum analysis Febrile episodes despite broadening of antibiotic biotics, double pseudomonal coverage No leukocytosis with febrile episodes Blood cultures negative Persistent hypoxia Wean off FiO2 gradually, keep PEEP at 10 for now For persistent fever might do bronchoscopy with PCP antigen stat PCR testing Positive fluid balance EF 40% grade 1 diastolic dysfunction, escalate the dose of diuretics He is getting a lot of fluids because of broad-spectrum antibiotic usage Tube feeds running at 10 mL/h, gastric residual retention, added metoclopramide, Constipation: Lactulose via PEG tube DVT currently on therapeutic Lovenox Guarded prognosis He will need LTAC placement, currently FiO2 is very high of for transportation, criteria for LTAC reviewed with information systems planner Attestations Medical Necessity Statement*: Continue ICU management Time Spent in Patient Care: 15min Procedures Arterial Line Size (Gauge): 20 Coding Level of Care Code Acute Hot Plate Press Operator for Chg Fwd Diagnoses S/P percutaneous endoscopic gastrostomy (PEG) tube placement Z93.[address] Z93.0 Gram-negative pneumonia J15.6 Ventilator associated pneumonia J95.851 MRSA (methicillin resistant 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
[2021-07-08] MEDS: FUROsemide 10 mg/mL SDV 2mL 60 MG IVP (16:09)
--- NOTE | 2021-07-08 16:43 | P.PN_ITS ---
Subjective Subjective: -Patient still requiring FiO2 90% and PEEP of 10 -For sedation he is on Precedex 1.2, fentanyl 150 -Sputum cultures positive for Klebsiella sensitive to Imipenem -Still spiking fevers-blood cultures negative to date -Still no bowel movement-currently on lactulose -labs and imaging reviewed Medications: Reviewed: Yes Vitals/I&O/Wt Last Vital Signs Temp 99.6 F 07/08/21 16:00 Pulse 104 H 07/08/21 16:00 Resp 34 H 07/08/21 14:35 BP 109/67 07/08/21 16:00 Pulse Ox 88 L 07/08/21 16:00 07/08/21 07/08/21 07/08/21 06:59 14:59 22:59 Intake Total 1060.248 / 3960.501 1154.571 / 1154.571 250 / 1404.571 Output Total 600 / 3150 650 / 650 Balance 460.248 / 891.603 6489.571 / 1154.571 -400 / 754.571 Weight last 48 hrs Weight 244 lb 6.4 oz Weight 245 lb Physical Exam Narrative: PHYSICAL EXAM: General: lying in bed, sedated and intubated. HEENT:NCAT, PERRLA, EOMI Neck: trach in place, no active bleeding noted Lungs: Bilateral mild crackles Heart: s1/s2, RRR Abd: soft, NT, ND, BS + Normoactive Extremities: No edema BLOOD DONOR RECRUITER: sedated and limited BLOOD DONOR RECRUITER exam possible. SKIN: no rash LDA: # CVC: Right IJ 06/28/2021? Urinary Catheter Management: Monterroso: Cath Placed During This Visit: yes Reason for Continuing Indwelling Catheter: Accurate Measurement of Urinary Output in Critically Ill Patients Urinary Catheter Date of Insertion: 06/27/21 Urinary Catheter Time of Insertion: 11:45 Data : 07/08/21 03:29 07/08/21 03:29 Other Labs: Radiology Impressions Chest CTA 06/25/21 10:16 IMPRESSION: 1. No pulmonary embolism through the segmental branches. 2. Diffuse bilateral groundglass attenuation probably due to pneumonitis or Covid 19. 3. Destructive lytic lesion involving the T11 vertebral body and LEFT posterior elements. Suspect metastatic bone disease. No cord compression is evident by this examination. 4. No mediastinal adenopathy. KUB X-Ray 07/03/21 11:44 IMPRESSION: Nonspecific bowel gas pattern, possibly early ileus. Chest X-Ray 07/06/21 04:00 IMPRESSION: 1. Similar bilateral interstitial opacities, which may reflect pneumonia superimposed on a background of pulmonary fibrosis. 2. Endotracheal tube terminates approximately 4.4 cm above the dany. Laboratory Results WBC 6.2 10^3/uL (4.0-10.0) 07/08/21 03:29 RBC 3.15 10^6/uL (4.1-5.3) L 07/08/21 03:29 Hgb 11.7 g/dL (11.7-16.6) 07/08/21 03:29 Hct 32.3 % (42.0-52.0) L 07/08/21 03:29 MCV 102.5 fl (80-94) H 07/08/21 03:29 MCH 37.1 pg (28.0-34.0) H 07/08/21 03:29 MCHC 36.2 g/dL (30.0-36.0) H D 07/08/21 03:29 RDW 13.3 % (12.1-15.1) 07/08/21 03:29 Plt Count 125 10^3/cmm (130-400) L 07/08/21 03:29 MPV 12.4 fL (7.4-10.4) H 07/08/21 03:29 Neut % (Auto) 80.5 % 07/08/21 03:29 Lymph % (Auto) 11.2 % 07/08/21 03:29 [place] % (Auto) 6.1 % 07/08/21 03:29 Eos % (Auto) 1.1 % 07/08/21 03:29 Baso % (Auto) 0.3 % 07/08/21 03:29 Neut # (Auto) 4.97 10^3/uL (1.8-7.7) 07/08/21 03:29 Lymph # (Auto) 0.7 10^3/uL (0.8-4.8) L 07/08/21 03:29 [place] # (Auto) 0.4 10^3/uL (0.2-0.9) 07/08/21 03:29 Eos # (Auto) 0.1 10^3/uL (0.0-0.8) 07/08/21 03:29 Baso # (Auto) 0.0 10^3/uL (0.0-0.1) 07/08/21 03:29 Nucleated RBC % (auto) 0 % 07/08/21 03:29 Nucleated RBCs # 0.0 /100WBC 07/08/21 03:29 PT 13.40 SECONDS (12.1-14.9) 06/22/21 14:30 INR 0.99 (0.8-1.2) 06/22/21 14:30 D-Dimer 1.36 ug/mIFEU (0-0.59) H 07/02/21 04:18 Specimen Type Arterial 07/08/21 03:26 Sample Site Artline 07/08/21 03:26 ABG pH 7.47 (7.35-7.45) H 07/08/21 03:26 ABG pCO2 36.6 mmHg (35-45) 07/08/21 03:26 ABG pO2 57.0 mmHg (80.0-100.0) L 07/08/21 03:26 ABG HCO3 26.5 mmol/L (22-26) H 07/08/21 03:26 ABG O2 Saturation 94.6 07/07/21 10:01 ABG Base Excess 2.9 mmol/L (-2.0-2.0) H 07/08/21 03:26 [place] Test Pos 07/08/21 03:26 A-a O2 Gradient 68.6 mmHg (5-10) H 07/07/21 10:01 Hematocrit 49.1 % (42-52) 07/08/21 03:26 Hgb O2 Saturation 93.4 % (95-100) L 07/07/21 10:01 Carboxyhemoglobin 0.3 %THgb (0.4-20.1) L 07/07/21 10:01 Methemoglobin 1.0 % (0.4-1.5) 07/07/21 10:01 Total Hemoglobin 12.3 g/dL (14-18) L 07/07/21 10:01 Sodium 138.0 mmol/L (131-143) 07/07/21 10:01 Potassium 3.1 mmol/L (3.5-5.0) L 07/07/21 10:01 Glucose 163.0 mg/dL (70-115) H 07/07/21 10:01 Ionized Calcium 1.1 mmol/L (1.1-1.4) 07/07/21 10:01 O2 Delivery Device Vent 07/08/21 03:26 O2 Liters/Min 60.0 % 06/27/21 04:38 FiO2 90.0 % 07/08/21 03:26 Tidal Volume 0.50 07/08/21 03:26 PEEP 10.0 cmH20 07/08/21 03:26 Boiling House Oiler ID Sage 07/08/21 03:26 Blood Gas Notified Time 0545 06/28/21 05:29 Sodium 134 mmol/L (136-145) L 07/08/21 03:29 Potassium 3.9 mmol/L (3.5-5.1) 07/08/21 03:29 Chloride 100 mmol/L (98-107) 07/08/21 03:29 Carbon Dioxide 21 mmol/L (22-29) L 07/08/21 03:29 Anion Gap 16.9 (5-19) 07/08/21 03:29 BUN 12 mg/dL (8-23) 07/08/21 03:29 Creatinine 0.5 mg/dL (0.7-1.2) L 07/08/21 03:29 GFR Calculation 167.4 mL/min (90-130) H 07/08/21 03:29 Glucose 177 mg/dL (65-115) H 07/08/21 03:29 POC Glucose 175 mg/dL (70-110) H 07/08/21 11:21 Calculated Osmolality 282 mOsm/kg (285-295) L 07/08/21 03:29 Calcium 8.0 mg/dL (8.5-10.5) L 07/08/21 03:29 Phosphorus 2.9 mg/dL (2.5-4.5) 07/03/21 04:22 Magnesium 2.2 mg/dL (1.7-2.3) 07/08/21 03:29 Total Bilirubin 0.9 mg/dL (0.15-1.2) 07/08/21 03:29 AST 52 U/L (0-40) H 07/08/21 03:29 ALT < 5 U/L (0-41) 07/08/21 03:29 Alkaline Phosphatase 106 IU/L (40-130) 07/08/21 03:29 Lactate Dehydrogenase 226 U/L (135-225) H 07/04/21 04:15 Creatine Kinase 623 U/L (39-308) H* 07/03/21 04:22 C-Reactive Protein 204.2 mg/L (0.0-4.9) H 07/05/21 03:30 NT-Pro-B Natriuret Pep 116 pg/mL (0-125) 06/25/21 05:08 Total Protein 6.5 g/dL (6.6-8.7) L 07/08/21 03:29 Albumin 2.4 g/dL (3.5-5.2) L 07/08/21 03:29 Globulin 4.1 g/dL (1.3-4.6) 07/08/21 03:29 Triglycerides 245 mg/dL (0-150) H 07/03/21 04:22 Procalcitonin 0.11 ng/mL (0-0.5) 07/04/21 04:15 Urine Color Yellow (Yellow) 07/01/21 04:56 Urine Appearance Clear (CLEAR) 07/01/21 04:56 Urine pH 5 (5-7) 07/01/21 04:56 Ur Specific [place] 1.015 (1.005-1.030) 07/01/21 04:56 Urine Protein Neg (Negative) 07/01/21 04:56 Urine Glucose (UA) 4+ (Normal) H 07/01/21 04:56 Urine Ketones 1+ (Negative) H 07/01/21 04:56 Urine Blood Neg (Negative) 07/01/21 04:56 Urine Nitrate Negative (Negative) 07/01/21 04:56 Urine Bilirubin Neg (Negative) 07/01/21 04:56 Urine Urobilinogen Norm mg/dL (Negative) 07/01/21 04:56 Ur Leukocyte Esterase Negative (Negative) 07/01/21 04:56 Urine RBC 0-4 /hpf (0-2) H 06/22/21 14:30 Urine WBC 0-4 /hpf (0-5) H 06/22/21 14:30 Ur Squamous Epith Cells 0-4 /hpf (0-5) H 06/22/21 14:30 Amorphous Sediment Not Reportable 06/22/21 14:30 Urine Bacteria 1+ /hpf (NONE) H 06/22/21 14:30 Urine Mucus Trace /hpf 06/22/21 14:30 Vancomycin Trough 12.8 ug/mL (10-15) 07/07/21 12:20 Micro: Microbiology 07/05/21 17:55 Gram Stain - Final Sputum - Endotracheal Tube Aspirate Sputum Culture - Final Klebsiella pneumoniae 07/06/21 10:35 Blood Culture - Preliminary Blood NEGATIVE TO DATE 07/06/21 10:35 Blood Culture - Preliminary Blood NEGATIVE TO DATE A&P Assessment and plan (1) Acute and chronic respiratory failure with hypoxia: Status: Acute (2) COVID-19: Status: Acute (3) 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: Status: Acute (4) CAD (coronary artery disease): Status: Acute Qualifiers: Associated angina: with stable angina Coronary Disease-Associated Artery/Lesion type: bypass graft [place] vs. transplanted heart: false pass heart Qualified Code(s): I25.708 - Atherosclerosis of coronary artery bypass graft(s), unspecified, with other forms of angina pectoris (5) MRSA (methicillin resistant 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: Status: Acute (6) Klebsiella pneumonia: Status: Acute Plan #Acute hypoxic respiratory failure secondary to ARDS due to COVID-19 pneumonia #History of non-small cell lung cancer metastatic to lymph nodes and spine- diagnosed in 2017 and patient reported taking Keytruda. As per patient he is in remission-follows up with oncology and pulmonary in [place] #History of smoking 1 pack/day for 30 years quit 2011-possibility of COPD #Sputum culture positive for gram-negative rods -Covid PCR + 06/15/2021.intubated 06/28/2021; s/p trach and PEG 07/06/2021 -Completed 3 proning session and saturating 95% on FiO2 50 %; attempted weaning trial X 3 but patient did not tolerate and he was becoming tachypneic while tapering off sedation, also -He had an episode of vomiting as well a possible aspiration -Currently sedated with propofol, fentanyl and Versed and titrate drips to achieve adequate sedation -ABG 7.4 736/57/26 on CMV 500/10/90%-we will slowly titrate down FiO2 -Completed dexamethasone, discontinued baricitinib as patient has neutropenia; patient also refused remdesivir -Worsening CRP; -D-dimer 0.51-CTA negative for PE -no DVT on venous Doppler -MRSA nares positive-: On Vancomycin and was on Zosyn for broad-spectrum coverage-given recent tooth infection and aspiration-antibiotics started on 06/30/2021; later on switched Zosyn to imipenem on 07/05/2021 due to persistent low- grade fevers- and repeat sputum culture from the same date grew Klebsiella sensitive to imipenem on 07/07/2021;discontinue Levaquin -Scheduled nebulizations with DuoNeb and budesonide for wheezing -Echocardiogram 06/26/2021: Moderately increased LV cavity size. Moderately decreased LV systolic function with EF 40% grade 1 diastolic dysfunction. Technically difficult study and cardiology advised for echo with contrast; however BNP 116 -On tamsulosin for BPH-good urine output-monitor input output and try to keep net negative -CK trending down -normal renal functions, -monitor input output and try to keep even to net negative-Lasix 40 mg daily -Sugars moderately controlled -On tube feeding -Lovenox for DVT prophylaxis -NOK patient's updated at bedside-patient is awaiting placement at long- term acute care facility -Full code -Prognosis guarded Recommendations conveyed to hospitalist, RN, RT taking care of the patient Attestations Medical Necessity Statement*: Acute hypoxic respiratory failure secondary to COVID-19 pneumonia-requiring mechanical intubation-needs close ICU monitoring for at least 48 hours Time Spent in Patient Care: Greater than 35 minutes (>than 50% of time spent in counselling and/or direct pt care on unit) . Critical Care Time: The high probability of a clinically significant, sudden or life threatening deterioration of the patient's [pulmonary, endocrine, renal, neurological system(s) required my full and direct attention, intervention and personal management. The critical care time is as shown. This time is in addition to time spent performing any reported procedures but includes the following: [x] Data and vital sign review and interpretation [x] Patient assessment, examination and intervention [x] Documentation [x] Medication orders and management Critical Care Time (min): 45 Procedures Arterial Line Size (Gauge): 20 Coding Level of Care Code Established Pt Acute Certified Tumor Registrar for g Fwd Patient Type Established History Comprehensive Exam Comprehensive Medical Decision Making High Complexity Diagnoses Acute and chronic respiratory failure with hypoxia J96.21 COVID-19 U07.1 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 CAD (coronary artery disease) I25.708 Associated angina: with stable angina Coronary Disease-Associated Artery/Lesion type: bypass graft [place] vs. transplanted heart: false pass heart MRSA (methicillin resistant 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 Z22.322 Klebsiella pneumonia J15.0 Time Spent (min) 45
[2021-07-08 17:18] LABS: Glucose Point of Care 203 mg/dL (70-110)
--- NOTE | 2021-07-08 18:00 | PC.NURSE ---
Shift Note Frequent safety and comfort rounds continue. Orders and/or nursing care completed as indicated. Patient monitored for response to intervention and treatment(s). Education provided includes treatment plan, medication regimen, discharge planning and need for PICC line. verbalizes understanding. asked about the use of certain medications and her concerns were voiced to the MD. SPO2 has been in the upper 80's most of the day, requiring 90% FIO2. Central line dressing changed. Monterroso cath draining freely to BSD. Tf tolerated fair, residuals in low to mid 100's all day. Will continue to monitor.
[2021-07-08] MEDS: artificial tears Op Oint 3.5 gm 1 APPLIC EYE-BOTH (19:29)
--- NOTE | 2021-07-08 20:12 | XRR_ITS ---
PROCEDURE INFORMATION: Exam: XR Chest Exam date and time: 07/08/2021 8:12 PM Age: 65 years old Clinical indication: Device placement; Picc; Additional info: Picc line placement TECHNIQUE: Imaging protocol: XR of the chest. Views: 1 view. COMPARISON: CR (CHEST, ) 07/06/2021 5:20 AM FINDINGS: Tubes, catheters and devices: Tracheostomy cannula noted. New right-sided PICC line with distal tip overlying right atrium. Right jugular central line noted, unchanged. Previously noted enteric catheter is not identified. Lungs: Nonspecific bilateral pulmonary infiltrates, unchanged. Pleural spaces: Suspect minimal left pleural effusion pleural effusion. No pneumothorax. Heart/Mediastinum: No cardiomegaly. Bones/joints: Median sternotomy noted. The 3rd and the 6th sternal wires are fractured. This is unchanged. XR/XR chest 1V portable [id number] IMPRESSION: 1. New right-sided PICC line with distal tip overlying right atrium. 2. Nonspecific bilateral pulmonary infiltrates, unchanged.
[2021-07-08] MEDS: vancomycin 1,250 MG/250 ML PIGGYBACK 200 MG IV (20:17)
[2021-07-08] MEDS: enoxaparin 30 mg/0.3 mL Syringe SUBCUT (20:17)
--- NOTE | 2021-07-08 20:40 | PC.NURSE ---
PICC RIGHT arm in and ready for use. Primary nurse, Adelita, notified.
[2021-07-09] VITALS (49 sets, daily range): BP systolic 81–117; BP diastolic 43–85; PULSE 86–106; RESP 22–38; TEMP 37.6–38.5; O2SAT 80–91
[2021-07-09] MEDS: ipratropium-albuterol 3 mL Neb INHALATION ×4 (02:26→20:27)
[2021-07-09] MEDS: dexmedeTOMIDine 0.9 % NaCL 400 MCG/100 ML PREMIX 34.02 MCG IV ×8 (02:51→23:20)
[2021-07-09] MEDS: propofol 1,000 MG/100 ML INJ 20.41 MG IV (03:26)
[2021-07-09] MEDS: neomycin-poly-bacitracin oint 28 gm 1 APPLIC TOPICAL ×2 (03:27→12:46)
--- NOTE | 2021-07-09 03:51 | P.PN_ITS ---
Subjective Subjective: 65 yo wm who is POD #3 s/p tracheotomy that was done for respiratory failure with prolonged intubation. There are no c/o regarding the patient's tracheotomy. Medications: Reviewed: Yes Vitals/I&O/Wt Last Vital Signs Temp 100.2 F H 07/08/21 22:00 Pulse 96 07/09/21 02:23 Resp 31 H 07/09/21 02:25 BP 109/49 07/08/21 22:00 Pulse Ox 90 07/09/21 02:25 07/08/21 07/08/21 07/09/21 14:59 22:59 06:59 Intake Total 1154.571 / 3562.918 0963.376 / 2728.947 400 / 3128.947 Output Total 2750 / 2750 Balance 1154.571 / 1154.571 -1175.624 / -21.053 400 / 378.947 Weight last 48 hrs Weight 110.858 kg Weight 111.13 kg Physical Exam Const: GENERAL APPEARANCE: patient mechanically ventilated HENMT: COMMON NORMALS: normocephalic, atraumatic and Normal external nose present HEAD & SCALP: normocephalic and atraumatic FACE & SINUS: normal facial exam NOSE: Normal external nose present Neck/C-Spine: COMMON NORMALS: no lymphadenopathy GENERAL: Yes tracheostomy present (clean without erythema or d/c.) Lymph: LYMPHATIC: no lymphadenopathy noted Chest: COMMONS NORMALS: normal inspection of the chest Urinary Catheter Management: Monterroso: Cath Placed During This Visit: yes Reason for Continuing Indwelling Catheter: Accurate Measurement of Urinary Output in Critically Ill Patients Urinary Catheter Date of Insertion: 06/27/21 Urinary Catheter Time of Insertion: 11:45 Data : 07/08/21 03:29 07/08/21 03:29 Micro: Microbiology 07/08/21 17:10 Blood Culture - Preliminary Blood SPECIMEN COLLECTED 07/08/21 17:00 Blood Culture - Preliminary Blood SPECIMEN COLLECTED 07/05/21 17:55 Gram Stain - Final Sputum - Endotracheal Tube Aspirate Sputum Culture - Final Klebsiella pneumoniae A&P Assessment and plan (1) Acute and chronic respiratory failure with hypoxia: Impression: POD #3 s/p tracheotomy doing well from this standpoint Plan: - Continue trach care - I will change the trach on POD #5-7 - Contact Dr. Finch for any problems with the trach Status: Acute Attestations Medical Necessity Statement*: I was consulted to assist in airway management. Procedures Arterial Line Size (Gauge): 20 Coding Level of Care Code Acute Cloth Seconds Sorter for Chg Fwd Diagnoses Acute and chronic respiratory failure with hypoxia J96.21
--- NOTE | 2021-07-09 04:00 | XR_ITS ---
WS: [id number] XR chest 1V portable [id number] REASON FOR EXAM: pneumonia FINDINGS: Tracheostomy in position. Properly positioned right arm PICC line. Sternal sutures. Diffuse reticular and hazy hazy lung opacities relatively unchanged compared to 07/08/2021. No new finding. XR/XR chest 1V portable [id number] IMPRESSION: Stable abnormal chest.
[2021-07-09 04:19] LABS: Basophils % 0.3 %; Eosinophils # 0.1 10^3/uL (0.0-0.8); Hematocrit 30.9 % (42.0-52.0); Hemoglobin 10.9 g/dL (11.7-16.6); Lymphocytes # 0.7 10^3/uL (0.8-4.8); Lymphocytes % 12.2 %; Mean Corpuscular HGB Conc 35.3 g/dL (30.0-36.0); Mean Corpuscular Hemoglobin 36.8 pg (28.0-34.0); Mean Corpuscular Volume 104.4 fl (80-94); Mean Platelet Volume 12.5 fL (7.4-10.4); Monocytes # 0.3 10^3/uL (0.2-0.9); Monocytes % 5.3 %; Neutrophils # 4.86 10^3/uL (1.8-7.7); Neutrophils % 80.2 %; Nucleated Red Blood Cells % 0 %; Platelet Count 131 10^3/cmm (130-400); Red Blood Count 2.96 10^6/uL (4.1-5.3); Red Cell Distribution Width 13.5 % (12.1-15.1); White Blood Count 6.1 10^3/uL (4.0-10.0)
[2021-07-09 04:36] LABS: Alanine Aminotransferase 25 U/L (0-41); Albumin Level 2.2 g/dL (3.5-5.2); Alkaline Phosphatase 60 IU/L (40-130); Aspartate Amino Transferase 39 U/L (0-40); Blood Urea Nitrogen 11 mg/dL (8-23); Calcium 7.2 mg/dL (8.5-10.5); Carbon Dioxide 27 mmol/L (22-29); Chloride 98 mmol/L (98-107); Globulin 4.1 g/dL (1.3-4.6); Glomerular Filtration Rate 216.6 mL/min (90-130); Glucose 163 mg/dL (65-115); Magnesium 2.1 mg/dL (1.7-2.3); Osmolality Calculated 283 mOsm/kg (285-295); Sodium 135 mmol/L (136-145); Total Bilirubin 0.9 mg/dL (0.15-1.2); Total Protein 6.3 g/dL (6.6-8.7)
[2021-07-09 04:38] LABS: Anion Gap 13.1 (5-19); Potassium 3.1 mmol/L (3.5-5.1)
[2021-07-09 04:42] LABS: Slide Review Slide Review Perform
[2021-07-09] MEDS: vancomycin 1,250 MG/250 ML PIGGYBACK 200 MG IV ×2 (05:00→13:15)
[2021-07-09 05:03] LABS: ABG PCO2 40.1 mmHg (35-45); ABG PH Result 7.46 (7.35-7.45); Arterial Blood Gas Hematocrit 45.5 % (42-52); Blood Gas Allen Test Pos; Blood Gas Sample Type Arterial; HCO3 ABG 28.3 mmol/L (22-26); PO2 ABG 68.8 mmHg (80.0-100.0)
[2021-07-09 05:05] LABS: Blood Gas Operator Identificat JB; Blood Gas Sample Site Not specified; Oxygen Device VENT
[2021-07-09] MEDS: propofol 1,000 MG/100 ML INJ 27.22 MG IV ×5 (07:13→22:46)
[2021-07-09 07:18] LABS: Glucose Point of Care 186 mg/dL (70-110)
[2021-07-09] MEDS: budesonide 0.5 mg/2 mL Neb INHALATION ×2 (08:02→20:27)
[2021-07-09] MEDS: insulin lispro 100 unit/1 mL SUBCUT ×3 (08:36→17:16)
[2021-07-09] MEDS: tamsulosin 0.4 mg Capsule PO (08:37)
[2021-07-09] MEDS: cholecalciferol (vitamin D3) 1,000 unit Tablet 1000 UNIT PO (08:37)
[2021-07-09] MEDS: potassium chloride oral liq 20 mEq/15 mL UDC 80 MEQ PO (08:37)
[2021-07-09] MEDS: ascorbic acid 500 mg Tablet PO ×2 (08:37→17:16)
[2021-07-09] MEDS: enoxaparin 30 mg/0.3 mL Syringe SUBCUT (08:37)
[2021-07-09] MEDS: pantoprazole 40 mg SDV IVP (08:37)
[2021-07-09] MEDS: zinc gluconate 50 mg Tablet PO (08:37)
[2021-07-09] MEDS: morphine 4 mg/mL SDV 1 mL 2 MG IVP ×3 (08:47→20:07)
[2021-07-09] MEDS: chlorhexidine gluconate 0.12% Btl 473 mL 30 ML MUCOUS MEM ×4 (08:49→20:46)
[2021-07-09] MEDS: docusate sodium 10 mg/mL (5ml) Liq 100 MG PEG-TUBE ×2 (08:50→22:21)
--- NOTE | 2021-07-09 09:19 | PC.NURSE ---
2mg morphine IVP given per orders d/t increased air hunger. at bedside. MD spoke with at length concerning pt condition. O2 sats in mid 80's. 100 FIO2. Will continue to monitor.
--- NOTE | 2021-07-09 09:28 | PC.SOCIAL ---
IMM Update Pg. 2 of IMM not updated; patient intubated; not anticipated to discharge within 48hours.
[2021-07-09] MEDS: acetaminophen 325 mg Tablet 650 MG PO (11:24)
[2021-07-09 11:37] LABS: Glucose Point of Care 157 mg/dL (70-110)
[2021-07-09 12:04] LABS: Vancomycin Trough 17.1 ug/mL (10-15)
[2021-07-09] MEDS: FUROsemide 10 mg/mL SDV 2mL 60 MG IVP (15:09)
--- NOTE | 2021-07-09 16:48 | PM.PN ---
Subjective Subjective: Patient is still on high. 200%, tachypneic, saturating 86 to 87%, goals of care we discussed with his , patient is DNR and DNI Any further deterioration in his status would need comfort measures Low-grade fever, blood pressure is low Program Manager Transportation recommended morphine with fentanyl Vitals/I&O/Wt Last Vital Signs Temp 100.1 F H 07/09/21 16:01 Pulse 91 07/09/21 16:01 Resp 29 H 07/09/21 14:03 BP 104/67 07/09/21 16:01 Pulse Ox 86 L 07/09/21 16:01 07/09/21 07/09/21 07/09/21 06:59 14:59 22:59 Intake Total 1434.087 / 4163.034 1312.208 / 1312.208 391 / 1703.208 Output Total 550 / 3300 1800 / 1800 Balance 884.087 / 596.116 5056.208 / 1312.208 -1409 / -96.792 Weight last 48 hrs Weight 111.493 kg Weight 110.858 kg Physical Exam Narrative: Patient intubated and sedated Hypoxic FiO2 100% PEG tube in place Euvolemic Bilateral cheek pressure ulcer Neuro exam limited Bilateral assisted breath sounds Urinary Catheter Management: Monterroso: Cath Placed During This Visit: yes Reason for Continuing Indwelling Catheter: Accurate Measurement of Urinary Output in Critically Ill Patients Urinary Catheter Date of Insertion: 06/27/21 Urinary Catheter Time of Insertion: 11:45 Data : 07/09/21 03:39 07/09/21 03:39 Micro: Microbiology 07/08/21 17:00 Gram Stain - Final Sputum - Endotracheal Tube Aspirate 07/08/21 17:10 Blood Culture - Preliminary Blood SPECIMEN COLLECTED 07/08/21 17:00 Blood Culture - Preliminary Blood SPECIMEN COLLECTED 07/05/21 17:55 Gram Stain - Final Sputum - Endotracheal Tube Aspirate Sputum Culture - Final Klebsiella pneumoniae A&P Assessment and plan (1) Klebsiella pneumonia: Status: Acute (2) Tracheostomy in place: Status: Acute (3) S/P percutaneous endoscopic gastrostomy (PEG) tube placement: Status: Acute (4) Gram-negative pneumonia: Status: Acute (5) Ventilator associated pneumonia: Status: Acute (6) Intubation of airway performed without difficulty: Status: Acute (7) Acute respiratory failure with hypoxia: Status: Acute (8) 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: Status: Acute Plan Ventilator associated pneumonia MRSA positive sputum, Klebsiella pneumonia on sputum culture Currently on broad-spectrum antibiotics Underlying COVID-19 Patient is still hypoxic not doing well on 100% FiO2 Goals of care discussed with his , patient is DNR/DNI Status post trach and PEG failed multiple weaning trials For now solar development engineer recommended morphine with fentanyl Potassium to be replenished Guarded prognosis Tube feeds running at 10 cc/h Continue budesonide, therapeutic Lovenox regimen Lasix extremity grams IV push daily he has stayed in positive balance in last 2 days Attestations Medical Necessity Statement*: Guarded prognosis Time Spent in Patient Care: 30mins Procedures Arterial Line Size (Gauge): 20 Coding Level of Care Code Acute Card Reader for [facility] Fwd Diagnoses Klebsiella pneumonia J15.[address] Z93.0 S/P percutaneous endoscopic gastrostomy (PEG) tube placement Z93.1 Gram-negative pneumonia J15.6 Ventilator associated pneumonia J95.851 Intubation of airway performed without difficulty Z78.9 Acute respiratory failure with hypoxia J96.01 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
[2021-07-09 16:59] LABS: Glucose Point of Care 165 mg/dL (70-110)
--- NOTE | 2021-07-09 18:06 | PC.NURSE ---
Shift Note Frequent safety and comfort rounds continue. Orders and/or nursing care completed as indicated. Patient monitored for response to intervention and treatment(s). Education provided includes treatment plan, medications and oxygen needs. MD's spoke with at length regarding future care family wishes. Pt made AND per 's decision. O2 sats have remained in mid 80's most of afternoon on 100% fio2. Monterroso cath draining freely. VANESSA PICC with sedation gtt infusing per orders. Will continue to monitor.
[2021-07-09] MEDS: norepinephrine 8 MG in dextrose 5 % 500 ML 7.62 MG IV (19:19)
--- NOTE | 2021-07-09 20:38 | PC.NURSE ---
Upon initial assessment, patient was ventilator compliant, and no concerns at the time. Around 1999 the patient was coughing against the vent and appeared uncomfortable while struggling for air. Prn orders for morphine given. Morphine did not appear to help. Called Dr. Claros around 2026 in regards to the patient not being ventilator compliant, coughing against the vent, appearing air hungry, and dropping oxygen saturations. Orders to initiate a versed drip.
[2021-07-09] MEDS: enoxaparin 80 mg/0.8 mL Syringe SUBCUT (20:46)
[2021-07-09] MEDS: vancomycin 1,250 MG/250 ML PIGGYBACK 250 MG IV (20:46)
--- NOTE | 2021-07-09 21:50 | P.PN_ITS ---
Subjective Subjective: -Overall patient is clinically deteriorating -Still having low-grade fevers -He is on fentanyl 150 MCG/hour and Precedex-100% FiO2- Saturating in low 80s -Having episodes of air hunger-requiring morphine 2 mg pushes -Had extensive goals of care discussion with at bedside regarding the poor prognosis. She talked to her family over phone and decided DO NOT RESUSCITATE and no escalation of care but would continue present care. -She requested to give ivermectin to the patient-I reported that is not standard of care as per Covid treatment guidelines -Labs and imaging reviewed Medications: Reviewed: Yes Vitals/I&O/Wt Last Vital Signs Temp 100.2 F H 07/09/21 19:20 Pulse 91 07/09/21 20:24 Resp 37 H 07/09/21 20:26 BP 85/53 07/09/21 18:01 Pulse Ox 85 L 07/09/21 20:26 07/09/21 07/09/21 07/09/21 06:59 14:59 22:59 Intake Total 1434.087 / 4163.034 1312.208 / 1312.208 806.090 / 2118.298 Output Total 550 / 3300 1800 / 1800 Balance 884.087 / 841.441 0086.208 / 1312.208 -993.910 / 318.298 Weight last 48 hrs Weight 245 lb 12.8 oz Weight 244 lb 6.4 oz Physical Exam Narrative: PHYSICAL EXAM: General: lying in bed, sedated and intubated. HEENT:NCAT, PERRLA, EOMI Neck: trach in place, no active bleeding noted Lungs: Bilateral mild crackles Heart: s1/s2, RRR Abd: soft, NT, ND, BS + Normoactive Extremities: No edema ERP ENGINEER: sedated and limited ERP ENGINEER exam possible. SKIN: no rash LDA: # CVC: Right IJ 06/28/2021? Urinary Catheter Management: Monterroso: Cath Placed During This Visit: yes Reason for Continuing Indwelling Catheter: Accurate Measurement of Urinary Output in Critically Ill Patients Urinary Catheter Date of Insertion: 06/27/21 Urinary Catheter Time of Insertion: 11:45 Data : 07/09/21 03:39 07/09/21 03:39 Other Labs: Radiology Impressions Chest CTA 06/25/21 10:16 IMPRESSION: 1. No pulmonary embolism through the segmental branches. 2. Diffuse bilateral groundglass attenuation probably due to pneumonitis or Covid 19. 3. Destructive lytic lesion involving the T11 vertebral body and LEFT posterior elements. Suspect metastatic bone disease. No cord compression is evident by this examination. 4. No mediastinal adenopathy. KUB X-Ray 07/03/21 11:44 IMPRESSION: Nonspecific bowel gas pattern, possibly early ileus. Chest X-Ray 07/09/21 04:00 IMPRESSION: Stable abnormal chest. Laboratory Results WBC 6.1 10^3/uL (4.0-10.0) 07/09/21 03:39 RBC 2.96 10^6/uL (4.1-5.3) L 07/09/21 03:39 Hgb 10.9 g/dL (11.7-16.6) L 07/09/21 03:39 Hct 30.9 % (42.0-52.0) L 07/09/21 03:39 MCV 104.4 fl (80-94) H 07/09/21 03:39 MCH 36.8 pg (28.0-34.0) H 07/09/21 03:39 MCHC 35.3 g/dL (30.0-36.0) 07/09/21 03:39 RDW 13.5 % (12.1-15.1) 07/09/21 03:39 Plt Count 131 10^3/cmm (130-400) 07/09/21 03:39 MPV 12.5 fL (7.4-10.4) H 07/09/21 03:39 Neut % (Auto) 80.2 % 07/09/21 03:39 Lymph % (Auto) 12.2 % 07/09/21 03:39 [place] % (Auto) 5.3 % 07/09/21 03:39 Eos % (Auto) 1.0 % 07/09/21 03:39 Baso % (Auto) 0.3 % 07/09/21 03:39 Neut # (Auto) 4.86 10^3/uL (1.8-7.7) 07/09/21 03:39 Lymph # (Auto) 0.7 10^3/uL (0.8-4.8) L 07/09/21 03:39 [place] # (Auto) 0.3 10^3/uL (0.2-0.9) 07/09/21 03:39 Eos # (Auto) 0.1 10^3/uL (0.0-0.8) 07/09/21 03:39 Baso # (Auto) 0.0 10^3/uL (0.0-0.1) 07/09/21 03:39 Nucleated RBC % (auto) 0 % 07/09/21 03:39 Nucleated RBCs # 0.0 /100WBC 07/09/21 03:39 PT 13.40 SECONDS (12.1-14.9) 06/22/21 14:30 INR 0.99 (0.8-1.2) 06/22/21 14:30 D-Dimer 1.36 ug/mIFEU (0-0.59) H 07/02/21 04:18 Specimen Type Arterial 07/09/21 04:40 Sample Site Not specified 07/09/21 04:40 ABG pH 7.46 (7.35-7.45) H 07/09/21 04:40 ABG pCO2 40.1 mmHg (35-45) 07/09/21 04:40 ABG pO2 68.8 mmHg (80.0-100.0) L 07/09/21 04:40 ABG HCO3 28.3 mmol/L (22-26) H 07/09/21 04:40 ABG O2 Saturation 94.6 07/07/21 10:01 ABG Base Excess 4.0 mmol/L (-2.0-2.0) H 07/09/21 04:40 [place] Test Pos 07/09/21 04:40 A-a O2 Gradient 68.6 mmHg (5-10) H 07/07/21 10:01 Hematocrit 45.5 % (42-52) 07/09/21 04:40 Hgb O2 Saturation 93.4 % (95-100) L 07/07/21 10:01 Carboxyhemoglobin 0.3 %THgb (0.4-20.1) L 07/07/21 10:01 Methemoglobin 1.0 % (0.4-1.5) 07/07/21 10:01 Total Hemoglobin 12.3 g/dL (14-18) L 07/07/21 10:01 Sodium 138.0 mmol/L (131-143) 07/07/21 10:01 Potassium 3.1 mmol/L (3.5-5.0) L 07/07/21 10:01 Glucose 163.0 mg/dL (70-115) H 07/07/21 10:01 Ionized Calcium 1.1 mmol/L (1.1-1.4) 07/07/21 10:01 O2 Delivery Device Vent 07/09/21 04:40 O2 Liters/Min 60.0 % 06/27/21 04:38 FiO2 100.0 % 07/09/21 04:40 Tidal Volume 0.50 07/09/21 04:40 PEEP 10.0 cmH20 07/09/21 04:40 Child Monitor ID Sage 07/09/21 04:40 Blood Gas Notified Time 0545 06/28/21 05:29 Sodium 135 mmol/L (136-145) L 07/09/21 03:39 Potassium 3.1 mmol/L (3.5-5.1) L 07/09/21 03:39 Chloride 98 mmol/L (98-107) 07/09/21 03:39 Carbon Dioxide 27 mmol/L (22-29) 07/09/21 03:39 Anion Gap 13.1 (5-19) 07/09/21 03:39 BUN 11 mg/dL (8-23) 07/09/21 03:39 Creatinine 0.4 mg/dL (0.7-1.2) L 07/09/21 03:39 GFR Calculation 216.6 mL/min (90-130) H 07/09/21 03:39 Glucose 163 mg/dL (65-115) H 07/09/21 03:39 POC Glucose 165 mg/dL (70-110) H 07/09/21 16:43 Calculated Osmolality 283 mOsm/kg (285-295) L 07/09/21 03:39 Calcium 7.2 mg/dL (8.5-10.5) L 07/09/21 03:39 Phosphorus 2.9 mg/dL (2.5-4.5) 07/03/21 04:22 Magnesium 2.1 mg/dL (1.7-2.3) 07/09/21 03:39 Total Bilirubin 0.9 mg/dL (0.15-1.2) 07/09/21 03:39 AST 39 U/L (0-40) 07/09/21 03:39 ALT 25 U/L (0-41) 07/09/21 03:39 Alkaline Phosphatase 60 IU/L (40-130) 07/09/21 03:39 Lactate Dehydrogenase 226 U/L (135-225) H 07/04/21 04:15 Creatine Kinase 623 U/L (39-308) H* 07/03/21 04:22 C-Reactive Protein 204.2 mg/L (0.0-4.9) H 07/05/21 03:30 NT-Pro-B Natriuret Pep 116 pg/mL (0-125) 06/25/21 05:08 Total Protein 6.3 g/dL (6.6-8.7) L 07/09/21 03:39 Albumin 2.2 g/dL (3.5-5.2) L 07/09/21 03:39 Globulin 4.1 g/dL (1.3-4.6) 07/09/21 03:39 Triglycerides 245 mg/dL (0-150) H 07/03/21 04:22 Procalcitonin 0.11 ng/mL (0-0.5) 07/04/21 04:15 Urine Color Yellow (Yellow) 07/01/21 04:56 Urine Appearance Clear (CLEAR) 07/01/21 04:56 Urine pH 5 (5-7) 07/01/21 04:56 Ur Specific [place] 1.015 (1.005-1.030) 07/01/21 04:56 Urine Protein Neg (Negative) 07/01/21 04:56 Urine Glucose (UA) 4+ (Normal) H 07/01/21 04:56 Urine Ketones 1+ (Negative) H 07/01/21 04:56 Urine Blood Neg (Negative) 07/01/21 04:56 Urine Nitrate Negative (Negative) 07/01/21 04:56 Urine Bilirubin Neg (Negative) 07/01/21 04:56 Urine Urobilinogen Norm mg/dL (Negative) 07/01/21 04:56 Ur Leukocyte Esterase Negative (Negative) 07/01/21 04:56 Urine RBC 0-4 /hpf (0-2) H 06/22/21 14:30 Urine WBC 0-4 /hpf (0-5) H 06/22/21 14:30 Ur Squamous Epith Cells 0-4 /hpf (0-5) H 06/22/21 14:30 Amorphous Sediment Not Reportable 06/22/21 14:30 Urine Bacteria 1+ /hpf (NONE) H 06/22/21 14:30 Urine Mucus Trace /hpf 06/22/21 14:30 Vancomycin Trough 17.1 ug/mL (10-15) H 07/09/21 11:03 Micro: Microbiology 07/08/21 17:10 Blood Culture - Preliminary Blood NEGATIVE TO DATE 07/08/21 17:00 Blood Culture - Preliminary Blood NEGATIVE TO DATE 07/08/21 17:00 Gram Stain - Final Sputum - Endotracheal Tube Aspirate A&P Assessment and plan (1) Acute and chronic respiratory failure with hypoxia: Status: Acute (2) COVID-19: Status: Acute (3) 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: Status: Acute (4) CAD (coronary artery disease): Status: Acute Qualifiers: Coronary Disease-Associated Artery/Lesion type: bypass graft [place] vs. transplanted heart: [place] heart Associated angina: with stable angina Qualified Code(s): I25.708 - Atherosclerosis of coronary artery bypass graft(s), unspecified, with other forms of angina pectoris (5) MRSA (methicillin resistant 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: Status: Acute (6) Klebsiella pneumonia: Status: Acute (7) Goals of care, counseling/discussion: Status: Acute Plan #Acute hypoxic respiratory failure secondary to ARDS due to COVID-19 pneumonia #History of non-small cell lung cancer metastatic to lymph nodes and spine- diagnosed in 2018 and patient reported taking Keytruda. As per patient he is in remission-follows up with oncology and pulmonary in [place] #History of smoking 1 pack/day for 30 years quit 2011-possibility of COPD #Sputum culture positive for Klebsiella sensitive to imipenem #Underlying history of CABG -Covid PCR + 06/15/2021.intubated 06/28/2021; s/p trach and PEG 07/06/2021 -Completed 3 proning session and saturating 95% on FiO2 50 %; attempted weaning trial X 3 but patient did not tolerate and he became tachypneic while tapering off sedation, also -He had an episode of vomiting as well a possible aspiration -Currently sedated with fentanyl and Precedex-with morphine pushes as needed -ABG 7.4 / on CMV 500/10/100%-we will slowly titrate down FiO2 -Completed dexamethasone, discontinued baricitinib as patient has neutropenia; patient also refused remdesivir -Worsening CRP; -D-dimer 0.51-CTA negative for PE -no DVT on venous Doppler -MRSA nares positive-: On Vancomycin and was on Zosyn for broad-spectrum coverage-given recent tooth infection and aspiration-antibiotics started on 06/30/2021; later on switched Zosyn to imipenem on 07/05/2021 due to persistent low- grade fevers- and repeat sputum culture from the same date grew Klebsiella sensitive to imipenem on 07/07/2021;discontinue Levaquin -patient continues to have low-grade fevers -Scheduled nebulizations with DuoNeb and budesonide for wheezing -Echocardiogram 06/26/2021: Moderately increased LV cavity size. Moderately dec reased LV systolic function with EF 40% grade 1 diastolic dysfunction. Technically difficult study and cardiology advised for echo with contrast; however BNP 116 -On tamsulosin for BPH-good urine output-monitor input output and try to keep net negative -normal renal functions, -monitor input output and try to keep even to net negative-Lasix 40 mg daily -Hypokalemia 3.1-supplemented KCl 80 -Sugars moderately controlled -On tube feeding -Lovenox for DVT prophylaxis -NOK patient's updated at bedside-patient is DNR/DNI with no escalation of care -Full code -Prognosis guarded Recommendations conveyed to hospitalist, RN, RT taking care of the patient Attestations Medical Necessity Statement*: Acute hypoxic respiratory failure secondary to COVID-19 pneumonia-requiring mechanical intubation-needs close ICU monitoring for at least 48 hours Time Spent in Patient Care: Greater than 35 minutes (>than 50% of time spent in counselling and/or direct pt care on unit) . Critical Care Time: The high probability of a clinically significant, sudden or life threatening deterioration of the patient's [pulmonary, endocrine, renal, neurological system(s) required my full and direct attention, intervention and personal management. The critical care time is as shown. This time is in addition to time spent performing any reported procedures but includes the following: [x] Data and vital sign review and interpretation [x] Patient assessment, examination and intervention [x] Documentation [x] Medication orders and management Critical Care Time (min): 55 Procedures Arterial Line Size (Gauge): 20 Coding Level of Care Code Acute Instructional Media Services Technician for Chg Fwd Diagnoses Acute and chronic respiratory failure with hypoxia J96.21 COVID-19 U07.1 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 CAD (coronary artery disease) I25.708 Coronary Disease-Associated Artery/Lesion type: bypass graft [place] vs. transplanted heart: [place] heart Associated angina: with stable angina MRSA (methicillin resistant 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 Z22.322 Klebsiella pneumonia J15.0 Goals of care, counseling/discussion Z71.89 Time Spent (min) 55
[2021-07-09 22:15] LABS: Glucose Point of Care 177 mg/dL (70-110)
[2021-07-09] MEDS: quetiapine 25 mg Tablet PO (22:21)
[2021-07-10] VITALS (48 sets, daily range): BP systolic 93–121; BP diastolic 59–76; PULSE 89–123; RESP 28–31; TEMP 37.7–38.6; O2SAT 23–91
[2021-07-10] MEDS: acetaminophen 325 mg Tablet 650 MG PO (01:14)
[2021-07-10] MEDS: dexmedeTOMIDine 0.9 % NaCL 400 MCG/100 ML PREMIX 34.02 MCG IV ×3 (02:10→08:22)
[2021-07-10] MEDS: propofol 1,000 MG/100 ML INJ 27.22 MG IV ×2 (02:57→07:04)
[2021-07-10] MEDS: ipratropium-albuterol 3 mL Neb INHALATION ×2 (03:50→08:11)
[2021-07-10 04:14] LABS: Basophils % 0.5 %; Eosinophils # 0.1 10^3/uL (0.0-0.8); Hematocrit 33.3 % (42.0-52.0); Mean Corpuscular Hemoglobin 34.5 pg (28.0-34.0); Mean Corpuscular Volume 104.4 fl (80-94); Monocytes # 0.3 10^3/uL (0.2-0.9); Monocytes % 5.3 %; Neutrophils # 4.39 10^3/uL (1.8-7.7); Neutrophils % 74.7 %; Nucleated Red Blood Cells % 0 %; Platelet Count 146 10^3/cmm (130-400); Red Blood Count 3.19 10^6/uL (4.1-5.3); Red Cell Distribution Width 13.8 % (12.1-15.1); White Blood Count 5.9 10^3/uL (4.0-10.0)
[2021-07-10 04:29] LABS: Alanine Aminotransferase 28 U/L (0-41); Albumin Level 2.1 g/dL (3.5-5.2); Alkaline Phosphatase 66 IU/L (40-130); Anion Gap 14.5 (5-19); Aspartate Amino Transferase 43 U/L (0-40); Blood Urea Nitrogen 15 mg/dL (8-23); Calcium 8.3 mg/dL (8.5-10.5); Carbon Dioxide 25 mmol/L (22-29); Chloride 100 mmol/L (98-107); Globulin 4.7 g/dL (1.3-4.6); Glomerular Filtration Rate 113.5 mL/min (90-130); Glucose 165 mg/dL (65-115); Magnesium 2.2 mg/dL (1.7-2.3); Osmolality Calculated 287 mOsm/kg (285-295); Potassium 3.5 mmol/L (3.5-5.1); Sodium 136 mmol/L (136-145); Total Bilirubin 0.9 mg/dL (0.15-1.2); Total Protein 6.8 g/dL (6.6-8.7)
[2021-07-10] MEDS: vancomycin 1,250 MG/250 ML PIGGYBACK 250 MG IV (04:34)
[2021-07-10 05:02] LABS: Slide Review Slide Review Perform
--- NOTE | 2021-07-10 05:20 | PM.PN ---
Subjective Subjective: 65 yo wm who is POD #4 s/p tracheotomy for respiratory failure with prolonged intubation - he is doing well from the standpoint of his tracheotomy. There are no c/o from nursing. Medications: Reviewed: Yes Vitals/I&O/Wt Last Vital Signs Temp 100 F H 07/10/21 04:40 Pulse 109 H 07/10/21 04:15 Resp 28 H 07/10/21 03:50 BP 95/61 07/10/21 04:15 Pulse Ox 87 L 07/10/21 04:15 07/09/21 07/09/21 07/10/21 14:59 22:59 06:59 Intake Total 1312.208 / 9212.066 5311.090 / 2468.298 843.139 / 3311.437 Output Total 2700 / 2700 Balance 1312.208 / 1312.208 -1543.910 / -231.702 843.139 / 611.437 Weight last 48 hrs Weight 111.493 kg Physical Exam Const: COMMON NORMALS: no acute distress EXAM LIMITATIONS: other limitations (Sedated) GENERAL APPEARANCE: patient mechanically ventilated HENMT: COMMON NORMALS: normocephalic, hearing grossly normal bilaterally and Normal external nose present HEAD & SCALP: normocephalic FACE & SINUS: normal facial exam NOSE: Normal external nose present Neck/C-Spine: COMMON NORMALS: no lymphadenopathy GENERAL: Yes tracheostomy present (No erythema, induration, or discharge.) Lymph: LYMPHATIC: no lymphadenopathy noted Chest: COMMONS NORMALS: normal inspection of the chest Urinary Catheter Management: Monterroso: Cath Placed During This Visit: yes Reason for Continuing Indwelling Catheter: Accurate Measurement of Urinary Output in Critically Ill Patients Urinary Catheter Date of Insertion: 06/27/21 Urinary Catheter Time of Insertion: 11:45 Data : 07/10/21 04:00 07/10/21 04:00 Micro: Microbiology 07/08/21 17:10 Blood Culture - Preliminary Blood NEGATIVE TO DATE 07/08/21 17:00 Blood Culture - Preliminary Blood NEGATIVE TO DATE 07/08/21 17:00 Gram Stain - Final Sputum - Endotracheal Tube Aspirate A&P Assessment and plan (1) Acute and chronic respiratory failure with hypoxia: Impression: POD #1 s/p tracheotomy doing well from this standpoint Plan: - Continue trach care - Anticipate first trach change tomorrow - Please notify Dr. Finch for any tracheotomy problems Status: Acute Attestations Medical Necessity Statement*: I was consulted to assist in airway management. Procedures Arterial Line Size (Gauge): 20 Coding Level of Care Code Acute Dispatcher Ship Pilot for Chg Fwd Diagnoses Acute and chronic respiratory failure with hypoxia J96.21
[2021-07-10 05:46] LABS: Base Excess ABG 2.2 mmol/L (-2.0-2.0); Blood Gas Operator Identificat JB; Blood Gas Sample Type Arterial; Oxygen Device VENT
[2021-07-10 06:06] LABS: ABG PCO2 41.1 mmHg (35-45); ABG PH Result 7.42 (7.35-7.45); Arterial Blood Gas Hematocrit 33.2 % (42-52); Blood Gas Allen Test Pos; Blood Gas Sample Site Radial, right; HCO3 ABG 26.8 mmol/L (22-26); PO2 ABG 52.8 mmHg (80.0-100.0)
[2021-07-10] MEDS: budesonide 0.5 mg/2 mL Neb INHALATION (08:11)
[2021-07-10 08:18] LABS: Glucose Point of Care 194 mg/dL (70-110)
[2021-07-10] MEDS: pantoprazole 40 mg SDV IVP (08:21)
[2021-07-10] MEDS: ascorbic acid 500 mg Tablet PO (08:21)
[2021-07-10] MEDS: zinc gluconate 50 mg Tablet PO (08:21)
[2021-07-10] MEDS: tamsulosin 0.4 mg Capsule PO (08:21)
[2021-07-10] MEDS: enoxaparin 80 mg/0.8 mL Syringe SUBCUT (08:21)
[2021-07-10] MEDS: docusate sodium 10 mg/mL (5ml) Liq 100 MG PEG-TUBE (08:25)
[2021-07-10] MEDS: insulin lispro 100 unit/1 mL SUBCUT (08:26)
--- NOTE | 2021-07-10 09:00 | PC.NURSE ---
pt family here talked with doctor to make pt comfort care,, Dr Greenwood here allow time with family
--- NOTE | 2021-07-10 11:30 | PC.NURSE ---
respritory here and discontected from vent and medications...
--- NOTE | 2021-07-10 11:51 | PM.DDS ---
Discharge Providers DDS Date of Admission: 06/22/21 16:08 Date Summary Completed: 07/10/21 Attending Provider at Admission: Dre Wolfe MD Attending Provider at Discharge: Dre Wolfe MD Primary Care Provider: DO BLAIR Gaming Diagnoses Hospital Diagnoses (1) Acute and chronic respiratory failure with hypoxia: Reason for Visit Reason for Visit trouble breathing, cov + Summary Summary Summary: Patient has stage IV non-small cell lung cancer, he recently moved from [facility] about 6 to 8 months ago, contracted COVID-19 and was admitted to the hospital on 06/22, his hypoxia worsened he was transitioned to heated high flow, BiPAP and then he was intubated on 06/28, he did 3 proning cycles which improved his hypoxia, he failed 3 weaning trials, status post trach and PEG 2/7 CRP worsening, febrile episodes noted, escalated antimicrobials, he was kept on therapeutic regimen of Lovenox however no PE or signs of DVT, after finishing proning sessions he was started on tube feeds, he required lactulose to move his bowels, he was diagnosed with ventilator associated pneumonia with Klebsiella and MRSA, his oxygen requirement worsened and FiO2 requirement went up to 100% and his O2 saturation dropped despite being 100% FiO2. was explained because of fibrosis of lung he is not having good exchange of oxygen displaying FiO2 100%. On 07/10 he was made hospice care and after family discussion patient was terminally extubated. In the family meeting son, [id number] and the were present. Nurse & ICU RT updated. Patient at 1215 Additional Data Advance directives?: No Discharge Plan Discharge Patient Disposition: Home Condition: Stable Prescriptions: No Action omeprazole 40 mg capsule,delayed release(DR/EC) 40 mg PO QAM 0RF hydrochlorothiazide 25 mg tablet 25 mg PO DAILY 0RF azithromycin 250 mg tablet 250 mg PO .MON,WED,FRI 0RF ascorbic acid (vitamin C) 1,000 mg tablet 1 g PO DAILY 0RF coenzyme Q10 100 mg capsule 100 mg PO DAILY 0RF multivitamin Tablet 1 tab PO DAILY 0RF elderberry 1 tab PO DAILY PRN (Reason: unknown) 0RF albuterol sulfate 90 mcg/actuation aerosol powdr breath activated 2 inh inhalation Q4H PRN (Reason: SOB) Qty: 1 5RF Rx Instructions: 340 B budesonide-formoterol [Symbicort] 160-4.5 mcg/actuation HFA aerosol inhaler 2 puff inhalation Q12H Qty: 10.2 5RF Rx Instructions: 340 B metformin 500 mg tablet extended release 24 hr 500 mg PO DAILY 30 Days Qty: 30 0RF tamsulosin 0.4 mg capsule 0.4 mg PO DAILY 90 Days Qty: 90 0RF meloxicam [Mobic] 15 mg tablet 15 mg PO DAILY 90 Days Qty: 90 0RF ezetimibe [Zetia] 10 mg tablet 10 mg PO DAILY 90 Days Qty: 90 0RF amoxicillin 500 mg capsule 500 mg PO TID 0RF prednisone 20 mg tablet 20 mg PO BID 0RF metoprolol tartrate 25 mg tablet 25 mg PO QAM 0RF Vitamin D3 1 cap PO DAILY 0RF Referrals: Micaela Lara DO [Primary Care Provider] - Patient Instructions: GI Discharge Instructions, Opioid Safety DS Attestations Time Spent in /Discharge Care*: less than 30 min Quality - AMI: AMI present?: No Quality - Stroke: CVA present?: No Quality - VTE: VTE present?: No Coding Level of Care Code Acute Daytime Caregiver for [facility] Diagnoses Acute and chronic respiratory failure with hypoxia J96.21
--- NOTE | 2021-07-10 12:00 | PC.NURSE ---
asystole with no respiratory effort family aware MTS notified prior and not candidate
--- NOTE | 2021-07-10 13:17 | PC.NURSE ---
body [place] [facility] [place]
== END 2021-07-10 13:21 | disposition expired | DRG 4 ==
LOC: ER 17:08 → MEDSURG 19:42 → ICU 06-26 03:02
PROVIDERS: Internal Medicine; Internal Medicine Pulmonary Disease; Nurse Practitioner Family; Specialist; Surgery; Admitting Provider Internal Medicine; Emergency Provider Family Medicine; PCP Family Medicine; Visit Provider Internal Medicine
PROC: 0DJ08ZZ Inspection of Upper Intestinal Tract, Via Natural or Artificial Opening Endoscopic (ICD-10-PCS; CPT 43235; principal; 2021-07-06 11:45)
PROC: 0DH63UZ Insertion of Feeding Device into Stomach, Percutaneous Approach (ICD-10-PCS; CPT 43246; 2021-07-06 11:45)
PROC: 0B110F4 Bypass Trachea to Cutaneous with Tracheostomy Device, Open Approach (ICD-10-PCS; principal; 2021-07-06 17:30)
DX: U07.1 COVID-19 (principal); J12.82 Pneumonia due to coronavirus disease 2019; J96.21 Acute and chronic respiratory failure with hypoxia; I50.40 Unspecified combined systolic (congestive) and diastolic (congestive) heart failure; C34.92 Malignant neoplasm of unspecified part of left bronchus or lung; C77.8 Secondary and unspecified malignant neoplasm of lymph nodes of multiple regions; C79.70 Secondary malignant neoplasm of unspecified adrenal gland; C79.51 Secondary malignant neoplasm of bone; M62.82 Rhabdomyolysis; J95.851 Ventilator associated pneumonia; I25.10 Atherosclerotic heart disease of native coronary artery without angina pectoris; Z95.5 Presence of coronary angioplasty implant and graft; Z95.1 Presence of aortocoronary bypass graft; Z86.73 Personal history of transient ischemic attack (TIA), and cerebral infarction without residual deficits; I11.0 Hypertensive heart disease with heart failure; K21.9 Gastro-esophageal reflux disease without esophagitis; E66.9 Obesity, unspecified; Z68.32 Body mass index [BMI] 32.0-32.9, adult; E87.6 Hypokalemia; Z99.81 Dependence on supplemental oxygen; K43.9 Ventral hernia without obstruction or gangrene; N40.1 Benign prostatic hyperplasia with lower urinary tract symptoms; R35.1 Nocturia; D70.2 Other drug-induced agranulocytosis; T50.995A Adverse effect of other drugs, medicaments and biological substances, initial encounter; J84.10 Pulmonary fibrosis, unspecified; T38.0X5A Adverse effect of glucocorticoids and synthetic analogues, initial encounter; G89.3 Neoplasm related pain (acute) (chronic); Z92.25 Personal history of immunosuppression therapy; Z87.891 Personal history of nicotine dependence; Z90.49 Acquired absence of other specified parts of digestive tract; Z66 Do not resuscitate; Z92.3 Personal history of irradiation; K59.00 Constipation, unspecified; B96.1 Klebsiella pneumoniae [K. pneumoniae] as the cause of diseases classified elsewhere; B95.62 Methicillin resistant Staphylococcus aureus infection as the cause of diseases classified elsewhere; R63.30 Feeding difficulties, unspecified; R06.82 Tachypnea, not elsewhere classified; B96.5 Pseudomonas (aeruginosa) (mallei) (pseudomallei) as the cause of diseases classified elsewhere; Z51.5 Encounter for palliative care
CPT/HCPCS: 12345; 36415; 36416; 36556; 36569; 36600; 36620; 43246; 51702; 71045; 71275; 74018; 76937; 80048; 80051; 80053; 80202; 81001; 81003; 82330; 82550; 82803; 82805; 82962; 83615; 83735; 83880; 84100; 84145; 84478; 85025; 85378; 85610; 86140; 87040; 87070; 87077; 87086; 87186; 87205; 87641; 93005; 93306; 93970; 94002; 94003; 94640; 94660; 94664; 94799; 96365; 96372; 96375; 99283; 99285; A4570; C1751; C9113; J0696; J0743; J1100; J1650; J1815; J1885; J1940; J1956; J2250; J2270; J2370; J2543; J2704; J2765; J3010; J3370; J3490; J7030; J7050; J7626; Q9967